=== PATIENT | female | born 1990 | race Caucasian/White ===

== ENCOUNTER 2024-05-20 13:24 | Outpatient (REF) | payer MEDICAID, SELFPAY ==
[2024-05-20 13:45] LABS: Bilirubin Urine NEGATIVE (NEGATIVE); Blood Urine NEGATIVE (NEGATIVE); Clarity Urine CLEAR (CLEAR); Color Urine LT. YELLOW (YELLOW); Glucose Urine UA NEGATIVE (NEGATIVE); Ketones Urine NEGATIVE (NEGATIVE); Leukocyte Esterase Urine NEGATIVE (NEGATIVE); Nitrite Urine NEGATIVE (NEGATIVE); Protein Urine NEGATIVE (NEG/TRACE); Specific Gravity Urine <=1.005 (1.005-1.025); Urobilinogen Urine 0.2 EU/dL (0.2-1.0); pH Urine 6.5 (5.0-9.0)
[2024-05-20 13:46] LABS: Urine Microscopic Indicated NO
== END 2024-05-20 13:25 | disposition home or self-care (01) ==
LOC: LAB 13:24
PROVIDERS: PCP Family Medicine; Visit Provider Family Medicine
DX: R35.0 Frequency of micturition (principal)
CPT/HCPCS: 81003

== ENCOUNTER 2025-05-02 06:55 | Outpatient (OUT) | payer MEDICAID, SELFPAY ==
--- OUTSIDE RECORDS SUMMARY | 2025-05-02 06:58 | XMS_ITS | CCD ---
Author Organization [facility] Care Team Providers Care Secondary Special Education Teacher Name Role Phone Unavailable Primary Care Provider UnavailSoraya Jang MD Primary Care Provider No Family, Physician Primary Care Unavailable ENOC MOSES Attending Unavailable DO DONTE TAVERAS Admitting Unavailable BRIGITTE SILVER Consulting UnavailSORAYA [place] Primary Care Unava ilable CECI PICKETT Attending Unavailable MICHELLE HARTMANN Consulting Unavailable No Family, Physician Primary Care Unavailable BRIGITTE SILVER Consulting Unavaila KEYUR Nguyen Attending Unavailable No Family, Physician Primary Care Unavailable KEYUR MAX Attending Unavailable No Family, Physician Primary Care Unavailable SHAGUFTA COOPER Attending Unavailable DO Db Newell Emergency Provider MD Meg Sexton (OTT) Primary Care Provider MD Isidro Barton Admit Provider [phone] MD Isidro Barton Attending Provider [phone] MD Kendrick Specialist Neuro Other Provider Unavailable MD Rayo Goode Severe Other Provider MD Julieta Lee Attending Provider Julieta Lee Attending Unavailable Isidro Barton Admitting Unavailable Meg Sexton ([place]) Primary Care Rayo Gonzalez Consulting Unavailable TeleMedicine, Specialist Neuro Consulting U navailable Allergies Allergy Classification Reported Allergen(s) Allergy Type Date of Onset Reaction(s) Facility (4 sources) -No Environmental Allergies Allergy to substance 12-08-2023 [facility] Medications Current Medications Medication Drug Class(es) Dates Sig (Normalized) Sig (Original) acetaminophen 325 mg oral tablet (3 sources) Start: 04-26-20 24 take 650 mg by mouth every eight hours as needed Acetaminophen Active 650 MG PO Every 8 hr as needed April 26, 2024 12:00am citalopram 20 mg oral tablet (4 sources) Serotonin Reuptake Inhibitor take 1 tablet by mouth once daily citalopram (CELEXA) 20 MG tablet Take 20 mg by mouth daily. 0 Active clonazePAM 0.5 mg oral tablet (4 sources) Benzodiazepine take 0.25 mg by mouth twice daily as needed for anxiety dicyclomine hydrochloride 10 mg oral capsule (4 sources) Anticholinergic Start: 01-09-20 15 take 2 capsules by mouth four times daily before mealtime dicyclomine (BENTYL) 10 MG capsule Take 2 capsules by mouth 4 times daily (before meals and nightly). 40 capsule 0 01/09/2015 Active dilTIAZem hydrochloride 60 mg oral tablet (2 sources) Calcium Channel Lanny Start: 05-01-20 24 take 60 mg by mouth every eight hours Diltiazem Hcl Active 60 MG PO Q8H 90 May 01, 2024 12:00am 1 ml medroxyPROGESTERone acetate 150 mg/ml prefilled syringe (3 sources) Progestin Start: 04-26-20 24 Medroxyprogesterone Active 150 MG IM Q3M April 26, 2024 12:00am melatonin 3 mg oral tablet (3 sources) Start: 04-26-20 24 take 6 mg by mouth once daily in the evening Melatonin Active 6 MG PO Daily in the evening April 26, 2024 12:00am ondansetron 4 mg disintegrating oral tablet (4 sources) Serotonin-3 Receptor Antagonist Start: 01-09-20 15 take 1 tablet by mouth every eight hours as needed for nausea ondansetron (ZOFRAN ODT) 4 MG disintegrating tablet Take 1 tablet by mouth every 8 hours as needed for Nausea or Vomiting. 20 tablet 0 01/09/2015 Active polymyxin b 67088 unt/ml / trimethoprim 1 mg/ml ophthalmic solution (3 sources) Dihydrofolate Reductase Inhibitor Antibacterial, Polymyxin-class Antibacterial Start: 04-26-20 24 take 1 drop(s) into the eye(s) four times daily Polymyxin B Sulf-Trimethoprim Active 1 DROP EYE,BOTH Four Times Daily April 26, 2024 12:00am QUEtiapine 25 mg oral tablet (3 sources) Atypical Antipsychotic Start: 05-01-20 take 50 mg by mouth twice daily Quetiapine Active 50 MG PO Twice Daily 120 May 01, 2024 12:00am Start: 04-26-2024 take 12.5 mg by mout h twice daily Quetiapine Active 12.5 MG PO Twice Daily April 26, 2024 12:00am traZODone hydrochloride 50 mg oral tablet (4 sources) Serotonin Reuptake Inhibitor take 1 tablet by mouth twice daily as needed for sleep traZODone (DESYREL) 50 MG tablet Take 50 mg by mouth 2 times daily as needed for Sleep. 0 Active Completed/Discontinued Medications Medication Drug Class(es) Dates Sig (Normalized) Sig (Original) 1 ml ketorolac tromethamine 30 mg/ml cartridge (1 source) Nonsteroidal Anti-inflammatory Drug, Cyclooxygenase Inhibitor Start: 10-30-2023 End: 10-30-2023 ketorolac (TORADOL) injection 30 mg 1 ml LORazepam 2 mg/ml injection (1 source) Benzodiazepine Start: 11-01-2023 End: 11-01-2023 LORazepam (ATIVAN) injection 1 mg Start: 11-01-2023 End: 11-01-2023 LORazepam (ATIVAN) injection 1 mg raNITIdine 150 mg oral tablet (4 sources) Histamine-2 Receptor Antagonist Start: 09-10-2008 End: 10-13-2020 Zantac 150 MG OR TABS 09/10/2008 - 10/13/2020 Provider: [place] Provider Problems Active Problems Problem Classification Problem Date Documented Date Episodic/Chronic Anxiety disorders (12 sources) Generalized anxiety disorder; Translations: [Generalized anxiety disorder] Onset: 12-08-2023 12-08-2023 Chronic Attention-deficit, conduct, and disruptive behavior disorders (1 source) Aggressive behavior; Translations: [Other symptoms and signs involving appearance and behavior] Episodic Cardiac dysrhythmias (2 sources) Sinus tachycardia; Translations: [Tachycardia, unspecified] 04-27-2024 Episodic Developmental disorders (3 sources) Intellectual disability; Translations: [Unspecified intellectual disabilities] Onset: 11-01-2023 Chronic Disorders usually diagnosed in infancy, childhood, or adolescence (12 sources) Pervasive developmental disorder, unspecified; Translations: [Pervasive Developmental Disorder] Onset: 12-08-2023 12-08-2023 Chronic E Codes: Fall (1 source) Fall on same level; Translations: [Fall on same level, unspecified, initial encounter] Episodic Fluid and electrolyte disorders (2 sources) Hyponatremia; Translations: [Hypo-osmolality and hyponatremia] Onset: 10-30-2023 10-30-2023 Episodic Mood disorders (13 sources) Mood disorder; Translations: [Unspecified mood [affective] disorder] Onset: 12-08-2023 Chronic Nutritional deficiencies (1 source) Cachexia; Translations: [Cachexia] Onset: 12-26-2023 Episodic Other nervous system disorders (2 sources) Disorder of brain; Translations: [Encephalopathy, unspecified] 04-27-2024 Chronic Other nervous system disorders (3 sources) Encephalopathy, unspecified; Translations: [Encephalopathy, unspecified] 04-27-2024 Chronic Other nutritional; endocrine; and metabolic disorders (6 sources) Finding of body mass index; Translations: [Body mass index (observable entity)] Onset: 12-08-2023 Episodic Other nutritional; endocrine; and metabolic disorders (2 sources) Abnormal weight loss; Translations: [Abnormal weight loss] Onset: 12-26-2023 12-26-2023 Episodic Other nutritional; endocrine; and metabolic disorders (3 sources) Unspecified lack of expected normal physiological development in childhood; Translations: [Lack of normal physiological development, unspecified] Onset: 12-28-2023 05-01-2024 Episodic Other nutritional; endocrine; and metabolic disorders (2 sources) Developmental delay; Translations: [Unspecified lack of expected normal physiological development in childhood] 04-28-2024 Episodic Other screening for suspected conditions (not mental disorders or infectious disease) (4 sources) Encounter for screening for diabetes mellitus; Translations: [Diabetes Risk Test Score] Onset: 12-08-2023 Episodic Personality disorders (2 sources) Problem behavior in adult; 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] Onset: 11-01-2023 11-02-2023 Chronic Residual codes; unclassified (2 sources) Other specified personal risk factors, not elsewhere classified; Translations: [Other specified personal history presenting hazards to health] Onset: 10-30-2023 10-30-2023 Episodic Residual codes; unclassified (1 source) Other specified health status; Translations: [Other specified health status] Onset: 12-27-2023 Episodic Past or Other Problems Problem Classification Problem Date Documented Da te Episodic/Chronic Attention-deficit, conduct, and disruptive behavior disorders (1 source) Other symptoms and signs involving appearance and behavior; Translations: [Other symptoms and signs involving appearance and behavior] Onset: 10-19-2023 Episodic Results Test Name Value Interpretation Reference Range Facility Case Management Daily Noteon 05-02-2024 Case Management Daily Note [facility] Case Management Patient: CINDY STACY. : 1990 [place], [place] [address] Location: [phone] Unit #: [id number] Case Management Daily Note Brenda Garcia RN Service Date: 05/01/24 Case Mgmt Daily Note - Plan of Care Engraving Patternmaker Agrees with Attending and Consult Plan: Yes - Patient Preferences AND Goals What is the patient's preference?: Return to SNF Recommended acute discharge goals: Return to SNF - Hospital Stay Days Day 1 Comment: 04/27 Patient is from [facility] and is a LTR. CM spoke with patients guardian Christal who reports the plan is for patient to return to [facility] at d/c. Christal reporting patient is normally independent with ambulation, ADLs, and that [facility] Se[facility]. Contact is yenny Siegel. c/s. 1:1 sitter present at bedside. Engraving Patternmaker: Brenda Garcia, RN Day 4 Comment: 04/30 Patient resting in bed during CM rounds. 1:[address] Goode consulted to see patient. Patients d/c plan is to return to [facility]. Per her guardian, they are currently working on getting her placed at a [facility]. Engraving Patternmaker: Brenda Garcia, RN Day 5 Comment: 05/01 Patient will return to [facility] when medically ready. No precert needed. Dr Goode saw yesterday, medication adjustments done. GANGA completed. Engraving Patternmaker: Brenda Garcia, RN - Residential Facility SNF List Provided: No - LTR at [facility] Residential Facilities: [facility] Social Work Consult initiated for SNF: Yes Patient Accepted Facility: Yes - Respiratory Equipment Does the patient use/have any of these devices at home?: N/A - Community Services SNF/LTAC Placement: Initiated - * L * Length of Stay LOS (Including day of Admission and Discharge): 5 LOS Score: 4 - * A * Acuity on Admission ER Provider if admitted from ER (view): PHILIPPE Was patient admitted to hospital via Emergency Dept? Score: 3 - * C * Comorbidities Select All Conditions that Apply: No Comorbidity Condition Comorbidities Total Score: 0 - * E * Emergency Department Visits # of ER visits,6mos prior to admit,excl this admits ER visit: 0 Enter this number or 4 (whichever is smaller): 0 - LACE SCORE LACE Score: 7 - ANTICIPATED DISCHARGE Anticipated Discharge Date: 05/01/24 Is a ALLEN Form Required?: No Entered by: Brenda Garcia RN on 05/01/24 0829 Report Signed by: Brenda Garcia RN on 05/02/24 0746 < > Co-Signed by: on Normal [facility] Absolute eosinophil countOrd ered By: Isidro Barton on 05-01-2024 Blood coagulation panel 0 /cmm 0-500 L [facility] Automated absolute lymphocyt e countOrdered By: Isidro Barton on 05-01-2024 Absolute Lymphocytes (auto) 1600 /cmm 5509-1809 [facility] Automated absolute neutrophi l countOrdered By: Isidro israel on 05-01-2024 Absolute Neutrophils (auto) 5800 /cmm 0908-0077 [facility] Basic Metabolic,Non-Fastingo n 05-01-2024 Anion gap [Moles/Vol] 4 mmol/L Normal 4-12 [facility] Comment on above: Performed By: #### L 400.5100, L400.0152 ####Main Laboratory ([facility])[address] [phone] Nivar, MD Calcium [Mass/Vol] 8.70 mg/dL Low 8.8-10.5 [facility] Comment on above: Performed By: #### L 400.5100, L400.0152 ####Main Laboratory ([facility])[address], [place] [phone] Nivar, MD Chloride [Moles/Vol] 110 mmol/L Normal 101-111 [facility] Comment on above: Performed By: #### L 400.5100, L400.0152 ####Main Laboratory ([facility])[address], [place] [phone] Nivar, MD CO2 [Moles/Vol] 27 mmol/L Normal 21-32 [facility] Comment on above: Performed By: #### L 400.5100, L400.0152 ####Main Laboratory ([facility])[address], [place] [phone] Nivar, MD Creatinine [Mass/Vol] 0.81 mg/dL Normal 0.60-1.30 [facility] Comment on above: Performed By: #### L 400.5100, L400.0152 ####Main Laboratory ([facility])[address] [phone] Nivar, MD GFR Calculation > 60 Normal [facility] Comment on above: Result Comment: Tanning Drum Operator nelli Kidney Disease stages by NKDF Stage eGFR I >90 II 60-89 III 30-59 IV 15-29 V <15 or dialysis AGE(years) AVERAGE GFR 30-39 107 ml/min/1.73 square meters Note:This result is normalized to 1.73 square meter body surface area. Height and weight are not factored. Performed By: #### L 400.5100, L400.0152 ####Main Laboratory ([facility])[address] [phone] Nivar, MD Glucose [Mass/Vol] 98 mg/dL Normal 70-110 [facility] Comment on above: Result Comment: *Thi s reference range applies to fasting specimens only. Performed By: #### L 400.5100, L400.0152 ####Main Laboratory ([facility])[address], [place] [phone] Nivar, MD Potassium [Moles/Vol] 4.1 mmol/L Normal 3.6-5.0 [facility] Comment on above: Performed By: #### L 400.5100, L400.0152 ####Main Laboratory ([facility])[address], [place] [phone] Nivar, MD Sodium [Moles/Vol] 141 mmol/L Normal 135-145 [facility] Comment on above: Performed By: #### L 400.5100, L400.0152 ####Main Laboratory ([facility])[address] [place] [phone] Nivar, MD Urea nitrogen [Mass/Vol] 12 mg/dL Normal 7-20 [facility] Comment on above: Performed By: #### L 400.5100, L400.0152 ####Main Laboratory ([facility])[address] [place] [phone] Nivar, MD Basophils Auto (Bld) [#/Vol] Ordered By: Isidro Barton on 05-01-2024 Basophils (Bld) [#/Vol] 100 /cmm 0-200 L [facility] Basophils/100 WBC Auto (Bld) Ordered By: Isidro Barton on 05-01-2024 Basophils/100 WBC (Bld) 0.7 % 0-2 L [facility] Blood anion gapOrdered By: Austin Barton on 05-01-2024 Anion gap (Bld) [Moles/Vol] 4 mmol/L 4-12 [facility] Blood hematocrit (volume fra ction)Ordered By: Isidro Barton on 05-01-2024 Hematocrit (Bld) [Volume fraction] 39.2 % 35.0-44.0 [facility] Blood hemoglobin measurement (mass/volume)Ordered By: Isidro Barton on 05-01-2024 Hemoglobin (Bld) [Mass/Vol] 12.7 g/dL 12.0-15.0 [facility] CBC with Differentialon 04-14 Abs Baso Count 100 /cmm Normal 0-200 [facility] Comment on above: Performed By: #### L 300.3000, L300.7701 #### Main Laboratory ([facility]) [address] [place] [address] Dusty Haro MD Abs Eos Count 0 /cmm Normal 0-500 [facility] Comment on above: Performed By: #### L 300.3000, L300.7701 #### Main Laboratory ([facility]) [address] [place] [address] Dusty Haro MD Abs Lymph Count 1600 /cmm Normal 3972-3085 [facility] Comment on above: Performed By: #### L 300.3000, L300.7701 #### Main Laboratory ([facility]) [address] [place], [facility] Dusty Haro MD Abs Wells Count 600 /cmm Normal 0-800 [facility] Comment on above: Performed By: #### L 300.3000, L300.7701 #### Main Laboratory ([facility]) [address] [place] [address] Dusty Haro MD Abs Neut Count 5800 /cmm Normal 3775-5670 [facility] Comment on above: Performed By: #### L 300.3000, L300.7701 #### Main Laboratory ([facility]) [address] [place] [address] Dusty Haro MD Basophils/100 WBC (Bld) 0.7 % Normal 0-2 L [facility] Comment on above: Performed By: #### L 300.3000, L300.7701 #### Main Laboratory ([facility]) [address] [place] [address] Dusty Haro MD EOS-Auto Diff 0.1 % Normal 0-6 [facility] Comment on above: Performed By: #### L 300.3000, L300.7701 #### Main Laboratory ([facility]) [address] [place], [place] [address] Dusty Haro MD Erythrocyte distribution width (RBC) [Ratio] 15.5 % Normal 12.0-16.0 [facility] Comment on above: Performed By: #### L 300.3000, L300.7701 #### Main Laboratory ([facility]) [address] [place], [place] [address] Dusty Haro MD Hematocrit (Bld) [Volume fraction] 39.2 % Normal 35.0-44.0 [facility] Comment on above: Performed By: #### L 300.3000, L300.7701 #### Main Laboratory ([facility]) [address] [place] [address] Dutsy Haro MD Hemoglobin (Bld) [Mass/Vol] 12.7 g/dL Normal 12.0-15.0 [facility] Comment on above: Performed By: #### L 300.3000, L300.7701 #### Main Laboratory ([facility]) [address] [place], [place] [address] Dusty Haro MD Lymphocytes/100 WBC (Bld) 20.1 % Normal 15-45 [facility] Comment on above: Performed By: #### L 300.3000, L300.7701 #### Main Laboratory ([facility]) [address] [place] [address] Dusty Haro MD MCH (RBC) [Entitic mass] 27.8 pg Normal 27.5-33.0 [facility] Comment on above: Performed By: #### L 300.3000, L300.7701 #### Main Laboratory ([facility]) [address] [place] [address] Dusty Haro MD MCHC (RBC) [Mass/Vol] 32.3 g/dL Low 33.0-36.0 [facility] Comment on above: Performed By: #### L 300.3000, L300.7701 #### Main Laboratory ([facility]) [address] [place], [place] [address] Dusty Haro MD MCV 85.9 CU RK Normal 80-97 [facility] Comment on above: Performed By: #### L 300.3000, L300.7701 #### Main Laboratory ([facility]) [address] [place], [place] [address] Dusty Haro MD Wells- Auto Diff 7.1 % Normal 2-10 [facility] Comment on above: Performed By: #### L 300.3000, L300.7701 #### Main Laboratory ([facility]) [address] [place], [place] [address] Dusty Haro MD Neut-Auto Diff 72.0 % High 40-70 [facility] Comment on above: Performed By: #### L 300.3000, L300.7701 #### Main Laboratory ([facility]) [address] [place], [place] [address] Dusty Haro MD NRBC-Auto 0.0 /100 WBC Normal <1 [facility] Comment on above: Performed By: #### L 300.3000, L300.7701 #### Main Laboratory ([facility]) [address] [place], [facility] Dusty Haro MD Platelet Count 292 th/cmm Normal 150-400 [facility] Comment on above: Performed By: #### L 300.3000, L300.7701 #### Main Laboratory ([facility]) [address] [place], [place] [address] Dusty Haro MD RBC 4.56 mil/cmm Normal 4.00-5.10 [facility] Comment on above: Performed By: #### L 300.3000, L300.7701 #### Main Laboratory ([facility]) [address] [place], [place] [address] Dusty Haro MD WBC 8.0 th/cmm Normal 4.4-10.5 [facility] Comment on above: Performed By: #### L 300.3000, L300.7701 #### Main Laboratory ([facility]) [address] [place] [address] Dusty Haro MD Eosinophils/100 WBC Auto (Bl d)Ordered By: Isidro Barton on 05-01-2024 Eosinophils/100 WBC (Bld) 0.1 % 0-6 [facility] Erythrocyte distribution wid th ratioOrdered By: Isidro Barton on 05-01-2024 Erythrocyte distribution width (RBC) [Ratio] 15.5 % 12.0-16.0 [facility] Glomerular filtration rate ( GFR) estimation/1.73 sq m using serum, plasma, or whole bOrdered By: Isidro Barton on 05-01-2024 GFR/1.73 sq M.predicted (S/P/Bld) [Vol rate/Area] mL/min >60 [facility] Comment on above: AGE(years) AVERAGE G FR 30-39 107 ml/min/1.73 square metersNote:This result is normalized to 1.73 square meter body surface area. Height and weight are not factored.Chronic Kidney Disease stages by NKDFStage eGFR I >90 II 60-89 III 30-59 IV 15-29 V <15 or dialysis Lymphocytes/100 WBC Auto (Bl d)Ordered By: Isidro Barton on 05-01-2024 Lymphocytes/100 WBC (Bld) 20.1 % 15-45 [facility] MCH Auto (RBC) [Entitic mass ]Ordered By: Isidro Barton on 05-01-2024 MCH (RBC) [Entitic mass] 27.8 pg 27.5-33.0 [facility] MCHC Auto (RBC) [Mass/Vol]Or dered By: Isidro Barton on 05-01-2024 MCHC (RBC) [Mass/Vol] 32.3 g/dL Low 33.0-36.0 [facility] MCV Auto (RBC) [Entitic vol] Ordered By: Isidro Barton on 05-01-2024 MCV (RBC) [Entitic vol] 85.9 CU RK 80-97 [facility] Magnesiumon 05-01-2024 Magnesium [Mass/Vol] 1.9 mg/dL Normal 1.8-2.5 [facility] Comment on above: Performed By: #### L 400.5100, L400.0152 ####Main Laboratory ([facility])[address] [place], [place] [phone] Nivar, MD Monocytes Auto (Bld) [#/Vol] Ordered By: Isidro Barton on 05-01-2024 Monocytes (Bld) [#/Vol] 600 /cmm 0-800 L [facility] Monocytes/100 WBC Auto (Bld) Ordered By: Isidro Barton on 05-01-2024 Monocytes/100 WBC (Bld) 7.1 % 2-10 L [facility] Neutrophils/100 WBC Auto (Bl d)Ordered By: Isidro Barton on 05-01-2024 Neutrophils/100 WBC (Bld) 72.0 % High 40-70 [facility] Nucleated RBC Auto (Bld) [#/ Vol]Ordered By: Isidro Barton on 05-01-2024 Nucleated RBC (Bld) [#/Vol] 0.0 /100 WBC <1 [facility] Platelets Auto (Bld) [#/Vol] Ordered By: Isidro Barton on 05-01-2024 Platelets (Bld) [#/Vol] 292 th/cmm 150-400 L [facility] RBC Auto (Bld) [#/Vol]Ordere d By: Isidro Barton on 05-01-2024 RBC (Bld) [#/Vol] 4.56 mil/cmm 4.00-5.10 [facility] Serum or plasma calcium guillermina urement (mass/volume)Ordered By: Isidro Barton on 05-01-2024 Calcium [Mass/Vol] 8.70 mg/dL Low 8.8-10.5 [facility] Serum or plasma chloride margy surement (moles/volume)Ordered By: Isidro Barton on 05-01-2024 Chloride [Moles/Vol] 110 mmol/L 101-111 [facility] Serum or plasma creatinine m easurement (mass/volume)Ordered By: Isidro Barton on 05-01-2024 Creatinine [Mass/Vol] 0.81 mg/dL 0.60-1.30 [facility] Serum or plasma glucose guillermina urement (mass/volume)Ordered By: Isidro Barton on 05-01-2024 Glucose [Mass/Vol] 98 mg/dL 70-110 [facility] Comment on above: *This reference rang e applies to fasting specimens only. Serum or plasma magnesium me asurement (mass/volume)Ordered By: Isidro Barton on 05-01-2024 Magnesium [Mass/Vol] 1.9 mg/dL 1.8-2.5 [facility] Serum or plasma potassium me asurement (moles/volume)Ordered By: Isidro Barton on 05-01-2024 Potassium [Moles/Vol] 4.1 mmol/L 3.6-5.0 [facility] Serum or plasma sodium measu rement (moles/volume)Ordered By: Isidro Barton on 05-01-2024 Sodium [Moles/Vol] 141 mmol/L 135-145 [facility] Serum or plasma total carbon dioxide measurement (moles/volume)Ordered By: Isidro Barton on 05-01-2024 CO2 [Moles/Vol] 27 mmol/L 21-32 [facility] Serum or plasma urea nitroge n measurement (mass/volume)Ordered By: Isidro Barton on 05-01-2024 Urea nitrogen [Mass/Vol] 12 mg/dL 7-20 [facility] WBC Auto (Bld) [#/Vol]Ordere d By: Isidro Barton on 05-01-2024 WBC (Bld) [#/Vol] 8.0 th/cmm 4.4-10.5 [facility] Basic Metabolic,Non-Fastingo n 04-30-2024 Anion gap [Moles/Vol] 9 mmol/L Normal 4-12 [facility] [facility] Comment on above: Performed By: #### L 300.3000, L300.7701 #### Main Laboratory ([facility]) [address] [place] [address] Dusty Haro MD Calcium [Mass/Vol] 9.50 mg/dL Normal 8.8-10.5 [facility] Comment on above: Performed By: #### L 300.3000, L300.7701 #### Main Laboratory ([facility]) [address] [place] [address] Dusty Haro MD Chloride [Moles/Vol] 106 mmol/L Normal 101-111 [facility] Comment on above: Performed By: #### L 300.3000, L300.7701 #### Main Laboratory ([facility]) [address] [place] [address] Dusty Haro MD CO2 [Moles/Vol] 22 mmol/L Normal 21-32 [facility] Comment on above: Performed By: #### L 300.3000, L300.7701 #### Main Laboratory ([facility]) [address] [place] [address] Dusty Haro MD Creatinine [Mass/Vol] 0.92 mg/dL Normal 0.60-1.30 [facility] Comment on above: Performed By: #### L 300.3000, L300.7701 #### Main Laboratory ([facility]) [address] [place] [address] Dusty Haro MD GFR Calculation > 60 Normal [facility] Comment on above: Result Comment: Tanning Drum Operator nelli Kidney Disease stages by NKDF Stage eGFR I >90 II 60-89 III 30-59 IV 15-29 V <15 or dialysis AGE(years) AVERAGE GFR 30-39 107 ml/min/1.73 square meters Note:This result is normalized to 1.73 square meter body surface area. Height and weight are not factored. Performed By: #### L 300.3000, L300.7701 #### Main Laboratory ([facility]) [address] [place] [address] Dusty Haro MD Glucose [Mass/Vol] 149 mg/dL High 70-110 [facility] Comment on above: Performed By: #### L 300.3000, L300.7701 #### Main Laboratory ([facility]) [address] [place] [address] Dusty Haro MD Potassium [Moles/Vol] 3.1 mmol/L Low 3.6-5.0 [facility] Comment on above: Performed By: #### L 300.3000, L300.7701 #### Main Laboratory ([facility]) [address] [place] [address] Dusty Haro MD Sodium [Moles/Vol] 137 mmol/L Normal 135-145 [facility] Comment on above: Performed By: #### L 300.3000, L300.7701 #### Main Laboratory ([facility]) [address] [place] [address] Dusty Haro MD Urea nitrogen [Mass/Vol] 19 mg/dL Normal 7-20 [facility] Comment on above: Performed By: #### L 300.3000, L300.7701 #### Main Laboratory ([facility]) [address] [place] [address] Dusty Haro MD CBC with Differentialon 04-14 Abs Baso Count 100 /cmm Normal 0-200 [facility] Comment on above: Performed By: #### L 300.3000, L300.7701 #### Main Laboratory ([facility]) [address] [place], [place] [address] Dusty Haro MD Abs Eos Count 0 /cmm Normal 0-500 [facility] Comment on above: Performed By: #### L 300.3000, L300.7701 #### Main Laboratory ([facility]) [address] [place] [address] Dusty Haro MD Abs Lymph Count 1500 /cmm Normal 8954-0890 [facility] Comment on above: Performed By: #### L 300.3000, L300.7701 #### Main Laboratory ([facility]) [address] [place], [facility] Dusty Haro MD Abs Wells Count 900 /cmm High 0-800 [facility] Comment on above: Performed By: #### L 300.3000, L300.7701 #### Main Laboratory ([facility]) [address] [place], [facility] Dusty Haro MD Abs Neut Count 07626 /cmm High 4618-2345 [facility] Comment on above: Performed By: #### L 300.3000, L300.7701 #### Main Laboratory ([facility]) [address] [place], [place] [address] Dusty Haro MD Basophils/100 WBC (Bld) 0.5 % Normal 0-2 L [facility] Comment on above: Performed By: #### L 300.3000, L300.7701 #### Main Laboratory ([facility]) [address] [place], [facility] Dusty Haro MD EOS-Auto Diff 0.0 % Normal 0-6 [facility] Comment on above: Performed By: #### L 300.3000, L300.7701 #### Main Laboratory ([facility]) [address] [place], [facility] Dusty Haro MD Erythrocyte distribution width (RBC) [Ratio] 15.7 % Normal 12.0-16.0 [facility] Comment on above: Performed By: #### L 300.3000, L300.7701 #### Main Laboratory ([facility]) [address] [place], [facility] Dusty Haro MD Hematocrit (Bld) [Volume fraction] 41.6 % Normal 35.0-44.0 [facility] Comment on above: Performed By: #### L 300.3000, L300.7701 #### Main Laboratory ([facility]) [address] [place], [place] [address] Dusty Haro MD Hemoglobin (Bld) [Mass/Vol] 13.8 g/dL Normal 12.0-15.0 [facility] Comment on above: Performed By: #### L 300.3000, L300.7701 #### Main Laboratory ([facility]) [address] [place] [address] Dusty Haro MD Lymphocytes/100 WBC (Bld) 10.6 % Low 15-45 [facility] Comment on above: Performed By: #### L 300.3000, L300.7701 #### Main Laboratory ([facility]) [address] [place], [facility] Dusty Haro MD MCH (RBC) [Entitic mass] 28.0 pg Normal 27.5-33.0 [facility] Comment on above: Performed By: #### L 300.3000, L300.7701 #### Main Laboratory ([facility]) [address] [place], [place] [address] Dusty Haro MD MCHC (RBC) [Mass/Vol] 33.2 g/dL Normal 33.0-36.0 [facility] Comment on above: Performed By: #### L 300.3000, L300.7701 #### Main Laboratory ([facility]) [address] [place], [facility] Dusty Haro MD MCV 84.4 CU RK Normal 80-97 [facility] Comment on above: Performed By: #### L 300.3000, L300.7701 #### Main Laboratory ([facility]) [address] [place], [facility] Dusty Haro MD Wells- Auto Diff 6.3 % Normal 2-10 [facility] Comment on above: Performed By: #### L 300.3000, L300.7701 #### Main Laboratory ([facility]) [address] [place] [address] Dusty Haro MD Neut-Auto Diff 82.6 % High 40-70 [facility] Comment on above: Performed By: #### L 300.3000, L300.7701 #### Main Laboratory ([facility]) [address] [place] [address] Dusty Haro MD NRBC-Auto 0.1 /100 WBC Normal <1 [facility] Comment on above: Performed By: #### L 300.3000, L300.7701 #### Main Laboratory ([facility]) [address] [place] [address] Dusty Haro MD Platelet Count 400 th/cmm Normal 150-400 [facility] Comment on above: Performed By: #### L 300.3000, L300.7701 #### Main Laboratory ([facility]) [address] [place] [address] Dusty Haro MD RBC 4.93 mil/cmm Normal 4.00-5.10 [facility] Comment on above: Performed By: #### L 300.3000, L300.7701 #### Main Laboratory ([facility]) [address] [place] [address] Dusty Haro MD WBC 13.8 th/cmm High 4.4-10.5 [facility] Comment on above: Performed By: #### L 300.3000, L300.7701 #### Main Laboratory ([facility]) [address] [place] [address] Dusty Haro MD Case Management Daily Noteon 04-30-2024 Case Management Daily Note [facility] Case Management Patient: CINDY STACY [address] : 1990 [place] [address] Location: [address] [place] [address] Unit #: [id number] Case Management Daily Note Brenda Garcia RN Service Date: 04/30/24 Case Mgmt Daily Note - Plan of Care Engraving Patternmaker Agrees with Attending and Consult Plan: Yes - Patient Preferences AND Goals What is the patient's preference?: Return to SNF Recommended acute discharge goals: Return to SNF - Hospital Stay Days Day 1 Comment: 04/27 Patient is from [facility] and is a LTR. CM spoke with patients guardian Christal who reports the plan is for patient to return to [facility] at d/c. Christal reporting patient is normally independent with ambulation, ADLs, and that [facility] provides transportation for her to [facility]. PCP Meg Sexton. Contact is guardian Christal. c/s. 1:1 sitter present at bedside. Engraving Patternmaker: Brenda Garcia RN Day 4 Comment: 04/30 Patient resting in bed during CM rounds. 1:[address] Goode consulted to see patient. Patients d/c plan is to return to [facility]. Per her guardian, they are currently working on getting her placed at a [facility]. Engraving Patternmaker: Brenda Garcia, RN - Residential Facility SNF List Provided: No - LTR at [facility] Residential Facilities: [facility] Social Work Consult initiated for SNF: Yes Patient Accepted Facility: Yes - Respiratory Equipment Does the patient use/have any of these devices at home?: N/A - Community Services SNF/LTAC Placement: Initiated - * L * Length of Stay LOS (Including day of Admission and Discharge): 4 LOS Score: 4 - * A * Acuity on Admission ER Provider if admitted from ER (view): PHILIPPE Was patient admitted to hospital via Emergency Dept? Score: 3 - * C * Comorbidities Select All Conditions that Apply: No Comorbidity Condition Comorbidities Total Score: 0 - * E * Emergency Department Visits # of ER visits,6mos prior to admit,excl this admits ER visit: 0 Enter this number or 4 (whichever is smaller): 0 - LACE SCORE LACE Score: 7 - ANTICIPATED DISCHARGE Anticipated Discharge Date: 05/01/24 Is a ALLEN Form Required?: No Entered by: Brenda Garcia RN on 04/30/24 4320 Report Signed by: Brenda Garcia RN on 04/30/24 0531 < > Co-Signed by: on Normal [facility] Magnesiumon 04-30-2024 Magnesium [Mass/Vol] 2.0 mg/dL Normal 1.8-2.5 [facility] Comment on above: Performed By: #### L 300.3000, L300.7701 #### Main Laboratory ([facility]) [address] [place] [address] Dusty Haro MD Progress Note - Hospitalisto n 04-30-2024 Progress Note - Hospitalist [facility] Medical Records Patient: CINDY STACY [address] : 1990 [place], [place] [address] Location: [phone] Unit #: [id number] Progress Note - Hospitalist Vanessa Anne MD Service Dt/Tm: 04/30/24 1005 Assessment/Plan Assessment/Plan (1) Encephalopathy: Status: Acute Code(s): G93.40 - Encephalopathy, unspecified Plan: Etiology unclear, likely due to underlying MRDD. According to father and POA patient wants to move to a usp. The process is ongoing prior to this admission and patient may be frustrated because of the delay in transfer to usp. Attempt to obtain MRI brain has not been successful despite sedation with Geodon and Valium. Patient was evaluated by neurology, at this point MRI has been discontinued. CT head was nonacute. Psych to see patient today (2) Sinus tachycardia: Status: Acute Code(s): R00.0 - Tachycardia, unspecified Plan: Patient is persistently tachycardic. EKG sinus tachycardia, D-dimer is negative and patient is not hypoxic. Increase Cardizem to 60 mg every 8 hours and monitor blood pressure closely. (3) Developmental delay: Status: Acute Code(s): R62.50 - Unspecified lack of expected normal physiological development in childhood Plan: Patient is in the process of being transferred from ECF to usp. Plan Continue sitter at bedside. Plan to discharge patient in AM. Current Code Status AND Diet: 04/27/24 00:17 Code Status Routine Resuscitation Status: Full Code Code Status Order Placed: Code Status Ordered 04/27/24 at 0017 04/27/24 02:03 Regular Diet Texture: Regular Fluid Restrictions?: No Discussed Patient's Care With: Nurse and Case Management Subjective Subjective: Patient is unchanged. She is not aggressive towards the nursing staff. Wants to walk around. Sitter was at bedside. Patient Status AND Estimated DC Date Patient Registration Status: Inpatient Expected Date of Discharge: 05/01/24 Objective Physical Exam: Physical Exam: General appearance: Appears comfortable. Eyes: Sclera clear, pupils equal. ENT: Moist mucus membranes, no thrush. Trachea midline. Cardiovascular: Regular rhythm, + tachycardia no edema in lower extremities Respiratory: No wheeze, good inspiratory effort Gastrointestinal: Abdomen soft, not distended, +bowel sounds Musculoskeletal: No cyanosis in digits, neck supple. Neurology: Alert and oriented in person. No speech deficits Psychiatry: Not agitated. Skin: Warm, dry, normal turgor, no rash Constitutional: Last Vital Signs Temp Pulse Resp BP Pulse Ox 98.1 F 128 H 20 150/108 H 100 04/30/24 09:03 04/30/24 09:03 04/30/24 09:03 04/30/24 09:03 04/30/24 09:03 Intake and Output Intake Total 440 675 Output Total 2 Balance 440 673 Admitting (IV Pump) Weight 64.9 kg Actual Weight (Kg) 64.9 kg Data Labs: Magnesium 1.8 2.0 The last 24 hours of labs have been reviewed. Imaging: I have reviewed the diagnostic images in the EMR. Microbiology: Microbiology 04/27/24 03:14 Perianal MRSA Screen - Final No growth of MRSA after 2 days. Medications and Comanagement: Medications reviewed separately. Entered by: Vanessa Anne on 04/30/24 1005 Report Signed by: Vanessa Anne MD on 04/30/24 1011 < > Report Signed by: on Normal [facility] Social Work Daily Noteon Social Work Daily Note [facility] Biomaterials Engineer Patient: CINDY [address] : 1990 [place], [place] [address] Location: [facility] [phone] Unit #: [id number] Social Work Daily Note Db Loaiza Service Date: 04/30/24 Daily Note - * Psychosocial Assessment * I have reviewed nursing and case management psychosocial information.: Yes - * Hospital Stay Days * Day 1 Note: 04-27-24 MANDO consult for SNF. Per report pt is LT resident at [facility]. SW spoke with admissions at [facility], pt is a LT bedhold at facility and is able to return when medically approrpiate. Battery Recharger: Db Loaiza Day 4 Note: 05-01-24 Pt is LT bedhold at [facility], plan is for pt to return when medically appropriate. Per CM pt likely ready for dc tomorrow 05-01. MANDO spoke with admissions at [facility] and pt ok to return tomorrow. Mando faxed clinical updates to facility. - * Requested Intvs/Referrals * Car Designer Referrals: SNF/LTAC Placement - Community Services/Interventions SNF/LTAC Placement: Initiated - * HEALTHCARE DECISIONS * Living Will: Unknown Durable Power of Balance Engineer for Health Care: Unknown [place] DNR Comfort Care: Unknown State [facility] DNR Comfort Care Arrest: Unknown Entered by: Db Loaiza on 04/30/24 1511 Report Signed by: on Report Signed by: on Normal [facility] Basic Metabolic,Non-Fastingo n 04-29-2024 Anion gap [Moles/Vol] 10 mmol/L Normal 4-12 [facility] Comment on above: Order Comment: draw at this time. Performed By: #### L 400.0152, L400.5100 #### Main Laboratory ([facility]) [address] [place] [address] Dusty Haro MD Calcium [Mass/Vol] 8.70 mg/dL Low 8.8-10.5 [facility] Comment on above: Order Comment: draw at this time. Performed By: #### L 400.0152, [id number] #### Main Laboratory ([facility]) [address] [place] [address] Dusty Haro MD Chloride [Moles/Vol] 107 mmol/L Normal 101-111 [facility] Comment on above: Order Comment: draw at this time. Performed By: #### L 400.0152, [id number] #### Main Laboratory ([facility]) [address] [place] [address] Dusty Haro MD CO2 [Moles/Vol] 19 mmol/L Low 21-32 [facility] Comment on above: Order Comment: draw at this time. Performed By: #### L 400.0152, [id number] #### Main Laboratory ([facility]) [address] [place] [facility] Dusty Haro MD Creatinine [Mass/Vol] 0.87 mg/dL Normal 0.60-1.30 [facility] Comment on above: Order Comment: draw at this time. Performed By: #### L 400.0152, [id number] #### Main Laboratory ([facility]) [address] [place] [address] Dusty Haro MD GFR Calculation > 60 Normal [facility] Comment on above: Order Comment: draw at this time. Result Comment: Tanning Drum Operator nelli Kidney Disease stages by NKDF Stage eGFR I >90 II 60-89 III 30-59 IV 15-29 V <15 or dialysis AGE(years) AVERAGE GFR 30-39 107 ml/min/1.73 square meters Note:This result is normalized to 1.73 square meter body surface area. Height and weight are not factored. Performed By: #### L 400.0152, L400.5100 #### Main Laboratory ([facility]) [address] [place] [address] Dusty Haro MD Glucose [Mass/Vol] 101 mg/dL Normal 70-110 [facility] Comment on above: Order Comment: draw at this time. Result Comment: *Thi s reference range applies to fasting specimens only. Performed By: #### L 400.0152, L400.5100 #### Main Laboratory ([facility]) [address] [place] [address] Dusty Haro MD Potassium [Moles/Vol] 3.6 mmol/L Normal 3.6-5.0 [facility] Comment on above: Order Comment: draw at this time. Performed By: #### L 400.0152, L400.5100 #### Main Laboratory ([facility]) [address] [place] [address] Dusty Haro MD Sodium [Moles/Vol] 136 mmol/L Normal 135-145 [facility] Comment on above: Order Comment: draw at this time. Performed By: #### L 400.0152, L400.5100 #### Main Laboratory ([facility]) [address] [place] [address] Dusty Haro MD Urea nitrogen [Mass/Vol] 17 mg/dL Normal 7-20 [facility] Comment on above: Order Comment: draw at this time. Performed By: #### L 400.0152, [id number] #### Main Laboratory ([facility]) [address] [place] [address] Dusty Haro MD CBC with Differentialon 04-14 Abs Baso Count 0 /cmm Normal 0-200 [facility] Comment on above: Order Comment: Urine Source Urine, Clean Catch Performed By: #### L 300.3000, L300.7701 #### Main Laboratory ([facility]) [address] [place] [address] Dusty Haro MD Abs Eos Count 0 /cmm Normal 0-500 [facility] Comment on above: Order Comment: Urine Source Urine, Clean Catch Performed By: #### L 300.3000, [id number] #### Main Laboratory ([facility]) [address] [place] [id number] Dusty Haro MD Abs Lymph Count 1200 /cmm Normal 8516-7618 [facility] Comment on above: Order Comment: Urine Source Urine, Clean Catch Performed By: #### L 300.3000, L300.7701 #### Main Laboratory ([facility]) [address] [place] [address] Dusty Haro MD Abs Wells Count 700 /cmm Normal 0-800 [facility] Comment on above: Order Comment: Urine Source Urine, Clean Catch Performed By: #### L 300.3000, L300.7701 #### Main Laboratory ([facility]) [address] [place] [address] Dusty Haro MD Abs Neut Count 7400 /cmm Normal 6657-3021 [facility] Comment on above: Order Comment: Urine Source Urine, Clean Catch Performed By: #### L 300.3000, L300.7701 #### Main Laboratory ([facility]) [address] [place] [address] Dusty Haro MD Basophils/100 WBC (Bld) 0.2 % Normal 0-2 L [facility] Comment on above: Order Comment: Urine Source Urine, Clean Catch Performed By: #### L 300.3000, L300.7701 #### Main Laboratory ([facility]) [address] [place] [address] Dusty Haro MD EOS-Auto Diff 0.0 % Normal 0-6 [facility] Comment on above: Order Comment: Urine Source Urine, Clean Catch Performed By: #### L 300.3000, L300.7701 #### Main Laboratory ([facility]) [address] [place] [address] Dusty Haro MD Erythrocyte distribution width (RBC) [Ratio] 15.9 % Normal 12.0-16.0 [facility] Comment on above: Order Comment: Urine Source Urine, Clean Catch Performed By: #### L 300.3000, L300.7701 #### Main Laboratory ([facility]) [address] [place] [address] Dusty Haro MD Hematocrit (Bld) [Volume fraction] 39.8 % Normal 35.0-44.0 [facility] Comment on above: Order Comment: Urine Source Urine, Clean Catch Performed By: #### L 300.3000, L300.7701 #### Main Laboratory ([facility]) [address] [place] [address] Dusty Haro MD Hemoglobin (Bld) [Mass/Vol] 13.2 g/dL Normal 12.0-15.0 [facility] Comment on above: Order Comment: Urine Source Urine, Clean Catch Performed By: #### L 300.3000, L300.7701 #### Main Laboratory ([facility]) [address] [place] [address] Dusty Haro MD Lymphocytes/100 WBC (Bld) 12.5 % Low 15-45 [facility] Comment on above: Order Comment: Urine Source Urine, Clean Catch Performed By: #### L 300.3000, L300.7701 #### Main Laboratory ([facility]) [address] [place] [address] Dusty Haro MD MCH (RBC) [Entitic mass] 27.9 pg Normal 27.5-33.0 [facility] Comment on above: Order Comment: Urine Source Urine, Clean Catch Performed By: #### L 300.3000, L300.7701 #### Main Laboratory ([facility]) [address] [place] [address] Dusty Haro MD MCHC (RBC) [Mass/Vol] 33.0 g/dL Normal 33.0-36.0 [facility] Comment on above: Order Comment: Urine Source Urine, Clean Catch Performed By: #### L 300.3000, L300.7701 #### Main Laboratory ([facility]) [address] [place] [address] Dusty Haro MD MCV 84.6 CU RK Normal 80-97 [facility] Comment on above: Order Comment: Urine Source Urine, Clean Catch Performed By: #### L 300.3000, L300.7701 #### Main Laboratory ([facility]) [address] [place] [address] Dusty Haro MD Wells- Auto Diff 7.6 % Normal 2-10 [facility] Comment on above: Order Comment: Urine Source Urine, Clean Catch Performed By: #### L 300.3000, L300.7701 #### Main Laboratory ([facility]) [address] [place], [place] [address] Dusty Haro MD Neut-Auto Diff 79.7 % High 40-70 [facility] Comment on above: Order Comment: Urine Source Urine, Clean Catch Performed By: #### L 300.3000, L300.7701 #### Main Laboratory ([facility]) [address] [place], [place] [address] Dusty Haro MD NRBC-Auto 0.1 /100 WBC Normal <1 [facility] Comment on above: Order Comment: Urine Source Urine, Clean Catch Performed By: #### L 300.3000, L300.7701 #### Main Laboratory ([facility]) [address] [place], [place] [address] Dusty Haro MD Platelet Count 354 th/cmm Normal 150-400 [facility] Comment on above: Order Comment: Urine Source Urine, Clean Catch Performed By: #### L 300.3000, L300.7701 #### Main Laboratory ([facility]) [address] [place] [address] Dusty Haro MD RBC 4.71 mil/cmm Normal 4.00-5.10 [facility] Comment on above: Order Comment: Urine Source Urine, Clean Catch Performed By: #### L 300.3000, L300.7701 #### Main Laboratory ([facility]) [address] [place], [place] [address] Dusty Haro MD WBC 9.3 th/cmm Normal 4.4-10.5 [facility] Comment on above: Order Comment: Urine Source Urine, Clean Catch Performed By: #### L 300.3000, L300.7701 #### Main Laboratory ([facility]) [address] [place], [place] [address] Dusty Haro MD MRSA screen, fecon 4 MRSA screen, fec No growth of MRSA af ter 2 days. Normal [facility] Comment on above: Performed By: #### L 300.3000, L300.7701 #### Main Laboratory ([facility]) [address] [place] [address] Dusty Haro MD Magnesiumon 04-29-2024 Magnesium [Mass/Vol] 1.8 mg/dL Normal 1.8-2.5 [facility] Comment on above: Order Comment: draw at this time. Performed By: #### L 400.0152, L400.5100 #### Main Laboratory ([facility]) [address] [place] [address] Dusty Haro MD Progress Note - Hospitalisto 04-29-2024 Progress Note - Hospitalist [facility] Medical Records Patient: CINDY STACY [address] : 1990 [place], [place] [address] Location: [phone] Unit #: [id number] Progress Note - Hospitalist Vanessa Anne MD Service Dt/Tm: 04/29/24 0900 Assessment/Plan Assessment/Plan (1) Encephalopathy: Status: Acute Code(s): G93.40 - Encephalopathy, unspecified Plan: Etiology unclear, likely due to underlying MRDD. According to father and POA patient wants to move to a usp. The process is ongoing prior to this admission and patient may be frustrated because of the delay in transfer to usp. Attempt to obtain MRI brain has not been successful despite sedation with Geodon and Valium. Patient was evaluated by neurology, at this point MRI has been discontinued. CT head was nonacute. Consulted psychiatrist Dr. Goode, will see patient today. (2) Sinus tachycardia: Status: Acute Code(s): R00.0 - Tachycardia, unspecified Plan: Patient is persistently tachycardic. EKG sinus tachycardia, D-dimer is negative and patient is not hypoxic. Continue with IV hydration and calcium channel lanny. Monitor blood pressure closely. (3) Developmental delay: Status: Acute Code(s): R62.50 - Unspecified lack of expected normal physiological development in childhood Plan: Patient is in the process of being transferred from ECF to [facility]p. Plan Continue sitter at bedside. Current Code Status AND Diet: 04/27/24 00:17 Code Status Routine Resuscitation Status: Full Code Code Status Order Placed: Code Status Ordered 04/27/24 at 0017 04/27/24 02:03 Regular Diet Texture: Regular Fluid Restrictions?: No Discussed Patient's Care With: Nurse and Case Management Subjective Subjective: Patient is awake and alert and ambulatory. Does not appear to have any focal neurologic deficit. Patient Status AND Estimated DC Date Patient Registration Status: Inpatient Objective Physical Exam: Physical Exam: General appearance: Appears comfortable. Eyes: Sclera clear, pupils equal ENT: Moist mucus membranes, no thrush. Trachea midline. Cardiovascular: Regular rhythm, No edema in lower extremities Respiratory: Clear to auscultation bilaterally, no wheeze, good inspiratory effort Gastrointestinal: Abdomen soft, not distended, + bowel sounds Musculoskeletal: No cyanosis in digits, neck supple Neurology: Alert and oriented in person. No motor deficits Psychiatry: Not agitated Skin: Warm, dry, normal turgor, no rash Constitutional: Last Vital Signs Temp Pulse Resp BP Pulse Ox 98.8 F 153 H 16 150/90 H 98 04/28/24 10:05 04/29/24 06:50 04/28/24 10:05 04/28/24 10:05 04/28/24 10:05 Intake and Output Intake Total 3060 440 Balance 3060 440 Admitting (IV Pump) Weight 64.9 kg Actual Weight (Kg) 64.9 kg Data Labs: The last 24 hours of labs have been reviewed. Imaging: I have reviewed the diagnostic images in the EMR. Microbiology: Microbiology 04/27/24 03:14 Perianal MRSA Screen - Final No growth of MRSA after 2 days. Medications and Comanagement: Medications reviewed separately. Entered by: Vanessa Anne on 04/29/24 0900 Report Signed by: Vanessa Anne MD on 04/29/24 0902 < > Report Signed by: on Normal [facility] Basic Metabolic,Non-Fastingo n 04-28-2024 Anion gap [Moles/Vol] 7 mmol/L Normal 4-12 [facility] Comment on above: Order Comment: very agitated Performed By: #### L 400.4600 #### Main Laboratory ([facility]) [address] [place] [address] Dusty Haro MD Calcium [Mass/Vol] 8.80 mg/dL Normal 8.8-10.5 [facility] Comment on above: Order Comment: very agitated Performed By: #### L 400.4600 #### Main Laboratory ([facility]) [address] [place] [address] Dusty Haro MD Chloride [Moles/Vol] 111 mmol/L Normal 101-111 [facility] Comment on above: Order Comment: very agitated Performed By: #### L 400.4600 #### Main Laboratory ([facility]) [address] [place] [address] Dusty Haro MD CO2 [Moles/Vol] 21 mmol/L Normal 21-32 [facility] Comment on above: Order Comment: very agitated Performed By: #### L 400.4600 #### Main Laboratory ([facility]) [address] [place] [address] Dusty Haro MD Creatinine [Mass/Vol] 0.82 mg/dL Normal 0.60-1.30 [facility] Comment on above: Order Comment: very agitated Performed By: #### L 400.4600 #### Main Laboratory ([facility]) [address] [place] [address] Dusty Haro MD GFR Calculation > 60 Normal [facility] Comment on above: Order Comment: very agitated Result Comment: Tanning Drum Operator nelli Kidney Disease stages by NKDF Stage eGFR I >90 II 60-89 III 30-59 IV 15-29 V <15 or dialysis AGE(years) AVERAGE GFR 30-39 107 ml/min/1.73 square meters Note:This result is normalized to 1.73 square meter body surface area. Height and weight are not factored. Performed By: #### L 400.4600 #### Main Laboratory ([facility]) [address] [place] [address] Dusty Haro MD Glucose [Mass/Vol] 105 mg/dL Normal 70-110 [facility] Comment on above: Order Comment: very agitated Result Comment: *Thi s reference range applies to fasting specimens only. Performed By: #### L 400.4600 #### Main Laboratory ([facility]) [address] [place] [address] Dusty Haro MD Potassium [Moles/Vol] 3.6 mmol/L Normal 3.6-5.0 [facility] Comment on above: Order Comment: very agitated Performed By: #### L 400.4600 #### Main Laboratory ([facility]) [address] [place] [address] Dusty Haro MD Sodium [Moles/Vol] 139 mmol/L Normal 135-145 [facility] Comment on above: Order Comment: very agitated Performed By: #### L 400.4600 #### Main Laboratory ([facility]) [address] [place] [address] Dusty Haro MD Urea nitrogen [Mass/Vol] 15 mg/dL Normal 7-20 [facility] Comment on above: Order Comment: very agitated Performed By: #### L 400.4600 #### Main Laboratory ([facility]) [address] [place] [address] Dusty Haro MD C-Reactive Proteinon 04-28- 024 CRP [Mass/Vol] mg/L Normal <1.0 [facility] Comment on above: Order Comment: very agitated Performed By: #### L 400.4600 #### Main Laboratory ([facility]) [address] [place] [address] Dusty Haro MD CBC with Differentialon 04-14 Abs Baso Count 0 /cmm Normal 0-200 [facility] Comment on above: Order Comment: very agitated Performed By: #### L 150.0000, L100.0000 ####Main Laboratory ([facility])[address], [place] [phone] Nivar, MD Abs Eos Count 0 /cmm Normal 0-500 [facility] Comment on above: Order Comment: very agitated Performed By: #### L 150.0000, L100.0000 ####Main Laboratory ([facility])[address], [place] [phone] Nivar, MD Abs Lymph Count 1200 /cmm Normal 2115-4367 [facility] Comment on above: Order Comment: very agitated Performed By: #### L 150.0000, L100.0000 ####Main Laboratory ([facility])[address], [place] [phone] Nivar, MD Abs Wells Count 600 /cmm Normal 0-800 [facility] Comment on above: Order Comment: very agitated Performed By: #### L 150.0000, L100.0000 ####Main Laboratory ([facility])[address], [place] [phone] Nivar, MD Abs Neut Count 9400 /cmm High 1055-2376 [facility] Comment on above: Order Comment: very agitated Performed By: #### L 150.0000, L100.0000 ####Main Laboratory ([facility])[address], [place] [phone] Nivar, MD Basophils/100 WBC (Bld) 0.1 % Normal 0-2 L [facility] Comment on above: Order Comment: very agitated Performed By: #### L 150.0000, L100.0000 ####Main Laboratory ([facility])[address], [place] [phone] Nivar, MD EOS-Auto Diff 0.0 % Normal 0-6 [facility] Comment on above: Order Comment: very agitated Performed By: #### L 150.0000, L100.0000 ####Main Laboratory ([facility])[address] [place], [place] [phone] Nivar, MD Erythrocyte distribution width (RBC) [Ratio] 15.8 % Normal 12.0-16.0 [facility] Comment on above: Order Comment: very agitated Performed By: #### L 150.0000, L100.0000 ####Main Laboratory ([facility])[address] [place], [place] [phone] Nivar, MD Hematocrit (Bld) [Volume fraction] 40.9 % Normal 35.0-44.0 [facility] Comment on above: Order Comment: very agitated Performed By: #### L 150.0000, L100.0000 ####Main Laboratory ([facility])[address] [place], [place] [phone] Nivar, MD Hemoglobin (Bld) [Mass/Vol] 13.4 g/dL Normal 12.0-15.0 [facility] Comment on above: Order Comment: very agitated Performed By: #### L 150.0000, L100.0000 ####Main Laboratory ([facility])[address] [place] [phone] Nivar, MD Lymphocytes/100 WBC (Bld) 10.5 % Low 15-45 [facility] Comment on above: Order Comment: very agitated Performed By: #### L 150.0000, L100.0000 ####Main Laboratory ([facility])[address], [place] [phone] Nivar, MD MCH (RBC) [Entitic mass] 27.8 pg Normal 27.5-33.0 [facility] Comment on above: Order Comment: very agitated Performed By: #### L 150.0000, L100.0000 ####Main Laboratory ([facility])[address] [place] [phone] Nivar, MD MCHC (RBC) [Mass/Vol] 32.8 g/dL Low 33.0-36.0 [facility] Comment on above: Order Comment: very agitated Performed By: #### L 150.0000, L100.0000 ####Main Laboratory ([facility])[address] [place] [phone] Nivar, MD MCV 84.6 CU RK Normal 80-97 [facility] Comment on above: Order Comment: very agitated Performed By: #### L 150.0000, L100.0000 ####Main Laboratory ([facility])[address] [place] [phone] Nivar, MD Wells- Auto Diff 5.5 % Normal 2-10 [facility] Comment on above: Order Comment: very agitated Performed By: #### L 150.0000, L100.0000 ####Main Laboratory ([facility])[address] [place], [place] [phone] Nivar, MD Neut-Auto Diff 83.9 % High 40-70 [facility] Comment on above: Order Comment: very agitated Performed By: #### L 150.0000, L100.0000 ####Main Laboratory ([facility])[address] [place], [place] [phone] Nivar, MD NRBC-Auto 0.0 /100 WBC Normal <1 [facility] Comment on above: Order Comment: very agitated Performed By: #### L 150.0000, L100.0000 ####Main Laboratory ([facility])[address] [place] [phone] Nivar, MD Platelet Count 317 th/cmm Normal 150-400 [facility] Comment on above: Order Comment: very agitated Performed By: #### L 150.0000, L100.0000 ####Main Laboratory ([facility])[address] [place] [phone] Nivar, MD RBC 4.83 mil/cmm Normal 4.00-5.10 [facility] Comment on above: Order Comment: very agitated Performed By: #### L 150.0000, L100.0000 ####Main Laboratory ([facility])[address] [place] [phone] Nivar, MD WBC 11.2 th/cmm High 4.4-10.5 [facility] Comment on above: Order Comment: very agitated Performed By: #### L 150.0000, L100.0000 ####Main Laboratory ([facility])[address] [place] [phone] Nivar, MD Erythrocyte Sedimentation Ra kaushal 04-28-2024 ESR (Bld) [Velocity] 27 mm/h High <=20 [facility] Comment on above: Order Comment: very agitated Performed By: #### L 150.0000, L100.0000 ####Main Laboratory ([facility])[address] [place] [phone] Nivar, MD Erythrocyte sedimentation ra teOrdered By: Tiffanie Alatorre on 04-28-2024 ESR (Bld) [Velocity] 27 mm/h High <20 [facility] Folate (Folic Acid)on 2023 Folate (Folic Acid) > 24.8 Normal >5.9 [facility] Comment on above: Order Comment: very agitated Performed By: #### L 400.4600 #### Main Laboratory ([facility]) [address] [place] [address] Dusty Haro MD Magnesiumon 04-28-2024 Magnesium [Mass/Vol] 2.2 mg/dL Normal 1.8-2.5 [facility] Comment on above: Order Comment: very agitated Performed By: #### L 400.4600 #### Main Laboratory ([facility]) [address] [place] [address] Dusty Haro MD Progress Note - Pamela ruiz 04-28-2024 Progress Note - Hospitalist [facility] Medical Records Patient: CINDY STACY [address] : 1990 [place], [place] [address] Location: [phone] Unit #: [id number] Progress Note - Hospitalist Vanessa Anne MD Service Dt/Tm: 04/28/24 1207 Assessment/Plan Assessment/Plan (1) Encephalopathy: Status: Acute Code(s): G93.40 - Encephalopathy, unspecified Plan: Etiology unclear, likely due to underlying MRDD. According to father and POA patient wants to move to a usp. The process is ongoing prior to this admission and patient may be frustrated because of the delay in transfer to usp. Attempt to obtain MRI brain has not been successful despite sedation with Geodon and Valium. Patient was evaluated by neurology, at this point MRI has been discontinued. CT head was nonacute. Psych consult requested. (2) Sinus tachycardia: Status: Acute Code(s): R00.0 - Tachycardia, unspecified Plan: Patient is persistently tachycardic. EKG sinus tachycardia, D-dimer is negative and patient is not hypoxic. Agree with IV hydration Will initiate calcium channel lanny. Monitor blood pressure closely. (3) Developmental delay: Status: Acute Code(s): R62.50 - Unspecified lack of expected normal physiological development in childhood Plan: Patient is in the process of being transferred from ECF to usp. Current Code Status AND Diet: 04/27/24 00:17 Code Status Routine Resuscitation Status: Full Code Code Status Order Placed: Code Status Ordered 04/27/24 at 0017 04/27/24 02:03 Regular Diet Texture: Regular Fluid Restrictions?: No Discussed Patient's Care With: Nurse and Case Management Subjective Subjective: Patient is awake and alert. She is ambulating in the room, constantly wanting to leave the room. Sitter at bedside. Patient Status AND Estimated DC Date Patient Registration Status: Inpatient Objective Physical Exam: Physical Exam: General appearance: Appears comfortable. Well nourished. Eyes: Sclera clear, pupils equal. ENT: Moist mucus membranes, no thrush. Trachea midline. Cardiovascular: Regular rhythm, normal S1, S2. +Tachycardia, no edema in lower extremities Respiratory: Clear to auscultation bilaterally, no wheeze, good inspiratory effort Gastrointestinal: Abdomen soft, non-tender, not distended, +bowel sounds Musculoskeletal: No cyanosis in digits, neck supple. Neurology: Alert and oriented in person. No speech or motor deficits Psychiatry: Agitated Skin: Warm, dry, normal turgor, no rash Constitutional: Last Vital Signs Temp Pulse Resp BP Pulse Ox 98.8 F 105 H 16 150/90 H 98 04/28/24 10:05 04/28/24 10:05 04/28/24 10:05 04/28/24 10:05 04/28/24 10:05 Intake and Output Intake Total 1276.36 3060 100 Output Total 0 Balance 1276.36 3060 100 Admitting (IV Pump) Weight 64.9 kg Actual Weight (Kg) 64.9 kg Data Labs: Magnesium 2.2 TSH 0.954 WBC 11.2 H RBC 4.83 Hgb 13.4 Hct 40.9 MCV 84.6 MCH 27.8 MCHC 32.8 L RDW 15.8 Plt Count 317 Sodium 139 Potassium 3.6 Chloride 111 Carbon Dioxide 21 Anion Gap 7 BUN 15 Creatinine 0.82 Calcium 8.80 The last 24 hours of labs have been reviewed. Imaging: I have reviewed the diagnostic images in the EMR. Microbiology: Microbiology 04/27/24 03:14 Perianal MRSA Screen - Preliminary No growth of MRSA after 1 day. Medications and Comanagement: Medications reviewed separately. Entered by: Vanessa Anne on 04/28/24 1207 Report Signed by: Vanessa Anne MD on 04/28/24 1213 < > Report Signed by: on Normal [facility] Progress Note Neurologyon Progress Note Neurology [facility] Medical Records Patient: CINDY STACY. : 1990 [place], [place] [address] Location: [phone] Unit #: [id number] Progress Note Neurology Dao Kc MD Service Dt/Tm: 04/28/24 1040 [facility] [employer] Tele[facility]urology Consult Services Routine Consult Follow-Up Patient Name: Cindy Stacy Date of : 1990 Identification Number: Date of Service: 04/28/2024 10:00:38 Diagnosis ??? G93.41 - Encephalopathy Metabolic Impression 33 year old female with history of developmental delay, ?epilepsy (not on medications) who presented on 04/26 due to two days of worsening AMS and agitation. Reportedly had been living in a psych facility and then visited a usp and didn't want to leave and has been severely agitated and increased confusion since then. Somewhat unclear baseline. No focal features, she is seen walking very well, able to understand speech and able to move arms well. No fevers at any time. Significant difficulty obtaining tests such as MRI and EEG due to agitation. Fairly low suspicion for organic intracranial pathology as etiology for presentation, post-ictal confusion is unlikely to last >24h and no seizures witnessed since admission despite having sitter at bedside. Feel that sedating patient to get the studies more likely to do harm than good. Would obtain Psychiatry consult and support for now. If no improvement with supportive management, could consider sedating patient to get MRI, EEG and even LP, but feel OK to defer for now, likely to do more harm than good. Consider Psychiatry consult. Recommendations: -Psychiatry consult -If ongoing concern, could consider getting MRI, EEG, and LP with sedation, but likely to do more harm that good at this time, relatively low suspicion for acute intracranial pathology -PT/OT/CHEMICAL DEPENDENCY PROFESSIONAL -Toxic/metabolic/infect ious workup/management per primary -Delirium precautions: Blinds open during the day, closed at night; frequent reorientation; minimize nighttime interruptions; when possible avoid benzodiazepines, opioid pain medications, anticholinergic medications, and other sedative medications. If patient gets agitated, try verbal de-escalation first. Dispositions : No further recommendations Will signoff please contact for any questions Subjective Per nursing she does generally talk some and say caregiver names and her dad's name. Had some increased irritability and had forgotten her caregiver's name. No seizures witnessed. Imaging CTH: No acute abnormalities Examination BP(140/94), Pulse(124), Temp(99), Resp(16), Neuro Exam: General: Oriented to name. Not responding to orientation questions otherwise. Standing very well independently. Per sitter, patient is fairly non-verbal, but is a Neurologic Exam. Exam is confounded in the setting of receiving haloperidol prior to MRI brain. General. Well appearing, in no acute distress. Mental status. Alert and awake. Does not answer orientation questions. Language. Intermittently follows commands. Meager speech output. . Cranial nerves. Eyes are midline. Face is symmetric at rest. Motor. Normal muscle bulk. Tremulous. Spontaneous anti-gravity in the BUE. Gait: Deferred. Reflexes: Deferred. Sensory: confounded in the setting of encephalopathy. Coordination: confounded in the setting of encephalopathy. This consult was conducted in real time using interactive audio and video technology. Patient was informed of the technology being used for this visit and agreed to proceed. Patient located in hospital and provider located at home/office setting. Telehealth Neurology consultation was provided. I spent 25 minutes providing telehealth care. This includes time spent for face to face visit via telemedicine, review of medical records, imaging studies and discussion of findings with providers, the patient and/or family. Dr Dao Kc [facility] For Inpatient follow-up with [facility] physician please call [facility] . This is not an outpatient service. Post hospital discharge, please contact hospital directly. Please call or reconsult our service if there are any clinical or diagnostic changes. [facility] TeleNeurology Consult Services Data: Last Vital Signs Temp Pulse Resp BP Pulse Ox 97.8 F 146 H 16 132/106 H 97 04/28/24 03:26 04/27/24 23:23 04/27/24 15:04 04/27/24 23:23 04/27/24 23:23 Hematology WBC 11.2 H Chemistry Sodium 139 Potassium 3.6 Chloride 111 Carbon Dioxide 21 Anion Gap 7 Patient was informed the Neurology Consult would happen via telehealth (remote video) and consented to receiving care in this manner. Entered by: Dao cK MD on 04/28/24 1040 Report Signed by: Dao Kc MD on 04/28/24 1041 < > (more content not included)... Normal [facility] Serum or plasma C reactive p rotein measurement (mass/volume)Ordered By: Tiffanie Alatorre on 04-28-2024 CRP [Mass/Vol] < 0.5 mg/dL <1.0 [facility] Serum or plasma folate measu rement (mass/volume)Ordered By: Tiffanie Celi on 04-28-2024 Folate [Mass/Vol] ng/mL >5.9 [facility] Serum or plasma vitamin B12 measurement (mass/volume)Ordered By: Tiffanie Alatorre on 04-28-2024 Cobalamin (Vitamin B12) [Mass/Vol] 164 pg/mL Low 180-914 [facility] Comment on above: B12 level of 145 - 1 80 is considered Indeterminate and level of <145 is considered Deficient. TSH DL <= 0.005 mIU/L QnOrde red By: Tiffanie Alatorre on 04-28-2024 TSH Qn 0.954 m[IU]/L 0.490-4.670 [facility] TSH reflex Free T4on 024 TSH reflex Free T4 0.954 mcIU/mL Normal 0.490-4.670 [facility] Comment on above: Order Comment: very agitated Performed By: #### L 400.4600 #### Main Laboratory ([facility]) [address] [place] [address] Dusty Haro MD Vitamin B12on 04-28-2024 Cobalamin (Vitamin B12) [Mass/Vol] 164 pg/mL Low 180-914 [facility] Comment on above: Order Comment: very agitated Result Comment: B12 level of 145 - 180 is considered Indeterminate and level of <145 is considered Deficient. Performed By: #### L 400.4600 #### Main Laboratory ([facility]) [address] [place] [address] Dusty Haro MD Basic Metabolic,Non-Fastingo n 04-27-2024 Anion gap [Moles/Vol] 6 mmol/L Normal 4-12 [facility] Comment on above: Performed By: #### L 300.3000, L300.7701 #### Main Laboratory ([facility]) [address] [place] [address] Dusty Haro MD Calcium [Mass/Vol] 7.70 mg/dL Low 8.8-10.5 [facility] Comment on above: Performed By: #### L 300.3000, L300.7701 #### Main Laboratory ([facility]) [address] [place] [address] Dusty Haro MD Chloride [Moles/Vol] 109 mmol/L Normal 101-111 [facility] Comment on above: Performed By: #### L 300.3000, L300.7701 #### Main Laboratory ([facility]) [address] [place] [address] Dusty Haro MD CO2 [Moles/Vol] 23 mmol/L Normal 21-32 [facility] Comment on above: Performed By: #### L 300.3000, L300.7701 #### Main Laboratory ([facility]) [address] [place] [address] Dusty Haro MD Creatinine [Mass/Vol] 0.68 mg/dL Normal 0.60-1.30 [facility] Comment on above: Performed By: #### L 300.3000, L300.7701 #### Main Laboratory ([facility]) [address] [place] [address] Dusty Haro MD GFR Calculation > 60 Normal [facility] Comment on above: Result Comment: Tanning Drum Operator nelli Kidney Disease stages by NKDF Stage eGFR I >90 II 60-89 III 30-59 IV 15-29 V <15 or dialysis AGE(years) AVERAGE GFR 30-39 107 ml/min/1.73 square meters Note:This result is normalized to 1.73 square meter body surface area. Height and weight are not factored. Performed By: #### L 300.3000, L300.7701 #### Main Laboratory ([facility]) [address] [place] [address] Dusty Haro MD Glucose [Mass/Vol] 87 mg/dL Normal 70-110 [facility] Comment on above: Result Comment: *Thi s reference range applies to fasting specimens only. Performed By: #### L 300.3000, L300.7701 #### Main Laboratory ([facility]) [address] [place] [address] Dusty Haro MD Potassium [Moles/Vol] 3.3 mmol/L Low 3.6-5.0 [facility] Comment on above: Performed By: #### L 300.3000, L300.7701 #### Main Laboratory ([facility]) [address] [place] [address] Dusty Haro MD Sodium [Moles/Vol] 138 mmol/L Normal 135-145 [facility] Comment on above: Performed By: #### L 300.3000, L300.7701 #### Main Laboratory ([facility]) [address] [place] [address] Dusty Haro MD Urea nitrogen [Mass/Vol] 10 mg/dL Normal 7-20 [facility] Comment on above: Performed By: #### L 300.3000, L300.7701 #### Main Laboratory ([facility]) [address] [place] [address] Dusty Haro MD CBC with Differentialon 06- Abs Baso Count 0 /cmm Normal 0-200 [facility] Comment on above: Performed By: #### L 100.0000 #### Main Laboratory ([facility]) [address] [place] [id number] Dusty Haro MD Abs Eos Count 0 /cmm Normal 0-500 [facility] Comment on above: Performed By: #### L 100.0000 #### Main Laboratory ([facility]) [address] [place] [address] Dusty Haro MD Abs Lymph Count 1200 /cmm Normal 7261-4515 [facility] Comment on above: Performed By: #### L 100.0000 #### Main Laboratory ([facility]) [address] [place], [place] [address] Dusty Haro MD Abs Wells Count 500 /cmm Normal 0-800 [facility] Comment on above: Performed By: #### L 100.0000 #### Main Laboratory ([facility]) [address] [place], [place] [address] Dusty Haro MD Abs Neut Count 4500 /cmm Normal 5277-7441 [facility] Comment on above: Performed By: #### L 100.0000 #### Main Laboratory ([facility]) [address] [place] [address] Dusty Haro MD Basophils/100 WBC (Bld) 0.5 % Normal 0-2 L [facility] Comment on above: Performed By: #### L 100.0000 #### Main Laboratory ([facility]) [address] [place], [place] [address] Dusty Hrao MD EOS-Auto Diff 0.1 % Normal 0-6 [facility] Comment on above: Performed By: #### L 100.0000 #### Main Laboratory ([facility]) [address] [place], [place] [address] Dusty Haro MD Erythrocyte distribution width (RBC) [Ratio] 15.3 % Normal 12.0-16.0 [facility] Comment on above: Performed By: #### L 100.0000 #### Main Laboratory ([facility]) [address] [place], [place] [address] Dusty Haro MD Hematocrit (Bld) [Volume fraction] 39.4 % Normal 35.0-44.0 [facility] Comment on above: Performed By: #### L 100.0000 #### Main Laboratory ([facility]) [address] [place] [address] Dusty Haro MD Hemoglobin (Bld) [Mass/Vol] 13.0 g/dL Normal 12.0-15.0 [facility] Comment on above: Performed By: #### L 100.0000 #### Main Laboratory ([facility]) [address] [place] [address] Dusty Haro MD Lymphocytes/100 WBC (Bld) 19.8 % Normal 15-45 [facility] Comment on above: Performed By: #### L 100.0000 #### Main Laboratory ([facility]) [address] [place] [place] [address] Dusty Haro MD MCH (RBC) [Entitic mass] 28.0 pg Normal 27.5-33.0 [facility] Comment on above: Performed By: #### L 100.0000 #### Main Laboratory ([facility]) [address] [place] [address] Dusty Haro MD MCHC (RBC) [Mass/Vol] 32.9 g/dL Low 33.0-36.0 [facility] Comment on above: Performed By: #### L 100.0000 #### Main Laboratory ([facility]) [address] [place] [address] Dusty Haro MD MCV 85.1 CU RK Normal 80-97 [facility] Comment on above: Performed By: #### L 100.0000 #### Main Laboratory ([facility]) [address] [place] [address] Dusty Haro MD Wells- Auto Diff 8.2 % Normal 2-10 [facility] Comment on above: Performed By: #### L 100.0000 #### Main Laboratory ([facility]) [address] [place] [address] Dusty Haro MD Neut-Auto Diff 71.4 % High 40-70 [facility] Comment on above: Performed By: #### L 100.0000 #### Main Laboratory ([facility]) [address] [place] [address] Dusty Haro MD NRBC-Auto 0.0 /100 WBC Normal <1 [facility] Comment on above: Performed By: #### L 100.0000 #### Main Laboratory ([facility]) [address] [place] [address] Dusty Haro MD Platelet Count 274 th/cmm Normal 150-400 [facility] Comment on above: Performed By: #### L 100.0000 #### Main Laboratory ([facility]) [address] [place] [address] Dusty Haro MD RBC 4.63 mil/cmm Normal 4.00-5.10 [facility] Comment on above: Performed By: #### L 100.0000 #### Main Laboratory ([facility]) [address] [place] [address] Dusty Haro MD WBC 6.3 th/cmm Normal 4.4-10.5 [facility] Comment on above: Performed By: #### L 100.0000 #### Main Laboratory ([facility]) [address] [place] [address] Dusty Haro MD Case Management Admissionon 04-27-2024 Case Management Admission [facility] Case Management Patient: CINDY STACY [address] : 1990 [place] [address] Location: [address] [place] [address] Unit #: [id number] Case Management Admission Brenda Garcia RN Service Date: 04/27/24 Case Mgmt Admission/Disch Plan - Patient Preferences AND Goals What is the patient's preference?: Return to SNF Recommended acute discharge goals: Return to SNF - Hospital Stay Day Day 1 Comment: 04/27 Patient is from [facility] and is a LTR. RENATO spoke with patients guardian Christal who reports the plan is for patient to return to [facility] at d/c. Christal reporting patient is normally independent with ambulation, ADLs, and that [facility] Meg Sexton. Contact is yenny Siegel. c/s. 1:1 sitter present at bedside. Engraving Patternmaker: Brenda Garcia RN - Demographics Current Diagnosis(s): Encephalopathy Information Given by: Christal- guardian Primary Insurance: [employer] Family/Caregiver Contact: Christal Relationship: guardian Does the patient have VA services?: No Does the patient have a [facility] provider?: Yes - Readmission Information Was the patient readmitted within the past 30 days?: No Where was the patient admitted from?: Residential Facility - Healthcare Decisions Durable Power of Balance Engineer for Health Care: Unknown [facility] DNR Comfort Care: Unknown [facility] DNR Comfort Care Arrest: Unknown - Mental Status Prior Mental Status: Cognitive Deficit Current Mental Status: Cognitive Deficit - Living Situation Home Situation: Halfway - Support System Support System: [facility] - Skilled Days Has patient been in a penitentiary facility in past 60 days: Yes - [facility] - Residential Facility SNF List Provided: No - LTR at [facility] Residential Facilities: [facility] Social Work Consult initiated for SNF: Yes Patient Accepted Facility: Yes - Level of Function Prior Level of Ambulation: Independent Prior Level of Personal Care: Independent Prior Level of Driving: Dependent/Bed Bound Comment: If not pt,who provides transportation: SNF Prior Level of Grocery Shopping: Dependent/Bed Bound Prior Level of House Keeping: Dependent/Bed Bound Prior Level of Meal Preparation: Dependent/Bed Bound Is Patient a Fall Risk: Yes - Respiratory Equipment Does the patient use/have any of these devices at home?: N/A - Medications What pharmacy do you use?: SNF - Food Scarcity Screening -in the past month?: No -within the past 3 months?: No If Yes to either question, notify Biomaterials Engineer.: No - Community Services SNF/LTAC Placement: Initiated - Discharge Plan Discharge Plan Discussed With: Patient Understood: Yes Barriers to Discharge: Encephalopathy - Admission Completed CM Admission Assessment is Completed: Yes - * L * Length of Stay LOS (Including day of Admission and Discharge): 2 LOS Score: 2 - * A * Acuity on Admission ER Provider if admitted from ER (view): PHILIPPE Was patient admitted to hospital via Emergency Dept? Score: 3 - * C * Comorbidities Select All Conditions that Apply: No Comorbidity Condition Comorbidities Total Score: 0 - * E * Emergency Department Visits # of ER visits,6mos prior to admit,excl this admits ER visit: 0 Enter this number or 4 (whichever is smaller): 0 - LACE SCORE LACE Score: 5 - ANTICIPATED DISCHARGE Anticipated Discharge Date: 04/28/24 Is a ALLEN Form Required?: No Entered by: Brenda Garcia RN on 04/27/24 1042 Report Signed by: Brenda Garcia RN on 04/27/24 2943 < > Co-Signed by: on Normal [facility] Clostridium difficile detect ion by PCROrdered By: Isidro Barton on 04-27-2024 C. difficile DNA CHRISTIANO+probe Ql (Unsp spec) Negative Negative [facility] Comment on above: Methodology: Nucleic Acid Amplification (Polymerase Chain Reaction,PCR)This test is being performed for surveillance and infection control purposes only. Due to the possibility of asymptomatic carriage of C difficile, treatment should not be initiated unless the patient is symptomatic for Clostridium difficile infection (CDI). Consultation - TeleNeurology on 04-27-2024 Consultation - TeleNeurology [facility] Medical Records Patient: CINDY STACY [address] : 1990 [place], [place] [address] Location: [facility] [phone] Unit #: [id number] Consultation - TeleNeurology Tiffanie Alatorre MD Service Date: 04/27/24 [facility] Tele[facility] Consult Services Date of Consultation: 04/27/24 Consulting Provider: Tiffanie Alatorre MD [facility] Consult Services Routine Consult New Patient Name: Cindy Stacy Date of : 1990 Identification Number: Date of Service: 04/27/2024 15:45:30 Diagnosis ??? G93.41 - Encephalopathy Metabolic Impression Ms. Stacy is a 33-year-old developmentally delayed woman who presented to the ED on 04/26/2024 with a 2-day history of worsening encephalopathy and agitation in the setting of a past medical history of unspecified epilepsy. Neurology was consulted on 04/27/2024 for further evaluation. Neurologic exam is non-focal, albeit confounded in the setting of encephalopathy. At this juncture, the etiology of the patient's presentation remains unclear. Given markedly elevated prolactin on admission, with negative infectious workup hitherto, and interval improvement, postictal encephalopathy is a consideration. However, although she is reported to have a history of seizures, there are no antiseizure medications listed among her home medications. Recommend further workup and management as noted below. - follow-up EEG (ordered) - Follow-up TSH, B12, folate, ESR, CRP (ordered) - consider empiric thiamine supplementation - Review medication list for drugs which are common precipitants of delirium, particularly lithium and sedatives - Review medication list for drugs which may precipitate serotonin syndrome - Delirium precautions: Lights on and blinds open during the day, lights off and blinds closed at night, frequent reorientation, minimize nighttime interruptions - When possible, avoid anticholinergics, benzodiazepines, and opioid pain medications WORK-UP. CT Head (04/26/2024): No acute findings MRI Brain: Deferred due to patient being unable to tolerate EEG (): Pending Labs: Calcium 7.7. Magnesium 1.7. WBC 7.6. Sodium 136. BUN 19. Creatinine 0.83. Ammonia 21. Prolactin 36.55. Blood cultures: N/A Urinalysis AND cultures: Negative Urine toxicology screen: Negative CXR: Negative Our recommendations are outlined below Dispositions : Neurology will follow Chief Complaint: encephalopathy History of Present Illness: Ms. Stacy is a 33-year-old developmentally delayed woman who presented to the ED on 04/26/2024 with a 2-day history of worsening encephalopathy and agitation in the setting of a past medical history of unspecified epilepsy. Neurology was consulted on 04/27/2024 for further evaluation. Collateral history is provided by the medical record. The patient has a history of developmental delay and resides at a facility. Per report, the patient will have episodes of encephalopathy and agitation prior to and following a seizure episode. However, although the patient is noted to have a history of seizures, there are no antiseizure medications listed among her home medications. Collateral history is provided by the RN who reports interval improvement. She was able to take her medications and fed herself breakfast. It is unclear if she is back to her baseline. Past Medical History: ??? Hypertension Medications: No Anticoagulant use No Antiplatelet use Reviewed EMR for current medications Allergies: Reviewed Social History: Unable To Obtain Due To Patient Status : Patient Is Confused Family History: There is no family history of premature cerebrovascular disease pertinent to this consultation ROS : 14 Points Review of Systems was performed and was negative except mentioned in HPI. Past Surgical History: There Is No Surgical History Contributory To Today???s Visit Examination Neuro Exam: Neurologic Exam. Exam is confounded in the setting of receiving haloperidol prior to MRI brain. General. Well appearing, in no acute distress. Mental status. Alert and awake. Does not answer orientation questions. Language. Intermittently follows commands. Meager speech output. Cranial nerves. Eyes are midline. Face is symmetric at rest. Motor. Normal muscle bulk. Tremulous. Spontaneous anti-gravity in the BUE. Gait: Deferred. Reflexes: Deferred. Sensory: confounded in the setting of encephalopathy. Coordination: confounded in the setting of encephalopathy. This consult was conducted in real time using interactive audio and video technology. Patient was informed of the technology being used for this visit and agreed to (more content not included)... Normal [facility] Drug Screen Urineon 04-27-20 24 Amphetamines Negative Normal Negative [facility] Comment on above: Performed By: #### L 300.3000, L300.7701 #### Main Laboratory ([facility]) [address] [place] [address] Dusty Haro MD Barbiturates Negative Normal Negative [facility] Comment on above: Performed By: #### L 300.3000, L300.7701 #### Main Laboratory ([facility]) [address] [place] [address] Dusty Haro MD Benzodiazepines Negative Normal Negative [facility] Comment on above: Performed By: #### L 300.3000, L300.7701 #### Main Laboratory ([facility]) [address] [place] [address] Dusty Haro MD Cannabinoids Negative Normal Negative [facility] Comment on above: Performed By: #### L 300.3000, L300.7701 #### Main Laboratory ([facility]) [address] [place], [place] [address] Dusty Haro MD Cocaine Negative Normal Negative [facility] Comment on above: Performed By: #### L 300.3000, L300.7701 #### Main Laboratory ([facility]) [address] [place], [place] [address] Dusty Haro MD Opiates Negative Normal Negative [facility] Comment on above: Performed By: #### L 300.3000, L300.7701 #### Main Laboratory ([facility]) [address] [place], [place] [address] Dusty Haro MD Oxycodone Negative Normal Negative [facility] Comment on above: Performed By: #### L 300.3000, L300.7701 #### Main Laboratory ([facility]) [address] [place], [place] [address] Dusty Haro MD Phencyclidine Negative Normal Negative [facility] Comment on above: Performed By: #### L 300.3000, L300.7701 #### Main Laboratory ([facility]) [address] [place], [place] [address] Dusty Haro MD EKG Monitoringon 04-27-2024 EKG Monitoring [facility] Patient: CINDY STACY [address] : 1990 [place] [address] Location: [phone] Unit #: [id number] Ordering Phys: Marianela Kaiser PA-C EKG Monitoring José Miguel Tafoya DO, [facility] Exam Date/Time Apr 26 2024 21:41:42 Test Reason : Blood Pressure : / mmHG Vent. Rate : 131 BPM Atrial Rate : 131 BPM P-R Int : 118 ms QRS Dur : 066 ms QT Int : 314 ms P-R-T Axes : 061 043 026 degrees QTc Int : 463 ms Sinus tachycardia Otherwise normal ECG No previous ECGs available Confirmed by JOSÉ MIGUEL TAFOYA DO ([id number]) on 04/27/2024 4:48:21 PM Referred By: Marianela Kaiser Confirmed By:JOSÉ MIGUEL TAFOYA DO Dictated by: José Miguel Tafoya DO, [facility] on 04/26/24 2141 Transcribed by: [employer] M[employer]AT on 04/27/24 1648 Report Signed by: José Miguel Tafoya DO [facility] on 04/27/24 1648 Normal [facility] ER Physician Documentationon 04-27-2024 ER Physician Documentation [facility] Patient: CINDY STACY. : 1990 [place], [place] [address] Location: [facility] [phone] Unit #: [id number] ER Physician Documentation Service Date:04/26/24 ER Provider: Db Newell DO HPI - Psych Disorder - Time Seen by Provider: 04/26/24 21:32 History of Present Illness Stated Complaint: PSYCH issues History of Present Illness: Patient is a 33-year-old female who presents ED for evaluation of altered mental status. Patient does have a history of MRDD and resides at [facility]. Patient also has a history of seizures. Staff states patient has been slowly declining over the past couple of days and is not functioning as she was normally. Generally patient can ambulate and self feed and has not been eating or ambulating at all. They state the patient does not converse eating or answering any questions. They state they did a UA yesterday that was negative. RN did speak with father over the phone who states that the patient does act like this prior and post seizure. Patient is not answering any questions appropriately. No other complaints at this time. Review of Systems Review of Systems Unable to obtain full review of systems: Due to acuity Past Family Social History Medical AND Surgical History: Medical History (Updated 04/27/24 @ 02:43 by Isidro vazquez MD) Delay of cognitive development Dysphagia HTN (hy pertension) Seizure Depression Failure to thrive in adult Surgical History (Updated 04/27/24 @ 02:39 by Isidro Barton MD) No pertinent past surgical history Exam Physical Exam: Patient presentation: Well appearing and No apparent distress Genera l Skin: Warm and Dry General Habitus: Normal General Mental Statu s: Alert General hydration: Moist mucous membranes Orders/Results Orders: Orders Admit Patient Now ADT 04/27/24 00:27 Active Laboratory Results: Laboratory 04/26/24 22:03: WBC 7.6, RBC 4.82, Hgb 13.6, Hct 40.5, MCV 84.0, MCH 28.3, MCHC 33.6, RDW 15.6, Plt Count 318, Neut % (Auto) 74.4 H, Lymph % (Auto) 17.6, Wells % (Auto) 7.4, Eos % (Auto) 0.0, Baso % (Auto) 0.6, Nucleat RBC Rel Count 0.0, Absolute Neuts (auto) 5700, Absolute Lymphs (auto) 1300, Absolute Monos (auto) 600, Absolute Eos (auto) 0, Absolute Basos (auto) 0, PT 13.0, INR 1.09, D-Dimer 83, Sodium 136, Potassium 3.5 L, Chloride 105, Carbon Dioxide 23, Anion Gap 8, BUN 19, Creatinine 0.83, GFR Calculation > 60, Random Glucose 104, Lactic Acid 1.0, Calcium 9.30, Magnesium 2.0, Total Bilirubin 0.4, AST 13 L, ALT 12, Alkaline Phosphatase 55, Ammonia 21, Troponin I High Sens 7, Total Protein 7.6, Albumin 4.2, Albumin/Globulin Ratio 1.2 L, Prolactin 36.55 H 04/26/24 23:23: Urine Color Yellow, Urine Appearance Clear, Urine pH 5.5, Ur Specific [place] 1.028, Urine Protein 20 mg/dl, Urine Glucose (UA) Negative, Urine Ketones Negative, Urine Blood Negative, Urine Nitrite Negative, Urine Bilirubin Negative, Urine Urobilinogen <2.0 mg/dL, Ur Leukocyte Esterase Negative, Urine RBC 0-2, Ur WBC Total Counted 0-5, Ur Squamous Epith Cells 0-5, Urine Mucus (Auto) Present, Ur Culture Indicated? No, Urine Test Negative, Urine Opiates Screen Negative, Ur Oxycodone Screen Negative, Ur Barbiturates Screen Negative, Ur Phencyclidine Scrn Negative, Ur Amphetamines Screen Negative, U Benzodiazepines Scrn Negative, Urine Cocaine Screen Negative, U Cannabinoids Screen Negative, Drug Screen Comment 04/27/24 00:40: Troponin I High Sens 7, Troponin I Hi Sens Del 0, Troponin I Hi Sen % Del 0 Radiology Interpretations: Ct head IMPRESSION: No acute intracranial finding. Electronically Signed: Cuong Siddiqi MD at 0:09 EDT , cc: Meg Sexton MD ([place]); Marianela Kaiser PA-C Dictated by: Cuong Shen MD on 04/27/[address] abdomen and pelvis with contrast IMPRESSION: No acute finding in the abdomen or pelvis. No inflammatory change. Electronically Signed: Cuong Siddiqi MD at 0:13 EDT , cc: Meg Sexton MD ([place]); Marianela Kaiser PA-C Dictated by: Cuong Shen MD on 04/27/2412 Transcribed by: Cuong Shen MD on 04/27/2412 Report Signed by: Cuong Shen MD on 04/27/2412 XR chest IMPRESSION: No acute pulmonary finding. Electronically Signed: Cuong Siddiqi MD at 23:14 EDT , cc: Meg Sexton MD ([place]); Marianela Kaiser PA-C Dictated by: Cuong Shen MD on 04/26/242313 Transcribed by: Cuong Shen MD on 04/26/242313 Report Signed by (more content not included)... Normal [facility] MRSA Screen,Nasal Rapidon Nasal MRSA Screen Not detected Normal NotDetected [facility] Comment on above: Result Comment: Meth odology: Nucleic Acid Amplification (Polymerase Chain Reaction,PCR) Performed By: #### L 300.3000, L300.7701 #### Main Laboratory ([facility]) [address] [place] [address] Dusty Haro MD Magnesiumon 04-27-2024 Magnesium [Mass/Vol] 1.7 mg/dL Low 1.8-2.5 [facility] Comment on above: Performed By: #### L 300.3000, L300.7701 #### Main Laboratory ([facility]) [address] [place] [address] Dusty Haro MD Methicillin resistant Staphy lococcus aureus (MRSA) DNA detection by probe and targetOrdered By: Isidro Barton on 04-27-2024 MRSA DNA CHRISTIANO+probe Ql (Unsp spec) Not detected NotDetected [facility] Comment on above: Methodology: Nucleic Acid Amplification (Polymerase Chain Reaction,PCR) Methicillin resistant Staphy lococcus aureus (MRSA) screening cultureOrdered By: Isidro Barton on 04-27-2024 MRSA isol Org specific cx Ql (Unsp spec) No growth of MRSA after 2 days. [facility] No Panel InformationOrdered By: Marianela Kaiser on 04-27-2024 Troponin I High Sens Percent Delta 0 % <20 [facility] Comment on above: A percent delta of > /= 20% is considered a significant change when the first of two troponin values is above the upper reference limit. Troponin I High Sensitivity Delta 0 ng/L <4 [facility] Comment on above: An absolute delta of >/= 4 ng/L is considered a significant change when the first of two troponin values is below the upper reference limit. Serum or plasma cardiac trop onin I panel by high sensitivity methodOrdered By: Marianela Kaiser on 04-27-2024 Tropinin I.cardiac panel High sensitivity method 7 ng/L 0-15 [facility] Comment on above: Troponin I, High Sen sitivity is below the upper reference limit (16 ng/L) and results are not consistent with myocardial infarction or injury, provided the specimen was collected more than 3-hours from the onset of symptoms. Patients with active symptoms, ischemic ECG changes and/or concerning clinical presentations should be considered for urgent evaluation irrespective of troponin results. Social Determinantson 2023 Social Determinants [facility] Case Management Patient: CINDY STACY. : 1990 [place] [id number] Location: [address] [place] [address] Unit #: [id number] Social Determinants Brenda Garcia RN Service Date: 04/27/24 Social Determinants of Health - Family AND Home What is your current living situation?: Unable to answer Problems where you live: Unable to answer - Money AND Resources In past 12 months, food didn't last until money to buy more: Unable to answer Past 12 mos, fear food will run out before able to buy more: Unable to answer In past 12 months, lack of transportation kept you from medical appts, meetings, work, or getting things needed for daily living: Unable to answer In the past 12 months, utilities in danger of being shut off: Unable to answer - Social AND Emotional Health How often does anyone, including family, friends and others, physically hurt you: Unable to answer How often does anyone, including family, friends and others, insult or talk down to you: Unable to answer How often does anyone, including family, friends and others, threaten you with harm: Unable to answer How often does anyone, including family, friends and others, scream or curse at you: Unable to answer Safety Score: 0 Entered by: Brenda Garcia RN on 04/27/24 1050 Report Signed by: Brenda Garcia RN on 04/27/24 1503 < > Co-Signed by: on Normal [facility] Social Work Daily Noteon Social Work Daily Note [facility] Patient: CINDY STACY. : 1990 [place] [id number] Location: [address] [place] [address] Unit #: [id number] Social Work Daily Note Db Loaiza Service Date: 04/27/24 SW Daily Note - * Psychosocial Assessment * I have reviewed nursing and case management psychosocial information.: Yes - * Hospital Stay Days * Day 1 Note: 04-27-24 MANDO consult for SNF. Per report pt is LT resident at [facility]. SW spoke with admissions at [facility], pt is a LT bedhold at facility and is able to return when medically approrpiate. Battery Recharger: Db Loaiza - * Requested Intvs/Referrals * Car Designer Referrals: SNF/LTAC Placement - Community Services/Interventions SNF/LTAC Placement: Initiated - * HEALTHCARE DECISIONS * Living Will: Unknown Durable Power of Balance Engineer for Health Care: Unknown [facility] DNR Comfort Care: Unknown [facility] DNR Comfort Care Arrest: Unknown Entered by: Db Loaiza on 04/27/24 1342 Report Signed by: Db Loaiza on 04/27/24 1519 < > Report Signed by: on Normal [facility] Status Note/Updateon 024 Status Note/Update [facility] Medical Records Patient: CINDY STACY [address] : 1990 [place], [place] [address] Location: [address] [place] [address] [id number]/Update Vanessa Anne MD Service Dt/Tm: 04/27/24 1050 Note: CINDY STACY is a 33 yr old F who was admitted on 04/27/24 for Encephalopathy. 33-year-old female with MRDD who was admitted earlier today by my partner with encephalopathy. No infectious etiology identified at this point. MRI brain and neurology evaluation is pending Okay to give Valium 5 mg prior to MRI study. Continue IV fluids I discussed with the RN. Entered by: Vanessa Anne on 04/27/24 1050 Report Signed by: Vanessa Anne MD on 04/27/24 1051 < > Report Signed by: on Normal [facility] Surveillance C Diffon 2023 Surveillance C Diff Negative Normal Negative [facility] Comment on above: Result Comment: Meth odology: Nucleic Acid Amplification (Polymerase Chain Reaction,PCR) This test is being performed for surveillance and infection control purposes only. Due to the possibility of asymptomatic carriage of C difficile, treatment should not be initiated unless the patient is symptomatic for Clostridium difficile infection (CDI). Performed By: #### L 800.5450 #### Main Laboratory ([facility]) [address] [place] [address] Dusty Haro MD VRE Screen, Rapidon 04-27-20 Fecal VRE Screen Negative Normal Negative [facility] Comment on above: Result Comment: Meth odology: Nucleic Acid Amplification (Polymerase Chain Reaction,PCR) Performed By: #### L 300.3000, L300.7701 #### Main Laboratory ([facility]) [address] [place] [address] Dusty Haro MD Vancomycin resistant Enteroc occus DNA detection by probe and target amplification metOrdered By: Isidro Barton on 04-27-2024 Fecal Screen VRE (PCR) Negative Negative [facility] Comment on above: Methodology: Nucleic Acid Amplification (Polymerase Chain Reaction,PCR) XR MRI Screeningon XR MRI Screening [facility] Radiology Department Patient: CINDY STACY [address] : 1990 Sex: [place] [address] Location: [phone] Unit #: [id number] Ordering Phys: Vanessa Anne MD Exam Date: 04/27/24 Exam: MAIN XR MRI Screening Result: See Report [id number] STUDY: X-RAY -MRI REY REASON FOR EXAM: Female, 33 years old. MRI clearance. TECHNIQUE: Frontal view of the skull and cervical spine, chest, abdomen, pelvis and both femurs and humeri were obtained on 8 images. COMPARISON: None. FINDINGS: No metallic orbital foreign body identified in any of the images. Normal visualized facial bones. Normal paranasal sinuses. The soft tissue structures are unremarkable. IMPRESSION: No demonstrated metallic foreign body on the images provided. Patient is cleared for an MRI examination. Electronically Signed: Job Matta MD at 11:59 EDT , cc: Meg Sexton MD ([place]); Vanessa Anne MD Dictated by: Job Matta MD on 04/27/24 1159 Transcribed by: Job Matta on 04/27/24 1159 Report Signed by: Job Matta MD on 04/27/24 1159 Normal [facility] hs Troponin I Profileon 04-14 hs Troponin-I 7 ng/L Normal 0-15 [facility] Comment on above: Result Comment: Trop onin I, High Sensitivity is below the upper reference limit (16 ng/L) and results are not consistent with myocardial infarction or injury, provided the specimen was collected more than 3-hours from the onset of symptoms. Patients with active symptoms, ischemic ECG changes and/or concerning clinical presentations should be considered for urgent evaluation irrespective of troponin results. Performed By: #### L 800.5450 #### Main Laboratory ([facility]) [address] [place] [address] Dusty Haro MD hsTnI Delta 0 ng/L Normal 0-4 [facility] Comment on above: Result Comment: An a bsolute delta of >/= 4 ng/L is considered a significant change when the first of two troponin values is below the upper reference limit. Performed By: #### L 800.5450 #### Main Laboratory ([facility]) [address] [place] [address] Dusty Haro MD hsTnI Percent Delta 0 % Normal 0-20 [facility] Comment on above: Result Comment: A pe rcent delta of >/= 20% is considered a significant change when the first of two troponin values is above the upper reference limit. Performed By: #### L 800.5450 #### Main Laboratory ([facility]) [address] [place] [address] Dusty Haro MD Absolute eosinophil countOrd ered By: Marianela Kaiser on 04-26-2024 Blood coagulation panel 0 /cmm 0-500 L [facility] Ammoniaon 04-26-2024 Ammonia (P) [Moles/Vol] 21 umol/L Normal 11-35 L [facility] Comment on above: Performed By: #### L 400.4600 #### Main Laboratory ([facility]) [address] [place] [address] Dusty Haro MD Amphetamine Screen Ql (U)Ord ered By: Marianela Kaiser on 04-26-2024 Amphetamines Ql (U) Negative Negative [facility] Automated absolute lymphocyt e countOrdered By: Marianela Kaiser on 04-26-2024 Absolute Lymphocytes (auto) 1300 /cmm 4851-8072 [facility] Automated absolute neutrophi l countOrdered By: Marianela Kaiser on 04-26-2024 Absolute Neutrophils (auto) 5700 /cmm 2772-6729 [facility] Automated erythrocytes count in urine sediment (number/area)Ordered By: Marianela Kaiser on 04-26-2024 RBC Auto (Urine sed) [#/Area] 0-2 /HPF [facility] Automated leukocytes count i n urine sediment (number/area)Ordered By: Marianela Kaiser on 04-26-2024 WBC Auto (Urine sed) [#/Area] 0-5 /HPF [facility] Automated squamous epithelia l cells count in urine sediment (number/area)Ordered By: Marianela Kaiser on 04-26-2024 Epithelial cells.squamous Auto (Urine sed) [#/Area] 0-5 /HPF [facility] Basophils Auto (Bld) [#/Vol] Ordered By: Marianela Kaiser on 04-26-2024 Basophils (Bld) [#/Vol] 0 /cmm 0-200 L [facility] Basophils/100 WBC Auto (Bld) Ordered By: Marianela Kaiser on 04-26-2024 Basophils/100 WBC (Bld) 0.6 % 0-2 L [facility] Benzodiazepines Screen Ql (U )Ordered By: Marianela Kaiser on 04-26-2024 Benzodiazepines Ql (U) Negative Negative [facility] Bilirubin Auto test strip Ql (U)Ordered By: Marianela Kaiser on 04-26-2024 Bilirubin Ql (U) Negative Negative [facility] Blood anion gapOrdered By: Anai Kaiser on 04-26-2024 Anion gap (Bld) [Moles/Vol] 8 mmol/L -12 [facility] Blood hematocrit (volume fra ction)Ordered By: Marianela Kaiser on 04-26-2024 Hematocrit (Bld) [Volume fraction] 40.5 % 35.0-44.0 [facility] Blood hemoglobin measurement (mass/volume)Ordered By: Marianela Kaiser on 04-26-2024 Hemoglobin (Bld) [Mass/Vol] 13.6 g/dL 12.0-15.0 [facility] CBC with Differentialon 04-14 Abs Baso Count 0 /cmm Normal 0-200 [facility] Comment on above: Performed By: #### L 100.0000 #### Main Laboratory ([facility]) [address] [place] [address] Dusty Haro MD Abs Eos Count 0 /cmm Normal 0-500 [facility] Comment on above: Performed By: #### L 100.0000 #### Main Laboratory ([facility]) [address] [place] [address] Dusty Haro MD Abs Lymph Count 1300 /cmm Normal 0304-9401 [facility] Comment on above: Performed By: #### L 100.0000 #### Main Laboratory ([facility]) [address] [place] [address] Dusty Haro MD Abs Wells Count 600 /cmm Normal 0-800 [facility] Comment on above: Performed By: #### L 100.0000 #### Main Laboratory ([facility]) [address] [place] [address] Dusty Haro MD Abs Neut Count 5700 /cmm Normal 9655-9882 [facility] Comment on above: Performed By: #### L 100.0000 #### Main Laboratory ([facility]) [address] [place] [address] Dusty Haro MD Basophils/100 WBC (Bld) 0.6 % Normal 0-2 L [facility] Comment on above: Performed By: #### L 100.0000 #### Main Laboratory ([facility]) [address] [place], [place] [address] Dusty Haro MD EOS-Auto Diff 0.0 % Normal 0-6 [facility] Comment on above: Performed By: #### L 100.0000 #### Main Laboratory ([facility]) [address] [place] [address] Dusty Haro MD Erythrocyte distribution width (RBC) [Ratio] 15.6 % Normal 12.0-16.0 [facility] Comment on above: Performed By: #### L 100.0000 #### Main Laboratory ([facility]) [address] [place] [address] Dusty Haro MD Hematocrit (Bld) [Volume fraction] 40.5 % Normal 35.0-44.0 [facility] Comment on above: Performed By: #### L 100.0000 #### Main Laboratory ([facility]) [address] [place], [place] [address] Dusty Haro MD Hemoglobin (Bld) [Mass/Vol] 13.6 g/dL Normal 12.0-15.0 [facility] Comment on above: Performed By: #### L 100.0000 #### Main Laboratory ([facility]) [address] [place], [facility] Dusty Haro MD Lymphocytes/100 WBC (Bld) 17.6 % Normal 15-45 [facility] Comment on above: Performed By: #### L 100.0000 #### Main Laboratory ([facility]) [address] [place], [place] [address] Dusty Haro MD MCH (RBC) [Entitic mass] 28.3 pg Normal 27.5-33.0 [facility] Comment on above: Performed By: #### L 100.0000 #### Main Laboratory ([facility]) [address] [place] [address] Dusty Haro MD MCHC (RBC) [Mass/Vol] 33.6 g/dL Normal 33.0-36.0 [facility] Comment on above: Performed By: #### L 100.0000 #### Main Laboratory ([facility]) [address] [place], [place] [address] Dusty Haro MD MCV 84.0 CU RK Normal 80-97 [facility] Comment on above: Performed By: #### L 100.0000 #### Main Laboratory ([facility]) [address] [place] [address] Dusty Haro MD Wells- Auto Diff 7.4 % Normal 2-10 [facility] Comment on above: Performed By: #### L 100.0000 #### Main Laboratory ([facility]) [address] [place], [place] [address] Dusty Haro MD Neut-Auto Diff 74.4 % High 40-70 [facility] Comment on above: Performed By: #### L 100.0000 #### Main Laboratory ([facility]) [address] [place], [place] [address] Dusty Haro MD NRBC-Auto 0.0 /100 WBC Normal <1 [facility] Comment on above: Performed By: #### L 100.0000 #### Main Laboratory ([facility]) [address] [place], [place] [address] Dusty Haro MD Platelet Count 318 th/cmm Normal 150-400 [facility] Comment on above: Performed By: #### L 100.0000 #### Main Laboratory ([facility]) [address] [place] [address] Dusty Haro MD RBC 4.82 mil/cmm Normal 4.00-5.10 [facility] Comment on above: Performed By: #### L 100.0000 #### Main Laboratory ([facility]) [address] [place] [facility] Dusty Haro MD WBC 7.6 th/cmm Normal 4.4-10.5 [facility] Comment on above: Performed By: #### L 100.0000 #### Main Laboratory ([facility]) [address] [place] [address] Abd/Pelvis W/Contrast 741 77on 04-26-2024 CT Abd/Pelvis W/Contrast [id number] [facility] Radiology Department Patient: CINDY STACY [address] : 1990 Sex: [place] [address] Location: [address] [phone] Unit #: [id number] Ordering Phys: Marianela Kaiser PA-C Exam Date: 04/26/24 Exam: CT CT Abd/Pelvis W/Contrast [id number] Result: See Report [id number] STUDY: CT ABDOMEN AND PELVIS WITH CONTRAST REASON FOR EXAM: Female, 33 years old. ams, abd pain altered mental status. Patient does have a history of MRDD and resides at [facility]. Patient also has a history of seizures. Staff states patient has been slowly declining over the past couple of days and is not functioning as she was normally. Generally patient can ambulate and self feed and has not been eating or ambulating at all. They state the patient does not converse eating or answering any questions. They state they did a UA yesterday that was negative. RN did speak with father over the phone who states that the patient does act like this prior and post seizure. Patient is not answering any questions appropriately. RADIATION DOSAGE (If Supplied By Facility): CTDIvol = ( 9 ) mGy, DLP = ( 428 ) mGycm TECHNIQUE: IV Omnipaque 300 75 ML was administered. Transaxial images were obtained from the dome of the diaphragm to the symphysis pubis in the portal venous phase. Multiplanar coronal and sagittal images were reformatted. Individualized Dose Optimization Techniques Were Used For This CT. COMPARISON: No relevant prior comparison study available FINDINGS: LOWER CHEST: Lung bases are clear. No cardiomegaly or pericardial effusion. LIVER: The liver is normal in size, shape, and attenuation. No focal mass. GALLBLADDER AND BILIARY TREE: The gallbladder is normally distended. No gallstones. No gallbladder wall thickening or edema. No pericholecystic fluid. No intra- or extrahepatic biliary ductal dilation. PANCREAS: No focal cystic or solid mass. SPLEEN: Normal size without focal cystic or solid mass. ADRENAL GLANDS: No nodules. KIDNEYS AND URETERS: Normal renal size and position. No hydronephrosis or nephrolithiasis. PERITONEUM: No ascites or free air. No other fluid collection. BOWEL: The stomach is unremarkable. Normal caliber small bowel. There is no obstruction. No colonic wall thickening or inflammation. No evidence of acute appendicitis. LYMPH NODES: No enlarged mesenteric or retroperitoneal lymph nodes. VESSELS: Aorta is non-dilated. URINARY BLADDER: Unremarkable. REPRODUCTIVE ORGANS: No pelvic masses. ABDOMINAL WALL: No discrete abdominal or pelvic wall hernia. BONES: No lytic or blastic abnormality. IMPRESSION: No acute finding in the abdomen or pelvis. No inflammatory change. Electronically Signed: Cuong Siddiqi MD at 0:13 EDT , cc: Meg Sexton MD ([place]); Marianela Kaiser PA-C Dictated by: Cuong Shen MD on 04/27/2412 Transcribed by: Cuong Shen MD on 04/27/2412 Report Signed by: Cuong Shen MD on 04/27/2412 Normal [facility] CT Head Without Contrast 704 50on 04-26-2024 CT Head Without Contrast [id number] [facility] Radiology Department Patient: CINDY STACY[address]. : 1990 Sex: [place] [address] Location: [phone] [facility] [id number] [id number] Ordering Phys: Marianela Kaiser PA-C Exam Date: 04/26/24 Exam: CT CT Head Without Contrast [id number] Result: See Report [id number] INDICATION: ams altered mental status. Patient does have a history of MRDD and resides at [facility]. Patient also has a history of seizures. Staff states patient has been slowly declining over the past couple of days and is not functioning as she was normally. Generally patient can ambulate and self feed and has not been eating or ambulating at all. They state the patient does not converse eating or a EXAMINATION: CT BRAIN - CT Head or Brain W/O Contrast Injection TECHNIQUE: Multiple axial images were obtained of the head without intravenous contrast. A radiation dose optimization technique was used for this scan. IV Contrast dosage and agent: None. RADIATION DOSAGE (If Supplied By Facility): CTDIvol = ( 47 ) mGy, DLP = ( 764 ) mGycm COMPARISON: No relevant prior comparison study available FINDINGS: BRAIN PARENCHYMA: No intra- or extra-axial hemorrhage. No evidence of acute infarct. No intracranial mass or mass effect. There is preservation of the marin/white matter interface. Posterior fossa structures are unremarkable. No parenchymal abnormality. CSF SPACES: No cerebral volume loss. No hydrocephalus. Basal cisterns are patent. CALVARIUM, SKULL BASE, PARANASAL SINUSES AND MASTOID AIR CELLS: The mastoid air cells and visualized paranasal sinuses are well aerated. The calvarium is intact. No discrete lytic or blastic abnormalities. ORBITS: Both globes, extraocular muscles, optic nerves and retrobulbar fat appear unremarkable. IMPRESSION: No acute intracranial finding. Electronically Signed: Cuong Siddiqi MD at 0:09 EDT , cc: Meg Sexton MD ([place]); Marianela Kaiser PA-C Dictated by: Cuong Shen MD on 04/27/248 Transcribed by: Cuong Shen MD on 04/27/248 Report Signed by: Cuong Shen MD on 04/27/248 Normal [facility] Complete urinalysis with ref patricia to cultureOrdered By: Marianela Kaiser on 04-26-2024 Urinalysis complete W Reflex Culture panel (U) No [facility] Comment on above: Culture not done per lab protocol Comprehensive Metabolic Pane arjun 04-26-2024 Albumin [Mass/Vol] 4.2 g/dL Normal 3.5-5.0 [facility] Comment on above: Performed By: #### L 400.4600 #### Main Laboratory ([facility]) [address] [place] [address] Dusty Haro MD Albumin/Globulin [Mass ratio] 1.2 {ratio} Low 1.5-2.5 [facility] Comment on above: Performed By: #### L 400.4600 #### Main Laboratory ([facility]) [address] [place] [address] Dusty Haro MD Alk Phos 55 IU/L Normal 39-118 [facility] Comment on above: Performed By: #### L 400.4600 #### Main Laboratory ([facility]) [address] [place] [address] Dusty Haro MD ALT [Catalytic activity/Vol] 12 U/L Normal 10-40 [facility] Comment on above: Performed By: #### L 400.4600 #### Main Laboratory ([facility]) [address] [place] [address] Dusty Haro MD Anion gap [Moles/Vol] 8 mmol/L Normal 4-12 [facility] Comment on above: Performed By: #### L 400.4600 #### Main Laboratory ([facility]) [address] [place], [place] [address] Dusty Haro MD AST [Catalytic activity/Vol] 13 U/L Low 15-41 [facility] Comment on above: Performed By: #### L 400.4600 #### Main Laboratory ([facility]) [address] [place], [place] [address] Dusty Haro MD Bili,Total 0.4 mg/dL Normal 0.2-1.0 [facility] Comment on above: Performed By: #### L 400.4600 #### Main Laboratory ([facility]) [address] [place], [place] [address] Dusty Haro MD Calcium [Mass/Vol] 9.30 mg/dL Normal 8.8-10.5 [facility] Comment on above: Performed By: #### L 400.4600 #### Main Laboratory ([facility]) [address] [place], [facility] Dusty Haro MD Chloride [Moles/Vol] 105 mmol/L Normal 101-111 [facility] Comment on above: Performed By: #### L 400.4600 #### Main Laboratory ([facility]) [address] [place], [facility] Dusty Haro MD CO2 [Moles/Vol] 23 mmol/L Normal 21-32 [facility] Comment on above: Performed By: #### L 400.4600 #### Main Laboratory ([facility]) [address] [place], [facility] Dusty Haro MD Creatinine [Mass/Vol] 0.83 mg/dL Normal 0.60-1.30 [facility] Comment on above: Performed By: #### L 400.4600 #### Main Laboratory ([facility]) [address] [place] [address] Dusty Haro MD GFR Calculation > 60 Normal [facility] Comment on above: Result Comment: Tanning Drum Operator nelli Kidney Disease stages by NKDF Stage eGFR I >90 II 60-89 III 30-59 IV 15-29 V <15 or dialysis AGE(years) AVERAGE GFR 30-39 107 ml/min/1.73 square meters Note:This result is normalized to 1.73 square meter body surface area. Height and weight are not factored. Performed By: #### L 400.4600 #### Main Laboratory ([facility]) [address] [place] [address] Dusty Haro MD Glucose [Mass/Vol] 104 mg/dL Normal 70-110 [facility] Comment on above: Result Comment: *Thi s reference range applies to fasting specimens only. Performed By: #### L 400.4600 #### Main Laboratory ([facility]) [address] [place] [address] Dusty Haro MD Potassium [Moles/Vol] 3.5 mmol/L Low 3.6-5.0 [facility] Comment on above: Performed By: #### L 400.4600 #### Main Laboratory ([facility]) [address] [place] [address] Dusty Haro MD Protein [Mass/Vol] 7.6 g/dL Normal 6.2-8.0 [facility] Comment on above: Performed By: #### L 400.4600 #### Main Laboratory ([facility]) [address] [place] [address] Dusty Haro MD Sodium [Moles/Vol] 136 mmol/L Normal 135-145 [facility] Comment on above: Performed By: #### L 400.4600 #### Main Laboratory ([facility]) [address] [place] [address] Dusty Haro MD Urea nitrogen [Mass/Vol] 19 mg/dL Normal 7-20 [facility] Comment on above: Performed By: #### L 400.4600 #### Main Laboratory ([facility]) [address] [place] [address] Dusty Haro MD D-Dimeron 04-26-2024 D-Dimer (D-DU) 83 ng/mL Normal <230 [facility] Comment on above: Result Comment: When D-Dimer level is less than 230 ng/mL, probability of DVT and PE is low (based on the studies done by the nib adjuster and [facility] lab). If D-Dimer level is greater than 230 ng/mL, correlation with clinical findings and/or other modalities is suggested to exclude thromboembolic events. (These guidelines do not apply to patients on anticoagulants). Performed By: #### L 300.3000, L300.770 #### Main Laboratory ([facility]) [address] [place] [id number] Dusty Haro MD Drug Screen Urineon 04-26-20 24 Comment Normal [facility] Comment on above: Result Comment: This drug of abuse screen is not intended for employment related testing and is intended for use in clinical management of patients. Cut-off Concentrations for Positive Results Phencyclidine 25 ng/mL Benzodiazepines 200 ng/mL Cocaine 300 ng/mL Amphetamines 1000 ng/mL Cannabinoids 50 ng/mL Opiates 300 ng/mL Barbiturates 200 ng/mL Oxycodone 100 ng/mL Performed By: #### L 300.3000, L300.7701 #### Main Laboratory ([facility]) [address] [place] [address] Dusty Haro MD Eosinophils/100 WBC Auto (Bl d)Ordered By: Marianela Kaiser on 04-26-2024 Eosinophils/100 WBC (Bld) 0.0 % 0-6 [facility] Erythrocyte distribution wid th ratioOrdered By: Marianela Kaiser on 04-26-2024 Erythrocyte distribution width (RBC) [Ratio] 15.6 % 12.0-16.0 [facility] Fibrin D-dimer DDU measureme nt in platelet poor plasma (mass/volume)Ordered By: Marianela Kaiser on 04-26-2024 Fibrin D-dimer DDU (PPP) [Mass/Vol] 83 ng/mL <230 [facility] Comment on above: When D-Dimer level i s less than 230 ng/mL, probability of DVT and PE is low (based on the studies done by the nib adjuster and [facility] lab). If D-Dimer level is greater than 230 ng/mL, correlation with clinical findings and/or other modalities is suggested to exclude thromboembolic events. (These guidelines do not apply to patients on anticoagulants). Glomerular filtration rate ( GFR) estimation/1.73 sq m using serum, plasma, or whole bOrdered By: Mairanela Kaiser on 04-26-2024 GFR/1.73 sq M.predicted (S/P/Bld) [Vol rate/Area] mL/min >60 [facility] Comment on above: AGE(years) AVERAGE G FR 30-39 107 ml/min/1.73 square metersNote:This result is normalized to 1.73 square meter body surface area. Height and weight are not factored.Chronic Kidney Disease stages by NKDFStage eGFR I >90 II 60-89 III 30-59 IV 15-29 V <15 or dialysis INR in Platelet poor plasma by Coagulation assayOrdered By: Marianela Kaiser on 04-26-2024 INR Coag (PPP) [Relative time] 1.09 {INR} 0.9-1.2 [facility] Comment on above: Standard dose INR: 2 .0-3.0High dose INR: 2.5-3.5 Ketones Auto test strip (U) [Mass/Vol]Ordered By: Marianela Kaiser on 04-26-2024 Ketones (U) [Mass/Vol] Negative Negative [facility] Lactic Acidon 04-26-2024 Lactate [Moles/Vol] 1.0 mmol/L Normal 0.5-2.0 [facility] Comment on above: Performed By: #### L 300.3000, L300.7701 #### Main Laboratory ([facility]) [address] [place] [address] Dusty Haro MD Lymphocytes/100 WBC Auto (Bl d)Ordered By: Marianela Kaiser on 04-26-2024 Lymphocytes/100 WBC (Bld) 17.6 % 15-45 [facility] MCH Auto (RBC) [Entitic mass ]Ordered By: Marianela Kaiser on 04-26-2024 MCH (RBC) [Entitic mass] 28.3 pg 27.5-33.0 [facility] MCHC Auto (RBC) [Mass/Vol]Or dered By: Marianela Kaiser on 04-26-2024 MCHC (RBC) [Mass/Vol] 33.6 g/dL 33.0-36.0 [facility] MCV Auto (RBC) [Entitic vol] Ordered By: Marianela Kaiser on 04-26-2024 MCV (RBC) [Entitic vol] 84.0 CU RK 80-97 [facility] Magnesiumon 04-26-2024 Magnesium [Mass/Vol] 2.0 mg/dL Normal 1.8-2.5 [facility] Comment on above: Performed By: #### L 400.4600 #### Main Laboratory ([facility]) [address] [place] [address] Dusty Haro MD Monocytes Auto (Bld) [#/Vol] Ordered By: Marianela Kaiser on 04-26-2024 Monocytes (Bld) [#/Vol] 600 /cmm 0-800 L [facility] Monocytes/100 WBC Auto (Bld) Ordered By: Marianela Kaiser on 04-26-2024 Monocytes/100 WBC (Bld) 7.4 % 2-10 L [facility] Neutrophils/100 WBC Auto (Bl d)Ordered By: Marianela Kaiser on 04-26-2024 Neutrophils/100 WBC (Bld) 74.4 % High 40-70 [facility] Nucleated RBC Auto (Bld) [#/ Vol]Ordered By: Marianela Kaiser on 04-26-2024 Nucleated RBC (Bld) [#/Vol] 0.0 /100 WBC <1 [facility] Phencyclidine Screen Ql (U)O rdered By: Marianela Kaiser on 04-26-2024 Phencyclidine Ql (U) Negative Negative [facility] Plasma ammonia measurement ( moles/volume)Ordered By: Marianela Kaiser on 04-26-2024 Ammonia (P) [Moles/Vol] 21 umol/L 11-35 L [facility] Platelets Auto (Bld) [#/Vol] Ordered By: Marianela Kaiser on 04-26-2024 Platelets (Bld) [#/Vol] 318 th/cmm 150-400 L [facility] Prolactinon 04-26-2024 Prolactin 36.55 ng/mL High 3.34-26.72 [facility] Comment on above: Performed By: #### L 400.4600 #### Main Laboratory ([facility]) [address] [place] [address] Dusty Haro MD Protein Auto test strip (U) [Mass/Vol]Ordered By: Marianela Kaiser on 04-26-2024 Protein (U) [Mass/Vol] 20 mg/dL Negative [facility] Prothrombin Timeon INR Coag (PPP) [Relative time] 1.09 {INR} Normal 0.9-1.2 [facility] Comment on above: Result Comment: Jacky dard dose INR: 2.0-3.0 High dose INR: 2.5-3.5 Performed By: #### L 300.3000, L300.7701 #### Main Laboratory ([facility]) [address] [place] [address] Dusty Haro MD PT Coag (PPP) [Time] 13.0 s Normal 9.6-13.3 [facility] Comment on above: Performed By: #### L 300.3000, L300.7701 #### Main Laboratory ([facility]) [address] [place] [address] Dusty Haro MD Prothrombin time (PT) in abelardo telet poor plasmaOrdered By: Marianela Kaiser on 04-26-2024 PT Coag (PPP) [Time] 13.0 s 9.6-13.3 [facility] RBC Auto (Bld) [#/Vol]Ordere d By: Marianela Kaiser on 04-26-2024 RBC (Bld) [#/Vol] 4.82 mil/cmm 4.00-5.10 [facility] Screening urine opiates dete ctionOrdered By: Marianela Kaiser on 04-26-2024 Opiates Screen Ql (U) Negative Negative [facility] Serum or plasma alanine moore otransferase measurement (enzymatic activity/volume)Ordered By: Marianela Kaiser on 04-26-2024 ALT [Catalytic activity/Vol] 12 U/L 10-40 [facility] Serum or plasma albumin guillermina urement (mass/volume)Ordered By: Marianela Kaiser on 04-26-2024 Albumin [Mass/Vol] 4.2 g/dL 3.5-5.0 [facility] Serum or plasma albumin/glob ulin mass ratioOrdered By: Marianela Kaiser on 04-26-2024 Albumin/Globulin [Mass ratio] 1.2 {ratio} Low 1.5-2.5 [facility] Serum or plasma alkaline smiley sphatase measurement (enzymatic activity/volume)Ordered By: Marianela Kaiser on 04-26-2024 ALP [Catalytic activity/Vol] 55 U/L 39-118 [facility] Serum or plasma aspartate am inotransferase measurement (enzymatic activity/volume)Ordered By: Marianela Kaiser on 04-26-2024 AST [Catalytic activity/Vol] 13 U/L Low 15-41 [facility] Serum or plasma calcium guillermina urement (mass/volume)Ordered By: Marianela Kaiser on 04-26-2024 Calcium [Mass/Vol] 9.30 mg/dL 8.8-10.5 [facility] Serum or plasma chloride margy surement (moles/volume)Ordered By: Marianela Kaiser on 04-26-2024 Chloride [Moles/Vol] 105 mmol/L 101-111 [facility] Serum or plasma creatinine m easurement (mass/volume)Ordered By: Marianela Kaiser on 04-26-2024 Creatinine [Mass/Vol] 0.83 mg/dL 0.60-1.30 [facility] Serum or plasma glucose guillermina urement (mass/volume)Ordered By: Marianela Kaiser on 04-26-2024 Glucose [Mass/Vol] 104 mg/dL 70-110 [facility] Comment on above: *This reference rang e applies to fasting specimens only. Serum or plasma lactate guillermina urement (moles/volume)Ordered By: Marianela Kaiser on 04-26-2024 Lactate [Moles/Vol] 1.0 mmol/L 0.5-2.0 [facility] Serum or plasma magnesium me asurement (mass/volume)Ordered By: Marianela Kaiser on 04-26-2024 Magnesium [Mass/Vol] 2.0 mg/dL 1.8-2.5 [facility] Serum or plasma potassium me asurement (moles/volume)Ordered By: Marianela Kaiser on 04-26-2024 Potassium [Moles/Vol] 3.5 mmol/L Low 3.6-5.0 [facility] Serum or plasma prolactin me asurement (mass/volume)Ordered By: Marianela Kaiser on 04-26-2024 Prolactin [Mass/Vol] 36.55 ng/mL High 3.34-26.72 [facility] Serum or plasma protein guillermina urement (mass/volume)Ordered By: Marianela Kaiser on 04-26-2024 Protein [Mass/Vol] 7.6 g/dL 6.2-8.0 [facility] Serum or plasma sodium measu rement (moles/volume)Ordered By: Marianela Kaiser on 04-26-2024 Sodium [Moles/Vol] 136 mmol/L 135-145 [facility] Serum or plasma total biliru bin measurement (mass/volume)Ordered By: Marianela Kaiser on 04-26-2024 Bilirubin [Mass/Vol] 0.4 mg/dL 0.2-1.0 [facility] Serum or plasma total carbon dioxide measurement (moles/volume)Ordered By: Marianela Kaiser on 04-26-2024 CO2 [Moles/Vol] 23 mmol/L 21-32 [facility] Serum or plasma urea nitroge n measurement (mass/volume)Ordered By: Marianela Kaiser on 04-26-2024 Urea nitrogen [Mass/Vol] 19 mg/dL 7-20 [facility] Specific gravity Auto test s trip (U) [Rel density]Ordered By: Marianela Kaiser on 04-26-2024 Specific gravity (U) [Rel density] 1.028 1.000-1.035 [facility] Urinalysis w Micro Rflx Cult on 04-26-2024 Appearance (U) Clear Normal [facility] Comment on above: Order Comment: Urine Source Urine, Clean Catch Performed By: #### L 300.3000, L300.7701 #### Main Laboratory ([facility]) [address] [place] [address] Dusty Haro MD Bilirubin Ql (U) Negative Normal Negative [facility] Comment on above: Order Comment: Urine Source Urine, Clean Catch Performed By: #### L 300.3000, L300.7701 #### Main Laboratory ([facility]) [address] [place] [address] Dusty Haro MD Color (U) Yellow Normal [facility] Comment on above: Order Comment: Urine Source Urine, Clean Catch Performed By: #### L 300.3000, L300.7701 #### Main Laboratory ([facility]) [address] [place] [address] Dusty Haro MD Epi,Squamous 0-5 Normal [facility] Comment on above: Order Comment: Urine Source Urine, Clean Catch Performed By: #### L 300.3000, L300.7701 #### Main Laboratory ([facility]) [address] [place] [address] Dusty Haro MD Glucose Ql (U) Negative Normal Negative [facility] Comment on above: Order Comment: Urine Source Urine, Clean Catch Performed By: #### L 300.3000, L300.7701 #### Main Laboratory ([facility]) [address] [place] [address] Dusty Haro MD Ketones Ql (U) Negative Normal Negative [facility] Comment on above: Order Comment: Urine Source Urine, Clean Catch Performed By: #### L 300.3000, L300.7701 #### Main Laboratory ([facility]) [address] [place] [address] Dusty Haro MD Leukocytes Negative Normal Negative [facility] Comment on above: Order Comment: Urine Source Urine, Clean Catch Performed By: #### L 300.3000, L300.7701 #### Main Laboratory ([facility]) [address] [place], [facility] Dusty Haro MD Mucous Present Normal [facility] Comment on above: Order Comment: Urine Source Urine, Clean Catch Performed By: #### L 300.3000, L300.7701 #### Main Laboratory ([facility]) [address] [place], [place] [address] Dusty Haro MD Nitrite Ql (U) Negative Normal Negative [facility] Comment on above: Order Comment: Urine Source Urine, Clean Catch Performed By: #### L 300.3000, L300.7701 #### Main Laboratory ([facility]) [address] [place], [place] [address] Dsuty Haro MD pH (U) 5.5 [pH] Normal 5.0-8.0 [facility] Comment on above: Order Comment: Urine Source Urine, Clean Catch Performed By: #### L 300.3000, L300.7701 #### Main Laboratory ([facility]) [address] [place], [place] [address] Dusty Haro MD Protein Ql (U) 20 mg/dl Normal Negative [facility] Comment on above: Order Comment: Urine Source Urine, Clean Catch Performed By: #### L 300.3000, L300.7701 #### Main Laboratory ([facility]) [address] [place], [place] [address] Dusty Haro MD RBC 0-2 Normal [facility] Comment on above: Order Comment: Urine Source Urine, Clean Catch Performed By: #### L 300.3000, L300.7701 #### Main Laboratory ([facility]) [address] [place], [place] [address] Dusty Haro MD Specific gravity (U) [Rel density] 1.028 Normal 1.000-1.035 [facility] Comment on above: Order Comment: Urine Source Urine, Clean Catch Performed By: #### L 300.3000, L300.7701 #### Main Laboratory ([facility]) [address] [place] [address] Dusty Haro MD UA Reflex Culture No Normal [facility] Comment on above: Order Comment: Urine Source Urine, Clean Catch Result Comment: Cult ure not done per lab protocol Performed By: #### L 300.3000, L300.7701 #### Main Laboratory ([facility]) [address] [place], [place] [address] Dusty Haro MD Urobilinogen (U) [Mass/Vol] mg/dL Normal 0.2-1.0 [facility] Comment on above: Order Comment: Urine Source Urine, Clean Catch Performed By: #### L 300.3000, L300.7701 #### Main Laboratory ([facility]) [address] [place] [address] Dusty Haro MD WBC 0-5 Normal [facility] Comment on above: Order Comment: Urine Source Urine, Clean Catch Performed By: #### L 300.3000, L300.7701 #### Main Laboratory ([facility]) [address] [place], [place] [address] Dusty Haro MD Urine Pregnancyon 04-26-2024 Result Negative Normal Negative [facility] Comment on above: Order Comment: Urine Source Urine, Clean Catch Performed By: #### L 300.3000, L300.7701 #### Main Laboratory ([facility]) [address] [place], [place] [address] Dusty Haro MD Urine appearance determinati onOrdered By: Marianela Kaiser on 04-26-2024 Appearance (U) Clear [facility] Urine barbiturates detection by screening methodOrdered By: Marianela Kaiser on 04-26-2024 Barbiturates Screen Ql (U) Negative Negative [facility] Urine cannabinoids detection by screening methodOrdered By: Marianela Kaiser on 04-26-2024 Cannabinoids Screen Ql (U) Negative Negative [facility] Urine cocaine detectionOrder ed By: Marianela Kaiser on 04-26-2024 Cocaine Ql (U) Negative Negative [facility] Urine color determinationOrd ered By: Marianela Kaiser on 04-26-2024 Color (U) Yellow [facility] Urine drug screen comment in terpretationOrdered By: Marianela Kaiser on 04-26-2024 Drug screen comment (U) [Interp] See comment [facility] Comment on above: This drug of abuse s creen is not intended for employmentrelated testing and is intended for use in clinicalmanagement of patients. Cut-off Concentrations for Positive ResultsPhencyclidine 25 ng/mLBenzodiazepines 200 ng/mLCocaine 300 ng/mLAmphetamines 1000 ng/mLCannabinoids 50 ng/mLOpiates 300 ng/mLBarbiturates 200 ng/mLOxycodone 100 ng/mL Urine erythrocytes detection Ordered By: Marianela Kaiser on 04-26-2024 RBC Ql (U) Negative Negative [facility] Urine glucose measurement by automated test strip (mass/volume)Ordered By: Marianela Kaiser on 04-26-2024 Glucose Auto test strip (U) [Mass/Vol] Negative Negative [facility] Urine human chorionic gonado tropin (hCG) detectionOrdered By: Marianela Kaiser on 04-26-2024 HCG ( test) Ql (U) Negative Negative [facility] Urine leukocyte esterase det ection by automated test stripOrdered By: Marianela Kaiser on 04-26-2024 Leukocyte esterase Auto test strip Ql (U) Negative Negative [facility] Urine mucus detection by aut omated methodOrdered By: Marianela Kaiser on 04-26-2024 Mucus Auto Ql (U) Present [facility] Urine nitrite detection by a utomated test stripOrdered By: Marianela Kaiser on 04-26-2024 Nitrite Auto test strip Ql (U) Negative Negative [facility] Urine oxycodone detectionOrd ered By: Marianela Kaiser on 04-26-2024 oxyCODONE Ql (U) Negative Negative [facility] Urobilinogen Test strip Qn ( U)Ordered By: Marianela Kaiser on 04-26-2024 Urobilinogen Qn (U) <2.0 mg/dL 0.2-1.0 [facility] WBC Auto (Bld) [#/Vol]Ordere d By: Marianela Kaiser on 04-26-2024 WBC (Bld) [#/Vol] 7.6 th/cmm 4.4-10.5 [facility] XR Chest 1 View Portableon 0 04-26-2024 XR Chest 1 View Portable [facility] Radiology Department Patient: CINDY STACY. : 1990 Sex: [place] [id number] Location: [facility] [phone] Unit #: [id number] Ordering Phys: Marianela Kaiser PA-C Exam Date: 04/26/24 Exam: MAIN XR Chest 1 View Portable Result: See Report [id number] INDICATION: Generalized weakness. Tachycardia. AMS. EXAMINATION/TECHNIQUE: X-RAY - XR Chest 1 View COMPARISON: No relevant prior comparison study available FINDINGS: LINES/DEVICES: None. LUNGS: The lungs are well expanded. No consolidation, edema or effusion. No pneumothorax. MEDIASTINUM AND CARDIOVASCULAR STRUCTURES: Cardiac silhouette not enlarged. Central airways and mediastinal contour are unremarkable. BONES AND SOFT TISSUES: No acute abnormality. IMPRESSION: No acute pulmonary finding. Electronically Signed: Cuong Siddiqi MD at 23:14 EDT , cc: Meg Sexton MD ([place]); Marianela Kaiser PA-C Dictated by: Cuong Shen MD on 04/26/242313 Transcribed by: Cuong Shen MD on 04/26/242313 Report Signed by: Cuong Shen MD on 04/26/242313 Normal [facility] hs Troponin I Profileon 04-14 hs Troponin-I 7 ng/L Normal 0-15 [facility] Comment on above: Result Comment: Trop onin I, High Sensitivity is below the upper reference limit (16 ng/L) and results are not consistent with myocardial infarction or injury, provided the specimen was collected more than 3-hours from the onset of symptoms. Patients with active symptoms, ischemic ECG changes and/or concerning clinical presentations should be considered for urgent evaluation irrespective of troponin results. Performed By: #### L 400.4600 #### Main Laboratory ([facility]) [address] [place] [address] Dusty Haro MD pH Auto test strip (U)Ordere d By: Marianela Kaiser on 04-26-2024 pH (U) 5.5 [pH] 5.0-8.0 [facility] ANION GAPon 01-17-2024 Anion gap [Moles/Vol] 7.0 mmol/L Low 8.0-16.0 [facility] Comment on above: Result Comment: ANIO N GAP = Sodium -(Chloride + CO2) Performed By: #### B MPX, OSMOL, CBCWD, SHCG, HSTRP, ACTM, ASAT, ETOHS, MG, ANION, EGFR1, HEPPA #### [facility] [employer] [address] [place] [address] BASIC METABOL PANELon 2023 Calcium [Mass/Vol] 8.6 mg/dL Normal 8.5-10.5 [facility] Comment on above: Performed By: #### B MPX, OSMOL, CBCWD, SHCG, HSTRP, ACTM, ASAT, ETOHS, MG, ANION, EGFR1, HEPPA #### [employer] [address] [place] [address] Chloride [Moles/Vol] 104 mmol/L Normal 98-111 [facility] Comment on above: Performed By: #### B MPX, OSMOL, CBCWD, SHCG, HSTRP, ACTM, ASAT, ETOHS, MG, ANION, EGFR1, HEPPA #### [facility] [employer] [address] [place] [address] CO2 [Moles/Vol] 30 mmol/L Normal 23-33 [facility] Comment on above: Performed By: #### B MPX, OSMOL, CBCWD, SHCG, HSTRP, ACTM, ASAT, ETOHS, MG, ANION, EGFR1, HEPPA #### [address] [address] Creatinine [Mass/Vol] 0.6 mg/dL Normal 0.4-1.2 [facility] Comment on above: Performed By: #### B MPX, OSMOL, CBCWD, SHCG, HSTRP, ACTM, ASAT, ETOHS, MG, ANION, EGFR1, HEPPA #### [address] [address] Glucose [Mass/Vol] 114 mg/dL High 70-108 [facility] Comment on above: Performed By: #### B MPX, OSMOL, CBCWD, SHCG, HSTRP, ACTM, ASAT, ETOHS, MG, ANION, EGFR1, HEPPA #### [address] [address] POTASSIUM WITH REFLEX MG 4.0 meq/L Normal 3.5-5.2 [facility] Comment on above: Performed By: #### B MPX, OSMOL, CBCWD, SHCG, HSTRP, ACTM, ASAT, ETOHS, MG, ANION, EGFR1, HEPPA #### [address] [address] Sodium [Moles/Vol] 141 mmol/L Normal 135-145 [facility] Comment on above: Performed By: #### B MPX, OSMOL, CBCWD, SHCG, HSTRP, ACTM, ASAT, ETOHS, MG, ANION, EGFR1, HEPPA #### [address] [address] Urea nitrogen [Mass/Vol] 18 mg/dL Normal 7-22 [facility] Comment on above: Performed By: #### B MPX, OSMOL, CBCWD, SHCG, HSTRP, ACTM, ASAT, ETOHS, MG, ANION, EGFR1, HEPPA #### [place] [address] CBC NO DIFFERENTIALon 2023 Erythrocyte distribution width (RBC) [Ratio] 14.4 % Normal 11.5-14.5 [facility] Comment on above: Performed By: #### B MPX, OSMOL, CBCWD, SHCG, HSTRP, ACTM, ASAT, ETOHS, MG, ANION, EGFR1, HEPPA #### [place] [address] Hematocrit (Bld) [Volume fraction] 36.5 % Low 37.0-47.0 [facility] Comment on above: Performed By: #### B MPX, OSMOL, CBCWD, SHCG, HSTRP, ACTM, ASAT, ETOHS, MG, ANION, EGFR1, HEPPA #### [place] [address] Hemoglobin (Bld) [Mass/Vol] 11.7 g/dL Low 12.0-16.0 [facility] Comment on above: Performed By: #### B MPX, OSMOL, CBCWD, SHCG, HSTRP, ACTM, ASAT, ETOHS, MG, ANION, EGFR1, HEPPA #### [place] [address] MCH (RBC) [Entitic mass] 29.6 pg Normal 26.0-33.0 [facility] Comment on above: Performed By: #### B MPX, OSMOL, CBCWD, SHCG, HSTRP, ACTM, ASAT, ETOHS, MG, ANION, EGFR1, HEPPA #### [place] [address] MCHC (RBC) [Mass/Vol] 32.1 g/dL Low 32.2-35.5 [facility] Comment on above: Performed By: #### B MPX, OSMOL, CBCWD, SHCG, HSTRP, ACTM, ASAT, ETOHS, MG, ANION, EGFR1, HEPPA #### [place] [address] MCV (RBC) [Entitic vol] 92.4 fL Normal 81.0-99.0 [facility] Comment on above: Performed By: #### B MPX, OSMOL, CBCWD, SHCG, HSTRP, ACTM, ASAT, ETOHS, MG, ANION, EGFR1, HEPPA #### [place] [address] PLATELET 364 thou/mm3 Normal 130-400 [facility] Comment on above: Performed By: #### B MPX, OSMOL, CBCWD, SHCG, HSTRP, ACTM, ASAT, ETOHS, MG, ANION, EGFR1, HEPPA #### [place] [address] Platelet mean volume (Bld) [Entitic vol] 10.7 fL Normal 9.4-12.4 [facility] Comment on above: Performed By: #### B MPX, OSMOL, CBCWD, SHCG, HSTRP, ACTM, ASAT, ETOHS, MG, ANION, EGFR1, HEPPA #### [place] [address] RBC 3.95 mill/mm3 Low 4.20-5.40 [facility] Comment on above: Performed By: #### B MPX, OSMOL, CBCWD, SHCG, HSTRP, ACTM, ASAT, ETOHS, MG, ANION, EGFR1, HEPPA #### [place] [address] RDW-SD 48.9 fL High 35.0-45.0 [facility] Comment on above: Performed By: #### B MPX, OSMOL, CBCWD, SHCG, HSTRP, ACTM, ASAT, ETOHS, MG, ANION, EGFR1, HEPPA #### [place] [address] WBC 8.8 thou/mm3 Normal 4.8-10.8 [facility] Comment on above: Performed By: #### B MPX, OSMOL, CBCWD, SHCG, HSTRP, ACTM, ASAT, ETOHS, MG, ANION, EGFR1, HEPPA #### [address] [address] GFR, ESTIMATEDon 01-17-2024 GFR/1.73 sq M.predicted MDRD (S/P/Bld) [Vol rate/Area] mL/min/{1.73_m2} Normal >60 [facility] Comment on above: Result Comment: Rafa idac calculator link https://www.kidney.org/professionals/kdoqi/gfr_calculatorped Effective Aug 16, 2022 These results are not intended for use in patients <18 years of age. eGFR results are calculated without a race factor using the 2020 CKD-EPI equation. Careful clinical correlation is recommended, particularly when comparing to results calculated using previous equations. The CKD-EPI equation is less accurate in patients with extremes of muscle mass, extra-renal metabolism of creatinine, excessive creatine ingestion, or following therapy that affects renal tubular secretion. Performed By: #### B MPX, OSMOL, CBCWD, SHCG, HSTRP, ACTM, ASAT, ETOHS, MG, ANION, EGFR1, HEPPA #### [address] [address] ANION GAPon 01-10-2024 Anion gap [Moles/Vol] 10.0 mmol/L Normal 8.0-16.0 [facility] Comment on above: Result Comment: ANIO N GAP = Sodium -(Chloride + CO2) Performed By: #### B MPX, OSMOL, CBCWD, SHCG, HSTRP, ACTM, ASAT, ETOHS, MG, ANION, EGFR1, HEPPA #### [address] [address] BASIC METABOL PANELon 2023 Calcium [Mass/Vol] 9.2 mg/dL Normal 8.5-10.5 [facility] Comment on above: Performed By: #### B MPX, OSMOL, CBCWD, SHCG, HSTRP, ACTM, ASAT, ETOHS, MG, ANION, EGFR1, HEPPA #### [address] [address] Chloride [Moles/Vol] 104 mmol/L Normal 98-111 [facility] Comment on above: Performed By: #### B MPX, OSMOL, CBCWD, SHCG, HSTRP, ACTM, ASAT, ETOHS, MG, ANION, EGFR1, HEPPA #### [address] [address] CO2 [Moles/Vol] 25 mmol/L Normal 23-33 [facility] Comment on above: Performed By: #### B MPX, OSMOL, CBCWD, SHCG, HSTRP, ACTM, ASAT, ETOHS, MG, ANION, EGFR1, HEPPA #### [address] [address] Creatinine [Mass/Vol] 0.7 mg/dL Normal 0.4-1.2 [facility] Comment on above: Performed By: #### B MPX, OSMOL, CBCWD, SHCG, HSTRP, ACTM, ASAT, ETOHS, MG, ANION, EGFR1, HEPPA #### [address] [address] Glucose [Mass/Vol] 116 mg/dL High 70-108 [facility] Comment on above: Performed By: #### B MPX, OSMOL, CBCWD, SHCG, HSTRP, ACTM, ASAT, ETOHS, MG, ANION, EGFR1, HEPPA #### [address] [address] Potassium [Moles/Vol] 4.1 mmol/L Normal 3.5-5.2 [facility] Comment on above: Result Comment: Low level specimen hemolysis is present as indicated by the interference level index on the William analyzer. The reported K+ level may be falsely increased. If clinically warranted, recollection of the specimen is suggested. Performed By: #### B MPX, OSMOL, CBCWD, SHCG, HSTRP, ACTM, ASAT, ETOHS, MG, ANION, EGFR1, HEPPA #### [address] [address] Sodium [Moles/Vol] 139 mmol/L Normal 135-145 [facility] Comment on above: Performed By: #### B MPX, OSMOL, CBCWD, SHCG, HSTRP, ACTM, ASAT, ETOHS, MG, ANION, EGFR1, HEPPA #### [place] [address] Urea nitrogen [Mass/Vol] 19 mg/dL Normal 7-22 [facility] Comment on above: Performed By: #### B MPX, OSMOL, CBCWD, SHCG, HSTRP, ACTM, ASAT, ETOHS, MG, ANION, EGFR1, HEPPA #### [place] [address] CBC NO DIFFERENTIALon 2023 Erythrocyte distribution width (RBC) [Ratio] 14.5 % Normal 11.5-14.5 [facility] Comment on above: Performed By: #### B MPX, OSMOL, CBCWD, SHCG, HSTRP, ACTM, ASAT, ETOHS, MG, ANION, EGFR1, HEPPA #### [place] [address] Hematocrit (Bld) [Volume fraction] 39.7 % Normal 37.0-47.0 [facility] Comment on above: Performed By: #### B MPX, OSMOL, CBCWD, SHCG, HSTRP, ACTM, ASAT, ETOHS, MG, ANION, EGFR1, HEPPA #### [place] [address] Hemoglobin (Bld) [Mass/Vol] 12.8 g/dL Normal 12.0-16.0 [facility] Comment on above: Performed By: #### B MPX, OSMOL, CBCWD, SHCG, HSTRP, ACTM, ASAT, ETOHS, MG, ANION, EGFR1, HEPPA #### [address] [address] MCH (RBC) [Entitic mass] 29.6 pg Normal 26.0-33.0 [facility] Comment on above: Performed By: #### B MPX, OSMOL, CBCWD, SHCG, HSTRP, ACTM, ASAT, ETOHS, MG, ANION, EGFR1, HEPPA #### [place] [address] MCHC (RBC) [Mass/Vol] 32.2 g/dL Normal 32.2-35.5 [facility] Comment on above: Performed By: #### B MPX, OSMOL, CBCWD, SHCG, HSTRP, ACTM, ASAT, ETOHS, MG, ANION, EGFR1, HEPPA #### [place] [address] MCV (RBC) [Entitic vol] 91.7 fL Normal 81.0-99.0 [facility] Comment on above: Performed By: #### B MPX, OSMOL, CBCWD, SHCG, HSTRP, ACTM, ASAT, ETOHS, MG, ANION, EGFR1, HEPPA #### [place] [address] PLATELET 430 thou/mm3 High 130-400 [facility] Comment on above: Performed By: #### B MPX, OSMOL, CBCWD, SHCG, HSTRP, ACTM, ASAT, ETOHS, MG, ANION, EGFR1, HEPPA #### [place] [address] Platelet mean volume (Bld) [Entitic vol] 10.6 fL Normal 9.4-12.4 [facility] Comment on above: Performed By: #### B MPX, OSMOL, CBCWD, SHCG, HSTRP, ACTM, ASAT, ETOHS, MG, ANION, EGFR1, HEPPA #### [place] [address] RBC 4.33 mill/mm3 Normal 4.20-5.40 [facility] Comment on above: Performed By: #### B MPX, OSMOL, CBCWD, SHCG, HSTRP, ACTM, ASAT, ETOHS, MG, ANION, EGFR1, HEPPA #### [place] [address] RDW-SD 48.6 fL High 35.0-45.0 [facility] Comment on above: Performed By: #### B MPX, OSMOL, CBCWD, SHCG, HSTRP, ACTM, ASAT, ETOHS, MG, ANION, EGFR1, HEPPA #### [facility] [address] [place] [address] WBC 9.3 thou/mm3 Normal 4.8-10.8 [facility] Comment on above: Performed By: #### B MPX, OSMOL, CBCWD, SHCG, HSTRP, ACTM, ASAT, ETOHS, MG, ANION, EGFR1, HEPPA #### [address] [address] GFR, ESTIMATEDon 01-10-2024 GFR/1.73 sq M.predicted MDRD (S/P/Bld) [Vol rate/Area] mL/min/{1.73_m2} Normal >60 [facility] Comment on above: Result Comment: Josefi atric calculator link https://www.kidney.org/professionals/kdoqi/gfr_calculatorped Effective Aug 16, 2022 These results are not intended for use in patients <18 years of age. eGFR results are calculated without a race factor using the 2020 CKD-EPI equation. Careful clinical correlation is recommended, particularly when comparing to results calculated using previous equations. The CKD-EPI equation is less accurate in patients with extremes of muscle mass, extra-renal metabolism of creatinine, excessive creatine ingestion, or following therapy that affects renal tubular secretion. Performed By: #### B MPX, OSMOL, CBCWD, SHCG, HSTRP, ACTM, ASAT, ETOHS, MG, ANION, EGFR1, HEPPA #### [address] [address] ANION GAPon 01-05-2024 Anion gap [Moles/Vol] 13.0 mmol/L Normal 8.0-16.0 [facility] Comment on above: Result Comment: ANIO N GAP = Sodium -(Chloride + CO2) Performed By: #### B MPX, OSMOL, CBCWD, SHCG, HSTRP, ACTM, ASAT, ETOHS, MG, ANION, EGFR1, HEPPA #### [address] [address] BASIC METABOL PANELon 2023 Calcium [Mass/Vol] 9.0 mg/dL Normal 8.5-10.5 [facility] Comment on above: Performed By: #### B MPX, OSMOL, CBCWD, SHCG, HSTRP, ACTM, ASAT, ETOHS, MG, ANION, EGFR1, HEPPA #### [address] [address] Chloride [Moles/Vol] 107 mmol/L Normal 98-111 [facility] Comment on above: Performed By: #### B MPX, OSMOL, CBCWD, SHCG, HSTRP, ACTM, ASAT, ETOHS, MG, ANION, EGFR1, HEPPA #### [address] [address] CO2 [Moles/Vol] 25 mmol/L Normal 23-33 [facility] Comment on above: Performed By: #### B MPX, OSMOL, CBCWD, SHCG, HSTRP, ACTM, ASAT, ETOHS, MG, ANION, EGFR1, HEPPA #### [address] [address] Creatinine [Mass/Vol] 0.6 mg/dL Normal 0.4-1.2 [facility] Comment on above: Performed By: #### B MPX, OSMOL, CBCWD, SHCG, HSTRP, ACTM, ASAT, ETOHS, MG, ANION, EGFR1, HEPPA #### [address] [address] Glucose [Mass/Vol] 84 mg/dL Normal 70-108 [facility] Comment on above: Performed By: #### B MPX, OSMOL, CBCWD, SHCG, HSTRP, ACTM, ASAT, ETOHS, MG, ANION, EGFR1, HEPPA #### [address] [address] Potassium [Moles/Vol] 3.9 mmol/L Normal 3.5-5.2 [facility] Comment on above: Performed By: #### B MPX, OSMOL, CBCWD, SHCG, HSTRP, ACTM, ASAT, ETOHS, MG, ANION, EGFR1, HEPPA #### [facility] [address] [place] [address] Sodium [Moles/Vol] 145 mmol/L Normal 135-145 [facility] Comment on above: Performed By: #### B MPX, OSMOL, CBCWD, SHCG, HSTRP, ACTM, ASAT, ETOHS, MG, ANION, EGFR1, HEPPA #### [address] [address] Urea nitrogen [Mass/Vol] 15 mg/dL Normal 7- [facility] Comment on above: Performed By: #### B MPX, OSMOL, CBCWD, SHCG, HSTRP, ACTM, ASAT, ETOHS, MG, ANION, EGFR1, HEPPA #### [address] [address] GFR, ESTIMATEDon 01-05-2024 GFR/1.73 sq M.predicted MDRD (S/P/Bld) [Vol rate/Area] mL/min/{1.73_m2} Normal >60 [facility] Comment on above: Result Comment: Pedi atric calculator link https://www.kidney.org/professionals/kdoqi/gfr_calculatorped Effective Aug 16, 2022 These results are not intended for use in patients <18 years of age. eGFR results are calculated without a race factor using the 2020 CKD-EPI equation. Careful clinical correlation is recommended, particularly when comparing to results calculated using previous equations. The CKD-EPI equation is less accurate in patients with extremes of muscle mass, extra-renal metabolism of creatinine, excessive creatine ingestion, or following therapy that affects renal tubular secretion. Performed By: #### B MPX, OSMOL, CBCWD, SHCG, HSTRP, ACTM, ASAT, ETOHS, MG, ANION, EGFR1, HEPPA #### [address] [address] MAGNESIUMon 01-05-2024 Magnesium [Mass/Vol] 2.2 mg/dL Normal 1.6-2.4 [facility] Comment on above: Performed By: #### B MPX, OSMOL, CBCWD, SHCG, HSTRP, ACTM, ASAT, ETOHS, MG, ANION, EGFR1, HEPPA #### [facility] [address] [place] [address] EKG 12-LEADon 12-28-2023 EKG 12-LEAD 81 81 126 84 [phone] Normal sinus rhythm with sinus arrhythmia Normal ECG When compared with ECG of 26-DEC-2023 11:26, Non-specific change in ST segment in Lateral leads T wave inversion no longer evident in Inferior leads Nonspecific T wave abnormality no longer evident in Lateral leads Confirmed by RUBEN PARKER ([id number]) on 12/28/2023 7:59:18 PM [email or web address]&Date= 28-12-2023&Time=12%3a19 %3a52%3a00&TestType=ECG &Site=3&OutputType=PDF& Ext=PDF Normal [facility] ANION GAPon 12-27-2023 Anion gap [Moles/Vol] 9.0 mmol/L Normal 8.0-16.0 [facility] Comment on above: Result Comment: ANIO N GAP = Sodium -(Chloride + CO2) Performed By: #### B MPX, OSMOL, CBCWD, SHCG, HSTRP, ACTM, ASAT, ETOHS, MG, ANION, EGFR1, HEPPA #### [facility] [address] [place] [address] BASIC METABOL PANELon 2023 Calcium [Mass/Vol] 9.1 mg/dL Normal 8.5-10.5 [facility] Comment on above: Performed By: #### B MPX, OSMOL, CBCWD, SHCG, HSTRP, ACTM, ASAT, ETOHS, MG, ANION, EGFR1, HEPPA #### [facility] [address] [place] [address] Chloride [Moles/Vol] 109 mmol/L Normal 98-111 [facility] Comment on above: Performed By: #### B MPX, OSMOL, CBCWD, SHCG, HSTRP, ACTM, ASAT, ETOHS, MG, ANION, EGFR1, HEPPA #### [address] [address] CO2 [Moles/Vol] 26 mmol/L Normal 23-33 [facility] Comment on above: Performed By: #### B MPX, OSMOL, CBCWD, SHCG, HSTRP, ACTM, ASAT, ETOHS, MG, ANION, EGFR1, HEPPA #### [address] [address] Creatinine [Mass/Vol] 0.7 mg/dL Normal 0.4-1.2 [facility] Comment on above: Performed By: #### B MPX, OSMOL, CBCWD, SHCG, HSTRP, ACTM, ASAT, ETOHS, MG, ANION, EGFR1, HEPPA #### [address] [address] Glucose [Mass/Vol] 96 mg/dL Normal 70-108 [facility] Comment on above: Performed By: #### B MPX, OSMOL, CBCWD, SHCG, HSTRP, ACTM, ASAT, ETOHS, MG, ANION, EGFR1, HEPPA #### [address] [address] Potassium [Moles/Vol] 3.4 mmol/L Low 3.5-5.2 [facility] Comment on above: Performed By: #### B MPX, OSMOL, CBCWD, SHCG, HSTRP, ACTM, ASAT, ETOHS, MG, ANION, EGFR1, HEPPA #### [address] [address] Sodium [Moles/Vol] 144 mmol/L Normal 135-145 [facility] Comment on above: Performed By: #### B MPX, OSMOL, CBCWD, SHCG, HSTRP, ACTM, ASAT, ETOHS, MG, ANION, EGFR1, HEPPA #### [address] [address] Urea nitrogen [Mass/Vol] 15 mg/dL Normal 7-22 [facility] Comment on above: Performed By: #### B MPX, OSMOL, CBCWD, SHCG, HSTRP, ACTM, ASAT, ETOHS, MG, ANION, EGFR1, HEPPA #### [place] [address] BLOOD CULTUREon 12-27-2023 Bacteria identified Cx Nom (Bld) MICROBIOLOGY REPORT [facility], [address] [place] [address], [facility] PATIENT: CINDY STACY LOCATION: [address] [place] [address] : 1990 AGE: 33 SEX: F ADM: 12/26/23 Att. Physician: MOHINDER HUFFMAN Order Id: [id number] Req. Physician: MOHINDER HUFFMAN Source: [id number]-[id number] <5.5oz./set volume Site: Peripheral Vein Collected: 12/27/23 16:05 Current Antibiotics: not stated Antibiotics comment: STATUS OF ORDERED AND REPORTED TESTS BLOOD CULTURE FINAL 01/01/24 BLOOD CULTURE FINAL 01/01/24 17:06 12/28/23 No growth 24 hours. 12/29/23 No growth 48 hours. 01/01/24 No growth at 5 days Normal [facility] Bacteria identified Cx Nom (Bld) MICROBIOLOGY REPORT [facility], [address] [place] [address], [facility] PATIENT: CINDY STACY LOCATION: [address] [place] [address] : 1990 AGE: 33 SEX: F ADM: 12/26/23 Att. Physician: MOHINDER HUFFMAN Order Id: [id number] Req. Physician: MOHINDER HUFFMAN Source: [id number] <5.5oz./set volume Site: Peripheral Vein Collected: 12/27/23 16:00 Current Antibiotics: not stated Antibiotics comment: STATUS OF ORDERED AND REPORTED TESTS BLOOD CULTURE FINAL 01/01/24 BLOOD CULTURE FINAL 01/01/24 17:06 12/28/23 No growth 24 hours. 12/29/23 No growth 48 hours. 01/01/24 No growth at 5 days Normal [facility] CBC NO DIFFERENTIALon 2023 Erythrocyte distribution width (RBC) [Ratio] 13.2 % Normal 11.5-14.5 [facility] Comment on above: Performed By: #### B MPX, OSMOL, CBCWD, SHCG, HSTRP, ACTM, ASAT, ETOHS, MG, ANION, EGFR1, HEPPA #### [place] [address] Hematocrit (Bld) [Volume fraction] 36.9 % Low 37.0-47.0 [facility] Comment on above: Performed By: #### B MPX, OSMOL, CBCWD, SHCG, HSTRP, ACTM, ASAT, ETOHS, MG, ANION, EGFR1, HEPPA #### [place] [address] Hemoglobin (Bld) [Mass/Vol] 11.9 g/dL Low 12.0-16.0 [facility] Comment on above: Performed By: #### B MPX, OSMOL, CBCWD, SHCG, HSTRP, ACTM, ASAT, ETOHS, MG, ANION, EGFR1, HEPPA #### [place] [address] MCH (RBC) [Entitic mass] 28.8 pg Normal 26.0-33.0 [facility] Comment on above: Performed By: #### B MPX, OSMOL, CBCWD, SHCG, HSTRP, ACTM, ASAT, ETOHS, MG, ANION, EGFR1, HEPPA #### [place] [address] MCHC (RBC) [Mass/Vol] 32.2 g/dL Normal 32.2-35.5 [facility] Comment on above: Performed By: #### B MPX, OSMOL, CBCWD, SHCG, HSTRP, ACTM, ASAT, ETOHS, MG, ANION, EGFR1, HEPPA #### [address] [address] MCV (RBC) [Entitic vol] 89.3 fL Normal 81.0-99.0 [facility] Comment on above: Performed By: #### B MPX, OSMOL, CBCWD, SHCG, HSTRP, ACTM, ASAT, ETOHS, MG, ANION, EGFR1, HEPPA #### [place] [address] PLATELET 235 thou/mm3 Normal 130-400 [facility] Comment on above: Performed By: #### B MPX, OSMOL, CBCWD, SHCG, HSTRP, ACTM, ASAT, ETOHS, MG, ANION, EGFR1, HEPPA #### [place] [address] Platelet mean volume (Bld) [Entitic vol] 11.4 fL Normal 9.4-12.4 [facility] Comment on above: Performed By: #### B MPX, OSMOL, CBCWD, SHCG, HSTRP, ACTM, ASAT, ETOHS, MG, ANION, EGFR1, HEPPA #### [place] [address] RBC 4.13 mill/mm3 Low 4.20-5.40 [facility] Comment on above: Performed By: #### B MPX, OSMOL, CBCWD, SHCG, HSTRP, ACTM, ASAT, ETOHS, MG, ANION, EGFR1, HEPPA #### [place] [address] RDW-SD 43.4 fL Normal 35.0-45.0 [facility] Comment on above: Performed By: #### B MPX, OSMOL, CBCWD, SHCG, HSTRP, ACTM, ASAT, ETOHS, MG, ANION, EGFR1, HEPPA #### [place] [address] WBC 5.1 thou/mm3 Normal 4.8-10.8 [facility] Comment on above: Performed By: #### B MPX, OSMOL, CBCWD, SHCG, HSTRP, ACTM, ASAT, ETOHS, MG, ANION, EGFR1, HEPPA #### [place] [address] GFR, ESTIMATEDon 02-13-2024 GFR/1.73 sq M.predicted MDRD (S/P/Bld) [Vol rate/Area] mL/min/{1.73_m2} Normal >60 [facility] Comment on above: Result Comment: Rafa prietoc calculator link https://www.kidney.org/professionals/kdoqi/gfr_calculatorped Effective Aug 16, 2022 These results are not intended for use in patients <18 years of age. eGFR results are calculated without a race factor using the 2020 CKD-EPI equation. Careful clinical correlation is recommended, particularly when comparing to results calculated using previous equations. The CKD-EPI equation is less accurate in patients with extremes of muscle mass, extra-renal metabolism of creatinine, excessive creatine ingestion, or following therapy that affects renal tubular secretion. Performed By: #### B MPX, OSMOL, CBCWD, SHCG, HSTRP, ACTM, ASAT, ETOHS, MG, ANION, EGFR1, HEPPA #### [address] [address] HEPATIC FUNCTION PANELon Albumin [Mass/Vol] 3.6 g/dL Normal 3.5-5.1 [facility] Comment on above: Performed By: #### B MPX, OSMOL, CBCWD, SHCG, HSTRP, ACTM, ASAT, ETOHS, MG, ANION, EGFR1, HEPPA #### [address] [address] ALP [Catalytic activity/Vol] 54 U/L Normal 38-126 [facility] Comment on above: Performed By: #### B MPX, OSMOL, CBCWD, SHCG, HSTRP, ACTM, ASAT, ETOHS, MG, ANION, EGFR1, HEPPA #### [address] [address] ALT [Catalytic activity/Vol] 7 U/L Low 11-66 [facility] Comment on above: Performed By: #### B MPX, OSMOL, CBCWD, SHCG, HSTRP, ACTM, ASAT, ETOHS, MG, ANION, EGFR1, HEPPA #### [place] [address] AST [Catalytic activity/Vol] 17 U/L Normal 5-40 [facility] Comment on above: Performed By: #### B MPX, OSMOL, CBCWD, SHCG, HSTRP, ACTM, ASAT, ETOHS, MG, ANION, EGFR1, HEPPA #### [address] [address] Bilirubin [Mass/Vol] 0.6 mg/dL Normal 0.3-1.2 [facility] Comment on above: Performed By: #### B MPX, OSMOL, CBCWD, SHCG, HSTRP, ACTM, ASAT, ETOHS, MG, ANION, EGFR1, HEPPA #### [place] [address] Bilirubin.indirect [Mass/Vol] mg/dL Normal 0.0-0.3 [facility] Comment on above: Performed By: #### B MPX, OSMOL, CBCWD, SHCG, HSTRP, ACTM, ASAT, ETOHS, MG, ANION, EGFR1, HEPPA #### [address] [address] Protein [Mass/Vol] 6.7 g/dL Normal 6.1-8.0 [facility] Comment on above: Performed By: #### B MPX, OSMOL, CBCWD, SHCG, HSTRP, ACTM, ASAT, ETOHS, MG, ANION, EGFR1, HEPPA #### [address] [address] MAGNESIUMon 12-27-2023 Magnesium [Mass/Vol] 2.0 mg/dL Normal 1.6-2.4 [facility] Comment on above: Performed By: #### B MPX, OSMOL, CBCWD, SHCG, HSTRP, ACTM, ASAT, ETOHS, MG, ANION, EGFR1, HEPPA #### [address] [address] PHOSPHORUSon 12-27-2023 Phosphate [Mass/Vol] 4.1 mg/dL Normal 2.4-4.7 [facility] Comment on above: Performed By: #### B MPX, OSMOL, CBCWD, SHCG, HSTRP, ACTM, ASAT, ETOHS, MG, ANION, EGFR1, HEPPA #### [facility] [address] [place] [address] ACETAMINOPHENon 12-26-2023 Acetaminophen [Mass/Vol] ug/mL Normal 0.0-20.0 [facility] Comment on above: Performed By: #### B MPX, OSMOL, CBCWD, SHCG, HSTRP, ACTM, ASAT, ETOHS, MG, ANION, EGFR1, HEPPA #### [facility] [employer] [address] [address] ANION GAPon 12-26-2023 Anion gap [Moles/Vol] 12.0 mmol/L Normal 8.0-16.0 [facility] Comment on above: Result Comment: ANIO N GAP = Sodium -(Chloride + CO2) Performed By: #### B MPX, OSMOL, CBCWD, SHCG, HSTRP, ACTM, ASAT, ETOHS, MG, ANION, EGFR1, HEPPA #### [facility] [employer] [address] [place] [address] BASIC METABOL PANELon 2023 Calcium [Mass/Vol] 9.1 mg/dL Normal 8.5-10.5 [facility] Comment on above: Performed By: #### B MPX, OSMOL, CBCWD, SHCG, HSTRP, ACTM, ASAT, ETOHS, MG, ANION, EGFR1, HEPPA #### [facility] [address] [place] [address] Chloride [Moles/Vol] 108 mmol/L Normal 98-111 [facility] Comment on above: Performed By: #### B MPX, OSMOL, CBCWD, SHCG, HSTRP, ACTM, ASAT, ETOHS, MG, ANION, EGFR1, HEPPA #### [facility] [employer] [address] [place] [address] CO2 [Moles/Vol] 24 mmol/L Normal 23-33 [facility] Comment on above: Performed By: #### B MPX, OSMOL, CBCWD, SHCG, HSTRP, ACTM, ASAT, ETOHS, MG, ANION, EGFR1, HEPPA #### [address] [address] Creatinine [Mass/Vol] 0.7 mg/dL Normal 0.4-1.2 [facility] Comment on above: Performed By: #### B MPX, OSMOL, CBCWD, SHCG, HSTRP, ACTM, ASAT, ETOHS, MG, ANION, EGFR1, HEPPA #### [address] [address] Glucose [Mass/Vol] 102 mg/dL Normal 70-108 [facility] Comment on above: Performed By: #### B MPX, OSMOL, CBCWD, SHCG, HSTRP, ACTM, ASAT, ETOHS, MG, ANION, EGFR1, HEPPA #### [address] [address] Potassium [Moles/Vol] 3.6 mmol/L Normal 3.5-5.2 [facility] Comment on above: Performed By: #### B MPX, OSMOL, CBCWD, SHCG, HSTRP, ACTM, ASAT, ETOHS, MG, ANION, EGFR1, HEPPA #### [address] [address] Sodium [Moles/Vol] 144 mmol/L Normal 135-145 [facility] Comment on above: Performed By: #### B MPX, OSMOL, CBCWD, SHCG, HSTRP, ACTM, ASAT, ETOHS, MG, ANION, EGFR1, HEPPA #### [address] [id number] Urea nitrogen [Mass/Vol] 18 mg/dL Normal 7-22 [facility] Comment on above: Performed By: #### B MPX, OSMOL, CBCWD, SHCG, HSTRP, ACTM, ASAT, ETOHS, MG, ANION, EGFR1, HEPPA #### [address] [address] CALCULATED OSMOLALITYon 12-15 Osmolality [Osmolality] 288.9 mosm/kg Normal 275.0-300 .0 [facility] Comment on above: Performed By: #### B MPX, OSMOL, CBCWD, SHCG, HSTRP, ACTM, ASAT, ETOHS, MG, ANION, EGFR1, HEPPA #### [place] [address] CBC WITH DIFFERENTIALon 12-15 ABS BASOPHILS 0.0 thou/mm3 Normal 0.0-0.1 [facility] Comment on above: Performed By: #### B MPX, OSMOL, CBCWD, SHCG, HSTRP, ACTM, ASAT, ETOHS, MG, ANION, EGFR1, HEPPA #### [place] [address] ABS EOSINOPHILS 0.0 thou/mm3 Normal 0.0-0.4 [facility] Comment on above: Performed By: #### B MPX, OSMOL, CBCWD, SHCG, HSTRP, ACTM, ASAT, ETOHS, MG, ANION, EGFR1, HEPPA #### [place] [address] ABS IMMATURE GRANS (IG) 0.01 thou/mm3 Normal 0.00-0.07 [facility] Comment on above: Performed By: #### B MPX, OSMOL, CBCWD, SHCG, HSTRP, ACTM, ASAT, ETOHS, MG, ANION, EGFR1, HEPPA #### [place] [address] ABS LYMPHOCYTES 0.9 thou/mm3 Low 1.0-4.8 [facility] Comment on above: Performed By: #### B MPX, OSMOL, CBCWD, SHCG, HSTRP, ACTM, ASAT, ETOHS, MG, ANION, EGFR1, HEPPA #### [place] [address] ABS MONOCYTES 0.2 thou/mm3 Low 0.4-1.3 [facility] Comment on above: Performed By: #### B MPX, OSMOL, CBCWD, SHCG, HSTRP, ACTM, ASAT, ETOHS, MG, ANION, EGFR1, HEPPA #### [address] [address] ABS NEUTROPHILS 3.6 thou/mm3 Normal 1.8-7.7 [facility] Comment on above: Performed By: #### B MPX, OSMOL, CBCWD, SHCG, HSTRP, ACTM, ASAT, ETOHS, MG, ANION, EGFR1, HEPPA #### [place] [address] Basophils/100 WBC (Bld) 0.0 % Normal [facility] Comment on above: Performed By: #### B MPX, OSMOL, CBCWD, SHCG, HSTRP, ACTM, ASAT, ETOHS, MG, ANION, EGFR1, HEPPA #### [address] [address] Eosinophils/100 WBC (Bld) 0.0 % Normal [facility] Comment on above: Performed By: #### B MPX, OSMOL, CBCWD, SHCG, HSTRP, ACTM, ASAT, ETOHS, MG, ANION, EGFR1, HEPPA #### [place] [address] Erythrocyte distribution width (RBC) [Ratio] 13.2 % Normal 11.5-14.5 [facility] Comment on above: Performed By: #### B MPX, OSMOL, CBCWD, SHCG, HSTRP, ACTM, ASAT, ETOHS, MG, ANION, EGFR1, HEPPA #### [place] [address] Hematocrit (Bld) [Volume fraction] 40.4 % Normal 37.0-47.0 [facility] Comment on above: Performed By: #### B MPX, OSMOL, CBCWD, SHCG, HSTRP, ACTM, ASAT, ETOHS, MG, ANION, EGFR1, HEPPA #### [place] [address] Hemoglobin (Bld) [Mass/Vol] 13.0 g/dL Normal 12.0-16.0 [facility] Comment on above: Performed By: #### B MPX, OSMOL, CBCWD, SHCG, HSTRP, ACTM, ASAT, ETOHS, MG, ANION, EGFR1, HEPPA #### [place] [address] IMMATURE GRANS (IG) 0.2 % Normal [facility] Comment on above: Performed By: #### B MPX, OSMOL, CBCWD, SHCG, HSTRP, ACTM, ASAT, ETOHS, MG, ANION, EGFR1, HEPPA #### [place] [address] Lymphocytes/100 WBC (Bld) 19.6 % Normal [facility] Comment on above: Performed By: #### B MPX, OSMOL, CBCWD, SHCG, HSTRP, ACTM, ASAT, ETOHS, MG, ANION, EGFR1, HEPPA #### [place] [address] MCH (RBC) [Entitic mass] 28.8 pg Normal 26.0-33.0 [facility] Comment on above: Performed By: #### B MPX, OSMOL, CBCWD, SHCG, HSTRP, ACTM, ASAT, ETOHS, MG, ANION, EGFR1, HEPPA #### [place] [address] MCHC (RBC) [Mass/Vol] 32.2 g/dL Normal 32.2-35.5 [facility] Comment on above: Performed By: #### B MPX, OSMOL, CBCWD, SHCG, HSTRP, ACTM, ASAT, ETOHS, MG, ANION, EGFR1, HEPPA #### [place] [address] MCV (RBC) [Entitic vol] 89.6 fL Normal 81.0-99.0 [facility] Comment on above: Performed By: #### B MPX, OSMOL, CBCWD, SHCG, HSTRP, ACTM, ASAT, ETOHS, MG, ANION, EGFR1, HEPPA #### [address] [address] Monocytes/100 WBC (Bld) 4.4 % Normal [facility] Comment on above: Performed By: #### B MPX, OSMOL, CBCWD, SHCG, HSTRP, ACTM, ASAT, ETOHS, MG, ANION, EGFR1, HEPPA #### [address] [address] Neutrophils/100 WBC (Bld) 75.8 % Normal [facility] Comment on above: Performed By: #### B MPX, OSMOL, CBCWD, SHCG, HSTRP, ACTM, ASAT, ETOHS, MG, ANION, EGFR1, HEPPA #### [address] [address] NRBC 0 /100 wbc Normal [facility] Comment on above: Performed By: #### B MPX, OSMOL, CBCWD, SHCG, HSTRP, ACTM, ASAT, ETOHS, MG, ANION, EGFR1, HEPPA #### [address] [address] PLATELET 255 thou/mm3 Normal 130-400 [facility] Comment on above: Performed By: #### B MPX, OSMOL, CBCWD, SHCG, HSTRP, ACTM, ASAT, ETOHS, MG, ANION, EGFR1, HEPPA #### [address] [address] Platelet mean volume (Bld) [Entitic vol] 11.4 fL Normal 9.4-12.4 [facility] Comment on above: Performed By: #### B MPX, OSMOL, CBCWD, SHCG, HSTRP, ACTM, ASAT, ETOHS, MG, ANION, EGFR1, HEPPA #### [address] [address] RBC 4.51 mill/mm3 Normal 4.20-5.40 [facility] Comment on above: Performed By: #### B MPX, OSMOL, CBCWD, SHCG, HSTRP, ACTM, ASAT, ETOHS, MG, ANION, EGFR1, HEPPA #### [place] [address] RDW-SD 43.6 fL Normal 35.0-45.0 [facility] Comment on above: Performed By: #### B MPX, OSMOL, CBCWD, SHCG, HSTRP, ACTM, ASAT, ETOHS, MG, ANION, EGFR1, HEPPA #### [place] [address] WBC 4.8 thou/mm3 Normal 4.8-10.8 [facility] Comment on above: Performed By: #### B MPX, OSMOL, CBCWD, SHCG, HSTRP, ACTM, ASAT, ETOHS, MG, ANION, EGFR1, HEPPA #### [place] [address] CKon 12-26-2023 CK [Catalytic activity/Vol] 37 U/L Normal 30-135 [facility] Comment on above: Performed By: #### B MPX, OSMOL, CBCWD, SHCG, HSTRP, ACTM, ASAT, ETOHS, MG, ANION, EGFR1, HEPPA #### [place] [address] DRUG ABUSE SCREENon 12-26-19 24 AMPHETAMINE/METHAMPH Negative Normal NEGATIVE [facility] Comment on above: Performed By: #### B MPX, OSMOL, CBCWD, SHCG, HSTRP, ACTM, ASAT, ETOHS, MG, ANION, EGFR1, HEPPA #### [place] [address] BARBITURATE Negative Normal NEGATIVE [facility] Comment on above: Performed By: #### B MPX, OSMOL, CBCWD, SHCG, HSTRP, ACTM, ASAT, ETOHS, MG, ANION, EGFR1, HEPPA #### [place] [address] Benzodiazepines Ql (U) Negative Normal NEGATIVE [facility] Comment on above: Performed By: #### B MPX, OSMOL, CBCWD, SHCG, HSTRP, ACTM, ASAT, ETOHS, MG, ANION, EGFR1, HEPPA #### [facility] [address] [place] [address] Cannabinoids Screen Ql (U) Positive Normal NEGATIVE [facility] Comment on above: Performed By: #### B MPX, OSMOL, CBCWD, SHCG, HSTRP, ACTM, ASAT, ETOHS, MG, ANION, EGFR1, HEPPA #### [facility] [address] [place] [address] COCAINE METABOLITE Negative Normal NEGATIVE [facility] Comment on above: Performed By: #### B MPX, OSMOL, CBCWD, SHCG, HSTRP, ACTM, ASAT, ETOHS, MG, ANION, EGFR1, HEPPA #### [place] [address] FENTANYL Negative Normal NEGATIVE [facility] Comment on above: Result Comment: A N egative result for a drug abuse screen test indicates that the drug concentration is below the following cutoffs: Amphetamine/Methamphetamine 1000 ng/ml Barbiturate 200 ng/ml Benzodiazapine 200 ng/ml Cannabinoids 50 ng/ml Cocaine Metabolite 300 ng/ml Opiates 300 ng/ml Oxycodone 100 ng/ml Phencyclidine 25 ng/ml Fentanyl 5 ng/ml A Positive result for a drug abuse screen test should be considered presumptive positive until/unless confirmed by another method. (Additional request) Quantitative values from a reference laboratory are available upon additional request. These results are for medical use only. Performed By: #### B MPX, OSMOL, CBCWD, SHCG, HSTRP, ACTM, ASAT, ETOHS, MG, ANION, EGFR1, HEPPA #### [address] [address] Opiates Ql (U) Negative Normal NEGATIVE [facility] Comment on above: Performed By: #### B MPX, OSMOL, CBCWD, SHCG, HSTRP, ACTM, ASAT, ETOHS, MG, ANION, EGFR1, HEPPA #### [facility] [address] [place] [address] OXYCODONE Negative Normal NEGATIVE [facility] Comment on above: Performed By: #### B MPX, OSMOL, CBCWD, SHCG, HSTRP, ACTM, ASAT, ETOHS, MG, ANION, EGFR1, HEPPA #### [facility] [address] [place] [address] Phencyclidine Ql (U) Negative Normal NEGATIVE [facility] Comment on above: Performed By: #### B MPX, OSMOL, CBCWD, SHCG, HSTRP, ACTM, ASAT, ETOHS, MG, ANION, EGFR1, HEPPA #### [facility] [address] [place] [address] EKG 12-LEADon 12-26-2023 EKG 12-LEAD 87 87 94 72 374 450 60 47 -33 Sinus rhythm with sinus arrhythmia with short MO Cannot rule out Anterior infarct , age undetermined T wave abnormality, consider inferior ischemia Abnormal ECG When compared with ECG of 01-NOV-2023 17:39, Non-specific change in ST segment in Inferior leads ST no longer elevated in Lateral leads Inverted T waves have replaced nonspecific T wave abnormality in Inferior leads Nonspecific T wave abnormality now evident in Lateral leads Confirmed by RUBEN PARKER ([id number]) on 12/26/2023 7:07:44 PM [id number]&Date= 10-15-2024&Time=11%3a26 %3a04%3a00&TestType=ECG &Site=3&OutputType=PDF& Ext=PDF Normal [facility] ETHYL ALCOHOL BLOODon 2023 ETHYL ALCOHOL BLOOD < 0.01 Normal 0.00 [facility] Comment on above: Performed By: #### B MPX, OSMOL, CBCWD, SHCG, HSTRP, ACTM, ASAT, ETOHS, MG, ANION, EGFR1, HEPPA #### [facility] [address] [place] [address] GFR, ESTIMATEDon 12-26-2023 GFR/1.73 sq M.predicted MDRD (S/P/Bld) [Vol rate/Area] mL/min/{1.73_m2} Normal >60 [facility] Comment on above: Result Comment: Pedi atric calculator link https://www.kidney.org/professionals/kdoqi/gfr_[email or web address] Effective Aug 16, 2022 These results are not intended for use in patients <18 years of age. eGFR results are calculated without a race factor using the 2020 CKD-EPI equation. Careful clinical correlation is recommended, particularly when comparing to results calculated using previous equations. The CKD-EPI equation is less accurate in patients with extremes of muscle mass, extra-renal metabolism of creatinine, excessive creatine ingestion, or following therapy that affects renal tubular secretion. Performed By: #### B MPX, OSMOL, CBCWD, SHCG, HSTRP, ACTM, ASAT, ETOHS, MG, ANION, EGFR1, HEPPA #### [address] [address] HEPATIC FUNCTION PANELon Albumin [Mass/Vol] 4.3 g/dL Normal 3.5-5.1 [facility] Comment on above: Performed By: #### B MPX, OSMOL, CBCWD, SHCG, HSTRP, ACTM, ASAT, ETOHS, MG, ANION, EGFR1, HEPPA #### [address] [address] ALP [Catalytic activity/Vol] 61 U/L Normal 38-126 [facility] Comment on above: Performed By: #### B MPX, OSMOL, CBCWD, SHCG, HSTRP, ACTM, ASAT, ETOHS, MG, ANION, EGFR1, HEPPA #### [address] [address] ALT [Catalytic activity/Vol] 8 U/L Low 11-66 [facility] Comment on above: Performed By: #### B MPX, OSMOL, CBCWD, SHCG, HSTRP, ACTM, ASAT, ETOHS, MG, ANION, EGFR1, HEPPA #### [address] [address] AST [Catalytic activity/Vol] 12 U/L Normal 5-40 [facility] Comment on above: Performed By: #### B MPX, OSMOL, CBCWD, SHCG, HSTRP, ACTM, ASAT, ETOHS, MG, ANION, EGFR1, HEPPA #### [address] [address] Bilirubin [Mass/Vol] 0.6 mg/dL Normal 0.3-1.2 [facility] Comment on above: Performed By: #### B MPX, OSMOL, CBCWD, SHCG, HSTRP, ACTM, ASAT, ETOHS, MG, ANION, EGFR1, HEPPA #### [address] [address] Bilirubin.indirect [Mass/Vol] mg/dL Normal 0.0-0.3 [facility] Comment on above: Performed By: #### B MPX, OSMOL, CBCWD, SHCG, HSTRP, ACTM, ASAT, ETOHS, MG, ANION, EGFR1, HEPPA #### [address] [address] Protein [Mass/Vol] 7.5 g/dL Normal 6.1-8.0 [facility] Comment on above: Performed By: #### B MPX, OSMOL, CBCWD, SHCG, HSTRP, ACTM, ASAT, ETOHS, MG, ANION, EGFR1, HEPPA #### [address] [address] HIGH SENSTIVITY TROPONINon 0 12-26-2023 HIGH SENSTIVITY TROPONIN < 6 Normal 0-12 [facility] Comment on above: Result Comment: The high-sensitivity troponin T result should not be compared with other troponin methodologies. Rising or falling high-sensitivity troponin T is significant if >= 6. Performed By: #### B MPX, OSMOL, CBCWD, SHCG, HSTRP, ACTM, ASAT, ETOHS, MG, ANION, EGFR1, HEPPA #### [address] [address] LACTIC ACIDon 12-26-2023 Lactate [Moles/Vol] 1.5 mmol/L Normal 0.5-2.0 [facility] Comment on above: Performed By: #### B MPX, OSMOL, CBCWD, SHCG, HSTRP, ACTM, ASAT, ETOHS, MG, ANION, EGFR1, HEPPA #### [facility] [employer] [facility] [employer] [address] [place] [address] TEST SERUMon 12-26 TEST SERUM Negative Normal NEGATIVE [facility] Comment on above: Performed By: #### B MPX, OSMOL, CBCWD, SHCG, HSTRP, ACTM, ASAT, ETOHS, MG, ANION, EGFR1, HEPPA #### [address] [address] PROCALCITONINon 12-26-2023 PROCALCITONIN 0.05 ng/mL Normal 0.01-0.09 [facility] Comment on above: Result Comment: Susp ected Sepsis: <0.50 ng/mL Low likelihood of sepsis. 0.50-2.00 ng/mL Increased likelihood of sepsis. Antibiotics encouraged. >2.00 ng/mL High risk of sepsis/shock. Antibiotics strongly encouraged. Suspected Lower Resp Tract Infections: <0.24 ng/mL Low likelihood of bacterial infection. >0.24 ng/mL Increased likelihood of bacterial infection. Antibiotics encouraged. With successful antibiotic therapy, PCT levels should decrease rapidly. (Half-life of 24 to 36 hours.) Procalcitonin values from samples collected within the first 6 hours of systemic infection may still be low. Retesting may be indicated. Values from day 1 and day 4 can be entered into the Change in Procalcitonin Calculator (www.neepsv-kua-wiasgbofds.com) to determine the patient's Mortality Risk Prognosis. In healthy neonates, plasma Procalcitonin (PCT) concentrations increase gradually after , reaching peak values at about 24 hours of age then decrease to normal values below 0.5 ng/mL by 48-72 hours of age. Performed By: #### B MPX, OSMOL, CBCWD, SHCG, HSTRP, ACTM, ASAT, ETOHS, MG, ANION, EGFR1, HEPPA #### [facility] [employer] [address] [place] [address] SALICYLATEon 12-26-2023 SALICYLATE < 0.3 Low 2.0-10.0 [facility] Comment on above: Performed By: #### B MPX, OSMOL, CBCWD, SHCG, HSTRP, ACTM, ASAT, ETOHS, MG, ANION, EGFR1, HEPPA #### [address] [address] T4 (FREE)on 12-26-2023 T4 (FREE) 1.30 ng/dL Normal 0.93-1.76 [facility] Comment on above: Performed By: #### B MPX, OSMOL, CBCWD, SHCG, HSTRP, ACTM, ASAT, ETOHS, MG, ANION, EGFR1, HEPPA #### [place] [address] TSH THIRD GENERATIONon 12-26 TSH THIRD GENERATION 0.255 uIU/mL Low 0.400-4.200 [facility] Comment on above: Performed By: #### B MPX, OSMOL, CBCWD, SHCG, HSTRP, ACTM, ASAT, ETOHS, MG, ANION, EGFR1, HEPPA #### [place] [address] UA WITH MICROSCOPICon 2023 AMORPHOUS DEBRIS Normal NONE SEEN [facility] Comment on above: Performed By: #### B MPX, OSMOL, CBCWD, SHCG, HSTRP, ACTM, ASAT, ETOHS, MG, ANION, EGFR1, HEPPA #### [place] [address] CASTS 2 NONE SEEN Normal NONE SEEN [facility] Comment on above: Performed By: #### B MPX, OSMOL, CBCWD, SHCG, HSTRP, ACTM, ASAT, ETOHS, MG, ANION, EGFR1, HEPPA #### [address] [address] Crystals LM Nom (Urine sed) OXALATE Normal NONE SEEN [facility] Comment on above: Performed By: #### B MPX, OSMOL, CBCWD, SHCG, HSTRP, ACTM, ASAT, ETOHS, MG, ANION, EGFR1, HEPPA #### [address] [address] MUCOUS THREADS Normal NONE SEEN/THREA [facility] Comment on above: Performed By: #### B MPX, OSMOL, CBCWD, SHCG, HSTRP, ACTM, ASAT, ETOHS, MG, ANION, EGFR1, HEPPA #### [address] [address] RBC NONE Normal 0-2/hpf [facility] Comment on above: Performed By: #### B MPX, OSMOL, CBCWD, SHCG, HSTRP, ACTM, ASAT, ETOHS, MG, ANION, EGFR1, HEPPA #### [place] [address] BACTERIA FEW Normal FEW/NONE SEEN [facility] Comment on above: Performed By: #### B MPX, OSMOL, CBCWD, SHCG, HSTRP, ACTM, ASAT, ETOHS, MG, ANION, EGFR1, HEPPA #### [place] [address] CASTS >15 HYALINE Normal NONE SEEN [facility] Comment on above: Performed By: #### B MPX, OSMOL, CBCWD, SHCG, HSTRP, ACTM, ASAT, ETOHS, MG, ANION, EGFR1, HEPPA #### [place] [address] EPITHELIAL 5-10 Normal 3-5/hpf [facility] Comment on above: Performed By: #### B MPX, OSMOL, CBCWD, SHCG, HSTRP, ACTM, ASAT, ETOHS, MG, ANION, EGFR1, HEPPA #### [place] [address] MISCELLANEOUS 2 NONE SEEN Normal [facility] Comment on above: Performed By: #### B MPX, OSMOL, CBCWD, SHCG, HSTRP, ACTM, ASAT, ETOHS, MG, ANION, EGFR1, HEPPA #### [place] [address] RENAL EPITHELIAL NONE SEEN Normal NONE SEEN [facility] Comment on above: Performed By: #### B MPX, OSMOL, CBCWD, SHCG, HSTRP, ACTM, ASAT, ETOHS, MG, ANION, EGFR1, HEPPA #### [address] [address] WBC 5-9 Normal 0-4/hpf [facility] Comment on above: Performed By: #### B MPX, OSMOL, CBCWD, SHCG, HSTRP, ACTM, ASAT, ETOHS, MG, ANION, EGFR1, HEPPA #### [address] [address] YEAST NONE SEEN Normal NONE SEEN [facility] Comment on above: Performed By: #### B MPX, OSMOL, CBCWD, SHCG, HSTRP, ACTM, ASAT, ETOHS, MG, ANION, EGFR1, HEPPA #### [place] [address] Bilirubin Ql (U) Negative Normal NEGATIVE [facility] Comment on above: Performed By: #### B MPX, OSMOL, CBCWD, SHCG, HSTRP, ACTM, ASAT, ETOHS, MG, ANION, EGFR1, HEPPA #### [place] [address] CHARACTER CLOUDY Abnormal CLEAR-SL CLOUD [facility] Comment on above: Performed By: #### B MPX, OSMOL, CBCWD, SHCG, HSTRP, ACTM, ASAT, ETOHS, MG, ANION, EGFR1, HEPPA #### [address] [address] Color (U) YELLOW Normal STRAW-YELLOW [facility] Comment on above: Performed By: #### B MPX, OSMOL, CBCWD, SHCG, HSTRP, ACTM, ASAT, ETOHS, MG, ANION, EGFR1, HEPPA #### [address] [address] Glucose Ql (U) Negative Normal NEGATIVE [facility] Comment on above: Performed By: #### B MPX, OSMOL, CBCWD, SHCG, HSTRP, ACTM, ASAT, ETOHS, MG, ANION, EGFR1, HEPPA #### [place] [address] Hemoglobin Ql (U) Negative Normal NEGATIVE [facility] Comment on above: Performed By: #### B MPX, OSMOL, CBCWD, SHCG, HSTRP, ACTM, ASAT, ETOHS, MG, ANION, EGFR1, HEPPA #### [place] [address] Ketones Ql (U) TRACE Abnormal NEGATIVE [facility] Comment on above: Performed By: #### B MPX, OSMOL, CBCWD, SHCG, HSTRP, ACTM, ASAT, ETOHS, MG, ANION, EGFR1, HEPPA #### [place] [address] LEUKOCYTES Negative Normal NEGATIVE [facility] Comment on above: Performed By: #### B MPX, OSMOL, CBCWD, SHCG, HSTRP, ACTM, ASAT, ETOHS, MG, ANION, EGFR1, HEPPA #### [place] [address] Nitrite Ql (U) Negative Normal NEGATIVE [facility] Comment on above: Performed By: #### B MPX, OSMOL, CBCWD, SHCG, HSTRP, ACTM, ASAT, ETOHS, MG, ANION, EGFR1, HEPPA #### [place] [address] pH (U) 6.0 [pH] Normal 5.0 - 9.0 [facility] Comment on above: Performed By: #### B MPX, OSMOL, CBCWD, SHCG, HSTRP, ACTM, ASAT, ETOHS, MG, ANION, EGFR1, HEPPA #### [place] [address] Protein Ql (U) 30 Abnormal NEGATIVE [facility] Comment on above: Performed By: #### B MPX, OSMOL, CBCWD, SHCG, HSTRP, ACTM, ASAT, ETOHS, MG, ANION, EGFR1, HEPPA #### [place] [address] Specific gravity (U) [Rel density] 1.030 Normal 1.002-1.030 [facility] Comment on above: Performed By: #### B MPX, OSMOL, CBCWD, SHCG, HSTRP, ACTM, ASAT, ETOHS, MG, ANION, EGFR1, HEPPA #### [facility] [address] [place] [address] Urobilinogen Qn (U) 1.0 {Joann'U}/dL Normal 0.0 - 1. 0 [facility] Comment on above: Performed By: #### B MPX, OSMOL, CBCWD, SHCG, HSTRP, ACTM, ASAT, ETOHS, MG, ANION, EGFR1, HEPPA #### [facility] [address] [place] [address] Laboratory - Chemistry and C hemistry - challengeon 12-08-2023 Albumin [Mass/Vol] 4.0 g/dL (3.9-4.9 ) [facility] Albumin/Globulin [Mass ratio] 1.4 {ratio} (1.2-2.2 ) [facility] ALP [Catalytic activity/Vol] 68 U/L (44-121 ) [facility] ALT [Catalytic activity/Vol] 10 U/L (0-32 ) [facility] AST [Catalytic activity/Vol] 11 U/L (0-40 ) [facility] Bilirubin [Mass/Vol] 0.4 mg/dL (0.0-1.2 ) [facility] Calcium [Mass/Vol] 9.2 mg/dL (8.7-10.2 ) [facility] Chloride [Moles/Vol] 105 mmol/L (96-106 ) [facility] Cholesterol [Mass/Vol] 136 mg/dL (100-199 ) [facility] Cholesterol in HDL [Mass/Vol] 60 mg/dL (>39 ) [facility] Cholesterol in LDL [Mass/Vol] 54 mg/dL (0-99 ) [facility] Cholesterol in VLDL [Mass/Vol] 22 mg/dL (5-40 ) [facility] CO2 [Moles/Vol] 24 mmol/L (20-29 ) [facility] Creatinine [Mass/Vol] 0.72 mg/dL (0.57-1.00 ) [facility] G[facility]/1.73 sq M.predicted among non-blacks MDRD (S/P/Bld) [Vol rate/Area] 115 mL/min/{1.73_m2} (>59 ) [facility] Globulin (S) [Mass/Vol] 2.8 g/dL (1.5-4.5 ) [facility] Glucose [Mass/Vol] 111 mg/dL High (70-99 ) [facility] Potassium [Moles/Vol] 4.2 mmol/L (3.5-5.2 ) [facility] Protein [Mass/Vol] 6.8 g/dL (6.0-8.5 ) [facility] Sodium [Moles/Vol] 142 mmol/L (134-144 ) [facility] Triglyceride [Mass/Vol] 128 mg/dL (0-149 ) [facility]n 0.595 uIU/mL (0.450-4.500 ) [facility] Urea nitrogen [Mass/Vol] 18 mg/dL (6-20 ) [facility] Urea nitrogen/Creatinine [Mass ratio] 25 mg/mg High (9-23 ) [facility] Laboratory - Hematology and Cell countson 12-08-2023 Basophils (Bld) [#/Vol] 0.0 10*3/uL (0.0-0.2 ) [facility] Basophils/100 WBC (Bld) 0 % (Not Estab. ) [facility] Eosinophils (Bld) [#/Vol] 0.0 10*3/uL (0.0-0.4 ) [facility] Eosinophils/100 WBC (Bld) 0 % (Not Estab. ) [facility] Erythrocyte distribution width (RBC) [Ratio] 13.7 % (11.7-15.4 ) [facility] Hematocrit (Bld) [Volume fraction] 38.4 % (34.0-46.6 ) [facility] Hemoglobin (Bld) [Mass/Vol] 12.9 g/dL (11.1-15.9 ) [facility] Immature granulocytes (Bld) [#/Vol] 0.0 10*3/uL (0.0-0.1 ) [facility] Immature granulocytes/100 WBC (Bld) 0 % (Not Estab. ) [facility] Lymphocytes (Bld) [#/Vol] 1.1 10*3/uL (0.7-3.1 ) [facility] Lymphocytes/100 WBC (Bld) 15 % (Not Estab. ) [facility] MCH (RBC) [Entitic mass] 29.1 pg (26.6-33.0 ) [facility] MCHC (RBC) [Mass/Vol] 33.6 g/dL (31.5-35.7 ) [facility] [Entitic vol] 87 fL (79-97 ) [facility] Monocytes (Bld) [#/Vol] 0.4 10*3/uL (0.1-0.9 ) [facility] Monocytes/100 WBC (Bld) 5 % (Not Estab. ) [facility] Morphology Shawn (Bld) [Interp] [employer] [facility] Neutrophils (Bld) [#/Vol] 6.0 10*3/uL (1.4-7.0 ) [facility] Neutrophils/100 WBC (Bld) 80 % (Not Estab. ) [facility] Nucleated RBC/100 WBC (Bld) [Ratio] MANAGER AUTO [facility] Platelets (Bld) [#/Vol] 354 10*3/uL (150-450 ) [facility] RBC (Bld) [#/Vol] 4.43 10*6/uL (3.77-5.28 ) [facility] ([facility]ld[facility] [#/Vol] 7.5 10*3/uL (3.4-10.8 ) [facility] - Miscellaneous t estson 12-08-2023 Laboratory comment Shawn (Report) MANAGER AUTO [facility] No Panel Informationon 12-08 Immature Cells MANAGER AUTO [facility] Reported Physicians See Note [facility] Comment on above: Note: Reported Physi cians:Ordering: Kyle Pool ACETAMINOPHENon 11-11-2023 Acetaminophen [Mass/Vol] ug/mL Normal 0.0-20.0 [facility] Comment on above: Performed By: #### B MPX, OSMOL, CBCWD, SHCG, HSTRP, ACTM, ASAT, ETOHS, MG, ANION, EGFR1, HEPPA #### [address] [place] [address] ANION GAPon 11-11-2023 Anion gap [Moles/Vol] 14.0 mmol/L Normal 8.0-16.0 [facility] Comment on above: Result Comment: ANIO N GAP = Sodium -(Chloride + CO2) Performed By: #### B MPX, OSMOL, CBCWD, SHCG, HSTRP, ACTM, ASAT, ETOHS, MG, ANION, EGFR1, HEPPA #### [address] [place] [address] BASIC METABOL PANELon 2022 Calcium [Mass/Vol] 9.2 mg/dL Normal 8.5-10.5 [facility] Comment on above: Performed By: #### B MPX, OSMOL, CBCWD, SHCG, HSTRP, ACTM, ASAT, ETOHS, MG, ANION, EGFR1, HEPPA #### [address] [place] [address] Chloride [Moles/Vol] 102 mmol/L Normal 98-111 [facility] Comment on above: Performed By: #### B MPX, OSMOL, CBCWD, SHCG, HSTRP, ACTM, ASAT, ETOHS, MG, ANION, EGFR1, HEPPA #### [address] [place] [address] CO2 [Moles/Vol] 20 mmol/L Low 23-33 [facility] Comment on above: Performed By: #### B MPX, OSMOL, CBCWD, SHCG, HSTRP, ACTM, ASAT, ETOHS, MG, ANION, EGFR1, HEPPA #### [address] [place] [address] Creatinine [Mass/Vol] 0.6 mg/dL Normal 0.4-1.2 [facility] Comment on above: Performed By: #### B MPX, OSMOL, CBCWD, SHCG, HSTRP, ACTM, ASAT, ETOHS, MG, ANION, EGFR1, HEPPA #### [address] [address] Glucose [Mass/Vol] 96 mg/dL Normal 70-108 [facility] Comment on above: Performed By: #### B MPX, OSMOL, CBCWD, SHCG, HSTRP, ACTM, ASAT, ETOHS, MG, ANION, EGFR1, HEPPA #### [address] [address] Potassium [Moles/Vol] 3.8 mmol/L Normal 3.5-5.2 [facility] Comment on above: Performed By: #### B MPX, OSMOL, CBCWD, SHCG, HSTRP, ACTM, ASAT, ETOHS, MG, ANION, EGFR1, HEPPA #### [address] [address] Sodium [Moles/Vol] 136 mmol/L Normal 135-145 [facility] Comment on above: Performed By: #### B MPX, OSMOL, CBCWD, SHCG, HSTRP, ACTM, ASAT, ETOHS, MG, ANION, EGFR1, HEPPA #### [address] [address] Urea nitrogen [Mass/Vol] 11 mg/dL Normal 7-22 [facility] Comment on above: Performed By: #### B MPX, OSMOL, CBCWD, SHCG, HSTRP, ACTM, ASAT, ETOHS, MG, ANION, EGFR1, HEPPA #### [address] [address] CALCULATED OSMOLALITYon 10-15 Osmolality [Osmolality] 271.2 mosm/kg Low 275.0-300 .0 [facility] Comment on above: Performed By: #### B MPX, OSMOL, CBCWD, SHCG, HSTRP, ACTM, ASAT, ETOHS, MG, ANION, EGFR1, HEPPA #### [address] [address] CBC WITH DIFFERENTIALon 10-15 ABS BASOPHILS 0.0 thou/mm3 Normal 0.0-0.1 [facility] Comment on above: Performed By: #### B MPX, OSMOL, CBCWD, SHCG, HSTRP, ACTM, ASAT, ETOHS, MG, ANION, EGFR1, HEPPA #### [address] [address] ABS EOSINOPHILS 0.0 thou/mm3 Normal 0.0-0.4 [facility] Comment on above: Performed By: #### B MPX, OSMOL, CBCWD, SHCG, HSTRP, ACTM, ASAT, ETOHS, MG, ANION, EGFR1, HEPPA #### [place] [address] ABS IMMATURE GRANS (IG) 0.02 thou/mm3 Normal 0.00-0.07 [facility] Comment on above: Performed By: #### B MPX, OSMOL, CBCWD, SHCG, HSTRP, ACTM, ASAT, ETOHS, MG, ANION, EGFR1, HEPPA #### [address] [address] ABS LYMPHOCYTES 1.4 thou/mm3 Normal 1.0-4.8 [facility] Comment on above: Performed By: #### B MPX, OSMOL, CBCWD, SHCG, HSTRP, ACTM, ASAT, ETOHS, MG, ANION, EGFR1, HEPPA #### [address] [address] ABS MONOCYTES 0.5 thou/mm3 Normal 0.4-1.3 [facility] Comment on above: Performed By: #### B MPX, OSMOL, CBCWD, SHCG, HSTRP, ACTM, ASAT, ETOHS, MG, ANION, EGFR1, HEPPA #### [address] [address] ABS NEUTROPHILS 6.9 thou/mm3 Normal 1.8-7.7 [facility] Comment on above: Performed By: #### B MPX, OSMOL, CBCWD, SHCG, HSTRP, ACTM, ASAT, ETOHS, MG, ANION, EGFR1, HEPPA #### [address] [address] Basophils/100 WBC (Bld) 0.0 % Normal [facility] Comment on above: Performed By: #### B MPX, OSMOL, CBCWD, SHCG, HSTRP, ACTM, ASAT, ETOHS, MG, ANION, EGFR1, HEPPA #### [address] [address] Eosinophils/100 WBC (Bld) 0.0 % Normal [facility] Comment on above: Performed By: #### B MPX, OSMOL, CBCWD, SHCG, HSTRP, ACTM, ASAT, ETOHS, MG, ANION, EGFR1, HEPPA #### [place] [address] Erythrocyte distribution width (RBC) [Ratio] 14.9 % High 11.5-14.5 [facility] Comment on above: Performed By: #### B MPX, OSMOL, CBCWD, SHCG, HSTRP, ACTM, ASAT, ETOHS, MG, ANION, EGFR1, HEPPA #### [place] [address] Hematocrit (Bld) [Volume fraction] 41.7 % Normal 37.0-47.0 [facility] Comment on above: Performed By: #### B MPX, OSMOL, CBCWD, SHCG, HSTRP, ACTM, ASAT, ETOHS, MG, ANION, EGFR1, HEPPA #### [place] [address] Hemoglobin (Bld) [Mass/Vol] 14.3 g/dL Normal 12.0-16.0 [facility] Comment on above: Performed By: #### B MPX, OSMOL, CBCWD, SHCG, HSTRP, ACTM, ASAT, ETOHS, MG, ANION, EGFR1, HEPPA #### [address] [address] IMMATURE GRANS (IG) 0.2 % Normal [facility] Comment on above: Performed By: #### B MPX, OSMOL, CBCWD, SHCG, HSTRP, ACTM, ASAT, ETOHS, MG, ANION, EGFR1, HEPPA #### [place] [address] Lymphocytes/100 WBC (Bld) 16.1 % Normal [facility] Comment on above: Performed By: #### B MPX, OSMOL, CBCWD, SHCG, HSTRP, ACTM, ASAT, ETOHS, MG, ANION, EGFR1, HEPPA #### [place] [address] MCH (RBC) [Entitic mass] 28.3 pg Normal 26.0-33.0 [facility] Comment on above: Performed By: #### B MPX, OSMOL, CBCWD, SHCG, HSTRP, ACTM, ASAT, ETOHS, MG, ANION, EGFR1, HEPPA #### [place] [address] MCHC (RBC) [Mass/Vol] 34.3 g/dL Normal 32.2-35.5 [facility] Comment on above: Performed By: #### B MPX, OSMOL, CBCWD, SHCG, HSTRP, ACTM, ASAT, ETOHS, MG, ANION, EGFR1, HEPPA #### [place] [address] MCV (RBC) [Entitic vol] 82.4 fL Normal 81.0-99.0 [facility] Comment on above: Performed By: #### B MPX, OSMOL, CBCWD, SHCG, HSTRP, ACTM, ASAT, ETOHS, MG, ANION, EGFR1, HEPPA #### [place] [address] Monocytes/100 WBC (Bld) 5.2 % Normal [facility] Comment on above: Performed By: #### B MPX, OSMOL, CBCWD, SHCG, HSTRP, ACTM, ASAT, ETOHS, MG, ANION, EGFR1, HEPPA #### [place] [address] Neutrophils/100 WBC (Bld) 78.5 % Normal [facility] Comment on above: Performed By: #### B MPX, OSMOL, CBCWD, SHCG, HSTRP, ACTM, ASAT, ETOHS, MG, ANION, EGFR1, HEPPA #### [place] [address] NRBC 0 /100 wbc Normal [facility] Comment on above: Performed By: #### B MPX, OSMOL, CBCWD, SHCG, HSTRP, ACTM, ASAT, ETOHS, MG, ANION, EGFR1, HEPPA #### [place] [address] PLATELET 303 thou/mm3 Normal 130-400 [facility] Comment on above: Performed By: #### B MPX, OSMOL, CBCWD, SHCG, HSTRP, ACTM, ASAT, ETOHS, MG, ANION, EGFR1, HEPPA #### [place] [address] Platelet mean volume (Bld) [Entitic vol] 11.3 fL Normal 9.4-12.4 [facility] Comment on above: Performed By: #### B MPX, OSMOL, CBCWD, SHCG, HSTRP, ACTM, ASAT, ETOHS, MG, ANION, EGFR1, HEPPA #### [place] [address] RBC 5.06 mill/mm3 Normal 4.20-5.40 [facility] Comment on above: Performed By: #### B MPX, OSMOL, CBCWD, SHCG, HSTRP, ACTM, ASAT, ETOHS, MG, ANION, EGFR1, HEPPA #### [place] [address] RDW-SD 44.9 fL Normal 35.0-45.0 [facility] Comment on above: Performed By: #### B MPX, OSMOL, CBCWD, SHCG, HSTRP, ACTM, ASAT, ETOHS, MG, ANION, EGFR1, HEPPA #### [address] [place] [address] WBC 8.8 thou/mm3 Normal 4.8-10.8 [facility] Comment on above: Performed By: #### B MPX, OSMOL, CBCWD, SHCG, HSTRP, ACTM, ASAT, ETOHS, MG, ANION, EGFR1, HEPPA #### [address] [address] ETHYL ALCOHOL BLOODon 2022 ETHYL ALCOHOL BLOOD < 0.01 Normal 0.00 [facility] Comment on above: Performed By: #### B MPX, OSMOL, CBCWD, SHCG, HSTRP, ACTM, ASAT, ETOHS, MG, ANION, EGFR1, HEPPA #### [address] [address] GFR, ESTIMATEDon 11-11-2023 GFR/1.73 sq M.predicted MDRD (S/P/Bld) [Vol rate/Area] mL/min/{1.73_m2} Normal >60 [facility] Comment on above: Result Comment: Pedi atric calculator link https://www.kidney.org/professionals/kdoqi/gfr_calculatorped Effective Aug 16, 2022 These results are not intended for use in patients <18 years of age. eGFR results are calculated without a race factor using the 2020 CKD-EPI equation. Careful clinical correlation is recommended, particularly when comparing to results calculated using previous equations. The CKD-EPI equation is less accurate in patients with extremes of muscle mass, extra-renal metabolism of creatinine, excessive creatine ingestion, or following therapy that affects renal tubular secretion. Performed By: #### B MPX, OSMOL, CBCWD, SHCG, HSTRP, ACTM, ASAT, ETOHS, MG, ANION, EGFR1, HEPPA #### [address] [address] HEPATIC FUNCTION PANELon Albumin [Mass/Vol] 4.2 g/dL Normal 3.5-5.1 [facility] Comment on above: Performed By: #### B MPX, OSMOL, CBCWD, SHCG, HSTRP, ACTM, ASAT, ETOHS, MG, ANION, EGFR1, HEPPA #### [address] [address] ALP [Catalytic activity/Vol] 70 U/L Normal 38-126 [facility] Comment on above: Performed By: #### B MPX, OSMOL, CBCWD, SHCG, HSTRP, ACTM, ASAT, ETOHS, MG, ANION, EGFR1, HEPPA #### [address] [address] ALT [Catalytic activity/Vol] 14 U/L Normal 11-66 [facility] Comment on above: Performed By: #### B MPX, OSMOL, CBCWD, SHCG, HSTRP, ACTM, ASAT, ETOHS, MG, ANION, EGFR1, HEPPA #### [address] [address] AST [Catalytic activity/Vol] 22 U/L Normal 5-40 [facility] Comment on above: Performed By: #### B MPX, OSMOL, CBCWD, SHCG, HSTRP, ACTM, ASAT, ETOHS, MG, ANION, EGFR1, HEPPA #### [address] [address] Bilirubin [Mass/Vol] 0.7 mg/dL Normal 0.3-1.2 [facility] Comment on above: Performed By: #### B MPX, OSMOL, CBCWD, SHCG, HSTRP, ACTM, ASAT, ETOHS, MG, ANION, EGFR1, HEPPA #### [address] [address] Bilirubin.indirect [Mass/Vol] mg/dL Normal 0.0-0.3 [facility] Comment on above: Performed By: #### B MPX, OSMOL, CBCWD, SHCG, HSTRP, ACTM, ASAT, ETOHS, MG, ANION, EGFR1, HEPPA #### [address] [address] Protein [Mass/Vol] 7.6 g/dL Normal 6.1-8.0 [facility] Comment on above: Performed By: #### B MPX, OSMOL, CBCWD, SHCG, HSTRP, ACTM, ASAT, ETOHS, MG, ANION, EGFR1, HEPPA #### [address] [address] TEST SERUMon 11-11 TEST SERUM Negative Normal NEGATIVE [facility] Comment on above: Performed By: #### B MPX, OSMOL, CBCWD, SHCG, HSTRP, ACTM, ASAT, ETOHS, MG, ANION, EGFR1, HEPPA #### [address] [address] SALICYLATEon 11-11-2023 SALICYLATE < 0.3 Low 2.0-10.0 [facility] Comment on above: Performed By: #### B MPX, OSMOL, CBCWD, SHCG, HSTRP, ACTM, ASAT, ETOHS, MG, ANION, EGFR1, HEPPA #### [place] [address] ACETAMINOPHENon 11-01-2023 Acetaminophen [Mass/Vol] ug/mL Normal 0.0-20.0 [facility] Comment on above: Performed By: #### B MPX, OSMOL, CBCWD, SHCG, HSTRP, ACTM, ASAT, ETOHS, MG, ANION, EGFR1, HEPPA #### [place] [address] ANION GAPon 11-01-2023 Anion gap [Moles/Vol] 12.0 mmol/L Normal 8.0-16.0 [facility] Comment on above: Result Comment: ANIO N GAP = Sodium -(Chloride + CO2) Performed By: #### B MPX, OSMOL, CBCWD, SHCG, HSTRP, ACTM, ASAT, ETOHS, MG, ANION, EGFR1, HEPPA #### [address] [address] Acetaminophen Levelon 2022 Acetaminophen [Mass/Vol] ug/mL 0.0 - 20.0 ug/mL [facility] Comment on above: Performed at [facility] [address] [place] [address] Anion Gapon 11-01-2023 Anion gap [Moles/Vol] 12.0 mmol/L 8.0 - 16.0 meq/L [facility] Comment on above: ANION GAP = Sodium - (Chloride + CO2) [place] [address] BASIC METABOL PANELon 2022 Calcium [Mass/Vol] 9.5 mg/dL Normal 8.5-10.5 [facility] Comment on above: Performed By: #### B MPX, OSMOL, CBCWD, SHCG, HSTRP, ACTM, ASAT, ETOHS, MG, ANION, EGFR1, HEPPA #### [address] [address] Chloride [Moles/Vol] 100 mmol/L Normal 98-111 [facility] Comment on above: Performed By: #### B MPX, OSMOL, CBCWD, SHCG, HSTRP, ACTM, ASAT, ETOHS, MG, ANION, EGFR1, HEPPA #### [place] [address] CO2 [Moles/Vol] 24 mmol/L Normal 23-33 [facility] Comment on above: Performed By: #### B MPX, OSMOL, CBCWD, SHCG, HSTRP, ACTM, ASAT, ETOHS, MG, ANION, EGFR1, HEPPA #### [address] [address] Creatinine [Mass/Vol] 0.6 mg/dL Normal 0.4-1.2 [facility] Comment on above: Performed By: #### B MPX, OSMOL, CBCWD, SHCG, HSTRP, ACTM, ASAT, ETOHS, MG, ANION, EGFR1, HEPPA #### [address] [address] Glucose [Mass/Vol] 91 mg/dL Normal 70-108 [facility] Comment on above: Performed By: #### B MPX, OSMOL, CBCWD, SHCG, HSTRP, ACTM, ASAT, ETOHS, MG, ANION, EGFR1, HEPPA #### [address] [address] POTASSIUM WITH REFLEX MG 4.0 meq/L Normal 3.5-5.2 [facility] Comment on above: Performed By: #### B MPX, OSMOL, CBCWD, SHCG, HSTRP, ACTM, ASAT, ETOHS, MG, ANION, EGFR1, HEPPA #### [address] [address] Sodium [Moles/Vol] 136 mmol/L Normal 135-145 [facility] Comment on above: Performed By: #### B MPX, OSMOL, CBCWD, SHCG, HSTRP, ACTM, ASAT, ETOHS, MG, ANION, EGFR1, HEPPA #### [address] [address] Urea nitrogen [Mass/Vol] 16 mg/dL Normal 7-22 [facility] Comment on above: Performed By: #### B MPX, OSMOL, CBCWD, SHCG, HSTRP, ACTM, ASAT, ETOHS, MG, ANION, EGFR1, HEPPA #### [address] [address] Basic metabolic 2000 panelon 11-01-2023 Calcium [Mass/Vol] 9.5 mg/dL 8.5 - 10. 5 mg/dL [facility] Comment on above: Performed at [facility] [address] [place] [address] Chloride [Moles/Vol] 100 mmol/L 98 - 11 1 meq/L [facility] CO2 [Moles/Vol] 24 mmol/L 23 - 33 meq/L [facility] Creatinine [Mass/Vol] 0.6 mg/dL 0.4 - 1.2 mg/dL [facility] Glucose [Mass/Vol] 91 mg/dL 70 - 108 mg/dL [facility] Potassium [Moles/Vol] 4.0 mmol/L 3.5 - 5.2 meq/L [facility] Sodium [Moles/Vol] 136 mmol/L 135 - 145 meq/L [facility] Urea nitrogen [Mass/Vol] 16 mg/dL 7 - 22 mg/d L [facility] Beta HCG ( test) Ql on 11-01-2023 [facility] CALCULATED OSMOLALITYon 10-14 Osmolality [Osmolality] 272.7 mosm/kg Low 275.0-300 .0 [facility] Comment on above: Performed By: #### B MPX, OSMOL, CBCWD, SHCG, HSTRP, ACTM, ASAT, ETOHS, MG, ANION, EGFR1, HEPPA #### [place] [address] CBC WITH DIFFERENTIALon 10-14 ABS BASOPHILS 0.0 thou/mm3 Normal 0.0-0.1 [facility] Comment on above: Performed By: #### B MPX, OSMOL, CBCWD, SHCG, HSTRP, ACTM, ASAT, ETOHS, MG, ANION, EGFR1, HEPPA #### [place] [address] ABS EOSINOPHILS 0.0 thou/mm3 Normal 0.0-0.4 [facility] Comment on above: Performed By: #### B MPX, OSMOL, CBCWD, SHCG, HSTRP, ACTM, ASAT, ETOHS, MG, ANION, EGFR1, HEPPA #### [place] [address] ABS IMMATURE GRANS (IG) 0.02 thou/mm3 Normal 0.00-0.07 [facility] Comment on above: Performed By: #### B MPX, OSMOL, CBCWD, SHCG, HSTRP, ACTM, ASAT, ETOHS, MG, ANION, EGFR1, HEPPA #### [place] [address] ABS LYMPHOCYTES 1.5 thou/mm3 Normal 1.0-4.8 [facility] Comment on above: Performed By: #### B MPX, OSMOL, CBCWD, SHCG, HSTRP, ACTM, ASAT, ETOHS, MG, ANION, EGFR1, HEPPA #### [place] [address] ABS MONOCYTES 0.4 thou/mm3 Normal 0.4-1.3 [facility] Comment on above: Performed By: #### B MPX, OSMOL, CBCWD, SHCG, HSTRP, ACTM, ASAT, ETOHS, MG, ANION, EGFR1, HEPPA #### [address] [address] ABS NEUTROPHILS 4.9 thou/mm3 Normal 1.8-7.7 [facility] Comment on above: Performed By: #### B MPX, OSMOL, CBCWD, SHCG, HSTRP, ACTM, ASAT, ETOHS, MG, ANION, EGFR1, HEPPA #### [address] [address] Basophils/100 WBC (Bld) 0.0 % Normal [facility] Comment on above: Performed By: #### B MPX, OSMOL, CBCWD, SHCG, HSTRP, ACTM, ASAT, ETOHS, MG, ANION, EGFR1, HEPPA #### [address] [address] Eosinophils/100 WBC (Bld) 0.0 % Normal [facility] Comment on above: Performed By: #### B MPX, OSMOL, CBCWD, SHCG, HSTRP, ACTM, ASAT, ETOHS, MG, ANION, EGFR1, HEPPA #### [place] [address] Erythrocyte distribution width (RBC) [Ratio] 14.6 % High 11.5-14.5 [facility] Comment on above: Performed By: #### B MPX, OSMOL, CBCWD, SHCG, HSTRP, ACTM, ASAT, ETOHS, MG, ANION, EGFR1, HEPPA #### [place] [address] Hematocrit (Bld) [Volume fraction] 42.3 % Normal 37.0-47.0 [facility] Comment on above: Performed By: #### B MPX, OSMOL, CBCWD, SHCG, HSTRP, ACTM, ASAT, ETOHS, MG, ANION, EGFR1, HEPPA #### [place] [address] Hemoglobin (Bld) [Mass/Vol] 13.7 g/dL Normal 12.0-16.0 [facility] Comment on above: Performed By: #### B MPX, OSMOL, CBCWD, SHCG, HSTRP, ACTM, ASAT, ETOHS, MG, ANION, EGFR1, HEPPA #### [place] [address] IMMATURE GRANS (IG) 0.3 % Normal [facility] Comment on above: Performed By: #### B MPX, OSMOL, CBCWD, SHCG, HSTRP, ACTM, ASAT, ETOHS, MG, ANION, EGFR1, HEPPA #### [place] [address] Lymphocytes/100 WBC (Bld) 22.0 % Normal [facility] Comment on above: Performed By: #### B MPX, OSMOL, CBCWD, SHCG, HSTRP, ACTM, ASAT, ETOHS, MG, ANION, EGFR1, HEPPA #### [place] [address] MCH (RBC) [Entitic mass] 28.2 pg Normal 26.0-33.0 [facility] Comment on above: Performed By: #### B MPX, OSMOL, CBCWD, SHCG, HSTRP, ACTM, ASAT, ETOHS, MG, ANION, EGFR1, HEPPA #### [place] [address] MCHC (RBC) [Mass/Vol] 32.4 g/dL Normal 32.2-35.5 [facility] Comment on above: Performed By: #### B MPX, OSMOL, CBCWD, SHCG, HSTRP, ACTM, ASAT, ETOHS, MG, ANION, EGFR1, HEPPA #### [place] [address] MCV (RBC) [Entitic vol] 87.0 fL Normal 81.0-99.0 [facility] Comment on above: Performed By: #### B MPX, OSMOL, CBCWD, SHCG, HSTRP, ACTM, ASAT, ETOHS, MG, ANION, EGFR1, HEPPA #### [address] [address] Monocytes/100 WBC (Bld) 6.0 % Normal [facility] Comment on above: Performed By: #### B MPX, OSMOL, CBCWD, SHCG, HSTRP, ACTM, ASAT, ETOHS, MG, ANION, EGFR1, HEPPA #### [address] [address] Neutrophils/100 WBC (Bld) 71.7 % Normal [facility] Comment on above: Performed By: #### B MPX, OSMOL, CBCWD, SHCG, HSTRP, ACTM, ASAT, ETOHS, MG, ANION, EGFR1, HEPPA #### [address] [address] NRBC 0 /100 wbc Normal [facility] Comment on above: Performed By: #### B MPX, OSMOL, CBCWD, SHCG, HSTRP, ACTM, ASAT, ETOHS, MG, ANION, EGFR1, HEPPA #### [place] [address] PLATELET 274 thou/mm3 Normal 130-400 [facility] Comment on above: Performed By: #### B MPX, OSMOL, CBCWD, SHCG, HSTRP, ACTM, ASAT, ETOHS, MG, ANION, EGFR1, HEPPA #### [place] [address] Platelet mean volume (Bld) [Entitic vol] 11.2 fL Normal 9.4-12.4 [facility] Comment on above: Performed By: #### B MPX, OSMOL, CBCWD, SHCG, HSTRP, ACTM, ASAT, ETOHS, MG, ANION, EGFR1, HEPPA #### [address] [address] RBC 4.86 mill/mm3 Normal 4.20-5.40 [facility] Comment on above: Performed By: #### B MPX, OSMOL, CBCWD, SHCG, HSTRP, ACTM, ASAT, ETOHS, MG, ANION, EGFR1, HEPPA #### [address] [address] RDW-SD 46.1 fL High 35.0-45.0 [facility] Comment on above: Performed By: #### B MPX, OSMOL, CBCWD, SHCG, HSTRP, ACTM, ASAT, ETOHS, MG, ANION, EGFR1, HEPPA #### [address] [address] WBC 6.8 thou/mm3 Normal 4.8-10.8 [facility] Comment on above: Performed By: #### B MPX, OSMOL, CBCWD, SHCG, HSTRP, ACTM, ASAT, ETOHS, MG, ANION, EGFR1, HEPPA #### [place] [address] CBC with Auto Differentialon 11-01-2023 Basophils (Bld) [#/Vol] 0.0 10*3/uL [facility] Basophils/100 WBC (Bld) 0.0 % B [facility] Eosinophils Absolute 0.0 [facility] Eosinophils/100 WBC (Bld) 0.0 % [facility] Erythrocyte distribution width (RBC) [Entitic vol] 46.1 fL High 35.0 - 45.0 fL [facility] Erythrocyte distribution width (RBC) [Ratio] 14.6 % High 11.5 - 14.5 % [facility] Hematocrit (Bld) [Volume fraction] 42.3 % 37.0 - 47.0 % [facility] Hemoglobin (Bld) [Mass/Vol] 13.7 g/dL [facility] Immature granulocytes (Bld) [#/Vol] 0.02 10*3/uL [facility] Immature granulocytes/100 WBC (Bld) 0.3 % [facility] Interpretation and review of laboratory results Abnormal [facility] Lymphocytes Absolute 1.5 [facility] Lymphocytes/100 WBC (Bld) 22.0 % [facility] MCH (RBC) [Entitic mass] 28.2 pg 26. 0 - 33.0 pg [facility] MCHC (RBC) [Mass/Vol] 32.4 g/dL [facility] MCV (RBC) [Entitic vol] 87.0 fL 81.0 - 99.0 fL [facility] Monocytes Absolute 0.4 [facility] Monocytes/100 WBC (Bld) 6.0 % [facility] [employer] [facility] Neutrophils/100 WBC (Bld) 71.7 % [facility] [employer] [facility] Nucleated RBC/100 WBC (Bld) [Ratio] 0 % /100 wbc [facility] [employer] [facility] Comment on above: Performed at [facility] [address] [place] [address] Platelet mean volume (Bld) [Entitic vol] 11.2 fL 9.4 - 12.4 fL [facility] Platelets (Bld) [#/Vol] 274 10*3/uL [facility] RBC (Bld) [#/Vol] 4.86 10*6/uL [facility] [employer] [facility] Segs Absolute 4.9 [facility] WBC (Bld) [#/Vol] 6.8 10*3/uL [facility] [employer] [facility] EKG 12 LeadOrdered By: Gricelda Sandoval on 11-01-2023 Atrial Rate 115 BPM [facility] [email or web address] Work Phone: P [place] 85 degrees [email or web address] Work Phone: P-R Interval 116 ms [employer] [email or web address] Work Phone: Q-T Interval 320 ms [employer] [email or web address] Work Phone: QRS Duration 64 ms [employer] [email or web address] Work Phone: QTc Calculation (Bazett) 442 ms [employer] [email or web address] Work Phone: R [place] 73 degrees [facility] [email or web address] Work Phone: T [place] 42 degrees [facility] Work Phone: Ventricular Rate 115 BPM [employer] Work Phone: [employer] Work Phone: EKG 12 Leadon 11-01-2023 Sinus tachycardia Otherwise normal ECG No previous ECGs available Confirmed by SANDEEP SANDOVAL ([id number]) on 11/01/2023 6:17:40 PM WCOR STR Sandeep Monteiro MD - 11/01/2023 Sinus tachycardia Otherwise normal ECG No previous ECGs available Confirmed by SANDEEP SANDOVAL ([id number]) on 11/01/2023 6:17:40 PM [facility] [employer] EKG 12-LEADon 11-01-2023 EKG 12-LEAD 115 115 116 64 [phone] Sinus tachycardia Otherwise normal ECG No previous ECGs available Confirmed by SANDEEP SANDOVAL ([id number]) on 11/01/2023 6:17:40 PM [email or web address]&Date= 01-11-2023&Time=17%3a39 %3a13%3a00&TestType=ECG &Site=3&OutputType=PDF& Ext=PDF Normal [facility] ETHYL ALCOHOL BLOODon 2022 ETHYL ALCOHOL BLOOD < 0.01 Normal 0.00 [facility] Comment on above: Performed By: #### B MPX, OSMOL, CBCWD, SHCG, HSTRP, ACTM, ASAT, ETOHS, MG, ANION, EGFR1, HEPPA #### [facility] [address] [place] [address] Ethanolon 11-01-2023 Ethanol [Mass/Vol] mg/dL 0.00 % [facility] [employer] Comment on above: Performed at [facility] [address] [place] [address] GFR, ESTIMATEDon 11-01-2023 GFR/1.73 sq M.predicted MDRD (S/P/Bld) [Vol rate/Area] mL/min/{1.73_m2} Normal >60 [facility] Comment on above: Result Comment: Pedi atric calculator link [email or web address] Effective Aug 16, 2022 These results are not intended for use in patients <18 years of age. eGFR results are calculated without a race factor using the 2020 CKD-EPI equation. Careful clinical correlation is recommended, particularly when comparing to results calculated using previous equations. The CKD-EPI equation is less accurate in patients with extremes of muscle mass, extra-renal metabolism of creatinine, excessive creatine ingestion, or following therapy that affects renal tubular secretion. Performed By: #### B MPX, OSMOL, CBCWD, SHCG, HSTRP, ACTM, ASAT, ETOHS, MG, ANION, EGFR1, HEPPA #### [facility] [address] [place] [address] Glomerular Filtration Rate, Estimatedon 11-01-2023 GFR/1.73 sq M.predicted MDRD (S/P/Bld) [Vol rate/Area] - [facility] [employer] Comment on above: Pediatric calculator link [email or web address]/[email or web address] Effective Aug 16, 2022 These results are not intended for use in patients <18 years of age. eGFR results are calculated without a race factor using the 2020 CKD-EPI equation. Careful clinical correlation is recommended, particularly when comparing to results calculated using previous equations. The CKD-EPI equation is less accurate in patients with extremes of muscle mass, extra-renal metabolism of creatinine, excessive creatine ingestion, or following therapy that affects renal tubular secretion. Performed at [facility] [address] [place] [address] HCG Qualitative, Serumon Beta HCG ( test) Ql Negative NEGATIVE [facility] [employer] Comment on above: Performed at [facility] [address] [place] [address] HEPATIC FUNCTION PANELon Albumin [Mass/Vol] 4.1 g/dL Normal 3.5-5.1 [facility] Comment on above: Performed By: #### B MPX, OSMOL, CBCWD, SHCG, HSTRP, ACTM, ASAT, ETOHS, MG, ANION, EGFR1, HEPPA #### [address] [address] ALP [Catalytic activity/Vol] 61 U/L Normal 38-126 [facility] Comment on above: Performed By: #### B MPX, OSMOL, CBCWD, SHCG, HSTRP, ACTM, ASAT, ETOHS, MG, ANION, EGFR1, HEPPA #### [address] [address] ALT [Catalytic activity/Vol] 15 U/L Normal 11-66 [facility] Comment on above: Performed By: #### B MPX, OSMOL, CBCWD, SHCG, HSTRP, ACTM, ASAT, ETOHS, MG, ANION, EGFR1, HEPPA #### [address] [address] AST [Catalytic activity/Vol] 17 U/L Normal 5-40 [facility] Comment on above: Performed By: #### B MPX, OSMOL, CBCWD, SHCG, HSTRP, ACTM, ASAT, ETOHS, MG, ANION, EGFR1, HEPPA #### [address] [address] Bilirubin [Mass/Vol] 0.8 mg/dL Normal 0.3-1.2 [facility] Comment on above: Performed By: #### B MPX, OSMOL, CBCWD, SHCG, HSTRP, ACTM, ASAT, ETOHS, MG, ANION, EGFR1, HEPPA #### [address] [address] Bilirubin.indirect [Mass/Vol] mg/dL Normal 0.0-0.3 [facility] Comment on above: Performed By: #### B MPX, OSMOL, CBCWD, SHCG, HSTRP, ACTM, ASAT, ETOHS, MG, ANION, EGFR1, HEPPA #### [address] [address] Protein [Mass/Vol] 7.5 g/dL Normal 6.1-8.0 [facility] Comment on above: Performed By: #### B MPX, OSMOL, CBCWD, SHCG, HSTRP, ACTM, ASAT, ETOHS, MG, ANION, EGFR1, HEPPA #### [facility] [employer] [address] [place] [address] HIGH SENSTIVITY TROPONINon 1 01-02-2023 HIGH SENSTIVITY TROPONIN 9 ng/L Normal 0-12 [facility] Comment on above: Result Comment: The high-sensitivity troponin T result should not be compared with other troponin methodologies. Rising or falling high-sensitivity troponin T is significant if >= 6. Performed By: #### B MPX, OSMOL, CBCWD, SHCG, HSTRP, ACTM, ASAT, ETOHS, MG, ANION, EGFR1, HEPPA #### [facility] [employer] [address] [address] Hepatic function 2000 panelo n 11-01-2023 Albumin BCG dye [Mass/Vol] 4.1 g/dL 3.5 - 5.1 g/dL [facility] ALP [Catalytic activity/Vol] 61 U/L 38 - 126 U/L [facility] ALT No additional P-5'-P [Catalytic activity/Vol] 15 U/L 11 - 66 U/L [facility] AST [Catalytic activity/Vol] 17 U/L 5 - 40 U/L [facility] Bilirubin [Mass/Vol] 0.8 mg/dL 0.3 - 1 .2 mg/dL [facility] Bilirubin.conjugated [Mass/Vol] mg/dL 0.0 - 0.3 mg/dL [facility] Protein [Mass/Vol] 7.5 g/dL 6.1 - 8.0 g/dL [facility] Comment on above: Performed at [facility] [address] [place] [address] Influenza virus A and B RNA and SARS-CoV-2 (COVID-19) N gene panel CHRISTIANO+probe (Resp)on 11-01-2023 FLUAV RNA CHRISTIANO+probe Ql (Resp) Not detected NOT DETECTED [facility] FLUBV RNA CHRISTIANO+probe Ql (Resp) Not detected NOT DETECTED [facility] Comment on above: Performed at [facility] [address] [place] [address] SARS-CoV-2 (COVID-19) RNA CHRISTIANO+probe Ql (Resp) Not detected NOT DETECTED [facility] Comment on above: Not Detected results do not preclude SARS-CoV-2 infection and should not be used as the sole basis for patient management decisions. Results must be combined with clinical observations, patient history, and epidemiological information. Testing was performed using DEJUAN Juliet SARS-CoV-2 and Influenza A/B nucleic acid assay. This test is a multiplex Real-Time Reverse Transcriptase Polymerase Chain Reaction (RT-PCR)-based in vitro diagnostic test intended for the qualitative detection of nucleic acids from SARS-CoV-2, influenza A, and influenza B in nasopharyngeal and nasal swab specimens for use under the FDA s Emergency Use Authorization (EUA) only. Fact sheet for Healthcare Providers: https://www.fda.gov/media/843732/download Fact sheet for Patients: https://www.fda.gov/media/003920/download [facility] MAGNESIUMon 11-01-2023 Magnesium [Mass/Vol] 2.0 mg/dL Normal 1.6-2.4 [facility] Comment on above: Performed By: #### B MPX, OSMOL, CBCWD, SHCG, HSTRP, ACTM, ASAT, ETOHS, MG, ANION, EGFR1, HEPPA #### [facility] [address] [place] [address] Magnesiumon 11-01-2023 Magnesium [Mass/Vol] 2.0 mg/dL 1.6 - 2 .4 mg/dL [facility] Comment on above: Performed at [facility] [address] [place] [address] No Panel Informationon 11-01 Interpretation and review of laboratory results Abnormal [facility] Osmolalityon 11-01-2023 Osmolality Calc [Osmolality] 272.7 Low [facility] Comment on above: Performed at [facility] [address] [place] [address] TEST SERUMon 11-01 TEST SERUM Negative Normal NEGATIVE [facility] Comment on above: Performed By: #### B MPX, OSMOL, CBCWD, SHCG, HSTRP, ACTM, ASAT, ETOHS, MG, ANION, EGFR1, HEPPA #### [address] [address] SALICYLATEon 11-01-2023 SALICYLATE < 0.3 Low 2.0-10.0 [facility] Comment on above: Performed By: #### B MPX, OSMOL, CBCWD, SHCG, HSTRP, ACTM, ASAT, ETOHS, MG, ANION, EGFR1, HEPPA #### [place] [address] SARS-COV-2 & INFLUENZA A/Bon 11-01-2023 INFLUENZA A, RT-PCR Not detected Normal NOT DETECTED [facility] Comment on above: Performed By: #### B MPX, OSMOL, CBCWD, SHCG, HSTRP, ACTM, ASAT, ETOHS, MG, ANION, EGFR1, HEPPA #### [place] [address] INFLUENZA B, RT-PCR Not detected Normal NOT DETECTED [facility] Comment on above: Performed By: #### B MPX, OSMOL, CBCWD, SHCG, HSTRP, ACTM, ASAT, ETOHS, MG, ANION, EGFR1, HEPPA #### [place] [address] SARS-CoV-2 (COVID-19) RNA CHRISTIANO+probe Ql (Unsp spec) Not detected Normal NOT DETECTED [facility] Comment on above: Result Comment: Not Detected results do not preclude SARS-CoV-2 infection and should not be used as the sole basis for patient management decisions. Results must be combined with clinical observations, patient history, and epidemiological information. Testing was performed using DEJUAN Juliet SARS-CoV-2 and Influenza A/B nucleic acid assay. This test is a multiplex Real-Time Reverse Transcriptase Polymerase Chain Reaction (RT-PCR)-based in vitro diagnostic test intended for the qualitative detection of nucleic acids from SARS-CoV-2, influenza A, and influenza B in nasopharyngeal and nasal swab specimens for use under the FDA?s Emergency Use Authorization (EUA) only. Fact sheet for Healthcare Providers: https://www.fda.gov/media/514582/download Fact sheet for Patients: https://www.fda.gov/media/570879/download Performed By: #### B MPX, OSMOL, CBCWD, SHCG, HSTRP, ACTM, ASAT, ETOHS, MG, ANION, EGFR1, HEPPA #### [place] [address] Salicylateon 11-01-2023 Salicylates [Mass/Vol] mg/dL Low 2.0 - 10.0 mg/dL [facility] Comment on above: Performed at [facility] [facility] [address] [place] [address] Troponinon 11-01-2023 Troponin, High Sensitivity 9 ng/L 0 - 12 ng/L [facility] Comment on above: The high-sensitivity troponin T result should not be compared with other troponin methodologies. Rising or falling high-sensitivity troponin T is significant if >= 6. Performed at [address] ACETAMINOPHENon 10-30-2023 Acetaminophen [Mass/Vol] ug/mL Normal 0.0-20.0 [facility] Comment on above: Performed By: #### B MPX, OSMOL, CBCWD, SHCG, HSTRP, ACTM, ASAT, ETOHS, MG, ANION, EGFR1, HEPPA #### [address] [address] ANION GAPon 10-30-2023 Anion gap [Moles/Vol] 16.0 mmol/L Normal 8.0-16.0 [facility] Comment on above: Result Comment: ANIO N GAP = Sodium -(Chloride + CO2) Performed By: #### B MPX, OSMOL, CBCWD, SHCG, HSTRP, ACTM, ASAT, ETOHS, MG, ANION, EGFR1, HEPPA #### [address] [address] Acetaminophen Levelon 2022 Acetaminophen [Mass/Vol] ug/mL 0.0 - 20.0 ug/mL [facility] Comment on above: Performed at [facility] [address] [place] [address] Anion Gapon 12-17-2023 Anion gap [Moles/Vol] 16.0 mmol/L 8.0 - 16.0 meq/L [facility] Comment on above: ANION GAP = Sodium - (Chloride + CO2) [place] [address] BASIC METABOL PANELon 2022 Calcium [Mass/Vol] 9.5 mg/dL Normal 8.5-10.5 [facility] Comment on above: Performed By: #### B MPX, OSMOL, CBCWD, SHCG, HSTRP, ACTM, ASAT, ETOHS, MG, ANION, EGFR1, HEPPA #### [place] [address] Chloride [Moles/Vol] 95 mmol/L Low 98-111 [facility] Comment on above: Performed By: #### B MPX, OSMOL, CBCWD, SHCG, HSTRP, ACTM, ASAT, ETOHS, MG, ANION, EGFR1, HEPPA #### [place] [address] CO2 [Moles/Vol] 23 mmol/L Normal 23-33 [facility] Comment on above: Performed By: #### B MPX, OSMOL, CBCWD, SHCG, HSTRP, ACTM, ASAT, ETOHS, MG, ANION, EGFR1, HEPPA #### [place] [address] Creatinine [Mass/Vol] 0.8 mg/dL Normal 0.4-1.2 [facility] Comment on above: Performed By: #### B MPX, OSMOL, CBCWD, SHCG, HSTRP, ACTM, ASAT, ETOHS, MG, ANION, EGFR1, HEPPA #### [place] [address] Glucose [Mass/Vol] 118 mg/dL High 70-108 [facility] Comment on above: Performed By: #### B MPX, OSMOL, CBCWD, SHCG, HSTRP, ACTM, ASAT, ETOHS, MG, ANION, EGFR1, HEPPA #### [place] [address] Potassium [Moles/Vol] 3.9 mmol/L Normal 3.5-5.2 [facility] Comment on above: Performed By: #### B MPX, OSMOL, CBCWD, SHCG, HSTRP, ACTM, ASAT, ETOHS, MG, ANION, EGFR1, HEPPA #### [facility] [address] [place] [address] Sodium [Moles/Vol] 134 mmol/L Low 135-145 [facility] Comment on above: Performed By: #### B MPX, OSMOL, CBCWD, SHCG, HSTRP, ACTM, ASAT, ETOHS, MG, ANION, EGFR1, HEPPA #### [facility] [address] [place] [address] Urea nitrogen [Mass/Vol] 17 mg/dL Normal 7-22 [facility] Comment on above: Performed By: #### B MPX, OSMOL, CBCWD, SHCG, HSTRP, ACTM, ASAT, ETOHS, MG, ANION, EGFR1, HEPPA #### [facility] [address] [place] [address] Basic metabolic 2000 panelon 10-30-2023 Calcium [Mass/Vol] 9.5 mg/dL 8.5 - 10. 5 mg/dL [facility] [employer] Comment on above: Performed at [facility] [address] [place] [address] Chloride [Moles/Vol] 95 mmol/L Low 98 - 11 1 meq/L [facility] CO2 [Moles/Vol] 23 mmol/L 23 - 33 meq/L [facility] Creatinine [Mass/Vol] 0.8 mg/dL 0.4 - 1.2 mg/dL [employer] [facility] Glucose [Mass/Vol] 118 mg/dL High 70 - 108 mg/dL [employer] Potassium [Moles/Vol] 3.9 mmol/L 3.5 - 5.2 meq/L [facility] Sodium [Moles/Vol] 134 mmol/L Low 135 - 145 meq/L [facility] Urea nitrogen [Mass/Vol] 17 mg/dL 7 - 22 mg/d L [facility] Beta HCG ( test) Ql on 10-30-2023 [facility] CALCULATED OSMOLALITYon 10-14 Osmolality [Osmolality] 270.9 mosm/kg Low 275.0-300 .0 [facility] Comment on above: Performed By: #### B MPX, OSMOL, CBCWD, SHCG, HSTRP, ACTM, ASAT, ETOHS, MG, ANION, EGFR1, HEPPA #### [place] [address] CBC WITH DIFFERENTIALon 10-14 ABS BASOPHILS 0.0 thou/mm3 Normal 0.0-0.1 [facility] Comment on above: Performed By: #### B MPX, OSMOL, CBCWD, SHCG, HSTRP, ACTM, ASAT, ETOHS, MG, ANION, EGFR1, HEPPA #### [place] [address] ABS EOSINOPHILS 0.0 thou/mm3 Normal 0.0-0.4 [facility] Comment on above: Performed By: #### B MPX, OSMOL, CBCWD, SHCG, HSTRP, ACTM, ASAT, ETOHS, MG, ANION, EGFR1, HEPPA #### [place] [address] ABS IMMATURE GRANS (IG) 0.03 thou/mm3 Normal 0.00-0.07 [facility] Comment on above: Performed By: #### B MPX, OSMOL, CBCWD, SHCG, HSTRP, ACTM, ASAT, ETOHS, MG, ANION, EGFR1, HEPPA #### [place] [address] ABS LYMPHOCYTES 1.1 thou/mm3 Normal 1.0-4.8 [facility] Comment on above: Performed By: #### B MPX, OSMOL, CBCWD, SHCG, HSTRP, ACTM, ASAT, ETOHS, MG, ANION, EGFR1, HEPPA #### [place] [address] ABS MONOCYTES 0.5 thou/mm3 Normal 0.4-1.3 [facility] Comment on above: Performed By: #### B MPX, OSMOL, CBCWD, SHCG, HSTRP, ACTM, ASAT, ETOHS, MG, ANION, EGFR1, HEPPA #### [address] [address] ABS NEUTROPHILS 9.5 thou/mm3 High 1.8-7.7 [facility] Comment on above: Performed By: #### B MPX, OSMOL, CBCWD, SHCG, HSTRP, ACTM, ASAT, ETOHS, MG, ANION, EGFR1, HEPPA #### [address] [address] Basophils/100 WBC (Bld) 0.1 % Normal [facility] Comment on above: Performed By: #### B MPX, OSMOL, CBCWD, SHCG, HSTRP, ACTM, ASAT, ETOHS, MG, ANION, EGFR1, HEPPA #### [address] [address] Eosinophils/100 WBC (Bld) 0.0 % Normal [facility] Comment on above: Performed By: #### B MPX, OSMOL, CBCWD, SHCG, HSTRP, ACTM, ASAT, ETOHS, MG, ANION, EGFR1, HEPPA #### [address] [address] Erythrocyte distribution width (RBC) [Ratio] 14.3 % Normal 11.5-14.5 [facility] Comment on above: Performed By: #### B MPX, OSMOL, CBCWD, SHCG, HSTRP, ACTM, ASAT, ETOHS, MG, ANION, EGFR1, HEPPA #### [address] [address] Hematocrit (Bld) [Volume fraction] 46.7 % Normal 37.0-47.0 [facility] Comment on above: Performed By: #### B MPX, OSMOL, CBCWD, SHCG, HSTRP, ACTM, ASAT, ETOHS, MG, ANION, EGFR1, HEPPA #### [place] [address] Hemoglobin (Bld) [Mass/Vol] 15.0 g/dL Normal 12.0-16.0 [facility] Comment on above: Performed By: #### B MPX, OSMOL, CBCWD, SHCG, HSTRP, ACTM, ASAT, ETOHS, MG, ANION, EGFR1, HEPPA #### [place] [address] IMMATURE GRANS (IG) 0.3 % Normal [facility] Comment on above: Performed By: #### B MPX, OSMOL, CBCWD, SHCG, HSTRP, ACTM, ASAT, ETOHS, MG, ANION, EGFR1, HEPPA #### [place] [address] Lymphocytes/100 WBC (Bld) 9.6 % Normal [facility] Comment on above: Performed By: #### B MPX, OSMOL, CBCWD, SHCG, HSTRP, ACTM, ASAT, ETOHS, MG, ANION, EGFR1, HEPPA #### [place] [address] MCH (RBC) [Entitic mass] 28.5 pg Normal 26.0-33.0 [facility] Comment on above: Performed By: #### B MPX, OSMOL, CBCWD, SHCG, HSTRP, ACTM, ASAT, ETOHS, MG, ANION, EGFR1, HEPPA #### [place] [address] MCHC (RBC) [Mass/Vol] 32.1 g/dL Low 32.2-35.5 [facility] Comment on above: Performed By: #### B MPX, OSMOL, CBCWD, SHCG, HSTRP, ACTM, ASAT, ETOHS, MG, ANION, EGFR1, HEPPA #### [place] [address] MCV (RBC) [Entitic vol] 88.8 fL Normal 81.0-99.0 [facility] Comment on above: Performed By: #### B MPX, OSMOL, CBCWD, SHCG, HSTRP, ACTM, ASAT, ETOHS, MG, ANION, EGFR1, HEPPA #### [address] [address] Monocytes/100 WBC (Bld) 4.8 % Normal [facility] Comment on above: Performed By: #### B MPX, OSMOL, CBCWD, SHCG, HSTRP, ACTM, ASAT, ETOHS, MG, ANION, EGFR1, HEPPA #### [address] [address] Neutrophils/100 WBC (Bld) 85.2 % Normal [facility] Comment on above: Performed By: #### B MPX, OSMOL, CBCWD, SHCG, HSTRP, ACTM, ASAT, ETOHS, MG, ANION, EGFR1, HEPPA #### [address] [address] NRBC 0 /100 wbc Normal [facility] Comment on above: Performed By: #### B MPX, OSMOL, CBCWD, SHCG, HSTRP, ACTM, ASAT, ETOHS, MG, ANION, EGFR1, HEPPA #### [address] [address] PLATELET 342 thou/mm3 Normal 130-400 [facility] Comment on above: Performed By: #### B MPX, OSMOL, CBCWD, SHCG, HSTRP, ACTM, ASAT, ETOHS, MG, ANION, EGFR1, HEPPA #### [address] [address] Platelet mean volume (Bld) [Entitic vol] 11.3 fL Normal 9.4-12.4 [facility] Comment on above: Performed By: #### B MPX, OSMOL, CBCWD, SHCG, HSTRP, ACTM, ASAT, ETOHS, MG, ANION, EGFR1, HEPPA #### [address] [address] RBC 5.26 mill/mm3 Normal 4.20-5.40 [facility] Comment on above: Performed By: #### B MPX, OSMOL, CBCWD, SHCG, HSTRP, ACTM, ASAT, ETOHS, MG, ANION, EGFR1, HEPPA #### [facility] [address] [place] [address] RDW-SD 45.5 fL High 35.0-45.0 [facility] Comment on above: Performed By: #### B MPX, OSMOL, CBCWD, SHCG, HSTRP, ACTM, ASAT, ETOHS, MG, ANION, EGFR1, HEPPA #### [facility] [address] [place] [address] WBC 11.1 thou/mm3 High 4.8-10.8 [facility] Comment on above: Performed By: #### B MPX, OSMOL, CBCWD, SHCG, HSTRP, ACTM, ASAT, ETOHS, MG, ANION, EGFR1, HEPPA #### [facility] [address] [place] [address] CBC with Auto Differentialon 10-30-2023 Basophils (Bld) [#/Vol] 0.0 10*3/uL [facility] Basophils/100 WBC (Bld) 0.1 % B [facility] Eosinophils Absolute 0.0 [facility] Eosinophils/100 WBC (Bld) 0.0 % [facility] Erythrocyte distribution width (RBC) [Entitic vol] 45.5 fL High 35.0 - 45.0 fL [facility] Erythrocyte distribution width (RBC) [Ratio] 14.3 % 11.5 - 14.5 % [facility] Hematocrit (Bld) [Volume fraction] 46.7 % 37.0 - 47.0 % [facility] Hemoglobin (Bld) [Mass/Vol] 15.0 g/dL [facility] Immature granulocytes (Bld) [#/Vol] 0.03 10*3/uL [facility] Immature granulocytes/100 WBC (Bld) 0.3 % [facility] Interpretation and review of laboratory results Abnormal [facility] Lymphocytes Absolute 1.1 [facility] Lymphocytes/100 WBC (Bld) 9.6 % [facility] MCH (RBC) [Entitic mass] 28.5 pg 26. 0 - 33.0 pg [facility] MCHC (RBC) [Mass/Vol] 32.1 g/dL Low [facility] MCV (RBC) [Entitic vol] 88.8 fL 81.0 - 99.0 fL [facility] Monocytes Absolute 0.5 [facility] Monocytes/100 WBC (Bld) 4.8 % B ON [facility] Neutrophils/100 WBC (Bld) 85.2 % [facility] Nucleated RBC/100 WBC (Bld) [Ratio] 0 % /100 wbc [facility] Comment on above: Performed at [facility] [address] [place] [address] Platelet mean volume (Bld) [Entitic vol] 11.3 fL 9.4 - 12.4 fL [facility] Platelets (Bld) [#/Vol] 342 10*3/uL [facility] RBC (Bld) [#/Vol] 5.26 10*6/uL [facility] Segs Absolute 9.5 High [facility] WBC (Bld) [#/Vol] 11.1 10*3/uL High [facility] ETHYL ALCOHOL BLOODon 2022 ETHYL ALCOHOL BLOOD < 0.01 Normal 0.00 [facility] Comment on above: Performed By: #### B MPX, OSMOL, CBCWD, SHCG, HSTRP, ACTM, ASAT, ETOHS, MG, ANION, EGFR1, HEPPA #### [facility] [address] [place] [address] ETOHon 10-30-2023 Ethanol [Mass/Vol] mg/dL 0.00 % [facility] Comment on above: Performed at [facility] [address] [place] [address] Free T4 [Mass/Vol]on 023 [facility] GFR, ESTIMATEDon 10-30-2023 GFR/1.73 sq M.predicted MDRD (S/P/Bld) [Vol rate/Area] mL/min/{1.73_m2} Normal >60 [facility] Comment on above: Result Comment: Pedi atric calculator link https://www.kidney.org/professionals/kdoqi/gfr_calculatorped Effective Aug 16, 2022 These results are not intended for use in patients <18 years of age. eGFR results are calculated without a race factor using the 2020 CKD-EPI equation. Careful clinical correlation is recommended, particularly when comparing to results calculated using previous equations. The CKD-EPI equation is less accurate in patients with extremes of muscle mass, extra-renal metabolism of creatinine, excessive creatine ingestion, or following therapy that affects renal tubular secretion. Performed By: #### B MPX, OSMOL, CBCWD, SHCG, HSTRP, ACTM, ASAT, ETOHS, MG, ANION, EGFR1, HEPPA #### [facility] [address] [place] [address] Glomerular Filtration Rate, Estimatedon 10-30-2023 GFR/1.73 sq M.predicted MDRD (S/P/Bld) [Vol rate/Area] - [facility] Comment on above: Pediatric calculator link https://www.kidney.org/professionals/kdoqi/gfr_calculatorped Effective Aug 16, 2022 These results are not intended for use in patients <18 years of age. eGFR results are calculated without a race factor using the 2020 CKD-EPI equation. Careful clinical correlation is recommended, particularly when comparing to results calculated using previous equations. The CKD-EPI equation is less accurate in patients with extremes of muscle mass, extra-renal metabolism of creatinine, excessive creatine ingestion, or following therapy that affects renal tubular secretion. Performed at [facility] [address] [place] [address] HCG Qualitative, Serumon Beta HCG ( test) Ql Negative NEGATIVE [facility] Comment on above: Performed at [facility] [address] [place] [address] HEPATIC FUNCTION PANELon Albumin [Mass/Vol] 4.4 g/dL Normal 3.5-5.1 [facility] Comment on above: Performed By: #### B MPX, OSMOL, CBCWD, SHCG, HSTRP, ACTM, ASAT, ETOHS, MG, ANION, EGFR1, HEPPA #### [address] [address] ALP [Catalytic activity/Vol] 64 U/L Normal 38-126 [facility] Comment on above: Performed By: #### B MPX, OSMOL, CBCWD, SHCG, HSTRP, ACTM, ASAT, ETOHS, MG, ANION, EGFR1, HEPPA #### [address] [address] ALT [Catalytic activity/Vol] 16 U/L Normal 11-66 [facility] Comment on above: Performed By: #### B MPX, OSMOL, CBCWD, SHCG, HSTRP, ACTM, ASAT, ETOHS, MG, ANION, EGFR1, HEPPA #### [address] [address] AST [Catalytic activity/Vol] 20 U/L Normal 5-40 [facility] Comment on above: Performed By: #### B MPX, OSMOL, CBCWD, SHCG, HSTRP, ACTM, ASAT, ETOHS, MG, ANION, EGFR1, HEPPA #### [address] [address] Bilirubin [Mass/Vol] 0.7 mg/dL Normal 0.3-1.2 [facility] Comment on above: Performed By: #### B MPX, OSMOL, CBCWD, SHCG, HSTRP, ACTM, ASAT, ETOHS, MG, ANION, EGFR1, HEPPA #### [address] [address] Bilirubin.indirect [Mass/Vol] mg/dL Normal 0.0-0.3 [facility] Comment on above: Performed By: #### B MPX, OSMOL, CBCWD, SHCG, HSTRP, ACTM, ASAT, ETOHS, MG, ANION, EGFR1, HEPPA #### [address] [address] Protein [Mass/Vol] 8.0 g/dL Normal 6.1-8.0 [facility] Comment on above: Performed By: #### B MPX, OSMOL, CBCWD, SHCG, HSTRP, ACTM, ASAT, ETOHS, MG, ANION, EGFR1, HEPPA #### [address] [address] Hepatic function 2000 panelo n 10-30-2023 Albumin BCG dye [Mass/Vol] 4.4 g/dL 3.5 - 5.1 g/dL [facility] ALP [Catalytic activity/Vol] 64 U/L 38 - 126 U/L [facility] ALT No additional P-5'-P [Catalytic activity/Vol] 16 U/L 11 - 66 U/L [facility] AST [Catalytic activity/Vol] 20 U/L 5 - 40 U/L [facility] Bilirubin [Mass/Vol] 0.7 mg/dL 0.3 - 1 .2 mg/dL [facility] Bilirubin.conjugated [Mass/Vol] mg/dL 0.0 - 0.3 mg/dL [facility] Protein [Mass/Vol] 8.0 g/dL 6.1 - 8.0 g/dL [facility] Comment on above: Performed at [facility] [address] [place] [address] LIPASEon 10-30-2023 Lipase [Catalytic activity/Vol] 39.2 U/L Normal 5.6-51.3 [facility] Comment on above: Performed By: #### B MPX, OSMOL, CBCWD, SHCG, HSTRP, ACTM, ASAT, ETOHS, MG, ANION, EGFR1, HEPPA #### [address] [address] Lipaseon 10-30-2023 Lipase [Catalytic activity/Vol] 39.2 U/L 5.6 - 51.3 U/L [facility] Comment on above: Performed at [facility] [address] [place] [address] MAGNESIUMon 10-30-2023 Magnesium [Mass/Vol] 1.8 mg/dL Normal 1.6-2.4 [facility] Comment on above: Performed By: #### B MPX, OSMOL, CBCWD, SHCG, HSTRP, ACTM, ASAT, ETOHS, MG, ANION, EGFR1, HEPPA #### [address] [address] Magnesiumon 10-30-2023 Magnesium [Mass/Vol] 1.8 mg/dL 1.6 - 2 .4 mg/dL [facility] Comment on above: Performed at [facility] [address] [place] [address] No Panel Informationon 10-30 Interpretation and review of laboratory results Abnormal [facility] Osmolalityon 10-30-2023 Osmolality Calc [Osmolality] 270.9 Low [facility] Comment on above: Performed at [facility] [address] [place] [address] TEST SERUMon 10-30 TEST SERUM Negative Normal NEGATIVE [facility] Comment on above: Performed By: #### B MPX, OSMOL, CBCWD, SHCG, HSTRP, ACTM, ASAT, ETOHS, MG, ANION, EGFR1, HEPPA #### [place] [address] SALICYLATEon 10-30-2023 SALICYLATE < 0.3 Low 2.0-10.0 [facility] Comment on above: Performed By: #### B MPX, OSMOL, CBCWD, SHCG, HSTRP, ACTM, ASAT, ETOHS, MG, ANION, EGFR1, HEPPA #### [place] [address] Salicylateon 10-30-2023 Salicylates [Mass/Vol] mg/dL Low 2.0 - 10.0 mg/dL [facility] Comment on above: Performed at [facility] [address] [place] [address] T4 (FREE)on 10-30-2023 T4 (FREE) 1.55 ng/dL Normal 0.93-1.76 [facility] Comment on above: Performed By: #### B MPX, OSMOL, CBCWD, SHCG, HSTRP, ACTM, ASAT, ETOHS, MG, ANION, EGFR1, HEPPA #### [place] [address] T4, Freeon 10-30-2023 Free T4 [Mass/Vol] 1.55 ng/dL 0.93 - 1. 76 ng/dL [facility] Comment on above: Performed at [facility] [address] [place] [address] TSH DL <= 0.005 mIU/L Qnon 1 12-31-2022 TSH Qn 0.925 m[IU]/L [facility] Comment on above: Performed at [facility] [address] [place] [address] TSH THIRD GENERATIONon 10-30 TSH THIRD GENERATION 0.925 uIU/mL Normal 0.400-4.200 [facility] Comment on above: Performed By: #### B MPX, OSMOL, CBCWD, SHCG, HSTRP, ACTM, ASAT, ETOHS, MG, ANION, EGFR1, HEPPA #### [facility] [address] [place] [address] ANION GAPon 10-19-2023 Anion gap [Moles/Vol] 19.0 mmol/L High 8.0-16.0 [facility] Comment on above: Result Comment: ANIO N GAP = Sodium -(Chloride + CO2) Performed By: #### B MPX, OSMOL, CBCWD, SHCG, HSTRP, ACTM, ASAT, ETOHS, MG, ANION, EGFR1, HEPPA #### [facility] [address] [place] [address] CALCULATED OSMOLALITYon Osmolality [Osmolality] 287.6 mosm/kg Normal 275.0-300 .0 [facility] Comment on above: Performed By: #### B MPX, OSMOL, CBCWD, SHCG, HSTRP, ACTM, ASAT, ETOHS, MG, ANION, EGFR1, HEPPA #### [facility] [employer] [address] [address] CBC WITH DIFFERENTIALon ABS BASOPHILS 0.0 thou/mm3 Normal 0.0-0.1 [facility] Comment on above: Performed By: #### B MPX, OSMOL, CBCWD, SHCG, HSTRP, ACTM, ASAT, ETOHS, MG, ANION, EGFR1, HEPPA #### [place] [address] ABS EOSINOPHILS 0.0 thou/mm3 Normal 0.0-0.4 [facility] Comment on above: Performed By: #### B MPX, OSMOL, CBCWD, SHCG, HSTRP, ACTM, ASAT, ETOHS, MG, ANION, EGFR1, HEPPA #### [place] [address] ABS IMMATURE GRANS (IG) 0.09 thou/mm3 High 0.00-0.07 [facility] Comment on above: Performed By: #### B MPX, OSMOL, CBCWD, SHCG, HSTRP, ACTM, ASAT, ETOHS, MG, ANION, EGFR1, HEPPA #### [place] [address] ABS LYMPHOCYTES 0.7 thou/mm3 Low 1.0-4.8 [facility] Comment on above: Performed By: #### B MPX, OSMOL, CBCWD, SHCG, HSTRP, ACTM, ASAT, ETOHS, MG, ANION, EGFR1, HEPPA #### [place] [address] ABS MONOCYTES 1.1 thou/mm3 Normal 0.4-1.3 [facility] Comment on above: Performed By: #### B MPX, OSMOL, CBCWD, SHCG, HSTRP, ACTM, ASAT, ETOHS, MG, ANION, EGFR1, HEPPA #### [place] [address] ABS NEUTROPHILS 14.6 thou/mm3 High 1.8-7.7 [facility] Comment on above: Performed By: #### B MPX, OSMOL, CBCWD, SHCG, HSTRP, ACTM, ASAT, ETOHS, MG, ANION, EGFR1, HEPPA #### [place] [address] Basophils/100 WBC (Bld) 0.1 % Normal [facility] Comment on above: Performed By: #### B MPX, OSMOL, CBCWD, SHCG, HSTRP, ACTM, ASAT, ETOHS, MG, ANION, EGFR1, HEPPA #### [place] [address] Eosinophils/100 WBC (Bld) 0.0 % Normal [facility] Comment on above: Performed By: #### B MPX, OSMOL, CBCWD, SHCG, HSTRP, ACTM, ASAT, ETOHS, MG, ANION, EGFR1, HEPPA #### [place] [address] Erythrocyte distribution width (RBC) [Ratio] 13.7 % Normal 11.5-14.5 [facility] Comment on above: Performed By: #### B MPX, OSMOL, CBCWD, SHCG, HSTRP, ACTM, ASAT, ETOHS, MG, ANION, EGFR1, HEPPA #### [place] [address] Hematocrit (Bld) [Volume fraction] 45.3 % Normal 37.0-47.0 [facility] Comment on above: Performed By: #### B MPX, OSMOL, CBCWD, SHCG, HSTRP, ACTM, ASAT, ETOHS, MG, ANION, EGFR1, HEPPA #### [place] [address] Hemoglobin (Bld) [Mass/Vol] 14.9 g/dL Normal 12.0-16.0 [facility] Comment on above: Performed By: #### B MPX, OSMOL, CBCWD, SHCG, HSTRP, ACTM, ASAT, ETOHS, MG, ANION, EGFR1, HEPPA #### [address] [address] IMMATURE GRANS (IG) 0.5 % Normal [facility] Comment on above: Performed By: #### B MPX, OSMOL, CBCWD, SHCG, HSTRP, ACTM, ASAT, ETOHS, MG, ANION, EGFR1, HEPPA #### [place] [address] Lymphocytes/100 WBC (Bld) 4.4 % Normal [facility] Comment on above: Performed By: #### B MPX, OSMOL, CBCWD, SHCG, HSTRP, ACTM, ASAT, ETOHS, MG, ANION, EGFR1, HEPPA #### [address] [address] MCH (RBC) [Entitic mass] 28.2 pg Normal 26.0-33.0 [facility] Comment on above: Performed By: #### B MPX, OSMOL, CBCWD, SHCG, HSTRP, ACTM, ASAT, ETOHS, MG, ANION, EGFR1, HEPPA #### [address] [address] MCHC (RBC) [Mass/Vol] 32.9 g/dL Normal 32.2-35.5 [facility] Comment on above: Performed By: #### B MPX, OSMOL, CBCWD, SHCG, HSTRP, ACTM, ASAT, ETOHS, MG, ANION, EGFR1, HEPPA #### [address] [address] MCV (RBC) [Entitic vol] 85.8 fL Normal 81.0-99.0 [facility] Comment on above: Performed By: #### B MPX, OSMOL, CBCWD, SHCG, HSTRP, ACTM, ASAT, ETOHS, MG, ANION, EGFR1, HEPPA #### [address] [address] Monocytes/100 WBC (Bld) 6.4 % Normal [facility] Comment on above: Performed By: #### B MPX, OSMOL, CBCWD, SHCG, HSTRP, ACTM, ASAT, ETOHS, MG, ANION, EGFR1, HEPPA #### [address] [address] Neutrophils/100 WBC (Bld) 88.6 % Normal [facility] Comment on above: Performed By: #### B MPX, OSMOL, CBCWD, SHCG, HSTRP, ACTM, ASAT, ETOHS, MG, ANION, EGFR1, HEPPA #### [address] [address] NRBC 0 /100 wbc Normal [facility] Comment on above: Performed By: #### B MPX, OSMOL, CBCWD, SHCG, HSTRP, ACTM, ASAT, ETOHS, MG, ANION, EGFR1, HEPPA #### [place] [address] PLATELET 424 thou/mm3 High 130-400 [facility] Comment on above: Performed By: #### B MPX, OSMOL, CBCWD, SHCG, HSTRP, ACTM, ASAT, ETOHS, MG, ANION, EGFR1, HEPPA #### [place] [address] Platelet mean volume (Bld) [Entitic vol] 11.2 fL Normal 9.4-12.4 [facility] Comment on above: Performed By: #### B MPX, OSMOL, CBCWD, SHCG, HSTRP, ACTM, ASAT, ETOHS, MG, ANION, EGFR1, HEPPA #### [place] [address] RBC 5.28 mill/mm3 Normal 4.20-5.40 [facility] Comment on above: Performed By: #### B MPX, OSMOL, CBCWD, SHCG, HSTRP, ACTM, ASAT, ETOHS, MG, ANION, EGFR1, HEPPA #### [place] [address] RDW-SD 42.5 fL Normal 35.0-45.0 [facility] Comment on above: Performed By: #### B MPX, OSMOL, CBCWD, SHCG, HSTRP, ACTM, ASAT, ETOHS, MG, ANION, EGFR1, HEPPA #### [place] [address] WBC 16.5 thou/mm3 High 4.8-10.8 [facility] Comment on above: Performed By: #### B MPX, OSMOL, CBCWD, SHCG, HSTRP, ACTM, ASAT, ETOHS, MG, ANION, EGFR1, HEPPA #### [address] [address] COMP. METABOLIC PANELon Albumin [Mass/Vol] 4.6 g/dL Normal 3.5-5.1 [facility] Comment on above: Performed By: #### B MPX, OSMOL, CBCWD, SHCG, HSTRP, ACTM, ASAT, ETOHS, MG, ANION, EGFR1, HEPPA #### [address] [address] ALP [Catalytic activity/Vol] 61 U/L Normal 38-126 [facility] Comment on above: Performed By: #### B MPX, OSMOL, CBCWD, SHCG, HSTRP, ACTM, ASAT, ETOHS, MG, ANION, EGFR1, HEPPA #### [address] [address] ALT [Catalytic activity/Vol] 16 U/L Normal 11-66 [facility] Comment on above: Performed By: #### B MPX, OSMOL, CBCWD, SHCG, HSTRP, ACTM, ASAT, ETOHS, MG, ANION, EGFR1, HEPPA #### [address] [address] AST [Catalytic activity/Vol] 31 U/L Normal 5-40 [facility] Comment on above: Performed By: #### B MPX, OSMOL, CBCWD, SHCG, HSTRP, ACTM, ASAT, ETOHS, MG, ANION, EGFR1, HEPPA #### [address] [address] Bilirubin [Mass/Vol] 1.3 mg/dL High 0.3-1.2 [facility] Comment on above: Performed By: #### B MPX, OSMOL, CBCWD, SHCG, HSTRP, ACTM, ASAT, ETOHS, MG, ANION, EGFR1, HEPPA #### [address] [address] Calcium [Mass/Vol] 9.7 mg/dL Normal 8.5-10.5 [facility] Comment on above: Performed By: #### B MPX, OSMOL, CBCWD, SHCG, HSTRP, ACTM, ASAT, ETOHS, MG, ANION, EGFR1, HEPPA #### [address] [address] Chloride [Moles/Vol] 100 mmol/L Normal 98-111 [facility] Comment on above: Performed By: #### B MPX, OSMOL, CBCWD, SHCG, HSTRP, ACTM, ASAT, ETOHS, MG, ANION, EGFR1, HEPPA #### [address] [address] CO2 [Moles/Vol] 21 mmol/L Low 23-33 [facility] Comment on above: Performed By: #### B MPX, OSMOL, CBCWD, SHCG, HSTRP, ACTM, ASAT, ETOHS, MG, ANION, EGFR1, HEPPA #### [address] [address] Creatinine [Mass/Vol] 1.0 mg/dL Normal 0.4-1.2 [facility] Comment on above: Performed By: #### B MPX, OSMOL, CBCWD, SHCG, HSTRP, ACTM, ASAT, ETOHS, MG, ANION, EGFR1, HEPPA #### [address] [address] Glucose [Mass/Vol] 128 mg/dL High 70-108 [facility] Comment on above: Performed By: #### B MPX, OSMOL, CBCWD, SHCG, HSTRP, ACTM, ASAT, ETOHS, MG, ANION, EGFR1, HEPPA #### [address] [address] Potassium [Moles/Vol] 3.3 mmol/L Low 3.5-5.2 [facility] Comment on above: Performed By: #### B MPX, OSMOL, CBCWD, SHCG, HSTRP, ACTM, ASAT, ETOHS, MG, ANION, EGFR1, HEPPA #### [address] [address] Protein [Mass/Vol] 8.2 g/dL High 6.1-8.0 [facility] Comment on above: Performed By: #### B MPX, OSMOL, CBCWD, SHCG, HSTRP, ACTM, ASAT, ETOHS, MG, ANION, EGFR1, HEPPA #### [address] [address] Sodium [Moles/Vol] 140 mmol/L Normal 135-145 [facility] Comment on above: Performed By: #### B MPX, OSMOL, CBCWD, SHCG, HSTRP, ACTM, ASAT, ETOHS, MG, ANION, EGFR1, HEPPA #### [address] [address] Urea nitrogen [Mass/Vol] 31 mg/dL High 7-22 [facility] Comment on above: Performed By: #### B MPX, OSMOL, CBCWD, SHCG, HSTRP, ACTM, ASAT, ETOHS, MG, ANION, EGFR1, HEPPA #### [address] [address] GFR, ESTIMATEDon 10-19-2023 GFR/1.73 sq M.predicted MDRD (S/P/Bld) [Vol rate/Area] mL/min/{1.73_m2} Normal >60 [facility] Comment on above: Result Comment: Pedi atric calculator link https://www.kidney.org/professionals/kdoqi/gfr_calculatorped Effective Aug 16, 2022 These results are not intended for use in patients <18 years of age. eGFR results are calculated without a race factor using the 2020 CKD-EPI equation. Careful clinical correlation is recommended, particularly when comparing to results calculated using previous equations. The CKD-EPI equation is less accurate in patients with extremes of muscle mass, extra-renal metabolism of creatinine, excessive creatine ingestion, or following therapy that affects renal tubular secretion. Performed By: #### B MPX, OSMOL, CBCWD, SHCG, HSTRP, ACTM, ASAT, ETOHS, MG, ANION, EGFR1, HEPPA #### [address] [place] [address] MAGNESIUMon 10-19-2023 Magnesium [Mass/Vol] 2.0 mg/dL Normal 1.6-2.4 [facility] Comment on above: Performed By: #### B MPX, OSMOL, CBCWD, SHCG, HSTRP, ACTM, ASAT, ETOHS, MG, ANION, EGFR1, HEPPA #### [address] [address] [place] [address] Vital Signs Date Time Vital Sign Value Performing Clinician Facility 05-01-2024 08:29-0400 Diastolic blood pressure 91 mm[Hg] DO Ahead Work Phone: [facility] 05-01-2024 08:29-0400 Heart rate 113 /min DO Ahead Work Phone: [facility] 05-01-2024 08:29-0400 Respiratory rate 18 /min DO Ahead Work Phone: [facility] 05-01-2024 08:29-0400 SaO2% (BldA) [Mass fraction] 100 % DO Ahead Work Phone: [facility] 05-01-2024 08:29-0400 Systolic blood pressure 134 mm[Hg] DO Ahead Work Phone: [facility] 04-30-2024 09:03-0400 Body temperature 98.1 [degF] DO Ahead Work Phone: [facility] 04-27-2024 03:09-0400 Body height 162.56 cm DO Ahead Work Phone: [facility] 04-27-2024 03:09-0400 Body mass index (BMI) [Ratio] 24.5 kg/m2 DO Ahead Work Phone: [facility] 04-27-2024 03:09-0400 Body weight 64.9 kg DO Ahead Work Phone: [facility] 04-27-2024 02:23-0400 Diastolic blood pressure 99 mm[Hg] DO Db Newell Work Phone: [facility] 04-27-2024 02:23-0400 Heart rate 157 /min DO Db Hetandrey Work Phone: [facility] 04-27-2024 02:23-0400 Respiratory rate 18 /min DO Db Hetandrey Work Phone: [facility] 04-27-2024 02:23-0400 SaO2% (BldA) [Mass fraction] 98 % DO Db Newell Work Phone: [facility] 04-27-2024 02:23-0400 Systolic blood pressure 149 mm[Hg] DO Db Hetandrey Work Phone: [facility] 04-26-2024 21:32-0400 Body height 162.56 cm DO Db Newell Work Phone: [facility] 04-26-2024 21:32-0400 Body mass index (BMI) [Ratio] 24.2 kg/m2 DO Db Newell Work Phone: [facility] 04-26-2024 21:32-0400 Body temperature 98 [degF] DO Db Newell Work Phone: [facility] 04-26-2024 21:32-0400 Body weight 64 kg DO Db Nweell Work Phone: [facility] 12-26-2023 08:56-0500 Body height 151.13 cm Soraya Griffin MD Work Phone: [facility] Work Phone: 12-26-2023 08:56-0500 Body mass index (BMI) [Ratio] 17.3 kg/m2 Soraya Griffin MD Work Phone: [facility] Work Phone: 12-26-2023 08:56-0500 Body surface area Derived from formula 1.3 m2 Soraya Griffin MD Work Phone: [facility] Work Phone: 12-26-2023 08:56-0500 Body temperature 98.1 [degF] Soraya Griffin MD Work Phone: [facility] Work Phone: 12-26-2023 08:56-0500 Body weight 39.46 kg Soraya Griffin MD Work Phone: [facility] Work Phone: 12-26-2023 08:56-0500 Diastolic blood pressure 77 mm[Hg] Soraya Griffin MD Work Phone: [facility] Work Phone: 12-26-2023 08:56-0500 Heart rate 66 /min Soraya Griffin MD Work Phone: [facility] Work Phone: 12-26-2023 08:56-0500 Respiratory rate 18 /min Soraya Griffin MD Work Phone: [facility] Work Phone: 12-26-2023 08:56-0500 Systolic blood pressure 100 mm[Hg] Soraya Griffin MD Work Phone: [facility] Work Phone: 12-08-2023 12:16-0500 Body height 149.86 cm Soraya Griffin MD Work Phone: [facility] Work Phone: 12-08-2023 12:16-0500 Body mass index (BMI) [Ratio] 19.6 kg/m2 Soraya Griffin MD Work Phone: [facility] Work Phone: 12-08-2023 12:16-0500 Body surface area Derived from formula 1.4 m2 Soraya Griffin MD Work Phone: [facility] Work Phone: 12-08-2023 12:16-0500 Body temperature 98.7 [degF] Soraya Griffin MD Work Phone: [facility] Work Phone: 12-08-2023 12:16-0500 Body weight 44.11 kg Soraya Griffin MD Work Phone: [facility] Work Phone: 12-08-2023 12:16-0500 Diastolic blood pressure 85 mm[Hg] Soraya Griffin MD Work Phone: [facility] Work Phone: 12-08-2023 12:16-0500 Heart rate 114 /min Soraya Griffin MD Work Phone: [facility] Work Phone: 12-08-2023 12:16-0500 Inhaled oxygen concentration 21 % Soraya Griffin MD Work Phone: [facility] Work Phone: 12-08-2023 12:16-0500 Inhaled oxygen flow rate 0 L/min Soraya Griffin MD Work Phone: [facility] Work Phone: 12-08-2023 12:16-0500 Respiratory rate 18 /min Soraya Griffin MD Work Phone: [facility] Work Phone: 12-08-2023 12:16-0500 SaO2% (BldA) [Mass fraction] 98 % Soraya Griffin MD Work Phone: [facility] Work Phone: 12-08-2023 12:16-0500 Systolic blood pressure 124 mm[Hg] Soraya Griffin MD Work Phone: [facility] Work Phone: 11-01-2023 19:26-0500 Diastolic blood pressure 92 mm[Hg] Mario Adams MD Work Phone: [employer] 11-01-2023 19:26-0500 Heart rate 101 /min Mario Adams MD Work Phone: [employer] 11-01-2023 19:26-0500 Respiratory rate 20 /min Mario Adams MD Work Phone: [employer] 11-01-2023 19:26-0500 SaO2% (BldA) [Mass fraction] 97 % Mario Adams MD Work Phone: [employer] 11-01-2023 19:26-0500 Systolic blood pressure 148 mm[Hg] Mraio Adams MD Work Phone: [employer] 11-01-2023 15:29-0500 Body temperature 98.29 [degF] Mario Adams MD Work Phone: [employer] 10-31-2023 06:27-0500 Diastolic blood pressure 67 mm[Hg] J Luis Ingram MD [employer] 10-31-2023 06:27-0500 Heart rate 81 /min J Luis Ingram MD [facility] 10-31-2023 06:27-0500 Respiratory rate 18 /min J Luis Ingram MD [employer] 10-31-2023 06:27-0500 SaO2% (BldA) [Mass fraction] 100 % J Luis Ingram MD [employer] 10-31-2023 06:27-0500 Systolic blood pressure 144 mm[Hg] J Luis Ingram MD [employer] 10-30-2023 08:07-0500 Body temperature 98.29 [degF] J Luis Ingram MD [facility] [employer] 10-30-2023 08:07-0500 Body weight 54.43 kg J Luis Ingram MD [facility] 12-31-2022 12:30-0500 Body temperature 97.5 [degF] [employer] 12-31-2022 12:30-0500 Body weight 68.04 kg [facility] [employer] 12-31-2022 12:30-0500 Diastolic blood pressure 100 mm[Hg] [facility] [employer] 12-31-2022 12:30-0500 Heart rate 107 /min [facility] [employer] 12-31-2022 12:30-0500 Respiratory rate 18 /min [facility] [employer] 12-31-2022 12:30-0500 SaO2% (BldA) [Mass fraction] 98 % [email or web address] [employer] 12-31-2022 12:30-0500 Systolic blood pressure 139 mm[Hg] [facility] [employer] 06-11-2021 19:11-0400 Body temperature 98.6 [degF] Kristen Baird MD Work Phone: [employer] Work Phone: 06-11-2021 19:11-0400 Diastolic blood pressure 96 mm[Hg] Kristen Baird MD Work Phone: [employer] Work Phone: 06-11-2021 19:11-0400 Heart rate 173 /min Kristen Baird MD Work Phone: [employer] Work Phone: 06-11-2021 19:11-0400 Respiratory rate 18 /min Kristen Baird MD Work Phone: [employer] Work Phone: 06-11-2021 19:11-0400 SaO2% (BldA) [Mass fraction] 100 % Kristen Baird MD Work Phone: [employer] Work Phone: 06-11-2021 19:11-0400 Systolic blood pressure 173 mm[Hg] Kristen Baird MD Work Phone: [employer] Work Phone: Encounters Encounter Date Encounter Type Care Provider Facility Start: 04-27-2024 End: 05-01-2024 Evaluation and management of inpatient DO Db Newell Work Phone: [facility] Temporary Hold for Inpt Adm Start: 12-26-2023 End: 01-25-2024 Evaluation and management of inpatient DO DONTE [facility] Start: 12-26-2023 End: 12-26-2023 FQHC visit, estab pt Malou Carroll [employer] Work Phone: [employer] [facility] Work Phone: Start: 12-08-2023 End: 12-08-2023 FQHC visit, estab pt Bertha Lind [employer] Work Phone: [facility] Work Phone: Start: 12-08-2023 End: 12-08-2023 Adult health examination Shivani [employer]ix [employer] Work Phone: [facility] Work Phone: Start: 12-08-2023 End: 12-08-2023 ambulatory Shivani Penix [employer] Work Phone: [facility] Work Phone: Start: 12-08-2023 End: 12-08-2023 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 Shivani Penix [employer] Work Phone: [facility] Work Phone: Start: 11-10-2023 End: 11-11-2023 Emergency department patient visit Physician [facility] Start: 11-01-2023 End: 11-02-2023 Emergency department patient visit Physician No [facility] Start: 11-01-2023 End: 11-02-2023 Emergency department patient visit Mario Adams MD Work Phone: [facility] Comment on above: Behavior concern in adult (Primary Dx); Intellectual disability Start: 10-30-2023 End: 10-31-2023 Emergency department patient visit Physician No [facility] Start: 10-30-2023 End: 10-31-2023 Emergency department patient visit J Luis Ingram MD [facility] Comment on above: Behavior safety risk (Primary Dx); Hyponatremia Start: 10-19-2023 End: 10-19-2023 Emergency department patient visit Physician Vonnie Roe [facility] Start: 12-31-2022 End: 12-31-2022 Emergency department patient visit [facility] Comment on above: Aggressive behavior (Primary Dx); Mental handicap Start: 06-11-2021 End: 06-11-2021 Emergency department patient visit Kristen Baird MD Work Phone: [facility] Comment on above: Mood disorder (HCC) (Primary Dx); Fall from ground level Procedures Date Procedure Procedure Detail Performing Clinician Start: 04-27-2024 Methicillin resistan t Staphylococcus aureus culture DO [facility] [employer] Work Phone: Start: 04-27-2024 X-ray of eye for for eign body DO [facility] [employer] Work Phone: Start: 04-26-2024 Blood count hemoglobin Aderemi Jesus Comment on above: Order Comment: Urine Source Urine, Clean Catch Performed By: #### L 300.3000, L300.7701 #### Main Laboratory ([facility]) [address] [place] [address] Dusty Haro MD Start: 04-26-2024 12 lead ECG DO [facility] [employer] Work Phone: Start: 04-26-2024 CT of head without contrast DO Db [employer] Work Phone: Start: 04-26-2024 Computed tomography of abdomen and pelvis with contrast DO Db [employer] Work Phone: Start: 04-26-2024 Plain chest X-ray DO Mario nash [employer] Work Phone: Start: 12-26-2023 Most recent diastoli c blood pressure < 80 mm hg Soraya Griffin MD Work Phone: Start: 12-26-2023 Most recent systolic blood pressure <130 mm hg Soraya Griffin MD Work Phone: Start: 12-26-2023 Psychotherapy w/edie ent 30 minutes Malou Carroll [employer] Work Phone: Start: 12-08-2023 PHQ9 Administered Bertha garvin [employer] Work Phone: Start: 12-08-2023 Psychotherapy w/edie ent 30 minutes Bertha Lind [employer] Work Phone: Start: 12-08-2023 SBIRT Pre-Screening was Negative Bertha Lind [employer] Work Phone: Start: 11-01-2023 Anion gap [Moles/Vol] S lionel Adams MD Work Phone: Start: 11-01-2023 Assay of acetaminophen Mario Adams MD Work Phone: Start: 11-01-2023 Assay of ethanol Mario Adams MD Work Phone: Start: 11-01-2023 Assay of magnesium Luisu saundra Adams MD Work Phone: Start: 11-01-2023 Assay of salicylate Luis Adams MD Work Phone: Start: 11-01-2023 Basic metabolic 2000 panel - Serum or Plasma Mario Adams MD Work Phone: Start: 11-01-2023 GLOMERULAR FILTRATIO N RATE, ESTIMATED Mario Adams MD Work Phone: Start: 11-01-2023 Hepatic function panel Mario Adams MD Work Phone: Start: 11-01-2023 Influenza virus A an d B RNA and SARS-CoV-2 (COVID-19) N gene panel - Respiratory specimen by CHRISTIANO with probe detection Mario Adams MD Work Phone: Start: 11-01-2023 Ecg routine ecg w/le ast 12 lds i&r only Mario Adams MD Work Phone: Start: 10-30-2023 Anion gap [Moles/Vol] U nknown Provider Result Start: 10-30-2023 Assay of acetaminophen Jim Cuevas DO Work Phone: Start: 10-30-2023 Assay of ethanol Alexan Owen DO Work Phone: Start: 10-30-2023 Assay of salicylate Rina joycelucho Cuevas DO Work Phone: Start: 10-30-2023 Basic metabolic pane l calcium total Jim Cuevas DO Work Phone: Start: 10-30-2023 GLOMERULAR FILTRATIO N RATE, ESTIMATED Unknown Provider Result Start: 10-30-2023 Hepatic function panel Jim Cuevas DO Work Phone: NEGATED: Highlighted row has not occurred!Start: 12-26-2023 Ligation of fallopian tube Soraya Griffin MD Work Phone: Plan of Treatment Date Care Activity Detail Author Start: 05-03-2024 Basic metabolic 1999 panel - Serum or Plasma [facility] Start: 05-03-2024 CBC W Differential panel, method unspecified - Blood [facility] Start: 05-03-2024 Magnesium [Mass/volume] in Serum or Plasma [facility] Start: 05-02-2024 Patient discharge [facility] Start: 05-02-2024 Basic metabolic 1999 panel - Serum or Plasma [facility] Start: 05-02-2024 CBC W Differential panel, method unspecified - [facility] Start: 05-02-2024 Magnesium [Mass/volume] in Serum or Plasma [facility] Start: 05-01-2024 Basic metabolic 1999 panel - Serum or Plasma [facility] Start: 05-01-2024 CBC W Differential panel, method unspecified - [facility] Start: 05-01-2024 Magnesium [Mass/volume] in Serum or Plasma [facility] Start: 04-30-2024 Basic metabolic 1999 panel - Serum or Plasma [facility] Start: 04-30-2024 CBC W Differential panel, method unspecified - [facility] Start: 04-30-2024 Magnesium [Mass/volume] in Serum or Plasma [facility] Start: 04-29-2024 Basic metabolic 2000 panel - Serum or Plasma [facility] Start: 04-29-2024 CBC W Differential panel, method unspecified - Blood [facility] Start: 04-29-2024 Magnesium [Mass/volume] in Serum or Plasma [facility] Start: 04-28-2024 Referral to psychiatrist [facility] Start: 04-28-2024 Basic metabolic 2000 panel - Serum or Plasma [facility] Start: 04-28-2024 CBC W Differential panel, method unspecified - Blood [facility] Start: 04-28-2024 Magnesium [Mass/volume] in Serum or Plasma [facility] Start: 04-27-2024 Electroencephalogram [facility] Start: 04-27-2024 Referral to neurologist [facility] Start: 04-27-2024 Patient referral to dietitian [facility] Start: 04-27-2024 Hospital admission, emergency, from emergency room [facility] Start: 04-27-2024 Catheterization of vein [facility] Start: 04-27-2024 Palliative care [facility] Start: 04-27-2024 Provision of activity privileges [facility] Start: 04-27-2024 Referral to service [facility] Start: 04-27-2024 Vital signs measurements [facility] Start: 04-26-2024 12 lead ECG Electrocardiogram 12 Lead [facility] Start: 04-26-2024 Pulse oximetry monitoring [facility] Start: 12-26-2023 End: 12-26-2023 Patient education based on identified need [facility] Start: 12-19-2023 FQHC visit, estab pt Medical Established Patient [facility] Work Phone: Start: 12-15-2023 CBC W Auto Differential panel - Blood [facility] Start: 12-15-2023 Comprehensive metabolic 2000 panel - Serum or Plasma Comp. Metabolic Panel (14) [facility] Start: 12-15-2023 Lipid panel Lipid Panel [facility] Start: 12-08-2023 End: 12-08-2023 Patient education based on identified need [facility] Start: 06-14-2023 Influenza vaccination Flu vaccine (#1) [facility] Start: 2022 Screening for malignant neoplasm of cervix [facility] Start: 06-14-2022 Influenza vaccination Flu vaccine (#1) [facility] Start: 07-15-2021 Influenza vaccination Flu vaccine (#1) [employer] Phone: Start: 2013 Screening for malignant neoplasm of cervix Pap smear [facility] Start: 2011 DTaP/Tdap/Td vaccine (1 - Tdap) DTaP/Tdap/Td vaccine (1 - Tdap) [facility] Start: 2010 Hepatitis C screening Hepatitis C screen [facility] Start: 2007 HIV screening HIV screen [facility] Start: 2004 COVID-19 Vaccine (1) COVID-19 Vaccine (1) [facility] Phone: Start: 2004 Depression Screen Depression Screen [facility] Start: 1993 Varicella vaccine (1 of 2 - 2-dose childhood series) Varicella vaccine (1 of 2 - 2-dose childhood series) [facility] Start: 02-17-1993 COVID-19 Vaccine (#1) COVID-19 Vaccine (#1) [facility] Start: 1992 Hepatitis B vaccine (1 of 3 - 3-dose series) Hepatitis B vaccine (1 of 3 - 3-dose series) [facility] Anion gap measurement [facility] Calcium [Mass/volume ] in Serum or Plasma [facility] Carbon dioxide, tota l [Moles/volume] in Serum or Plasma [facility] Chloride [Moles/volu me] in Serum or Plasma [facility] Creatinine [Mass/vol ume] in Serum or Plasma [facility] Erythrocyte mean cor puscular volume determination [facility] Erythrocytes [#/volu me] in Blood [facility] Glomerular filtratio n rate/1.73 sq M.predicted [Volume Rate/Area] in Serum, Plasma or Blood [facility] Glucose [Mass/volume ] in Serum or Plasma [facility] Hematocrit [Volume F raction] of Blood [facility] Hemoglobin [Mass/vol ume] in Blood [facility] Hemoglobin distribut ion, width determination [facility] Leukocytes [#/volume ] in Blood [facility] Magnesium [Mass/volu me] in Serum or Plasma [facility] Mean corpuscular hem oglobin concentration determination [facility] Mean corpuscular hem oglobin determination [facility] Patient Education Making Everyda y Tasks Easier With Pain [facility] Work Phone: Patient referral [facility] Work Phone: Platelets [#/volume] in Blood [facility] Potassium [Moles/vol ume] in Serum or Plasma [facility] Sodium [Moles/volume ] in Serum or Plasma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 Patternmaker Agrees with Attending and Consult Plan: Yes - Patient Preferences & Goals What is the patient's preference?: Return to SNF Recommended acute discharge goals: Return to SNF - Hospital Stay Days Day 1 Comment: 04/27 Patient is from [facility] and is a LTR. CM spoke with patients yenny Siegel who reports the plan is for patient to return to [facility] at d/c. Christal reporting patient is normally independent with ambulation, ADLs, and that [facility] Meg Sexton. Contact is yenny Siegel. MANDO c/s. 1:1 sitter present at bedside. Engraving Patternmaker: Brenda Garcia, RN Day 4 Comment: 04/30 Patient resting in bed during CM rounds. 1:[address] Goode consulted to see patient. Patients d/c plan is to return to [facility]. Per her guardian, they are currently working on getting her placed at a us[facility]. Engraving Patternmaker: Brenda Garcia, RN - Residential Facility SNF List Provided: No - LTR at [facility] Residential Facilities: [facility] Social Work Consult initiated for SNF: Yes Patient Accepted Facility: Yes - Respiratory Equipment Does the patient use/have any of these devices at home?: N/A - Community Services SNF/LTAC Placement: Initiated - * L * Length of Stay LOS (Including day of Admission and Discharge): 4 LOS Score: 4 - * A * Acuity on Admission ER Provider if admitted from ER (view): PHILIPPE Was patient admitted to hospital via Emergency Dept? Score: 3 - * C * Comorbidities Select All Conditions that Apply: No Comorbidity Condition Comorbidities Total Score: 0 - * E * Emergency Department Visits # of ER visits,6mos prior to admit,excl this admits ER visit: 0 Enter this number or 4 (whichever is smaller): 0 - LACE SCORE LACE Score: 7 - ANTICIPATED DISCHARGE Anticipated Discharge Date: 05/01/24 Is a ALLEN Form Required?: No Entered by: Brenda Garcia RN on 04/30/24 0953 Report Signed by: Brenda Garcia RN on 04/30/24 1453 <<Signature on File>> <Electronically signed by Brenda Garcia RN> Co-Signed by: on [facility] Work Phone: 1(556) 671-297506-17-2024 Progress note Author Brenda Garcia [facility] April 30, 2024 2:53pm Note Date/Time April 30, 2024 9:55 am [facility] Case Management Patient: CINDY STACY. : 1990 [place], [place] [address] Location: [facility] [phone] Unit #: [id number] Case Management Daily Note Brenda Garcia RN Service Date: 04/30/24 Case Mgmt Daily Note - Plan of Care Engraving Patternmaker Agrees with Attending and Consult Plan: Yes - Patient Preferences & Goals What is the patient's preference?: Return to SNF Recommended acute discharge goals: Return to SNF - Hospital Stay Days Day 1 Comment: 04/27 Patient is from [facility] and is a LTR. RENATO spoke with patients guardian Christal who reports the plan is for patient to return to [facility] at d/c. Christal reporting patient is normally independent with ambulation, ADLs, and that [facility] Meg Sexton. Contact is guardian Christal. SW c/s. 1:1 sitter present at bedside. Engraving Patternmaker: Brenda Garcia RN Day 4 Comment: 04/30 Patient resting in bed during CM rounds. 1:[address] Goode consulted to see patient. Patients d/c plan is to return to [facility]. Per her guardian, they are currently working on getting her placed at a usp in [facility]. Engraving Patternmaker: Brenda Garcia RN - Residential Facility SNF List Provided: No - LTR at [facility] Residential Facilities: [facility] Social Work Consult initiated for SNF: Yes Patient Accepted Facility: Yes - Respiratory Equipment Does the patient use/have any of these devices at home?: N/A - Community Services SNF/LTAC Placement: Initiated - * L * Length of Stay LOS (Including day of Admission and Discharge): 4 LOS Score: 4 - * A * Acuity on Admission ER Provider if admitted from ER (view): PHILIPPE Was patient admitted to hospital via Emergency Dept? Score: 3 - * C * Comorbidities Select All Conditions that Apply: No Comorbidity Condition Comorbidities Total Score: 0 - * E * Emergency Department Visits # of ER visits,6mos prior to admit,excl this admits ER visit: 0 Enter this number or 4 (whichever is smaller): 0 - LACE SCORE LACE Score: 7 - ANTICIPATED DISCHARGE Anticipated Discharge Date: 05/01/24 Is a ALLEN Form Required?: No Entered by: Brenda Garcia RN on 04/30/24 0953 Report Signed by: Brenda Garcia RN on 04/30/24 7923 <<Signature on File>> <Electronically signed by Brenda Garcia RN> Co-Signed by: on [facility] Work Phone: 1(881) 893-986106-17-2024 Progress note Author Vanessa Anne [facility] April 30, 2024 10:11am Note Date/Time April 30, 2024 10:0 5am [facility] Medical Records Patient: CINDY STACY. : 1990 [place], [place] [address] Location: [phone] Unit #: [id number] Progress Note - Hospitalist Vanessa Anne MD Service Dt/Tm: 04/30/24 1005 Assessment/Plan Assessment/Plan (1) Encephalopathy: Status: Acute Code(s): G93.40 - Encephalopathy, unspecified Plan: Etiology unclear, likely due to underlying MRDD. According to father and POA patient wants to move to a usp. The process is ongoing prior to this admission and patient may be frustrated because of the delay in transfer to usp. Attempt to obtain MRI brain has not been successful despite sedation with Geodonand Valium. Patient was evaluated by neurology, at this point MRI has been discontinued. CT head was nonacute. Psych to see patient today (2) Sinus tachycardia: Status: Acute Code(s): R00.0 - Tachycardia, unspecified Plan: Patient is persistently tachycardic. EKG sinus tachycardia, D-dimer is negative and patient is not hypoxic. Increase Cardizem to 60 mg every 8 hours and monitor blood pressure closely. (3) Developmental delay: Status: Acute Code(s): R62.50 - Unspecified lack of expected normal physiological development in childhood Plan: Patient is in the process of being transferred from ECF to usp. Plan Continue sitter at bedside. Plan to discharge patient in AM. Current Code Status & Diet: 04/27/24 00:17 Code Status Routine Resuscitation Status: Full Code Code Status Order Placed: Code Status Ordered 04/27/24 at 0017 04/27/24 02:03 Regular Diet Texture: Regular Fluid Restrictions?: No Discussed Patient's Care With: Nurse and Case Management Subjective Subjective: Patient is unchanged. She is not aggressive towards the nursing staff. Wants to walk around. Sitter was at bedside. Patient Status & Estimated DC Date Patient Registration Status: Inpatient Expected Date of Discharge: 05/01/24 Objective Physical Exam: Physical Exam: General appearance: Appears comfortable. Eyes: Sclera clear, pupils equal. ENT: Moist mucus membranes, no thrush. Trachea midline. Cardiovascular: Regular rhythm, + tachycardia no edema in lower extremities Respiratory: No wheeze, good inspiratory effort Gastrointestinal: Abdomen soft, not distended, +bowel sounds Musculoskeletal: No cyanosis in digits, neck supple. Neurology: Alert and oriented in person. No speech deficits Psychiatry: Not agitated. Skin: Warm, dry, normal turgor, no rash Constitutional: Last Vital Signs Temp Pulse Resp BP Pulse Ox 98.1 F 128 H 20 150/108 H 100 04/30/24 09:03 04/30/24 09:03 04/30/24 09:03 04/30/24 09:03 04/30/24 09:03 Intake and Output 04/29/24 04/30/24 05/01/24 06:59 06:59 06:59 Intake Total 440 675 Output Total 2 Balance 440 673 Admitting (IV Pump) Weight 64.9 kg Actual Weight (Kg) 64.9 kg Data Labs: 04/29/24 04/30/24 12:26 08:37 Magnesium 1.8 2.0 04/29/24 04/30/24 12:26 08:37 WBC 9.3 13.8 H RBC 4.71 4.93 Hgb 13.2 13.8 Hct 39.8 41.6 MCV 84.6 84.4 MCH 27.9 28.0 MCHC 33.0 33.2 RDW 15.9 15.7 Plt Count 354 400 04/29/24 04/30/24 12:26 08:37 Sodium 136 137 Potassium 3.6 3.1 L Chloride 107 106 Carbon Dioxide 19 L 22 Anion Gap 10 9 BUN 17 19 Creatinine 0.87 0.92 Calcium 8.70 L 9.50 The last 24 hours of labs have been reviewed. Imaging: I have reviewed the diagnostic images in the EMR. Microbiology: Microbiology 04/27/24 03:14 Perianal MRSA Screen - Final No growth of MRSA after 2 days. Medications and Comanagement: Medications reviewed separately. Entered by: Vanessa Anne on 04/30/24 1005 Report Signed by: Vanessa Anne MD on 04/30/24 1011 <<Signature on File>> <Electronically signed by Vanessa Anne MD> Report Signed by: on [facility] Work Phone: [phone] 373-227406-17-2024 Progress note Author Vanessa Anne [facility] April 30, 2024 10:11am Note Date/Time April 30, 2024 10:0 5am [facility] Medical Records Patient: CINDY STACY [address]. : 1990 [place], [place] [address] Location: [phone] Unit #: [id number] Progress Note - Hospitalist Vanessa Anne MD Service Dt/Tm: 04/30/24 1005 Assessment/Plan Assessment/Plan (1) Encephalopathy: Status: Acute Code(s): G93.40 - Encephalopathy, unspecified Plan: Etiology unclear, likely due to underlying MRDD. According to father and POA patient wants to move to a usp. The process is ongoing prior to this admission and patient may be frustrated because of the delay in transfer to usp. Attempt to obtain MRI brain has not been successful despite sedation with Geodonand Valium. Patient was evaluated by neurology, at this point MRI has been discontinued. CT head was nonacute. Psych to see patient today (2) Sinus tachycardia: Status: Acute Code(s): R00.0 - Tachycardia, unspecified Plan: Patient is persistently tachycardic. EKG sinus tachycardia, D-dimer is negative and patient is not hypoxic. Increase Cardizem to 60 mg every 8 hours and monitor blood pressure closely. (3) Developmental delay: Status: Acute Code(s): R62.50 - Unspecified lack of expected normal physiological development in childhood Plan: Patient is in the process of being transferred from ECF to usp. Plan Continue sitter at bedside. Plan to discharge patient in AM. Current Code Status & Diet: 04/27/24 00:17 Code Status Routine Resuscitation Status: Full Code Code Status Order Placed: Code Status Ordered 04/27/24 at 0017 04/27/24 02:03 Regular Diet Texture: Regular Fluid Restrictions?: No Discussed Patient's Care With: Nurse and Case Management Subjective Subjective: Patient is unchanged. She is not aggressive towards the nursing staff. Wants to walk around. Sitter was at bedside. Patient Status & Estimated DC Date Patient Registration Status: Inpatient Expected Date of Discharge: 05/01/24 Objective Physical Exam: Physical Exam: General appearance: Appears comfortable. Eyes: Sclera clear, pupils equal. ENT: Moist mucus membranes, no thrush. Trachea midline. Cardiovascular: Regular rhythm, + tachycardia no edema in lower extremities Respiratory: No wheeze, good inspiratory effort Gastrointestinal: Abdomen soft, not distended, +bowel sounds Musculoskeletal: No cyanosis in digits, neck supple. Neurology: Alert and oriented in person. No speech deficits Psychiatry: Not agitated. Skin: Warm, dry, normal turgor, no rash Constitutional: Last Vital Signs Temp Pulse Resp BP Pulse Ox 98.1 F 128 H 20 150/108 H 100 04/30/24 09:03 04/30/24 09:03 04/30/24 09:03 04/30/24 09:03 04/30/24 09:03 Intake and Output 04/29/24 04/30/24 05/01/24 06:59 06:59 06:59 Intake Total 440 675 Output Total 2 Balance 440 673 Admitting (IV Pump) Weight 64.9 kg Actual Weight (Kg) 64.9 kg Data Labs: 04/29/24 04/30/24 12:26 08:37 Magnesium 1.8 2.0 04/29/24 04/30/24 12:26 08:37 WBC 9.3 13.8 H RBC 4.71 4.93 Hgb 13.2 13.8 Hct 39.8 41.6 MCV 84.6 84.4 MCH 27.9 28.0 MCHC 33.0 33.2 RDW 15.9 15.7 Plt Count 354 400 04/29/24 04/30/24 12:26 08:37 Sodium 136 137 Potassium 3.6 3.1 L Chloride 107 106 Carbon Dioxide 19 L 22 Anion Gap 10 9 BUN 17 19 Creatinine 0.87 0.92 Calcium 8.70 L 9.50 The last 24 hours of labs have been reviewed. Imaging: I have reviewed the diagnostic images in the EMR. Microbiology: Microbiology 04/27/24 03:14 Perianal MRSA Screen - Final No growth of MRSA after 2 days. Medications and Comanagement: Medications reviewed separately. Entered by: Vanessa Anne on 04/30/24 1005 Report Signed by: Vanessa Anne MD on 04/30/24 1011 <<Signature on File>> <Electronically signed by Vanessa Anne MD> Report Signed by: on [facility] Work Phone: [phone] Progress note Author Vanessa Anne [facility] April 29, 2024 9:02am Note Date/Time April 29, 2024 9:02 am [facility] Medical Records Patient: CINDY STACY. : 1990 [place], [place] [address] Location: [phone] Unit #: [id number] Progress Note - Hospitalist Vanessa Anne MD Service Dt/Tm: 04/29/24 0900 Assessment/Plan Assessment/Plan (1) Encephalopathy: Status: Acute Code(s): G93.40 - Encephalopathy, unspecified Plan: Etiology unclear, likely due to underlying MRDD. According to father and POA patient wants to move to a usp. The process is ongoing prior to this admission and patient may be frustrated because of the delay in transfer to usp. Attempt to obtain MRI brain has not been successful despite sedation with Geodonand Valium. Patient was evaluated by neurology, at this point MRI has been discontinued. CThead was nonacute. Consulted psychiatrist Dr. Goode, will see patient today. (2) Sinus tachycardia: Status: Acute Code(s): R00.0 - Tachycardia, unspecified Plan: Patient is persistently tachycardic. EKG sinus tachycardia, D-dimer is negative and patient is not hypoxic. Continue with IV hydration and calcium channel lanny. Monitor blood pressure closely. (3) Developmental delay: Status: Acute Code(s): R62.50 - Unspecified lack of expected normal physiological development in childhood Plan: Patient is in the process of being transferred from ECF to usp. Plan Continue sitter at bedside. Current Code Status & Diet: 04/27/24 00:17 Code Status Routine Resuscitation Status: Full Code Code Status Order Placed: Code Status Ordered 04/27/24 at 0017 04/27/24 02:03 Regular Diet Texture: Regular Fluid Restrictions?: No Discussed Patient's Care With: Nurse and Case Management Subjective Subjective: Patient is awake and alert and ambulatory. Does not appear to have any focal neurologic deficit. Patient Status & Estimated DC Date Patient Registration Status: Inpatient Objective Physical Exam: Physical Exam: General appearance: Appears comfortable. Eyes: Sclera clear, pupils equal ENT: Moist mucus membranes, no thrush. Trachea midline. Cardiovascular: Regular rhythm, No edema in lower extremities Respiratory: Clear to auscultation bilaterally, no wheeze, good inspiratory effort Gastrointestinal: Abdomen soft, not distended, + bowel sounds Musculoskeletal: No cyanosis in digits, neck supple Neurology: Alert and oriented in person. No motor deficits Psychiatry: Not agitated Skin: Warm, dry, normal turgor, no rash Constitutional: Last Vital Signs Temp Pulse Resp BP Pulse Ox 98.8 F 153 H 16 150/90 H 98 04/28/24 10:05 04/29/24 06:50 04/28/24 10:05 04/28/24 10:05 04/28/24 10:05 Intake and Output 04/28/24 04/29/24 04/30/24 06:59 06:59 06:59 Intake Total 3060 440 Balance 3060 440 Admitting (IV Pump) Weight 64.9 kg Actual Weight (Kg) 64.9 kg Data Labs: The last 24 hours of labs have been reviewed. Imaging: I have reviewed the diagnostic images in the EMR. Microbiology: Microbiology 04/27/24 03:14 Perianal MRSA Screen - Final No growth of MRSA after 2 days. Medications and Comanagement: Medications reviewed separately. Entered by: Vanessa Anne on 04/29/24899 Report Signed by: Vanessa Anne MD on 04/29/24901 <<Signature on File>> <Electronically signed by Vanessa Anne MD> Report Signed by: on [facility] Work Phone: [phone] Progress note Author Vanessa Anne [facility] April 29, 2024 9:02am Note Date/Time April 29, 2024 9:02 am [facility] Medical Records Patient: CINDY STACY. : 1990 [place], [place] [address] Location: [phone] Unit #: [id number] Progress Note - Hospitalist Vanessa Anne MD Service Dt/Tm: 04/29/24899 Assessment/Plan Assessment/Plan (1) Encephalopathy: Status: Acute Code(s): G93.40 - Encephalopathy, unspecified Plan: Etiology unclear, likely due to underlying MRDD. According to father and POA patient wants to move to a usp. The process is ongoing prior to this admission and patient may be frustrated because of the delay in transfer to usp. Attempt to obtain MRI brain has not been successful despite sedation with Geodonand Valium. Patient was evaluated by neurology, at this point MRI has been discontinued. CThead was nonacute. Consulted psychiatrist Dr. Goode, will see patient today. (2) Sinus tachycardia: Status: Acute Code(s): R00.0 - Tachycardia, unspecified Plan: Patient is persistently tachycardic. EKG sinus tachycardia, D-dimer is negative and patient is not hypoxic. Continue with IV hydration and calcium channel lanny. Monitor blood pressure closely. (3) Developmental delay: Status: Acute Code(s): R62.50 - Unspecified lack of expected normal physiological development in childhood Plan: Patient is in the process of being transferred from ECF to usp. Plan Continue sitter at bedside. Current Code Status & Diet: 04/27/24 00:17 Code Status Routine Resuscitation Status: Full Code Code Status Order Placed: Code Status Ordered 04/27/24 at 0017 04/27/24 02:03 Regular Diet Texture: Regular Fluid Restrictions?: No Discussed Patient's Care With: Nurse and Case Management Subjective Subjective: Patient is awake and alert and ambulatory. Does not appear to have any focal neurologic deficit. Patient Status & Estimated DC Date Patient Registration Status: Inpatient Objective Physical Exam: Physical Exam: General appearance: Appears comfortable. Eyes: Sclera clear, pupils equal ENT: Moist mucus membranes, no thrush. Trachea midline. Cardiovascular: Regular rhythm, No edema in lower extremities Respiratory: Clear to auscultation bilaterally, no wheeze, good inspiratory effort Gastrointestinal: Abdomen soft, not distended, + bowel sounds Musculoskeletal: No cyanosis in digits, neck supple Neurology: Alert and oriented in person. No motor deficits Psychiatry: Not agitated Skin: Warm, dry, normal turgor, no rash Constitutional: Last Vital Signs Temp Pulse Resp BP Pulse Ox 98.8 F 153 H 16 150/90 H 98 04/28/24 10:05 04/29/24 06:50 04/28/24 10:05 04/28/24 10:05 04/28/24 10:05 Intake and Output 04/28/24 04/29/24 04/30/24 06:59 06:59 06:59 Intake Total 3060 440 Balance 3060 440 Admitting (IV Pump) Weight 64.9 kg Actual Weight (Kg) 64.9 kg Data Labs: The last 24 hours of labs have been reviewed. Imaging: I have reviewed the diagnostic images in the EMR. Microbiology: Microbiology 04/27/24 03:14 Perianal MRSA Screen - Final No growth of MRSA after 2 days. Medications and Comanagement: Medications reviewed separately. Entered by: Vanessa Anne on 04/29/24 0900 Report Signed by: Vanessa Anne MD on 04/29/24 0902 <<Signature on File>> <Electronically signed by Vanessa Anne MD> Report Signed by: on [facility] Work Phone: [phone] 470-556906-15-2024 Progress note Author Vanessa Anne [facility] April 28, 2024 12:13pm Note Date/Time April 28, 2024 12:1 2pm [facility] Medical Records Patient: CINDY STACY. : 1990 [place], [place] [address] Location: [address] [place] [address] Unit #: [id number] Progress Note - Hospitalist Vanessa Anne MD Service Dt/Tm: 04/28/24 1207 Assessment/Plan Assessment/Plan (1) Encephalopathy: Status: Acute Code(s): G93.40 - Encephalopathy, unspecified Plan: Etiology unclear, likely due to underlying MRDD. According to father and POA patient wants to move to a usp. The process is ongoing prior to this admission and patient may be frustrated because of the delay in transfer to usp. Attempt to obtain MRI brain has not been successful despite sedation with Geodonand Valium. Patient was evaluated by neurology, at this point MRI has been discontinued. CThead was nonacute. Psych consult requested. (2) Sinus tachycardia: Status: Acute Code(s): R00.0 - Tachycardia, unspecified Plan: Patient is persistently tachycardic. EKG sinus tachycardia, D-dimer is negative and patient is not hypoxic. Agree with IV hydration Will initiate calcium channel lanny. Monitor blood pressure closely. (3) Developmental delay: Status: Acute Code(s): R62.50 - Unspecified lack of expected normal physiological development in childhood Plan: Patient is in the process of being transferred from ECF to usp. Current Code Status & Diet: 04/27/24 00:17 Code Status Routine Resuscitation Status: Full Code Code Status Order Placed: Code Status Ordered 04/27/24 at 0017 04/27/24 02:03 Regular Diet Texture: Regular Fluid Restrictions?: No Discussed Patient's Care With: Nurse and Case Management Subjective Subjective: Patient is awake and alert. She is ambulating in the room, constantly wanting to leave the room. Sitter at bedside. Patient Status & Estimated DC Date Patient Registration Status: Inpatient Objective Physical Exam: Physical Exam: General appearance: Appears comfortable. Well nourished. Eyes: Sclera clear, pupils equal. ENT: Moist mucus membranes, no thrush. Trachea midline. Cardiovascular: Regular rhythm, normal S1, S2. +Tachycardia, no edema in lower extremities Respiratory: Clear to auscultation bilaterally, no wheeze, good inspiratory effort Gastrointestinal: Abdomen soft, non-tender, not distended, +bowel sounds Musculoskeletal: No cyanosis in digits, neck supple. Neurology: Alert and oriented in person. No speech or motor deficits Psychiatry: Agitated Skin: Warm, dry, normal turgor, no rash Constitutional: Last Vital Signs Temp Pulse Resp BP Pulse Ox 98.8 F 105 H 16 150/90 H 98 04/28/24 10:05 04/28/24 10:05 04/28/24 10:05 04/28/24 10:05 04/28/24 10:05 Intake and Output 04/27/24 04/28/24 04/29/24 06:59 06:59 06:59 Intake Total 1276.36 3060 100 Output Total 0 Balance 1276.36 3060 100 Admitting (IV Pump) Weight 64.9 kg Actual Weight (Kg) 64.9 kg Data Labs: 04/28/24 06:40 Magnesium 2.2 TSH 0.954 04/28/24 06:40 WBC 11.2 H RBC 4.83 Hgb 13.4 Hct 40.9 MCV 84.6 MCH 27.8 MCHC 32.8 L RDW 15.8 Plt Count 317 04/28/24 06:40 Sodium 139 Potassium 3.6 Chloride 111 Carbon Dioxide 21 Anion Gap 7 BUN 15 Creatinine 0.82 Calcium 8.80 The last 24 hours of labs have been reviewed. Imaging: I have reviewed the diagnostic images in the EMR. Microbiology: Microbiology 04/27/24 03:14 Perianal MRSA Screen - Preliminary No growth of MRSA after 1 day. Medications and Comanagement: Medications reviewed separately. Entered by: Vanessa Anne on 04/28/24 120 Report Signed by: Vanessa Anne MD on 04/28/24 1213 <<Signature on File>> <Electronically signed by Vanessa Anne MD> Report Signed by: on [facility] Work Phone: [phone] Progress note Author Vanessa Anne [facility] April 28, 2024 12:13pm Note Date/Time April 28, 2024 12:1 2pm [facility] Medical Records Patient: CINDY STACY. : 1990 [place], [place] [address] Location: [phone] Unit #: [id number] Progress Note - Hospitalist Vanessa Anne MD Service Dt/Tm: 04/28/247 Assessment/Plan Assessment/Plan (1) Encephalopathy: Status: Acute Code(s): G93.40 - Encephalopathy, unspecified Plan: Etiology unclear, likely due to underlying MRDD. According to father and POA patient wants to move to a usp. The process is ongoing prior to this admission and patient may be frustrated because of the delay in transfer to usp. Attempt to obtain MRI brain has not been successful despite sedation with Geodonand Valium. Patient was evaluated by neurology, at this point MRI has been discontinued. CThead was nonacute. Psych consult requested. (2) Sinus tachycardia: Status: Acute Code(s): R00.0 - Tachycardia, unspecified Plan: Patient is persistently tachycardic. EKG sinus tachycardia, D-dimer is negative and patient is not hypoxic. Agree with IV hydration Will initiate calcium channel lanny. Monitor blood pressure closely. (3) Developmental delay: Status: Acute Code(s): R62.50 - Unspecified lack of expected normal physiological development in childhood Plan: Patient is in the process of being transferred from [facility] to [facility]p. Current Code Status & Diet: 04/27/24 00:17 Code Status Routine Resuscitation Status: Full Code Code Status Order Placed: Code Status Ordered 04/27/24 at 0017 04/27/24 02:03 Regular Diet Texture: Regular Fluid Restrictions?: No Discussed Patient's Care With: Nurse and Case Management Subjective Subjective: Patient is awake and alert. She is ambulating in the room, constantly wanting to leave the room. Sitter at bedside. Patient Status & Estimated DC Date Patient Registration Status: Inpatient Objective Physical Exam: Physical Exam: General appearance: Appears comfortable. Well nourished. Eyes: Sclera clear, pupils equal. ENT: Moist mucus membranes, no thrush. Trachea midline. Cardiovascular: Regular rhythm, normal S1, S2. +Tachycardia, no edema in lower extremities Respiratory: Clear to auscultation bilaterally, no wheeze, good inspiratory effort Gastrointestinal: Abdomen soft, non-tender, not distended, +bowel sounds Musculoskeletal: No cyanosis in digits, neck supple. Neurology: Alert and oriented in person. No speech or motor deficits Psychiatry: Agitated Skin: Warm, dry, normal turgor, no rash Constitutional: Last Vital Signs Temp Pulse Resp BP Pulse Ox 98.8 F 105 H 16 150/90 H 98 04/28/24 10:05 04/28/24 10:05 04/28/24 10:05 04/28/24 10:05 04/28/24 10:05 Intake and Output 04/27/24 04/28/24 04/29/24 06:59 06:59 06:59 Intake Total 1276.36 3060 100 Output Total 0 Balance 1276.36 3060 100 Admitting (IV Pump) Weight 64.9 kg Actual Weight (Kg) 64.9 kg Data Labs: 04/28/24 06:40 Magnesium 2.2 TSH 0.954 04/28/24 06:40 WBC 11.2 H RBC 4.83 Hgb 13.4 Hct 40.9 MCV 84.6 MCH 27.8 MCHC 32.8 L RDW 15.8 Plt Count 317 04/28/24 06:40 Sodium 139 Potassium 3.6 Chloride 111 Carbon Dioxide 21 Anion Gap 7 BUN 15 Creatinine 0.82 Calcium 8.80 The last 24 hours of labs have been reviewed. Imaging: I have reviewed the diagnostic images in the EMR. Microbiology: Microbiology 04/27/24 03:14 Perianal MRSA Screen - Preliminary No growth of MRSA after 1 day. Medications and Comanagement: Medications reviewed separately. Entered by: Vanessa Anne on 04/28/24 1207 Report Signed by: Vanessa Anne MD on 04/28/24 1213 <<Signature on File>> <Electronically signed by Vanessa Anne MD> Report Signed by: on [facility] Work Phone: 1([phone] 278-942206-15-2024 Progress note Author Dao Kc [facility] April 28, 2024 10:41am Note Date/Time April 28, 2024 10:4 1am [facility] Medical Records Patient: CINDY STACY [address]. : 1990 [place], [place] [address] Location: [address] [place] [address] [id number] Note Neurology Dao Kc MD Service Dt/Tm: 04/28/24 1040 [facility] Tele[facility]rology Consult Services Routine Consult Follow-Up Patient Name: Cindy Stacy Date of : 1990 Identification Number: Date of Service: 04/28/2024 10:00:38 Diagnosis ? G93.41 - Encephalopathy Metabolic Impression 33 year old female with history of developmental delay, ?epilepsy (not on medications) who presented on 04/26 due to two days of worsening AMS and agitation. Reportedly had been living in a psych facility and then visited a usp and didn't want to leave and has been severely agitated and increasedconfusion since then. Somewhat unclear baseline. No focal features, she is seen walking very well, able to understand speech and able to move arms well. No fevers at any time. Significant difficulty obtaining tests such as MRI and EEG due to agitation. Fairly low suspicion for organic intracranial pathology as etiology for presentation, post-ictal confusion is unlikely to last >24h and no seizures witnessed since admission despite having sitter at bedside. Feel that sedating patient to get the studies more likely to do harm than good. Would obtain Psychiatry consult and support for now. If no improvement with supportivemanagement, could consider sedating patient to get MRI, EEG and even LP, but feel OK to defer for now, likely to do more harm than good. Consider Psychiatry consult. Recommendations: -Psychiatry consult -If ongoing concern, could consider getting MRI, EEG, and LP with sedation, but likely to do more harm that good at this time, relatively low suspicion for acute intracranial pathology -PT/OT/CHEMICAL DEPENDENCY PROFESSIONAL -Toxic/metabolic/infectious workup/management per primary -Delirium precautions: Blinds open during the day, closed at night; frequent reorientation; minimize nighttime interruptions; when possible avoid benzodiazepines, opioid pain medications, anticholinergic medications, and othersedative medications. If patient gets agitated, try verbal de-escalation first. Dispositions : No further recommendations Will signoff please contact for any questions Subjective Per nursing she does generally talk some and say caregiver names and her dad's name. Had some increased irritability and had forgotten her caregiver's name. Noseizures witnessed. Imaging CTH: No acute abnormalities Examination BP(140/94), Pulse(124), Temp(99), Resp(16), Neuro Exam: General: Oriented to name. Not responding to orientation questions otherwise. Standing very well independently. Per sitter, patient is fairly non-verbal, but is a Neurologic Exam. Exam is confounded in the setting of receiving haloperidol prior to MRI brain. General. Well appearing, in no acute distress. Mental status. Alert and awake. Does not answer orientation questions. Language. Intermittently follows commands. Meager speech output. . Cranial nerves. Eyes are midline. Face is symmetric at rest. Motor. Normal muscle bulk. Tremulous. Spontaneous anti-gravity in the BUE. Gait: Deferred. Reflexes: Deferred. Sensory: confounded in the setting of encephalopathy. Coordination: confounded in the setting of encephalopathy. This consult was conducted in real time using interactive audio and video technology. Patient was informed of the technology being used for this visit andagreed to proceed. Patient located in hospital and provider located at home/office setting. Telehealth Neurology consultation was provided. I spent 25 minutes providing telehealth care. This includes time spent for face to face visit via telemedicine, review of medical records, imaging studies and discussion of findings with providers, the patient and/or family. Dr Dao Kc [facility] For Inpatient follow-up with [facility] physician please call [facility] . This is not an outpatient service. Post hospital discharge, please contact hospital directly. Please call or reconsult our service if there are any clinical or diagnostic changes. [facility] Tele[facility]urology Consult Services Data: Last Vital Signs Temp Pulse Resp BP Pulse Ox 97.8 F 146 H 16 132/106 H 97 04/28/24 03:26 04/27/24 23:23 04/27/24 15:04 04/27/24 23:23 04/27/24 23:23 Hematology 04/28/24 06:40 WBC 11.2 H RBC 4.83 Hgb 13.4 Hct 40.9 MCV 84.6 MCH 27.8 MCHC 32.8 L RDW 15.8 Plt Count 317 Neut % (Auto) 83.9 H Lymph % (Auto) 10.5 L Wells % (Auto) 5.5 Eos % (Auto) 0.0 Baso % (Auto) 0.1 Nucleat RBC Rel Count 0.0 Absolute Neuts (auto) 9400 H Absolute Lymphs (auto) 1200 Absolute Monos (auto) 600 Absolute Eos (auto) 0 Absolute Basos (auto) 0 ESR 27 H Chemistry 04/28/24 06:40 Sodium 139 Potassium 3.6 Chloride 111 Carbon Dioxide 21 Anion Gap 7 BUN 15 Creatinine 0.82 GFR Calculation > 60 Random Glucose 105 Calcium 8.80 Magnesium 2.2 C-Reactive Protein < 0.5 Vitamin B12 164 L Folate > 24.8 TSH 0.954 Patient was informed the Neurology Consult would happen via telehealth (remote video) and consented to receiving care in this manner. Entered by: Dao Kc MD on 04/28/24 1040 Report Signed by: Dao Kc MD on 04/28/24 104 <<Signature on File>> <Electronically signed by Dao Kc MD> Report Signed by: on [facility] Work Phone: 1(504) 320-301006-15-2024 Progress note Author Dao Kc [facility] April 28, 2024 10:41am Note Date/Time April 28, 2024 10:4 1am [facility] Medical Records Patient: CINDY STACY. : 1990 [place], [place] [address] Location: [address] [place] [address] Unit #: [id number] Progress Note Neurology Dao Kc MD Service Dt/Tm: 04/28/24 1040 [facility] TeleNeurology Consult Services Routine Consult Follow-Up Patient Name: Cindy Stacy Date of : 1990 Identification Number: Date of Service: 04/28/2024 10:00:38 Diagnosis ? G93.41 - Encephalopathy Metabolic Impression 33 year old female with history of developmental delay, ?epilepsy (not on medications) who presented on 04/26 due to two days of worsening AMS and agitation. Reportedly had been living in a psych facility and then visited a usp and didn't want to leave and has been severely agitated and increasedconfusion since then. Somewhat unclear baseline. No focal features, she is seen walking very well, able to understand speech and able to move arms well. No fevers at any time. Significant difficulty obtaining tests such as MRI and EEG due to agitation. Fairly low suspicion for organic intracranial pathology as etiology for presentation, post-ictal confusion is unlikely to last >24h and no seizures witnessed since admission despite having sitter at bedside. Feel that sedating patient to get the studies more likely to do harm than good. Would obtain Psychiatry consult and support for now. If no improvement with supportivemanagement, could consider sedating patient to get MRI, EEG and even LP, but feel OK to defer for now, likely to do more harm than good. Consider Psychiatry consult. Recommendations: -Psychiatry consult -If ongoing concern, could consider getting MRI, EEG, and LP with sedation, but likely to do more harm that good at this time, relatively low suspicion for acute intracranial pathology -PT/OT/CHEMICAL DEPENDENCY PROFESSIONAL -Toxic/metabolic/infectious workup/management per primary -Delirium precautions: Blinds open during the day, closed at night; frequent reorientation; minimize nighttime interruptions; when possible avoid benzodiazepines, opioid pain medications, anticholinergic medications, and othersedative medications. If patient gets agitated, try verbal de-escalation first. Dispositions : No further recommendations Will signoff please contact for any questions Subjective Per nursing she does generally talk some and say caregiver names and her dad's name. Had some increased irritability and had forgotten her caregiver's name. Noseizures witnessed. Imaging CTH: No acute abnormalities Examination BP(140/94), Pulse(124), Temp(99), Resp(16), Neuro Exam: General: Oriented to name. Not responding to orientation questions otherwise. Standing very well independently. Per sitter, patient is fairly non-verbal, but is a Neurologic Exam. Exam is confounded in the setting of receiving haloperidol prior to MRI brain. General. Well appearing, in no acute distress. Mental status. Alert and awake. Does not answer orientation questions. Language. Intermittently follows commands. Meager speech output. . Cranial nerves. Eyes are midline. Face is symmetric at rest. Motor. Normal muscle bulk. Tremulous. Spontaneous anti-gravity in the BUE. Gait: Deferred. Reflexes: Deferred. Sensory: confounded in the setting of encephalopathy. Coordination: confounded in the setting of encephalopathy. This consult was conducted in real time using interactive audio and video technology. Patient was informed of the technology being used for this visit andagreed to proceed. Patient located in hospital and provider located at home/office setting. Telehealth Neurology consultation was provided. I spent 25 minutes providing telehealth care. This includes time spent for face to face visit via telemedicine, review of medical records, imaging studies and discussion of findings with providers, the patient and/or family. Dr Dao Kc [facility] For Inpatient follow-up with [facility] physician please call [facility] . This is not an outpatient service. Post hospital discharge, please contact hospital directly. Please call or reconsult our service if there are any clinical or diagnostic changes. [facility] Tele[facility]urology Consult Services Data: Last Vital Signs Temp Pulse Resp BP Pulse Ox 97.8 F 146 H 16 132/106 H 97 04/28/24 03:26 04/27/24 23:23 04/27/24 15:04 04/27/24 23:23 04/27/24 23:23 Hematology 04/28/24 06:40 WBC 11.2 H RBC 4.83 Hgb 13.4 Hct 40.9 MCV 84.6 MCH 27.8 MCHC 32.8 L RDW 15.8 Plt Count 317 Neut % (Auto) 83.9 H Lymph % (Auto) 10.5 L Wells % (Auto) 5.5 Eos % (Auto) 0.0 Baso % (Auto) 0.1 Nucleat RBC Rel Count 0.0 Absolute Neuts (auto) 9400 H Absolute Lymphs (auto) 1200 Absolute Monos (auto) 600 Absolute Eos (auto) 0 Absolute Basos (auto) 0 ESR 27 H Chemistry 04/28/24 06:40 Sodium 139 Potassium 3.6 Chloride 111 Carbon Dioxide 21 Anion Gap 7 BUN 15 Creatinine 0.82 GFR Calculation > 60 Random Glucose 105 Calcium 8.80 Magnesium 2.2 C-Reactive Protein < 0.5 Vitamin B12 164 L Folate > 24.8 TSH 0.954 Patient was informed the Neurology Consult would happen via telehealth (remote video) and consented to receiving care in this manner. Entered by: Dao Kc MD on 04/28/24 1040 Report Signed by: Dao Kc MD on 04/28/24 1041 <<Signature on File>> <Electronically signed by Dao Kc MD> Report Signed by: on [facility] Work Phone: 1([phone]) 175-132406-14-2024 Consult note Author Tiffanie Alatorre [facility] April 27, 2024 3:55pm Note Date/Time April 27, 2024 3:55 pm [facility] Medical Records Patient: CINDY STACY [address]. : 1990 [place], [place] [address] Location: [address] [place] [address] Unit #: [id number] Consultation - TeleNeurology Tiffanie Alatorre MD Service Date: 04/27/24 [facility] Tele[facility] Consult Services Date of Consultation: 04/27/24 Consulting Provider: Tiffanie Alatorre MD [facility] Tele[facility]urology Consult Services Routine Consult New Patient Name: Cindy Stacy Date of : 1990 Identification Number: Date of Service: 04/27/2024 15:45:30 Diagnosis ? G93.41 - Encephalopathy Metabolic Impression Ms. Stacy is a 33-year-old developmentally delayed woman who presented to the[facility] on 04/[facility]/2024 with a 2-day history of worsening encephalopathy and agitation in the setting of a past medical history of unspecified epilepsy. Neurology was consulted on 04/27/2024 for further evaluation. Neurologic exam is non-focal, albeit confounded in the setting of encephalopathy. At this juncture, the etiology of the patient's presentation remains unclear. Given markedly elevated prolactin on admission, with negative infectious workup hitherto, and interval improvement, postictal encephalopathy is a consideration. However, although she is reported to have a history of seizures, there are no antiseizure medications listed among her home medications. Recommend further workup and management as noted below. - follow-up EEG (ordered) - Follow-up TSH, B12, folate, ESR, CRP (ordered) - consider empiric thiamine supplementation - Review medication list for drugs which are common precipitants of delirium, particularly lithium and sedatives - Review medication list for drugs which may precipitate serotonin syndrome - Delirium precautions: Lights on and blinds open during the day, lights off andblinds closed at night, frequent reorientation, minimize nighttime interruptions - When possible, avoid anticholinergics, benzodiazepines, and opioid pain medications WORK-UP. CT Head (04/26/2024): No acute findings MRI Brain: Deferred due to patient being unable to tolerate EEG (): Pending Labs: Calcium 7.7. Magnesium 1.7. WBC 7.6. Sodium 136. BUN 19. Creatinine 0.83. Ammonia 21. Prolactin 36.55. Blood cultures: N/A Urinalysis & cultures: Negative Urine toxicology screen: Negative CXR: Negative Our recommendations are outlined below Dispositions : Neurology will follow Chief Complaint: encephalopathy History of Present Illness: Ms. Stacy is a 33-year-old developmentally delayed woman who presented to the on 04/26/2024 with a 2-day history of worsening encephalopathy and agitation in the setting of a past medical history of unspecified epilepsy. Neurology was consulted on 04/27/2024 for further evaluation. Collateral history is provided by the medical record. The patient has a history of developmental delay and resides at a facility. Per report, the patient will have episodes of encephalopathy and agitation prior to and following a seizure episode. However, although the patient is noted to have a history of seizures, there are no antiseizure medications listed among her home medications. Collateral history is provided by the RN who reports interval improvement. She was able to take her medications and fed herself breakfast. It is unclear if sheis back to her baseline. Past Medical History: ? Hypertension Medications: No Anticoagulant use No Antiplatelet use Reviewed EMR for current medications Allergies: Reviewed Social History: Unable To Obtain Due To Patient Status : Patient Is Confused Family History: There is no family history of premature cerebrovascular disease pertinent to this consultation ROS : 14 Points Review of Systems was performed and was negative except mentioned in HPI. Past Surgical History: There Is No Surgical History Contributory To Today?s Visit Examination Neuro Exam: Neurologic Exam. Exam is confounded in the setting of receiving haloperidol prior to MRI brain. General. Well appearing, in no acute distress. Mental status. Alert and awake. Does not answer orientation questions. Language. Intermittently follows commands. Meager speech output. Cranial nerves. Eyes are midline. Face is symmetric at rest. Motor. Normal muscle bulk. Tremulous. Spontaneous anti-gravity in the BUE. Gait: Deferred. Reflexes: Deferred. Sensory: confounded in the setting of encephalopathy. Coordination: confounded in the setting of encephalopathy. This consult was conducted in real time using interactive audio and video technology. Patient was informed of the technology being used for this visit andagreed to proceed. Patient located in hospital and provider located at home/office setting. Telehealth Neurology consultation was provided. I spent minutes providing telehealth care. This includes time spent for face to face visit via telemedicine, review of medical records, imaging studies and discussion of findings with providers, the patient and/or family. Marilee Alatorre MD [facility] For Inpatient follow-up with [facility] physician please call [facility] . This is not an outpatient service. Post hospital discharge, please contact hospital directly. Please call or reconsult our service if there are any clinical or diagnostic changes. cc: Tiffanie Alatorre MD; Isidro Barton MD; Meg Sexton MD ([place]) Dictated by: Tiffanie Alatorre MD on 04/27/24 1554 Entered by: Tiffanie Alatorre MD on 04/27/24 0263 Report Signed by: Tiffanie Alatorre MD on 04/27/24 1555 <<Signature on File>> <Electronically signed by Tiffanie Alatorre MD> Report Signed by: on [facility] Work Phone: 1([phone]) 155-604006-14-2024 Progress note Author Db Loaiza [facility] April 27, 2024 3:19pm Note Date/Time April 27, 2024 1:44 pm [facility] [employer]omaterials Engineer Patient: CINDY STACY. : 1990 [place] [address] Location: [phone] Unit #: [id number] Social Work Daily Note Db Loaiza Service Date: 04/27/24 Daily Note - * Psychosocial Assessment * I have reviewed nursing and case management psychosocial information.: Yes - * Hospital Stay Days * Day 1 Note: 04-27-24 SW consult for SNF. Per report pt is LT resident at [facility]. SW spoke with admissions at [facility], pt is a LT bedhold at facility and is able to return when medically approrpiate. Battery Recharger: Db Loaiza - * Requested Intvs/Referrals * Car Designer Referrals: SNF/LTAC Placement - Community Services/Interventions SNF/LTAC Placement: Initiated - * HEALTHCARE DECISIONS * Living Will: Unknown Durable Power of Balance Engineer for Health Care: Unknown [facility] DNR Comfort Care: Unknown [facility] DNR Comfort Care Arrest: Unknown Entered by: Db Loaiza on 04/27/24 1342 Report Signed by: Db Loaiza on 04/27/24 1519 <<Signature on File>> <Electronically signed by Db Loaiza> Report Signed by: on [facility] Work Phone: 1([phone]) 588-363606-14-2024 Progress note Author Db Loaiza [facility] April 27, 2024 3:19pm Note Date/Time April 27, 2024 1:44 pm [facility] [employer] Patient: CINDY STACY. : 1990 [place] [address] Location: [phone] Unit #: [id number] Social Work Daily Note Db Loaiza Service Date: 04/27/24 MANDO Daily Note - * Psychosocial Assessment * I have reviewed nursing and case management psychosocial information.: Yes - * Hospital Stay Days * Day 1 Note: 04-27-24 SW consult for SNF. Per report pt is LT resident at [facility]. MANDO spoke with admissions at [facility], pt is a LT bedhold at facility and is able to return when medically approrpiate. Battery Recharger: Db Loaiza - * Requested Intvs/Referrals * Car Designer Referrals: SNF/LTAC Placement - Community Services/Interventions SNF/LTAC Placement: Initiated - * HEALTHCARE DECISIONS * Living Will: Unknown Durable Power of Balance Engineer for Health Care: Unknown [facility] DNR Comfort Care: Unknown [facility] DNR Comfort Care Arrest: Unknown Entered by: Db Loaiza on 04/27/24 1342 Report Signed by: Db Loaiza on 04/27/24 1519 <<Signature on File>> <Electronically signed by Db Loaiza> Report Signed by: on [facility] Work Phone: 1(153) 937-528506-14-2024 Progress note Author Brenda Garcia [facility] April 27, 2024 3:03pm Note Date/Time April 27, 2024 10:4 5am [facility] Case Management Patient: CINDY STACY. : 1990 [place], [place] [address] Location: [address] [place] [address] Unit #: [id number] Case Management Admission Brenda Garcia RN Service Date: 04/27/24 Case Mgmt Admission/Disch Plan - Patient Preferences & Goals What is the patient's preference?: Return to SNF Recommended acute discharge goals: Return to SNF - Hospital Stay Day Day 1 Comment: 04/27 Patient is from [facility] and is a LTR. RENATO spoke with patients yenny Siegel who reports the plan is for patient to return to [facility] at d/c. Christal reporting patient is normally independent with ambulation, ADLs, and that [facility] provides transportation for her to [facility]. PCP Meg Sexton. Contact is yenny Siegel. SW c/s. 1:1 sitter present at bedside. Engraving Patternmaker: Brenda Garcia, RN - Demographics Current Diagnosis(s): Encephalopathy Information Given by: Christal- guardian Primary Insurance: [employer] Family/Caregiver Contact: Christal Relationship: guardian Does the patient have VA services?: No Does the patient have a [facility] provider?: Yes - Readmission Information Was the patient readmitted within the past 30 days?: No Where was the patient admitted from?: Residential Facility - Healthcare Decisions Durable Power of Balance Engineer for Health Care: Unknown [facility] DNR Comfort Care: Unknown [facility] DNR Comfort Care Arrest: Unknown - Mental Status Prior Mental Status: Cognitive Deficit Current Mental Status: Cognitive Deficit - Living Situation Home Situation: Halfway - Support System Support System: Community - Skilled Days Has patient been in a penitentiary facility in past 60 days: Yes - [facility] - Residential Facility SNF List Provided: No - LTR at [facility] Residential Facilities: [facility] Social Work Consult initiated for SNF: Yes Patient Accepted Facility: Yes - Level of Function Prior Level of Ambulation: Independent Prior Level of Personal Care: Independent Prior Level of Driving: Dependent/Bed Bound Comment: If not pt,who provides transportation: SNF Prior Level of Grocery Shopping: Dependent/Bed Bound Prior Level of House Keeping: Dependent/Bed Bound Prior Level of Meal Preparation: Dependent/Bed Bound Is Patient a Fall Risk: Yes - Respiratory Equipment Does the patient use/have any of these devices at home?: N/A - Medications What pharmacy do you use?: SNF - Food Scarcity Screening -in the past month?: No -within the past 3 months?: No If Yes to either question, notify Biomaterials Engineer.: No - Community Services SNF/LTAC Placement: Initiated - Discharge Plan Discharge Plan Discussed With: Patient Understood: Yes Barriers to Discharge: Encephalopathy - Admission Completed CM Admission Assessment is Completed: Yes - * L * Length of Stay LOS (Including day of Admission and Discharge): 2 LOS Score: 2 - * A * Acuity on Admission ER Provider if admitted from ER (view): PHIILPPE Was patient admitted to hospital via Emergency Dept? Score: 3 - * C * Comorbidities Select All Conditions that Apply: No Comorbidity Condition Comorbidities Total Score: 0 - * E * Emergency Department Visits # of ER visits,6mos prior to admit,excl this admits ER visit: 0 Enter this number or 4 (whichever is smaller): 0 - LACE SCORE LACE Score: 5 - ANTICIPATED DISCHARGE Anticipated Discharge Date: 04/28/24 Is a ALLEN Form Required?: No Entered by: Brenda Garcia RN on 04/27/24 1042 Report Signed by: Brenda Garcia RN on 04/27/24 1503 <<Signature on File>> <Electronically signed by Brenda Garcia RN> Co-Signed by: on [facility] Work Phone: 1([phone]) 257-517006-14-2024 Progress note Author Brenda Garcia [facility] April 27, 2024 3:03pm Note Date/Time April 27, 2024 10:5 0am [facility] Case Management Patient: CINDY STACY. : 1990 [place], [place] [address] Location: [phone] Unit #: [id number] Social Determinants Brenda Garcia RN Service Date: 04/27/24 Social Determinants of Health - Family & Home What is your current living situation?: Unable to answer Problems where you live: Unable to answer - Money & Resources In past 12 months, food didn't last until money to buy more: Unable to answer Past 12 mos, fear food will run out before able to buy more: Unable to answer In past 12 months, lack of transportation kept you from medical appts, meetings,work, or getting things needed for daily living: Unable to answer In the past 12 months, utilities in danger of being shut off: Unable to answer - Social & Emotional Health How often does anyone, including family, friends and others, physically hurt you: Unable to answer How often does anyone, including family, friends and others, insult or talk downto you: Unable to answer How often does anyone, including family, friends and others, threaten you with harm: Unable to answer How often does anyone, including family, friends and others, scream or curse at you: Unable to answer Safety Score: 0 Entered by: Brenda Garcia RN on 04/27/24 1050 Report Signed by: Brenda Garcia RN on 04/27/24 150 <<Signature on File>> <Electronically signed by Brenda Garcia RN> Co-Signed by: on [facility] Work Phone: 1(345) 722-268206-14-2024 Progress note Author Brenda Garcia [facility] April 27, 2024 3:03pm Note Date/Time April 27, 2024 10:4 5am [facility] Case Management Patient: CINDY STACY. : 1990 [place], [place] [address] Location: [phone] Unit #: [id number] Case Management Admission Brenda Garcia RN Service Date: 04/27/24 Case Mgmt Admission/Disch Plan - Patient Preferences & Goals What is the patient's preference?: Return to SNF Recommended acute discharge goals: Return to SNF - Hospital Stay Day Day 1 Comment: 04/27 Patient is from [facility] and is a LTR. CM spoke with patients guardian Christal who reports the plan is for patient to return to [facility] at d/c. Christal reporting patient is normally independent with ambulation, ADLs, and that [facility] Meg Sexton. Contact is guardiwilfredo Siegel. c/s. 1:1 sitter present at bedside. Engraving Patternmaker: Brenda Garcia RN - Demographics Current Diagnosis(s): Encephalopathy Information Given by: Christal- guardiwilfredo Primary Insurance: [employer] Family/Caregiver Contact: Christal Relationship: guardian Does the patient have VA services?: No Does the patient have a [facility] provider?: Yes - Readmission Information Was the patient readmitted within the past 30 days?: No Where was the patient admitted from?: Residential Facility - Healthcare Decisions Durable Power of Balance Engineer for Health Care: Unknown [facility] DNR Comfort Care: Unknown [facility] DNR Comfort Care Arrest: Unknown - Mental Status Prior Mental Status: Cognitive Deficit Current Mental Status: Cognitive Deficit - Living Situation Home Situation: Halfway - Support System Support System: Community - Skilled Days Has patient been in a penitentiary facility in past 60 days: Yes - [facility] - Residential Facility SNF List Provided: No - LTR at [facility] Residential Facilities: [facility] Social Work Consult initiated for SNF: Yes Patient Accepted Facility: Yes - Level of Function Prior Level of Ambulation: Independent Prior Level of Personal Care: Independent Prior Level of Driving: Dependent/Bed Bound Comment: If not pt,who provides transportation: SNF Prior Level of Grocery Shopping: Dependent/Bed Bound Prior Level of House Keeping: Dependent/Bed Bound Prior Level of Meal Preparation: Dependent/Bed Bound Is Patient a Fall Risk: Yes - Respiratory Equipment Does the patient use/have any of these devices at home?: N/A - Medications What pharmacy do you use?: SNF - Food Scarcity Screening -in the past month?: No -within the past 3 months?: No If Yes to either question, notify Biomaterials Engineer.: No - Community Services SNF/LTAC Placement: Initiated - Discharge Plan Discharge Plan Discussed With: Patient Understood: Yes Barriers to Discharge: Encephalopathy - Admission Completed CM Admission Assessment is Completed: Yes - * L * Length of Stay LOS (Including day of Admission and Discharge): 2 LOS Score: 2 - * A * Acuity on Admission ER Provider if admitted from ER (view): PHILIPPE Was patient admitted to hospital via Emergency Dept? Score: 3 - * C * Comorbidities Select All Conditions that Apply: No Comorbidity Condition Comorbidities Total Score: 0 - * E * Emergency Department Visits # of ER visits,6mos prior to admit,excl this admits ER visit: 0 Enter this number or 4 (whichever is smaller): 0 - LACE SCORE LACE Score: 5 - ANTICIPATED DISCHARGE Anticipated Discharge Date: 04/28/24 Is a ALLEN Form Required?: No Entered by: Brenda Garcia RN on 04/27/24 1042 Report Signed by: Brenda Garcia RN on 04/27/24 1503 <<Signature on File>> <Electronically signed by Brenda Garcia RN> Co-Signed by: on [facility] [facility] Work Phone: [phone]) 588-613706-14-2024 Progress note Author Brenda Garcia [facility] April 27, 2024 3:03pm Note Date/Time April 27, 2024 10:5 0am [facility] Case Management Patient: CINDY STACY. : 1990 [place], [place] [address] Location: [phone] Unit #: [id number] Social Determinants Brenda Garcia RN Service Date: 04/27/24 Social Determinants of Health - Family & Home What is your current living situation?: Unable to answer Problems where you live: Unable to answer - Money & Resources In past 12 months, food didn't last until money to buy more: Unable to answer Past 12 mos, fear food will run out before able to buy more: Unable to answer In past 12 months, lack of transportation kept you from medical appts, meetings,work, or getting things needed for daily living: Unable to answer In the past 12 months, utilities in danger of being shut off: Unable to answer - Social & Emotional Health How often does anyone, including family, friends and others, physically hurt you: Unable to answer How often does anyone, including family, friends and others, insult or talk downto you: Unable to answer How often does anyone, including family, friends and others, threaten you with harm: Unable to answer How often does anyone, including family, friends and others, scream or curse at you: Unable to answer Safety Score: 0 Entered by: Brenda Garcia RN on 04/27/24 1050 Report Signed by: Brenda Garcia RN on 04/27/24 1506 <<Signature on File>> <Electronically signed by Brenda Garcia RN> Co-Signed by: on [facility] Work Phone: 1(830) 718-148506-14-2024 [facility]24 [facility]24 Progress note Author Marianela Kaiser [facility] April 27, 2024 12:36pm Note Date/Time April 26, 2024 9:51 pm [facility] Patient: CINDY STACY [address]. : 1990 [place], [place] [address] Location: [address] [place] [address] Unit #: [id number] ER Physician Documentation Service Date:04/26/24 ER Provider: Db Newell DO HPI - Psych Disorder - Time Seen by Provider: 04/26/24 21:32 History of Present Illness Stated Complaint: PSYCH issues History of Present Illness: Patient is a 33-year-old female who presents ED for evaluation of altered mentalstatus. Patient does have a history of MRDD and resides at [facility]. Patient also has a history of seizures. Staff states patient has been slowly declining over the past couple of days and is not functioning as she was normally. Generally patient can ambulate and self feed and has not been eating or ambulating at all. They state the patient does not converse eating or answering any questions. They state they did a UA yesterday that was negative. RN did speak with father over the phone who states that the patient does act like this prior and post seizure. Patient is not answering any questions appropriately. No other complaints at this time. Review of Systems Review of Systems Unable to obtain full review of systems: Due to acuity Past Family Social History Medical & Surgical History: Medical History (Updated 04/27/24 @ 02:43 by Isidro Barton MD) Delay of cognitive development Dysphagia HTN (hypertension) Seizure Depression Failure to thrive in adult Surgical History (Updated 04/27/24 @ 02:39 by Isidro Barton MD) No pertinent past surgical history Social History: Caffeine Amount: 3-4/Day Current Alcohol Amount: None Smoking Status: Never smoked Family History: (Updated 04/27/24 @ 02:40 by Isidro Barton MD) Denies family history of No pertinent family history Exam Physical Exam: Patient presentation: Well appearing and No apparent distress General Skin: Warm and Dry General Habitus: Normal General Mental Status:Alert General hydration: Moist mucous membranes ENT Exam: ENT Exam: Pharynx normal and Neck supple Eye Exam: Eye exam: PERRL, EOMI and Conjunctivi normal Cardiovascular Exam: Cardiovascular Exam: No edema and Tachycardia Heart sounds: Normal Pulmonary Exam: Pulmonary exam: Lungs clear, No respiratory distress and Chestnon-tender Respirations: Normal Gastrointestinal Exam: Gastrointestinal Exam: Normal bowel sounds, non tender,Soft, No organomegaly and Non distended Auscultation of Abdomen: Normal Musculoskeletal Exam: Musculoskeletal Exam: Full ROM, No edema and Neurovascular intact Skin Exam: Skin Exam - normals: Intact, Warm,dry and No rash Neurovascular Exam: Neurological Exam: Alert and No motor deficits; denies Oriented x 3 Crawford Coma Scale: Best eye response: Spontaneously Best verbal response: Oriented Best motor response: Obeys commands Sammy Coma Score: 15 Orders/Results Orders: Orders Category Date Time Status Admit Patient Now ADT 04/27/24 00:27 Active Activity, Ambulate As Directed Activity 04/27/24 00:17 Ordered Case Management Consult Routine CONSOTHER 04/27/24 00:[address] Abd/Pelvis W/Contrast [address] Scan 04/26/24 21:[address] Head Without Contrast [id number] Scan 04/26/24 21:49 Completed Electrocardiogram 12 Lead Stat CTC 04/26/24 21:49 Completed Apply/Monitor Telemetry As directed Care 04/27/24 00:27 Active Obtain EKG (Information only) NOW Care 04/26/24 21:49 Completed Code Status Routine Code 04/27/24 00:17 Ordered ED Admit Delay Q1HPRN ED Tx 04/27/24 00:27 Active ED Cardiac Monitoring .CONTINUOUSLY ED Tx 04/26/24 21:47 Active ED Insert INT NOW ED Tx 04/26/24 21:47 Active ED NIBP Monitoring . DIRECTED ED Tx 04/26/24 21:47 Active XR Chest 1 View Portable Stat Exams 04/26/24 21:47 Completed Ammonia Urgent Lab 04/26/24 22:03 Completed Basic Metabolic,Non-Fasting IN AM Lab 04/27/24 08:04 Completed Basic Metabolic,Non-Fasting IN AM Lab 04/28/24 04:00 Ordered Basic Metabolic,Non-Fasting IN AM Lab 04/29/24 04:00 Ordered Basic Metabolic,Non-Fasting IN AM Lab 04/30/24 04:00 Ordered Basic Metabolic,Non-Fasting IN AM Lab 05/01/24 04:00 Ordered Basic Metabolic,Non-Fasting IN AM Lab 05/02/24 04:00 Ordered Basic Metabolic,Non-Fasting IN AM Lab 05/03/24 04:00 Ordered CBC with Differential IN AM Lab 04/27/24 08:04 Completed CBC with Differential IN AM Lab 04/28/24 04:00 Ordered CBC with Differential IN AM Lab 04/29/24 04:00 Ordered CBC with Differential IN AM Lab 04/30/24 04:00 Ordered CBC with Differential IN AM Lab 05/01/24 04:00 Ordered CBC with Differential IN AM Lab 05/02/24 04:00 Ordered CBC with Differential IN AM Lab 05/03/24 04:00 Ordered CBC with Differential Urgent Lab 04/26/24 22:03 Completed Comprehensive Metabolic Panel Urgent Lab 04/26/24 22:03 Completed D-Dimer Urgent Lab 04/26/24 22:03 Completed Drug Screen Urine Urgent Lab 04/26/24 23:23 Completed Lactic Acid Stat Lab 04/26/24 22:03 Completed Magnesium IN AM Lab 04/27/24 08:04 Completed Magnesium IN AM Lab 04/28/24 04:00 Ordered Magnesium IN AM Lab 04/29/24 04:00 Ordered Magnesium IN AM Lab 04/30/24 04:00 Ordered Magnesium IN AM Lab 05/01/24 04:00 Ordered Magnesium IN AM Lab 05/02/24 04:00 Ordered Magnesium IN AM Lab 05/03/24 04:00 Ordered Magnesium Urgent Lab 04/26/24 22:03 Completed Prolactin Urgent Lab 04/26/24 22:03 Completed Prothrombin Time Urgent Lab 04/26/24 22:03 Completed Urinalysis w Micro Rflx Cult Urgent Lab 04/26/24 23:23 Completed Urine Urgent Lab 04/26/24 23:23 Completed hs Troponin I Profile Stat Lab 04/26/24 22:03 Completed hs Troponin I Profile Urgent Lab 04/27/24 00:40 Completed Acetaminophen [Tylenol] Med 04/27/24 00:17 Active 650 mg PO Q6HPRN PRN Calcium Replacement Protocol [Calcium Replacement Med 04/27/24 00:17 Active Protocol.] 1 wm STONER DIRECTED PRN Docusate Sodium [Colace] Med 04/27/24 00:17 Active 100 mg PO BIDPRN PRN LORazepam [Ativan] Med 04/27/24 00:03 Discontinued 1 mg IV PUSH NOW ONE LORazepam [Ativan] Med 04/26/24 23:41 Discontinued 1 mg IV PUSH NOW STA LORazepam [Ativan] Med 04/26/24 23:19 Discontinued 2 mg .ROUTE .STK-MED ONE Magnesium Replacement Protocol [Magnesium Replacement Med 04/27/24 00:17 Active Protocol.] 1 wm STONER DIRECTED PRN Melatonin [Melatonin.] Med 04/27/24 00:17 Discontinued 3 mg PO QHSMRX1 PRN Ns 1,000 ml Med 04/27/24 00:30 Active IV DIRECTED Ns 1,000 ml Med 04/26/24 21:51 Discontinued IV BOLUS Omnipaque 300 [Omnipaquie 300 IV Contrast Dose] Med 04/26/24 23:53 Discontinued 1 dose IV NOW STA Ondansetron [Zofran] Med 04/27/24 00:17 Active 4 mg IV PUSH Q6HPRN PRN Phosphorus Replacement Protoco [Phosphorus Replacement Med 04/27/24 00:17 Active Protocol.] 1 wm STONER DIRECTED PRN Polyethylene Glycol Packet [Miralax Packet] Med 04/27/24 00:17 Active 17 gm PO DAILYPRN PRN Potassium Replacement Protocol [Potassium Replacement Med 04/27/24 00:17 Active Protocol.] 1 wm STONER DIRECTED PRN Ziprasidone Mesylate Inj [Geodon Inj] Med 04/27/24 00:19 Active 10 mg IM Q6HPRN PRN diphenhydrAMINE HCL [Benadryl] Med 04/27/24 00:17 Active 25 mg PO QHS[address]N PRN Place INT/IV As Directed ABDI GEN 04/27/24 00:18 Ordered Vital Signs As Directed ABDI ROSE 04/27/24 00:17 Ordered Pulse Oximeter Monitoring Continuously RESP 04/26/24 21:48 Completed Laboratory Results: Laboratory 04/26/24 22:03: WBC 7.6, RBC 4.82, Hgb 13.6, Hct 40.5, MCV 84.0, MCH 28.3, MCHC 33.6, RDW 15.6, Plt Count 318, Neut % (Auto) 74.4 H, Lymph % (Auto) 17.6, Wells % (Auto) 7.4, Eos % (Auto) 0.0, Baso % (Auto) 0.6, Nucleat RBC Rel Count 0.0, Absolute Neuts (auto) 5700, Absolute Lymphs (auto) 1300, Absolute Monos (auto) 600, Absolute Eos (auto) 0, Absolute Basos (auto) 0, PT 13.0, INR 1.09, D-Dimer 83, Sodium 136, Potassium 3.5 L, Chloride 105, Carbon Dioxide 23, Anion Gap 8, BUN 19, Creatinine 0.83, GFR Calculation > 60, Random Glucose 104, Lactic Acid 1.0, Calcium 9.30, Magnesium 2.0, Total Bilirubin 0.4, AST 13 L, ALT 12, Alkaline Phosphatase 55, Ammonia 21, Troponin I High Sens 7, Total Protein 7.6, Albumin 4.2, Albumin/Globulin Ratio 1.2 L, Prolactin 36.55 H 04/26/24 23:23: Urine Color Yellow, Urine Appearance Clear, Urine pH 5.5, Ur Specific [place] 1.028, Urine Protein 20 mg/dl, Urine Glucose (UA) Negative, Urine Ketones Negative, Urine Blood Negative, Urine Nitrite Negative, Urine Bilirubin Negative, Urine Urobilinogen <2.0 mg/dL, Ur Leukocyte Esterase Negative, Urine RBC 0-2, Ur WBC Total Counted 0-5, Ur Squamous Epith Cells 0-5, Urine Mucus (Auto) Present, Ur Culture Indicated? No, Urine Test Negative, Urine Opiates Screen Negative, Ur Oxycodone Screen Negative, Ur Barbiturates Screen Negative, Ur Phencyclidine Scrn Negative, Ur Amphetamines Screen Negative, U Benzodiazepines Scrn Negative, Urine Cocaine Screen Negative, U Cannabinoids Screen Negative, Drug Screen Comment 04/27/24 00:40: Troponin I High Sens 7, Troponin I Hi Sens Del 0, Troponin I Hi Sen % Del 0 Radiology Interpretations: Ct head IMPRESSION: No acute intracranial finding. Electronically Signed: Coung Siddiqi MD at 0:09 EDT Reading Location ID and State: [facility] / [place] Tel , Service support , cc: Meg eSxton MD ([place]); Marianela Kaiser PA-C Dictated by: Cuong Shen MD on 04/27/[address] abdomen and pelvis with contrast IMPRESSION: No acute finding in the abdomen or pelvis. No inflammatory change. Electronically Signed: Cuong Siddiqi MD at 0:13 EDT Reading Location ID and State: [facility] / [place] Tel , Service support , cc: Meg Sexton MD ([place]); Marianela Kaiser PA-C Dictated by: Cuong Shen MD on 04/27/2412 Transcribed by: Cuong Shen MD on 04/27/2412 Report Signed by: Cuong Shen MD on 04/27/2412 XR chest IMPRESSION: No acute pulmonary finding. Electronically Signed: Cuong Siddiqi MD at 23:14 EDT , cc: Meg Sexton MD ([place]); Marianela Kaiser PA-C Dictated by: Cuong Shen MD on 04/26/242313 Transcribed by: Cuong Shen MD on 04/26/242313 Report Signed by: Cuong Shen MD on 04/26/24 EKG Interpretation EKG #1: EKG review date: 04/26/24 (Reviewed by Dr. Db Newell) EKG review time: 21:46 Computerized reading: Agree with computerized reading Interpretation: Normal EKG Comparison: No comparison available Heart rate: 131 Rate: Tachycardia Rhythm: Sinus tachycardia Vital Signs Vital Signs: Vital Signs Temp Pulse Resp BP Pulse Ox 04/27/24 02:23 157 H 18 149/99 H 98 04/27/24 02:04 140 H 18 149/99 H 98 04/26/24 21:54 170/115 H 04/26/24 21:32 98 F 131 H 18 98 Medical Decision Making MDM: HPI: Altered mental status PE: Alert and not oriented, and appropriately answers yes or no to questions, follows commands equally in all extremities, abdomen soft nontender, tachycardic Differential diagnoses include electrolyte balance, dehydration, seizure, UTI, pneumonia, ICH Laboratory studies/ imaging ordered today included CBC, CMP, PT, troponin, magnesium, ammonia, lactic acid, prolactin, UA, urine , urine drug screen, chest x-ray, CT head, CT abdomen/ pelvis I reviewed the patient's prior hospitalization/ER records from our EMR. Patient received normal saline IV fluids in our emergency department and felt symptomatically improved 0000: Care of the patient was transferred from Marianela Kaiser PA-C to Dr. Db Newell due to end of shift 0020: Case discussed with Dr. Barton. He will admit for further care of encephalopathy Shared Attending Note Shared Attending Note (HILDA 1,2,3): Cindy Stacy is a 33 y/o female presenting to the ED with chief complaint of altered mental status. Dr. Db Newell personally saw and evaluated the patient. Dr. Newell discussed the management with the FUAD and takes responsibility for the medical care of this patient. Examination findings are as follows: Constitutional: Awake and alert. HEENT: Head normocephalic and atraumatic. Eyes: Conjunctiva unremarkable. Cardiovascular: Heart rate regular. Pulmonary: Easy work at breathing, speaking in full sentences. Abdominal: Flat and non-distended. Skin: Warm and dry. Musculoskeletal: Moving all extremities spontaneously. Supervision/Review Statement Supervision/Review of Mid-Level Statement: I personally made/approved the management plan for this patient and take responsibility for the medical care of this patient. Dr. Db Newell Scribe Attestation Scribe Attestation: By electronically signing this emergency patient record, the Emergency Physician attests that all entries made into the electronic medical record by the scribe prior to the Physician electronic signature reflect an accurate accounting of the evaluation and care rendered by that Emergency Physician. The Emergency Physician assumes full responsibility for those entries. The Emergency Physician also attests that any patient testing and treatment that was instituted by nursing staff in accordance with Emergency Department Preemptive Guidelines have been reviewed and unless so stated elsewhere in this patient chart, the physician agrees with the testing and care provided. I, Yunier Ferro, documented the EKG and Shared Attending Note on behalf of Dr. Db Newell, and I was not present in the pt's examination room. Discharge Plan Discharge Patient Disposition: Admit from ER Condition: Good Chief Complaint: Psychiatric Problems Clinical Impression*: Encephalopathy ED Provider: Db Newell ED Midlevel Provider: Marianela Kaiser Discharge Orders: Admit Patient (Now); Ordered 04/27/24 Ordered By: Db Newell - Admit Provider: Isidro Barton cc: Meg Sexton MD ([place]) Dictated by: Marianela Kaisre PA-C on 04/26/242149 Transcribed by: Marianela Kaiser PA-C on 04/26/242149 Report Signed by: Marianela Kaiser PA-C on 04/27/24 1236 <<Signature on File>> < 0206 <<Signature on File>> <Electronically signed by Db Newell DO> Report Signed by: on Report Signed by: on [facility] Work Phone: [phone]) 450-622906-14-2024 Progress note Author Marianela Kaiser [facility] April 27, 2024 12:36pm Note Date/Time April 26, 2024 9:51 pm [facility] Patient: CINDY STACY. : 1990 [place], [place] [address] Location: [address] [place] [address] Unit #: [id number] ER Physician Documentation Service Date:04/26/24 ER Provider: Db Newell DO HPI - Psych Disorder - Time Seen by Provider: 04/26/24 21:32 History of Present Illness Stated Complaint: PSYCH issues History of Present Illness: Patient is a 33-year-old female who presents ED for evaluation of altered mentalstatus. Patient does have a history of MRDD and resides at [facility]. Patient also has a history of seizures. Staff states patient has been slowly declining over the past couple of days and is not functioning as she was normally. Generally patient can ambulate and self feed and has not been eating or ambulating at all. They state the patient does not converse eating or answering any questions. They state they did a UA yesterday that was negative. RN did speak with father over the phone who states that the patient does act like this prior and post seizure. Patient is not answering any questions appropriately. No other complaints at this time. Review of Systems Review of Systems Unable to obtain full review of systems: Due to acuity Past Family Social History Medical & Surgical History: Medical History (Updated 04/27/24 @ 02:43 by Isidro Barton MD) Delay of cognitive development Dysphagia HTN (hypertension) Seizure Depression Failure to thrive in adult Surgical History (Updated 04/27/24 @ 02:39 by Isidro Barton MD) No pertinent past surgical history Social History: Caffeine Amount: 3-4/Day Current Alcohol Amount: None Smoking Status: Never smoked Family History: (Updated 04/27/24 @ 02:40 by Isidro Barton MD) Denies family history of No pertinent family history Exam Physical Exam: Patient presentation: Well appearing and No apparent distress General Skin: Warm and Dry General Habitus: Normal General Mental Status:Alert General hydration: Moist mucous membranes ENT Exam: ENT Exam: Pharynx normal and Neck supple Eye Exam: Eye exam: PERRL, EOMI and Conjunctivi normal Cardiovascular Exam: Cardiovascular Exam: No edema and Tachycardia Heart sounds: Normal Pulmonary Exam: Pulmonary exam: Lungs clear, No respiratory distress and Chestnon-tender Respirations: Normal Gastrointestinal Exam: Gastrointestinal Exam: Normal bowel sounds, non tender,Soft, No organomegaly and Non distended Auscultation of Abdomen: Normal Musculoskeletal Exam: Musculoskeletal Exam: Full ROM, No edema and Neurovascular intact Skin Exam: Skin Exam - normals: Intact, Warm,dry and No rash Neurovascular Exam: Neurological Exam: Alert and No motor deficits; denies Oriented x 3 Sammy Coma Scale: Best eye response: Spontaneously Best verbal response: Oriented Best motor response: Obeys commands Crawford Coma Score: 15 Orders/Results Orders: Orders Category Date Time Status Admit Patient Now ADT 04/27/24 00:27 Active Activity, Ambulate As Directed Activity 04/27/24 00:17 Ordered Case Management Consult Routine CONSOTHER 04/27/24 00:[address] Abd/Pelvis W/Contrast [id number] Scan 04/26/24 21:[address] Head Without Contrast [id number] Scan 04/26/24 21:49 Completed Electrocardiogram 12 Lead Stat CTC 04/26/24 21:49 Completed Apply/Monitor Telemetry As directed Care 04/27/24 00:27 Active Obtain EKG (Information only) NOW Care 04/26/24 21:49 Completed Code Status Routine Code 04/27/24 00:17 Ordered ED Admit Delay Q1HPRN ED Tx 04/27/24 00:27 Active ED Cardiac Monitoring .CONTINUOUSLY ED Tx 04/26/24 21:47 Active ED Insert INT NOW ED Tx 04/26/24 21:47 Active ED NIBP Monitoring . DIRECTED ED Tx 04/26/24 21:47 Active XR Chest 1 View Portable Stat Exams 04/26/24 21:47 Completed Ammonia Urgent Lab 04/26/24 22:03 Completed Basic Metabolic,Non-Fasting IN AM Lab 04/27/24 08:04 Completed Basic Metabolic,Non-Fasting IN AM Lab 04/28/24 04:00 Ordered Basic Metabolic,Non-Fasting IN AM Lab 04/29/24 04:00 Ordered Basic Metabolic,Non-Fasting IN AM Lab 04/30/24 04:00 Ordered Basic Metabolic,Non-Fasting IN AM Lab 05/01/24 04:00 Ordered Basic Metabolic,Non-Fasting IN AM Lab 05/02/24 04:00 Ordered Basic Metabolic,Non-Fasting IN AM Lab 05/03/24 04:00 Ordered CBC with Differential IN AM Lab 04/27/24 08:04 Completed CBC with Differential IN AM Lab 04/28/24 04:00 Ordered CBC with Differential IN AM Lab 04/29/24 04:00 Ordered CBC with Differential IN AM Lab 04/30/24 04:00 Ordered CBC with Differential IN AM Lab 05/01/24 04:00 Ordered CBC with Differential IN AM Lab 05/02/24 04:00 Ordered CBC with Differential IN AM Lab 05/03/24 04:00 Ordered CBC with Differential Urgent Lab 04/26/24 22:03 Completed Comprehensive Metabolic Panel Urgent Lab 04/26/24 22:03 Completed D-Dimer Urgent Lab 04/26/24 22:03 Completed Drug Screen Urine Urgent Lab 04/26/24 23:23 Completed Lactic Acid Stat Lab 04/26/24 22:03 Completed Magnesium IN AM Lab 04/27/24 08:04 Completed Magnesium IN AM Lab 04/28/24 04:00 Ordered Magnesium IN AM Lab 04/29/24 04:00 Ordered Magnesium IN AM Lab 04/30/24 04:00 Ordered Magnesium IN AM Lab 05/01/24 04:00 Ordered Magnesium IN AM Lab 05/02/24 04:00 Ordered Magnesium IN AM Lab 05/03/24 04:00 Ordered Magnesium Urgent Lab 04/26/24 22:03 Completed Prolactin Urgent Lab 04/26/24 22:03 Completed Prothrombin Time Urgent Lab 04/26/24 22:03 Completed Urinalysis w Micro Rflx Cult Urgent Lab 04/26/24 23:23 Completed Urine Urgent Lab 04/26/24 23:23 Completed hs Troponin I Profile Stat Lab 04/26/24 22:03 Completed hs Troponin I Profile Urgent Lab 04/27/24 00:40 Completed Acetaminophen [Tylenol] Med 04/27/24 00:17 Active 650 mg PO Q6HPRN PRN Calcium Replacement Protocol [Calcium Replacement Med 04/27/24 00:17 Active Protocol.] 1 wm STONER DIRECTED PRN Docusate Sodium [Colace] Med 04/27/24 00:17 Active 100 mg PO BIDPRN PRN LORazepam [Ativan] Med 04/27/24 00:03 Discontinued 1 mg IV PUSH NOW ONE LORazepam [Ativan] Med 04/26/24 23:41 Discontinued 1 mg IV PUSH NOW STA LORazepam [Ativan] Med 04/26/24 23:19 Discontinued 2 mg .ROUTE .STK-MED ONE Magnesium Replacement Protocol [Magnesium Replacement Med 04/27/24 00:17 Active Protocol.] 1 wm STONER DIRECTED PRN Melatonin [Melatonin.] Med 04/27/24 00:17 Discontinued 3 mg PO QHSMRX1 PRN Ns 1,000 ml Med 04/27/24 00:30 Active IV DIRECTED Ns 1,000 ml Med 04/26/24 21:51 Discontinued IV BOLUS Omnipaque 300 [Omnipaquie 300 IV Contrast Dose] Med 04/26/24 23:53 Discontinued 1 dose IV NOW STA Ondansetron [Zofran] Med 04/27/24 00:17 Active 4 mg IV PUSH Q6HPRN PRN Phosphorus Replacement Protoco [Phosphorus Replacement Med 04/27/24 00:17 Active Protocol.] 1 wm STONER DIRECTED PRN Polyethylene Glycol Packet [Miralax Packet] Med 04/27/24 00:17 Active 17 gm PO DAILYPRN PRN Potassium Replacement Protocol [Potassium Replacement Med 04/27/24 00:17 Active Protocol.] 1 wm STONER DIRECTED PRN Ziprasidone Mesylate Inj [Geodon Inj] Med 04/27/24 00:19 Active 10 mg IM Q6HPRN PRN diphenhydrAMINE HCL [Benadryl] Med 04/27/24 00:17 Active 25 mg PO QHSPRN PRN Place INT/IV As Directed ABDI GEN 04/27/24 00:18 Ordered Vital Signs As Directed ABDI GEN 04/27/24 00:17 Ordered Pulse Oximeter Monitoring Continuously RESP 04/26/24 21:48 Completed Laboratory Results: Laboratory 04/26/24 22:03: WBC 7.6, RBC 4.82, Hgb 13.6, Hct 40.5, MCV 84.0, MCH 28.3, MCHC 33.6, RDW 15.6, Plt Count 318, Neut % (Auto) 74.4 H, Lymph % (Auto) 17.6, Wells % (Auto) 7.4, Eos % (Auto) 0.0, Baso % (Auto) 0.6, Nucleat RBC Rel Count 0.0, Absolute Neuts (auto) 5700, Absolute Lymphs (auto) 1300, Absolute Monos (auto) 600, Absolute Eos (auto) 0, Absolute Basos (auto) 0, PT 13.0, INR 1.09, D-Dimer 83, Sodium 136, Potassium 3.5 L, Chloride 105, Carbon Dioxide 23, Anion Gap 8, BUN 19, Creatinine 0.83, GFR Calculation > 60, Random Glucose 104, Lactic Acid 1.0, Calcium 9.30, Magnesium 2.0, Total Bilirubin 0.4, AST 13 L, ALT 12, Alkaline Phosphatase 55, Ammonia 21, Troponin I High Sens 7, Total Protein 7.6, Albumin 4.2, Albumin/Globulin Ratio 1.2 L, Prolactin 36.55 H 04/26/24 23:23: Urine Color Yellow, Urine Appearance Clear, Urine pH 5.5, Ur Specific [place] 1.028, Urine Protein 20 mg/dl, Urine Glucose (UA) Negative, Urine Ketones Negative, Urine Blood Negative, Urine Nitrite Negative, Urine Bilirubin Negative, Urine Urobilinogen <2.0 mg/dL, Ur Leukocyte Esterase Negative, Urine RBC 0-2, Ur WBC Total Counted 0-5, Ur Squamous Epith Cells 0-5, Urine Mucus (Auto) Present, Ur Culture Indicated? No, Urine Test Negative, Urine Opiates Screen Negative, Ur Oxycodone Screen Negative, Ur Barbiturates Screen Negative, Ur Phencyclidine Scrn Negative, Ur Amphetamines Screen Negative, U Benzodiazepines Scrn Negative, Urine Cocaine Screen Negative, U Cannabinoids Screen Negative, Drug Screen Comment 04/27/24 00:40: Troponin I High Sens 7, Troponin I Hi Sens Del 0, Troponin I Hi Sen % Del 0 Radiology Interpretations: Ct head IMPRESSION: No acute intracranial finding. Electronically Signed: Cuong Siddiqi MD at 0:09 EDT Reading Location ID and State: [facility] / [place] Tel , Service support , cc: Meg Sexton MD ([place]); Marianela Kaiser PA-C Dictated by: Cuong Shen MD on 04/27/[address] abdomen and pelvis with contrast IMPRESSION: No acute finding in the abdomen or pelvis. No inflammatory change. Electronically Signed: Cuong Siddiqi MD at 0:13 EDT , cc: Meg Sextno MD ([place]); Marianela Kaiser PA-C Dictated by: Cuong Shen MD on 04/27/2412 Transcribed by: Cuong Shen MD on 04/27/2412 Report Signed by: Cuong Shen MD on 04/27/2412 XR chest IMPRESSION: No acute pulmonary finding. Electronically Signed: Cuong Siddiqi MD at 23:14 EDT , cc: Meg Sexton MD ([place]); Marianela Kaiser PA-C Dictated by: Cuong Shen MD on 04/26/242313 Transcribed by: Cuong Shen MD on 04/26/242313 Report Signed by: Cuong Shen MD on 04/26/24 EKG Interpretation EKG #1: EKG review date: 04/26/24 (Reviewed by Dr. Db Newell) EKG review time: 21:46 Computerized reading: Agree with computerized reading Interpretation: Normal EKG Comparison: No comparison available Heart rate: 131 Rate: Tachycardia Rhythm: Sinus tachycardia Vital Signs Vital Signs: Vital Signs Temp Pulse Resp BP Pulse Ox 04/27/24 02:23 157 H 18 149/99 H 98 04/27/24 02:04 140 H 18 149/99 H 98 04/26/24 21:54 170/115 H 04/26/24 21:32 98 F 131 H 18 98 Medical Decision Making MDM: HPI: Altered mental status PE: Alert and not oriented, and appropriately answers yes or no to questions, follows commands equally in all extremities, abdomen soft nontender, tachycardic Differential diagnoses include electrolyte balance, dehydration, seizure, UTI, pneumonia, ICH Laboratory studies/ imaging ordered today included CBC, CMP, PT, troponin, magnesium, ammonia, lactic acid, prolactin, UA, urine , urine drug screen, chest x-ray, CT head, CT abdomen/ pelvis I reviewed the patient's prior hospitalization/ER records from our EMR. Patient received normal saline IV fluids in our emergency department and felt symptomatically improved 0000: Care of the patient was transferred from Marianela Kaiser PA-C to Dr. Db Newell due to end of shift 0020: Case discussed with Dr. Barton. He will admit for further care of encephalopathy Shared Attending Note Shared Attending Note (HILDA 1,2,3): Cindy Stacy is a 33 y/o female presenting to the ED with chief complaint of altered mental status. Dr. Db Newell personally saw and evaluated the patient. Dr. Newell discussed the management with the FUAD and takes responsibility for the medical care of this patient. Examination findings are as follows: Constitutional: Awake and alert. HEENT: Head normocephalic and atraumatic. Eyes: Conjunctiva unremarkable. Cardiovascular: Heart rate regular. Pulmonary: Easy work at breathing, speaking in full sentences. Abdominal: Flat and non-distended. Skin: Warm and dry. Musculoskeletal: Moving all extremities spontaneously. Supervision/Review Statement Supervision/Review of Mid-Level Statement: I personally made/approved the management plan for this patient and take responsibility for the medical care of this patient. Dr. Db Newell Scribe Attestation Scribe Attestation: By electronically signing this emergency patient record, the Emergency Physician attests that all entries made into the electronic medical record by the scribe prior to the Physician electronic signature reflect an accurate accounting of the evaluation and care rendered by that Emergency Physician. The Emergency Physician assumes full responsibility for those entries. The Emergency Physician also attests that any patient testing and treatment that was instituted by nursing staff in accordance with Emergency Department Preemptive Guidelines have been reviewed and unless so stated elsewhere in this patient chart, the physician agrees with the testing and care provided. I, Yunier Ferro, documented the EKG and Shared Attending Note on behalf of Dr. Db Newell, and I was not present in the pt's examination room. Discharge Plan Discharge Patient Disposition: Admit from ER Condition: Good Chief Complaint: Psychiatric Problems Clinical Impression*: Encephalopathy ED Provider: Db Newell ED Midlevel Provider: Marianela Kaiser Discharge Orders: Admit Patient (Now); Ordered 04/27/24 Ordered By: Db Newell - Admit Provider: Isidro Barton cc: Meg Sexton MD ([place]) Dictated by: Marianela Kaiser PA-C on 04/26/242149 Transcribed by: Marianela Kaiser PA-C on 04/26/242149 Report Signed by: Marianela Kaiser PA-C on 04/27/24 1236 <<Signature on File>> < 0206 <<Signature on File>> <Electronically signed by Db Newell DO> Report Signed by: on Report Signed by: on [facility] Work Phone: 1(571) 551-891106-14-2024 Progress note Author Vanessa Anne [facility] April 27, 2024 10:51am Note Date/Time April 27, 2024 10:5 1am [facility] Medical Records Patient: CINDY STACY [address]. : 1990 [place], [place] [address] Location: [facility] [phone] [id number] Status Note/Update Vanessa Anne MD Service Dt/Tm: 04/27/24 1050 Note: CINDY STACY is a 33 yr old F who was admitted on 04/27/24 for Encephalopathy. 33-year-old female with MRDD who was admitted earlier today by my partner with encephalopathy. No infectious etiology identified at this point. MRI brain and neurology evaluation is pending Okay to give Valium 5 mg prior to MRI study. Continue IV fluids I discussed with the RN. Entered by: Vanessa Anne on 04/27/24 1050 Report Signed by: Vanessa Anne MD on 04/27/24 1051 <<Signature on File>> <Electronically signed by Vanessa Anne MD> Report Signed by: on [facility] Work Phone: 1(878) 467-632806-14-2024 Progress note Author Vanessa Anne [facility] April 27, 2024 10:51am Note Date/Time April 27, 2024 10:5 1am [facility] Medical Records Patient: CINDY STACY. : 1990 [place] [id number] Location: [address] [place] [address] Unit #: [id number] Status Note/Update Vanessa Anne MD Service Dt/Tm: 04/27/24 1050 Note: CINDY STACY is a 33 yr old F who was admitted on 04/27/24 for Encephalopathy. 33-year-old female with MRDD who was admitted earlier today by my partner with encephalopathy. No infectious etiology identified at this point. MRI brain and neurology evaluation is pending Okay to give Valium 5 mg prior to MRI study. Continue IV fluids I discussed with the RN. Entered by: Vanessa Anne on 04/27/24 1050 Report Signed by: Vanessa Anne MD on 04/27/24 1051 <<Signature on File>> <Electronically signed by Vanessa Anne MD> Report Signed by: on [facility] Work Phone: 1([phone]) 912-387206-14-2024 History and physical note Author Isidro Barton [facility] April 27, 2024 2:44am Note Date/Time April 27, 2024 1:18 am [facility] Medical Records Patient: CINDY STACY. : 1990 [place] [address] Location: [address] [place] [address] Unit #: [id number] History and Physical Isidro Barton MD Date of Entry Into Hospital: 04/27/24 Date of Service: 04/27/24 Time Seen: 01:30 Patient Information: Primary Care Provider: Meg Sexton MD ([facility]) Chief Complaint: Encephalopathy History Obtained From: Patient History of Present Illness: 33-year-old female with history of MRDD presenting with worsening altered mentalstatus, episodes of agitation which has been progressively going on and getting worse. Per documentation, this is not pt's baseline, and will typically have this prior to and after a seizure episode. No slurred speech, significant weakness on one side, chest pain, palpitation, sob, nausea, vomiting, abdominal pain, change in urinary or bowel habits. Pt was noted to be significantly tachycardic in the ER with heart rate in the 150s. CT head is negative for any acute intracranial pathology, received IV fluid 1 L bolus, IV Ativan 1 mg x 2. Patient Registration Status: Inpatient Allergies/Adverse Reactions No Known Drug Allergies Allergy (Verified 04/26/24 23:57) Home Medications acetaminophen 325 mg tablet 650 mg PO Q8HPRN PRN Pain 04/26/24 [Confirmed 04/26/24] medroxyprogesterone 150 mg/mL intramuscular syringe 150 mg IM Q3M 04/26/24 [Confirmed 04/26/24] melatonin 3 mg tablet 6 mg PO QHS 04/26/24 [Confirmed 04/26/24] polymyxin B sulfate 10,000 unit-trimethoprim 1 mg/mL eye drops 1 drop EYE,BOTH QID 04/26/24 [Confirmed 04/26/24] quetiapine 25 mg tablet 12.5 mg PO BID 04/26/24 [Confirmed 04/26/24] Past Medical History Medical History (Updated 04/27/24 @ 02:43 by Isidro Barton MD) Delay of cognitive development Dysphagia HTN (hypertension) Seizure Depression Failure to thrive in adult Past Surgical History Surgical History (Updated 04/27/24 @ 02:39 by Isidro Barton MD) No pertinent past surgical history Social History Caffeine Amount: 3-4/Day Current Alcohol Amount: None Smoking Status: Never smoked Family History (Updated 04/27/24 @ 02:40 by Isidro Barton MD) Denies family history of No pertinent family history Review of Systems Constitutional: Negative Eyes: Negative ENT: Negative Respiratory: Negative Cardiovascular: Negative Gastrointestinal: Negative Genitourinary: Negative Musculoskeletal: Negative Skin: Negative Neurological: Confusion Physical Exam Last Vital Signs Temp Pulse Resp BP Pulse Ox 98 F 131 H 18 170/115 H 98 04/26/24 21:32 04/26/24 21:32 04/26/24 21:32 04/26/24 21:54 04/26/24 21:32 Height (Ft & In) 5 ft 4 in Admitting (IV Pump) Weight 64 kg Actual Weight (Kg) 64 kg General Appearance: Acute Distress and Other (Episodes of agitation) Eyes: PERRLA and EOMI ENT: Normal Inspection and Pharynx Normal Neck: Normal Inspection Skin: Color Normal and Warm, Dry Cardiovascular: Regular Rate and Rhythm, Rate Controlled, Normal PMI and S1 S2 Left Lung: Throughout: Clear, Left Lower Lobe: Clear and Left Base: Clear Right Lung: Throughout: Clear, Right Middle Lobe: Clear and Right Base: Clear Lungs: Good Air Entry Abdomen: Soft, Bowel Sounds and BM Extremities: Activity as expected Neurologic: Other (Patient appears altered with episodes of agitation.) Psychological: Agitated and Confused Laboratory Last Values WBC 7.6 th/cmm (4.4-10.5) 04/26/24 22:03 RBC 4.82 mil/cmm (4.00-5.10) 04/26/24 22:03 Hgb 13.6 gm/dL (12.0-15.0) 04/26/24 22:03 Hct 40.5 % (35.0-44.0) 04/26/24 22:03 MCV 84.0 CU RK (80-97) 04/26/24 22:03 MCH 28.3 PG (27.5-33.0) 04/26/24 22:03 MCHC 33.6 gm/dL (33.0-36.0) 04/26/24 22:03 RDW 15.6 % (12.0-16.0) 04/26/24 22:03 Plt Count 318 th/cmm (150-400) 04/26/24 22:03 Neut % (Auto) 74.4 % (40-70) H 04/26/24 22:03 Lymph % (Auto) 17.6 % (15-45) 04/26/24 22:03 Wells % (Auto) 7.4 % (2-10) 04/26/24 22:03 Eos % (Auto) 0.0 % (0-6) 04/26/24 22:03 Baso % (Auto) 0.6 % (0-2) 04/26/24 22:03 Nucleat RBC Rel Count 0.0 /100 WBC (<1) 04/26/24 22:03 Absolute Neuts (auto) 5700 /cmm (7502-5256) 04/26/24 22:03 Absolute Lymphs (auto) 1300 /cmm (9545-1872) 04/26/24 22:03 Absolute Monos (auto) 600 /cmm (0-800) 04/26/24 22:03 Absolute Eos (auto) 0 /cmm (0-500) 04/26/24 22:03 Absolute Basos (auto) 0 /cmm (0-200) 04/26/24 22:03 PT 13.0 Sec (9.6-13.3) 04/26/24 22:03 INR 1.09 (0.9-1.2) 04/26/24 22:03 D-Dimer 83 ng/mL (<230) 04/26/24 22:03 Sodium 136 mEq/L (135-145) 04/26/24 22:03 Potassium 3.5 mEq/L (3.6-5.0) L 04/26/24 22:03 Chloride 105 mEq/L (101-111) 04/26/24 22:03 Carbon Dioxide 23 mEq/L (21-32) 04/26/24 22:03 Anion Gap 8 (4-12) 04/26/24 22:03 BUN 19 mg/dL (7-20) 04/26/24 22:03 Creatinine 0.83 mg/dL (0.60-1.30) 04/26/24 22:03 GFR Calculation > 60 (60-) 04/26/24 22:03 Random Glucose 104 mg/dL (70-110) 04/26/24 22:03 Lactic Acid 1.0 mmol/L (0.5-2.0) 04/26/24 22:03 Calcium 9.30 mg/dL (8.8-10.5) 04/26/24 22:03 Magnesium 2.0 mg/dL (1.8-2.5) 04/26/24 22:03 Total Bilirubin 0.4 mg/dL (0.2-1.0) 04/26/24 22:03 AST 13 IU/L (15-41) L 04/26/24 22:03 ALT 12 IU/L (10-40) 04/26/24 22:03 Alkaline Phosphatase 55 IU/L (39-118) 04/26/24 22:03 Ammonia 21 umol/L (11-35) 04/26/24 22:03 Troponin I High Sens 7 ng/L (0-15) 04/27/24 00:40 Troponin I Hi Sens Del 0 ng/L (0-4) 04/27/24 00:40 Troponin I Hi Sen % Del 0 % (0-20) 04/27/24 00:40 Total Protein 7.6 g/dL (6.2-8.0) 04/26/24 22:03 Albumin 4.2 g/dL (3.5-5.0) 04/26/24 22:03 Albumin/Globulin Ratio 1.2 (1.5-2.5) L 04/26/24 22:03 Prolactin 36.55 ng/mL (3.34-26.72) H 04/26/24 22:03 Urine Color Yellow 04/26/24 23:23 Urine Appearance Clear 04/26/24 23:23 Urine pH 5.5 (5.0-8.0) 04/26/24 23:23 Ur Specific [place] 1.028 (1.000-1.035) 04/26/24 23:23 Urine Protein 20 mg/dl (Negative) 04/26/24 23:23 Urine Glucose (UA) Negative (Negative) 04/26/24 23:23 Urine Ketones Negative (Negative) 04/26/24 23:23 Urine Blood Negative (Negative) 04/26/24 23:23 Urine Nitrite Negative (Negative) 04/26/24 23:23 Urine Bilirubin Negative (Negative) 04/26/24 23:23 Urine Urobilinogen <2.0 mg/dL (0.2-1.0) 04/26/24 23:23 Ur Leukocyte Esterase Negative (Negative) 04/26/24 23:23 Urine RBC 0-2 /HPF 04/26/24 23:23 Ur WBC Total Counted 0-5 /HPF 04/26/24 23:23 Ur Squamous Epith Cells 0-5 /HPF 04/26/24 23:23 Urine Mucus (Auto) Present 04/26/24 23:23 Ur Culture Indicated? No 04/26/24 23:23 Urine Test Negative (Negative) 04/26/24 23:23 Urine Opiates Screen Negative (Negative) 04/26/24 23:23 Ur Oxycodone Screen Negative (Negative) 04/26/24 23:23 Ur Barbiturates Screen Negative (Negative) 04/26/24 23:23 Ur Phencyclidine Scrn Negative (Negative) 04/26/24 23:23 Ur Amphetamines Screen Negative (Negative) 04/26/24 23:23 U Benzodiazepines Scrn Negative (Negative) 04/26/24 23:23 Urine Cocaine Screen Negative (Negative) 04/26/24 23:23 U Cannabinoids Screen Negative (Negative) 04/26/24 23:23 Drug Screen Comment 04/26/24 23:23 Diagnostic Data: 04/26/24 21:47 CT Abd/Pelvis W/Contrast 58558 Stat XR Chest 1 View Portable Stat 04/26/24 21:49 CT Head Without Contrast 52188 Stat Assessment/Plan (1) Encephalopathy: Status: Acute Plan: -Acute metabolic encephalopathy of unclear etiology in a pt with history of MRDD -Appears not to be her baseline, no focal neurological deficit, UA negative -Prolactin significantly elevated, CT head negative for any acute intracranial pathology -Will plan for MRI of the brain in the morning, IM ziprasidone prn for agitation, sitter, neurology consult (2) Sinus tachycardia: Status: Acute Plan: -Sinus tachycardia with heart rate in the 140s to 150s -EKG showed sinus tachycardia, D-dimer is negative. -Received 1 L ns bolus, will maintain on NS at 100/h, start IV Lopressor prn cc: Isidro Barton MD; Meg Sexton MD ([place]) Dictated by: Isidro Barton MD on 04/27/24117 Entered by: Isidro Barton MD on 04/27/24117 Report Signed by: Isidro Barton MD on 04/27/24 0244 <<Signature on File>> <Electronically signed by Isidro Barton MD> Report Signed by: on [facility] Work Phone: [phone]) 620-818306-14-2024 History and physical note Author Isidro Barton [facility] April 27, 2024 2:44am Note Date/Time April 27, 2024 1:18 am [facility] Medical Records Patient: CINDY STACY. : 1990 [place], [place] [address] Location: [facility] [phone] Unit #: [id number] History and Physical Isidro Barton MD Date of Entry Into Hospital: 04/27/24 Date of Service: 04/27/24 Time Seen: 01:30 Patient Information: Primary Care Provider: Meg Sexton MD ([facility]) Chief Complaint: Encephalopathy History Obtained From: Patient History of Present Illness: 33-year-old female with history of MRDD presenting with worsening altered mentalstatus, episodes of agitation which has been progressively going on and getting worse. Per documentation, this is not pt's baseline, and will typically have this prior to and after a seizure episode. No slurred speech, significant weakness on one side, chest pain, palpitation, sob, nausea, vomiting, abdominal pain, change in urinary or bowel habits. Pt was noted to be significantly tachycardic in the ER with heart rate in the 150s. CT head is negative for any acute intracranial pathology, received IV fluid 1 L bolus, IV Ativan 1 mg x 2. Patient Registration Status: Inpatient Allergies/Adverse Reactions No Known Drug Allergies Allergy (Verified 04/26/24 23:57) Home Medications acetaminophen 325 mg tablet 650 mg PO Q8HPRN PRN Pain 04/26/24 [Confirmed 04/26/24] medroxyprogesterone 150 mg/mL intramuscular syringe 150 mg IM Q3M 04/26/24 [Confirmed 04/26/24] melatonin 3 mg tablet 6 mg PO QHS 04/26/24 [Confirmed 04/26/24] polymyxin B sulfate 10,000 unit-trimethoprim 1 mg/mL eye drops 1 drop EYE,BOTH QID 04/26/24 [Confirmed 04/26/24] quetiapine 25 mg tablet 12.5 mg PO BID 04/26/24 [Confirmed 04/26/24] Past Medical History Medical History (Updated 04/27/24 @ 02:43 by Iisdro Barton MD) Delay of cognitive development Dysphagia HTN (hypertension) Seizure Depression Failure to thrive in adult Past Surgical History Surgical History (Updated 04/27/24 @ 02:39 by Isidro Barton MD) No pertinent past surgical history Social History Caffeine Amount: 3-4/Day Current Alcohol Amount: None Smoking Status: Never smoked Family History (Updated 04/27/24 @ 02:40 by Isidro Barton MD) Denies family history of No pertinent family history Review of Systems Constitutional: Negative Eyes: Negative ENT: Negative Respiratory: Negative Cardiovascular: Negative Gastrointestinal: Negative Genitourinary: Negative Musculoskeletal: Negative Skin: Negative Neurological: Confusion Physical Exam Last Vital Signs Temp Pulse Resp BP Pulse Ox 98 F 131 H 18 170/115 H 98 04/26/24 21:32 04/26/24 21:32 04/26/24 21:32 04/26/24 21:54 04/26/24 21:32 Height (Ft & In) 5 ft 4 in Admitting (IV Pump) Weight 64 kg Actual Weight (Kg) 64 kg General Appearance: Acute Distress and Other (Episodes of agitation) Eyes: PERRLA and EOMI ENT: Normal Inspection and Pharynx Normal Neck: Normal Inspection Skin: Color Normal and Warm, Dry Cardiovascular: Regular Rate and Rhythm, Rate Controlled, Normal PMI and S1 S2 Left Lung: Throughout: Clear, Left Lower Lobe: Clear and Left Base: Clear Right Lung: Throughout: Clear, Right Middle Lobe: Clear and Right Base: Clear Lungs: Good Air Entry Abdomen: Soft, Bowel Sounds and BM Extremities: Activity as expected Neurologic: Other (Patient appears altered with episodes of agitation.) Psychological: Agitated and Confused Laboratory Last Values WBC 7.6 th/cmm (4.4-10.5) 04/26/24 22:03 RBC 4.82 mil/cmm (4.00-5.10) 04/26/24 22:03 Hgb 13.6 gm/dL (12.0-15.0) 04/26/24 22:03 Hct 40.5 % (35.0-44.0) 04/26/24 22:03 MCV 84.0 CU RK (80-97) 04/26/24 22:03 MCH 28.3 PG (27.5-33.0) 04/26/24 22:03 MCHC 33.6 gm/dL (33.0-36.0) 04/26/24 22:03 RDW 15.6 % (12.0-16.0) 04/26/24 22:03 Plt Count 318 th/cmm (150-400) 04/26/24 22:03 Neut % (Auto) 74.4 % (40-70) H 04/26/24 22:03 Lymph % (Auto) 17.6 % (15-45) 04/26/24 22:03 Wells % (Auto) 7.4 % (2-10) 04/26/24 22:03 Eos % (Auto) 0.0 % (0-6) 04/26/24 22:03 Baso % (Auto) 0.6 % (0-2) 04/26/24 22:03 Nucleat RBC Rel Count 0.0 /100 WBC (<1) 04/26/24 22:03 Absolute Neuts (auto) 5700 /cmm (4237-1276) 04/26/24 22:03 Absolute Lymphs (auto) 1300 /cmm (7196-3348) 04/26/24 22:03 Absolute Monos (auto) 600 /cmm (0-800) 04/26/24 22:03 Absolute Eos (auto) 0 /cmm (0-500) 04/26/24 22:03 Absolute Basos (auto) 0 /cmm (0-200) 04/26/24 22:03 PT 13.0 Sec (9.6-13.3) 04/26/24 22:03 INR 1.09 (0.9-1.2) 04/26/24 22:03 D-Dimer 83 ng/mL (<230) 04/26/24 22:03 Sodium 136 mEq/L (135-145) 04/26/24 22:03 Potassium 3.5 mEq/L (3.6-5.0) L 04/26/24 22:03 Chloride 105 mEq/L (101-111) 04/26/24 22:03 Carbon Dioxide 23 mEq/L (21-32) 04/26/24 22:03 Anion Gap 8 (4-12) 04/26/24 22:03 BUN 19 mg/dL (7-20) 04/26/24 22:03 Creatinine 0.83 mg/dL (0.60-1.30) 04/26/24 22:03 GFR Calculation > 60 (60-) 04/26/24 22:03 Random Glucose 104 mg/dL (70-110) 04/26/24 22:03 Lactic Acid 1.0 mmol/L (0.5-2.0) 04/26/24 22:03 Calcium 9.30 mg/dL (8.8-10.5) 04/26/24 22:03 Magnesium 2.0 mg/dL (1.8-2.5) 04/26/24 22:03 Total Bilirubin 0.4 mg/dL (0.2-1.0) 04/26/24 22:03 AST 13 IU/L (15-41) L 04/26/24 22:03 ALT 12 IU/L (10-40) 04/26/24 22:03 Alkaline Phosphatase 55 IU/L (39-118) 04/26/24 22:03 Ammonia 21 umol/L (11-35) 04/26/24 22:03 Troponin I High Sens 7 ng/L (0-15) 04/27/24 00:40 Troponin I Hi Sens Del 0 ng/L (0-4) 04/27/24 00:40 Troponin I Hi Sen % Del 0 % (0-20) 04/27/24 00:40 Total Protein 7.6 g/dL (6.2-8.0) 04/26/24 22:03 Albumin 4.2 g/dL (3.5-5.0) 04/26/24 22:03 Albumin/Globulin Ratio 1.2 (1.5-2.5) L 04/26/24 22:03 Prolactin 36.55 ng/mL (3.34-26.72) H 04/26/24 22:03 Urine Color Yellow 04/26/24 23:23 Urine Appearance Clear 04/26/24 23:23 Urine pH 5.5 (5.0-8.0) 04/26/24 23:23 Ur Specific [place] 1.028 (1.000-1.035) 04/26/24 23:23 Urine Protein 20 mg/dl (Negative) 04/26/24 23:23 Urine Glucose (UA) Negative (Negative) 04/26/24 23:23 Urine Ketones Negative (Negative) 04/26/24 23:23 Urine Blood Negative (Negative) 04/26/24 23:23 Urine Nitrite Negative (Negative) 04/26/24 23:23 Urine Bilirubin Negative (Negative) 04/26/24 23:23 Urine Urobilinogen <2.0 mg/dL (0.2-1.0) 04/26/24 23:23 Ur Leukocyte Esterase Negative (Negative) 04/26/24 23:23 Urine RBC 0-2 /HPF 04/26/24 23:23 Ur WBC Total Counted 0-5 /HPF 04/26/24 23:23 Ur Squamous Epith Cells 0-5 /HPF 04/26/24 23:23 Urine Mucus (Auto) Present 04/26/24 23:23 Ur Culture Indicated? No 04/26/24 23:23 Urine Test Negative (Negative) 04/26/24 23:23 Urine Opiates Screen Negative (Negative) 04/26/24 23:23 Ur Oxycodone Screen Negative (Negative) 04/26/24 23:23 Ur Barbiturates Screen Negative (Negative) 04/26/24 23:23 Ur Phencyclidine Scrn Negative (Negative) 04/26/24 23:23 Ur Amphetamines Screen Negative (Negative) 04/26/24 23:23 U Benzodiazepines Scrn Negative (Negative) 04/26/24 23:23 Urine Cocaine Screen Negative (Negative) 04/26/24 23:23 U Cannabinoids Screen Negative (Negative) 04/26/24 23:23 Drug Screen Comment 04/26/24 23:23 Diagnostic Data: 04/26/24 21:47 CT Abd/Pelvis W/Contrast 14694 Stat XR Chest 1 View Portable Stat 04/26/24 21:49 CT Head Without Contrast 23514 Stat Assessment/Plan (1) Encephalopathy: Status: Acute Plan: -Acute metabolic encephalopathy of unclear etiology in a pt with history of MRDD -Appears not to be her baseline, no focal neurological deficit, UA negative -Prolactin significantly elevated, CT head negative for any acute intracranial pathology -Will plan for MRI of the brain in the morning, IM ziprasidone prn for agitation, sitter, neurology consult (2) Sinus tachycardia: Status: Acute Plan: -Sinus tachycardia with heart rate in the 140s to 150s -EKG showed sinus tachycardia, D-dimer is negative. -Received 1 L ns bolus, will maintain on NS at 100/h, start IV Lopressor prn cc: Isidro Barton MD; Meg Sexton MD ([place]) Dictated by: Isidro Barton MD on 04/27/24117 Entered by: Isidro Barton MD on 04/27/24117 Report Signed by: Isidro Barton MD on 04/27/24 0244 <<Signature on File>> <Electronically signed by Isidro Barton MD> Report Signed by: on [facility] Work Phone: 1([phone]) 516-506606-14-2024 [facility] Medical Records Patient: CINDY STACY. : 1990 [place], [place] [address] Location: [phone] Unit #: [id number] History and Physical Isidro Barton MD Date of Entry Into Hospital: 04/27/24 Date of Service: 04/27/24 Time Seen: 01:30 Patient Information: Primary Care Provider: Meg Sexton MD (OTT) Chief Complaint: Encephalopathy History Obtained From: Patient History of Present Illness: 33-year-old female with history of MRDD presenting with worsening altered mental status, episodes of agitation which has been progressively going on and getting worse. Per documentation, this is not pt's baseline, and will typically have this prior to and after a seizure episode. No slurred speech, significant weakness on one side, chest pain, palpitation, sob, nausea, vomiting, abdominal pain, change in urinary or bowel habits. Pt was noted to be significantly tachycardic in the ER with heart rate in the 150s. CT head is negative for any acute intracranial pathology, received IV fluid 1 L bolus, IV Ativan 1 mg x 2. Patient Registration Status: Inpatient Allergies/Adverse Reactions No Known Drug Allergies Allergy (Verified 04/26/24 23:57) Home Medications acetaminophen 325 mg tablet 650 mg PO Q8HPRN PRN Pain 04/26/24 [Confirmed 04/26/24] medroxyprogesterone 150 mg/mL intramuscular syringe 150 mg IM Q3M 04/26/24 [Confirmed 04/26/24] melatonin 3 mg tablet 6 mg PO QHS 04/26/24 [Confirmed 04/26/24] polymyxin B sulfate 10,000 unit-trimethoprim 1 mg/mL eye drops 1 drop EYE,BOTH QID 04/26/24 [Confirmed 04/26/24] quetiapine 25 mg tablet 12.5 mg PO BID 04/26/24 [Confirmed 04/26/24] Past Medical History Medical History (Updated 04/27/24 @ 02:43 by Isidro Barton MD) Delay of cognitive development Dysphagia HTN (hypertension) Seizure Depression Failure to thrive in adult Past Surgical History Surgical History (Updated 04/27/24 @ 02:39 by Isidro Barton MD) No pertinent past surgical history Social History Caffeine Amount: 3-4/Day Current Alcohol Amount: None Smoking Status: Never smoked Family History (Updated 04/27/24 @ 02:40 by Isidro Barton MD) Denies family history of No pertinent family history Review of Systems Constitutional: Negative Eyes: Negative ENT: Negative Respiratory: Negative Cardiovascular: Negative Gastrointestinal: Negative Genitourinary: Negative Musculoskeletal: Negative Skin: Negative Neurological: Confusion Physical Exam Last Vital Signs Temp Pulse Resp BP Pulse Ox 98 F 131 H 18 170/115 H 98 04/26/24 21:32 04/26/24 21:32 04/26/24 21:32 04/26/24 21:54 04/26/24 21:32 Height (Ft AND In) 5 ft 4 in Admitting (IV Pump) Weight 64 kg Actual Weight (Kg) 64 kg General Appearance: Acute Distress and Other (Episodes of agitation) Eyes: PERRLA and EOMI ENT: Normal Inspection and Pharynx Normal Neck: Normal Inspection Skin: Color Normal and Warm, Dry Cardiovascular: Regular Rate and Rhythm, Rate Controlled, Normal PMI and S1 S2 Left Lung: Throughout: Clear, Left Lower Lobe: Clear and Left Base: Clear Right Lung: Throughout: Clear, Right Middle Lobe: Clear and Right Base: Clear Lungs: Good Air Entry Abdomen: Soft, Bowel Sounds and BM Extremities: Activity as expected Neurologic: Other (Patient appears altered with episodes of agitation.) Psychological: Agitated and Confused Laboratory Last Values WBC 7.6 th/cmm (4.4-10.5) 04/26/24 22:03 Diagnostic Data: 04/26/24 21:47 CT Abd/Pelvis W/Contrast 32753 Stat XR Chest 1 View Portable Stat 04/26/24 21:49 CT Head Without Contrast 81582 Stat Assessment/Plan (1) Encephalopathy: Status: Acute Plan: -Acute metabolic encephalopathy of unclear etiology in a pt with history of MRDD -Appears not to be her baseline, no focal neurological deficit, UA negative -Prolactin significantly elevated, CT head negative for any acute intracranial pathology -Will plan for MRI of the brain in the morning, IM ziprasidone prn for agitation, sitter, neurology consult (2) Sinus tachycardia: Status: Acute Plan: -Sinus tachycardia with heart rate in the 140s to 150s -EKG showed sinus tachycardia, D-dimer is negative. -Received 1 L ns bolus, will maintain on NS at 100/h, start IV Lopressor prn cc: Isidro Barton MD; Meg Sexton MD ([place]) Dictated by: Isidro Barton MD on 04/27/24117 Entered by: Isidro Barton MD on 04/27/24 0118 Report Signed by: Isidro Barton MD on 04/27/24 0244 < > Report Signed by: [facility]02-13-2024 NotePROCEDURE: XR CHEST PORTABLE CLINICAL INFORMATION: Fever TECHNIQUE: Mobile AP chest radiograph. COMPARISON: Mobile AP chest radiograph 12/26/2023 FINDINGS: The submitted projection is lordotic and the patient's chin overlies the upper thorax. Cardiac silhouette is within normal limits. There are calcified hilar lymph nodes. There is no lungconsolidations. Soft tissues and osseous structures are unremarkable. IMPRESSION: No acute intrathoracic process. This report has been created using voice recognition software. It may contain minor errors which are inherent in voice recognition technology. Final report electronically signed by Dr. Srinath Fritz on 12/27/2023 4:36 PM Interpreted by: Srinath Fritz MD Signed by: Srinath Fritz MD 12/27/23 [facility] NotePROCEDURE: CT HEAD WO CONTRAST CLINICAL INFORMATION: trauma, neglect. The patient would not cooperate with the examination. She kept moving. COMPARISON: No prior study. TECHNIQUE: Noncontrast 5 mm axial images were obtained through the brain. Sagittal and coronal reconstructions were obtained. . All CT scans at this facility use dose modulation, iterative reconstruction, and/or weight-based dosing when appropriate to reduce radiation dose to as low as reasonably achievable. FINDINGS: The anterior most aspect of the brain is excluded from the [id number]-mn-pelz. A small portion of the anterior frontal lobes is absent. There is no hemorrhage. There are no intra-or extra-axial collections. There is no hydrocephalus, midline shift or mass effect. The marin-white matter differentiation is preserved. The brain volume isnormal. The paranasal sinuses and mastoid air cells are normally aerated. There is no suspicious calvarial abnormality. IMPRESSION: Normal CT appearance the imaged portions of the brain. Please note the most anterior aspect of the frontal lobes is excluded from the [id number]-rl-sivc. The patient was unable to cooperate with the exam. This report has been created using voice recognition software. It may contain minor errors which are inherent in voice recognition technology. Final report electronically signed by Dr. Michelle Ardon on 12/26/2023 1:24 PM Interpreted by: Michelle Ardon MD Isibor, [place], MD Signed by: Michelle Ardon MD 12/26/23 [facility] NotePROCEDURE: CT CHEST W CONTRAST, CT THORACIC RECONSTRUCTION WO POST PROCESS CLINICAL INFORMATION: neglect, trauma COMPARISON: No prior study. TECHNIQUE: 1. Helical CT acquisition of the chest was performed with administration of intravenous contrast. Multiplanar reformats are provided. 2. Reconstructed CT images of the thoracic spine from the CT chest examination. Multiplanar reformats are provided. All CT scans at this facility use dose modulation, iterative reconstruction, and/or weight based dosing when appropriate to reduce the radiation dose to as low as reasonably achievable. CONTRAST: 80 mL of Isovue-370 FINDINGS: CT CHEST: Calcified granulomas are seen in the left upper lobe No focal pulmonary consolidation. No large pulmonary mass. Central airway is patent. No pleural effusions. No significant pericardial effusion. Mild pneumomediastinum. The heart is not enlarged. Ascending thoracic aorta is not dilated. The main pulmonary artery is not dilated. No significantly enlarged mediastinal or axillary lymph node. The thyroid is not enlarged. No chest wall mass. Limited evaluation below the diaphragm is unremarkable. Bones: No aggressive bony lesion. THORACIC SPINE: ALIGNMENT: The thoracic kyphosis is maintained FRACTURE: None DISC LEVEL: 1. The lack of intrathecal contrast limits the evaluation for spinal stenosis or foraminal stenosis No significant central canal narrowing. No significant neural minor narrowing. IMPRESSION: 1. Mild pneumomediastinum is noted. 2. No acute fracture of the thoracic spine. This report has been created using voice recognition software. It may contain minor errors which are inherent in voice recognition technology. Final report electronically signed by Dr Ct Castaneda on 12/26/2023 1:07 PM Interpreted by: Ct Castaneda MD Signed by: Ct Castaneda MD 12/26/23 Final result[facility]24 NotePROCEDURE: CT CHEST W CONTRAST, CT THORACIC RECONSTRUCTION WO POST PROCESS CLINICAL INFORMATION: neglect, trauma COMPARISON: No prior study. TECHNIQUE: 1. Helical CT acquisition of the chest was performed with administration of intravenous contrast. Multiplanar reformats are provided. 2. Reconstructed CT images of the thoracic spine from the CT chest examination. Multiplanar reformats are provided. All CT scans at this facility use dose modulation, iterative reconstruction, and/or weight based dosing when appropriate to reduce the radiation dose to as low as reasonably achievable. CONTRAST: 80 mL of Isovue-370 FINDINGS: CT CHEST: Calcified granulomas are seen in the left upper lobe No focal pulmonary consolidation. No large pulmonary mass. Central airway is patent. No pleural effusions. No significant pericardial effusion. Mild pneumomediastinum. The heart is not enlarged. Ascending thoracic aorta is not dilated. The main pulmonary artery is not dilated. No significantly enlarged mediastinal or axillary lymph node. The thyroid is not enlarged. No chest wall mass. Limited evaluation below the diaphragm is unremarkable. Bones: No aggressive bony lesion. THORACIC SPINE: ALIGNMENT: The thoracic kyphosis is maintained FRACTURE: None DISC LEVEL: 1. The lack of intrathecal contrast limits the evaluation for spinal stenosis or foraminal stenosis No significant central canal narrowing. No significant neural minor narrowing. IMPRESSION: 1. Mild pneumomediastinum is noted. 2. No acute fracture of the thoracic spine. This report has been created using voice recognition software. It may contain minor errors which are inherent in voice recognition technology. Final report electronically signed by Dr Ct Castaneda on 12/26/2023 1:07 PM Interpreted by: Ct Castaneda MD Signed by: Ct Castaneda MD 12/26/23 Final result[facility]02[facility]24 NotePROCEDURE: CT CERVICAL SPINE WO CONTRAST CLINICAL INFORMATION: neglect, trauma COMPARISON: No prior study. TECHNIQUE: 3 mm axial imaging through the cervical spine without contrast. Sagittal and coronal reconstructions were performed. All CT scans at this facility use dose modulation, iterative reconstruction, and/or weight based dosing when appropriate to reduce the radiation dose to as low as reasonably achievable. FINDINGS: ALIGNMENT: Straightening of the cervical lordosis. BONES: Bone mineralization is unremarkable. No vertebral body height loss. No aggressive osseous lesions. SOFT TISSUES: Unremarkable OTHER: None. DISC LEVELS: The lack of intrathecal contrast limits the evaluation for spinal stenosis or foraminal stenosis C2-C3: No significant central canal narrowing. No significant neuroforamina narrowing. C3-C4: No significant central canal narrowing. No significant neuroforamina narrowing. C4-C5: No significant central canal narrowing. No significant neuroforamina narrowing. C5-C6: No significant central canal narrowing. No significant neuroforamina narrowing. C6-C7: No significant central canal narrowing. No significant neuroforamina narrowing. C7-T1: No significant central canal narrowing. No significant neuroforamina narrowing. IMPRESSION: 1. No acute fracture of the cervical spine. This report has been created using voice recognition software. It may contain minor errors which are inherent in voice recognition technology. Final report electronically signed by Dr Ct Castaneda on 12/26/2023 12:58 PM Interpreted by: Ct Castaneda MD Signed by: Ct Castaneda MD 12/26/23 Final [facility]SW[facility]24 NotePROCEDURE: CT ABDOMEN PELVIS W IV CONTRAST, CT LUMBAR RECONSTRUCTION WO POST PROCESS CLINICAL INFORMATION: neglect, trauma, weight loss. COMPARISON: None TECHNIQUE: 1. Helical CT acquisition of the abdomen and pelvis was performed with administration of intravenous contrast. Multiplanar reformats are provided. 2. Reconstructed CT images through the lumbar spine from the CT abdomen and pelvis. Multiplanar reformats are provided. All CT scans at this facility use dose modulation, iterative reconstruction, and/or weight based dosing when appropriate to reduce the radiation dose to as low as reasonably achievable. CONTRAST: 80 mL of Isovue-370 FINDINGS: CT ABDOMEN AND PELVIS: No significant lower thoracic findings. The liver, gallbladder, biliary tree, pancreas, adrenal glands, spleen, and kidneys are unremarkable. No bowel obstruction or acute inflammatory bowel process. The appendix is unremarkable. The abdominal aorta is not aneurysmal. No significantly enlarged lymph nodes are seen. The bladder is grossly unremarkable. The uterus is unremarkable. Bones: No aggressive bony lesion is noted. CT LUMBAR SPINE: ALIGNMENT: The lumbar lordosis is maintained. FRACTURE: None DISC SPACES: The lack of intrathecal contrast limits the evaluation of the spinal canal. No significant central canal narrowing. No significant neural foraminal narrowing. IMPRESSION: 1. No acute bowel obstruction or acute inflammatory bowel process 2. No fracture of the lumbar spine. This report has been created using voice recognition software. It may contain minor errors which are inherent in voice recognition technology. Final report electronically signed by Dr Ct Castaneda on 12/26/2023 12:50 PM Interpreted by: Ct Castaneda MD Signed by: Ct Castaneda MD 12/26/23 Final result[facility]02[facility]24 NotePROCEDURE: CT ABDOMEN PELVIS W IV CONTRAST, CT LUMBAR RECONSTRUCTION WO POST PROCESS CLINICAL INFORMATION: neglect, trauma, weight loss. COMPARISON: None TECHNIQUE: 1. Helical CT acquisition of the abdomen and pelvis was performed with administration of intravenous contrast. Multiplanar reformats are provided. 2. Reconstructed CT images through the lumbar spine from the CT abdomen and pelvis. Multiplanar reformats are provided. All CT scans at this facility use dose modulation, iterative reconstruction, and/or weight based dosing when appropriate to reduce the radiation dose to as low as reasonably achievable. CONTRAST: 80 mL of Isovue-370 FINDINGS: CT ABDOMEN AND PELVIS: No significant lower thoracic findings. The liver, gallbladder, biliary tree, pancreas, adrenal glands, spleen, and kidneys are unremarkable. No bowel obstruction or acute inflammatory bowel process. The appendix is unremarkable. The abdominal aorta is not aneurysmal. No significantly enlarged lymph nodes are seen. The bladder is grossly unremarkable. The uterus is unremarkable. Bones: No aggressive bony lesion is noted. CT LUMBAR SPINE: ALIGNMENT: The lumbar lordosis is maintained. FRACTURE: None DISC SPACES: The lack of intrathecal contrast limits the evaluation of the spinal canal. No significant central canal narrowing. No significant neural foraminal narrowing. IMPRESSION: 1. No acute bowel obstruction or acute inflammatory bowel process 2. No fracture of the lumbar spine. This report has been created using voice recognition software. It may contain minor errors which are inherent in voice recognition technology. Final report electronically signed by Dr Ct Castaneda on 12/26/2023 12:50 PM Interpreted by: Ct Castaneda MD Signed by: Ct Castaneda MD 12/26/23 Final result[facility]02-[facility]24 NotePROCEDURE: XR CHEST PORTABLE CLINICAL INFORMATION: weight loss. COMPARISON: Chest x-ray 01/09/2015. TECHNIQUE: AP upright view of the chest. FINDINGS: The patient is rotated. The heart size is normal.The mediastinum is not widened. There are no pulmonary infiltrates or effusions. The pulmonary vascularity is normal.No suspicious osseous lesions are present. Compared to the prior examination, there has been significant loss of soft tissue. IMPRESSION: No evidence of an acute cardiopulmonary process. Significant loss of soft tissue compared to the prior x-ray. This report has been created using voice recognition software. It may contain minor errors which are inherent in voice recognition technology. Final report electronically signed by Dr. Michelle Ardon on 12/26/2023 11:13 AM Interpreted by: Michelle Ardon MD Signed by: Michelle Ardon MD 12/26/23 Final [facility]01[facility]2024 Instructions Includes: Instructions for all patient encounters Education and Decision Aids were provided during visit for: Discussed nutritional needs teach healthy choices including fruits and vegetables Last Documented On 4 12:39PM ; [facility] Patient education about a pr oper diet Last Documented On 4 12:39PM ; [facility] Patient education about adve rse reactions to medication Last Documented On 4 12:40PM ; [facility] Discussed concerns about exe rcise : promote physical activity Last Documented On 4 12:39PM ; [facility] introduced self to sai nt and the two women with her from [facility], and her father who sat in the lobby, explained role of [facility], and briefly talked about problem behaviors and coping strategies. ~ ~[facility] offered emotional support, explored thoughts, feelings, behaviors, utilized motivational interviewing to encourage self-care and ongoing progress, and mindfulness practice to boost healthy [id number]-[id number] connections Last Documented On 4 4:56PM ; [facility] Reviewed side effects and Ri sks/Benefits analysis Last Documented On 4 12:40PM ; [facility] Discussed nutritional needs teach healthy choices including fruits and vegetables Last Documented On 4 12:21PM ; [facility] Patient education about a pr oper diet Last Documented On 4 12:21PM ; [facility] Discussed concerns about exe rcise : promote physical activity Last Documented On 4 12:21PM ; [facility] Work Phone: 1(561) 990-981101-25-2024 Instructions Includes: Instructions for all patient encounters Education and Decision Aids were provided during visit for: Discussed nutritional needs teach healthy choices including fruits and vegetables Last Documented On 4 12:39PM ; [facility] Patient education about a pr oper diet Last Documented On 4 12:39PM ; [facility] Patient education about adve rse reactions to medication Last Documented On 4 12:40PM ; [facility] Discussed concerns about exe rcise : promote physical activity Last Documented On 4 12:39PM ; [facility] introduced self to sai nt and the two women with her from [facility], and her father who sat in the lobby, explained role of [facility], and briefly talked about problem behaviors and coping strategies. ~ ~[facility] offered emotional support, explored thoughts, feelings, behaviors, utilized motivational interviewing to encourage self-care and ongoing progress, and mindfulness practice to boost healthy ufex-bxup-dwvaor connections Last Documented On 4 4:56PM ; [facility] Reviewed side effects and Ri sks/Benefits analysis Last Documented On 4 12:40PM ; [facility] Discussed nutritional needs teach healthy choices including fruits and vegetables Last Documented On 4 12:21PM ; [facility] Patient education about a pr oper diet Last Documented On 4 12:21PM ; [facility] Discussed concerns about exe rcise : promote physical activity Last Documented On 4 12:21PM ; [facility] Work Phone: 1(307) 694-539001-25-2024 Evaluation note Includes: Assessments for all patient encounters Findings Encounter Date Generalized anxiety disorder Established Edie ent with Bertha TREJO 12/08/2023 Last Documented On 4 5:57PM ; [facility] 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 Established Patient with Bertha Szymanskiler [facility] [employer] 12/08/2023 Last Documented On 4 5:57PM ; [facility] Pervasive developmental disorder BH Esta blished Patient with Bertha Lind [employer] [employer] 12/08/2023 Last Documented On 4 5:57PM ; [facility] [Z68.1 - Body mass index [BM I] 19.9 or less, adult] assessment of body mass index Open Access - Established with Shivani Penix [employer] 12/08/2023 Last Documented On 4 1:24PM ; [facility] Diabetes Risk Test Score was 0 score 12/08/2023 Open Access - Established with Shivani Penix [employer] 12/08/2023 Last Documented On 4 1:24PM ; [facility] Routine adult history and ph ysical (18 - 64 yrs) Open Access - Established with Shivani Penix [employer] 12/08/2023 Last Documented On 4 1:24PM ; [facility] Routine adult history and ph ysical (18-64 yrs) with abnormal findings Open Access - Established with Shivani Penix [employer] 12/08/2023 Last Documented On 4 1:24PM ; [facility] Work Phone: 1(454) 101-736501-25-2024 Evaluation note Includes: Assessments for all patient encounters Findings Encounter Date Generalized anxiety disorder Established Edie ent with Bertha Szymanskiler [facility] [employer] 12/08/2023 Last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 Speech: - Is Abnormal. Gait And Stance: - Normal. Psychiatric: - Mood was anxious. - Mood was concerned. - Mood was depressed. - Mood was fearful. - Mood was frustrated. - Mood was unhappy. - Attitude Guarded. Appearance: - Unkempt. Demonstrated Behavior: - Motor Activity Decreased Activity. - Eye Contact Decreased. Affect: - Sad. - Showed irritability. - Anxious. - Depressed. - Congruent with the mood. Thought Processes: - Impaired. Thought Content: - Revealed impairment. - Impaired insight. - No delusions. - No suicidal ideation. - No Passive thoughts of . - No suicidal plans. - No suicidal intent. - No homicidal ideations. - No homicidal plans. - No homicidal intent. Past Medical: - Repetitive self injurious behavior. Tests Laboratory-based Chemistry: Other Laboratory Tests: Screening for sexually transmitted infections was not performed. 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 - Collaborated with patient and provider: Counseling/Education - Patient education about adverse reactions to medication - Reviewed side effects and Risks/Benefits analysis Discussed pt's desire to go home but readiness to care for self and complete ADLs. Discussed and encouraged healthy lifestyle behaviors. Provided supportive listening, empathy, and validation of feelings. Reviewed progress with mood sxs/management. Patient education regarding connection between physical and mental health. Stress management, coping skills, and support discussed. Teach back method used to reinforce medication management. Plan BH at next appointment. Take medications as prescribed. Follow discharge instructions. Health Reminders - Assess Tobacco Use satisfied 12/26/2023. User Defined 1 Not planning a in the next year. [facility] N[facility]ative - Reported Review of Systems not supported for this document type No Review of Systems [facility] Work Phone: Advance Directives No Advanced Directives Records FoundDocuments on File Type Date Recorded Patient [employer] Expl anation ACP-Advance Directive ACP-Power of Balance Engineer Advance Directive Response Recorded Date/ Time [facility] DNR Comfort Care Unknown J une 2023 12:43am [facility] DNR Comfort Care Arrest Unknown April 27, 2024 12:43am Living Will Unknown April 27, 2024 12:43am Durable Power of Balance Engineer for Health Care Unknow n April 27, 2024 12:43am Advance Directive Response Recorded Date/ Time [facility] DNR Comfort Care Unknown J une 2023 8:31am [facility] DNR Comfort Care Arrest Unknown May 01, 2024 8:31am Living Will Unknown May 01, 2024 8:31am Durable Power of Balance Engineer for Health Care Unknow n May 01, 2024 8:31am Family History No Family History Records Found Description Last Updated Father is alive 12/08/2023 Last Documented On 4 5:57PM ; [facility] Description Last Updated Father is alive 12/08/2023 Last Documented On 4 5:57PM ; [facility] Description Last Updated Father is alive 12/08/2023 Last Documented On 4 5:57PM ; [facility] Description Last Updated Father is alive 12/08/2023 Last Documented On 4 5:57PM ; [facility] Physical Exam Physical Exam not supported for this document type No Physical Exam Recorded Physical Exam not supported for this document type No Physical Exam Recorded Physical Exam not supported for this document type No Physical Exam Recorded Physical Exam not supported for this document type No Physical Exam Recorded Summary Purpose Chief Complaint and Reason for Visit Chief Complaint Encephalopathy Reason for Visit Encephalopathy Chief Complaint Encephalopathy Reason for Visit Developmental delay Encephalopathy Sinus tachycardia Chief Complaint Encephalopathy Reason for Visit Developmental delay Encephalopathy Additional Source Comments Reason for Visit (unrecogniz ed section and content) Reason Comments [facility] Reason Comments Aggressive Behavior Reason Comments Mental Health Problem Reason Comments Probate Scheduled Active and Recently Administ ered Medications (unrecognized section and content) Medication Order 10/29/2023 10/30/2023 10/31/2023 ketorolac (TORADOL) injection 30 mg (COMPLETED) 30 mg, IntraMUSCular, ONCE, 1 dose, On 10/30/23 at 1745, Do not administer for more than 5 days. 1804 (Given - Provider: Jenna Bhakta RN) Scheduled Medication Order 10/31/2023 11/01/2023 11/02/2023 LORazepam (ATIVAN) injection 1 mg (COMPLETED) 1 mg, IntraMUSCular, ONCE, 1 dose, On Tue11/01/23 at 1715, Immediately prior to intravenous use, lorazepam Injection must be diluted with at least an equal volume of compatible solution (NS or D5W). 1657 (Given - Provider: Fernandez Whiting RN) INFORMATION SOURCE (unrecogn ized section and content) DATE CREATED AUTHOR 01/29/2024 [facility] DATE CREATED AUTHOR AUTHOR'S ORGANIZ ATION 05/19/2024 [facility] Care Teams (unrecognized sec tion and content) Team Status: Active Member Role Status Dates Meg Sexton MD (OTT) Primary Care Provider Activ e Team Status: Inactive Member Role Status Dates Db Newell DO Emergency Provider Active St art: April 27, 2024 End: May 01, 2024 Meg Sexton MD (OTT) Primary Care Provider Activ e Start: April 27, 2024 End: May 01, 2024 Isidro Barton MD Admit Provider Active Star t: April 27, 2024 End: May 01, 2024 Specialist Neuro TeleMedicminoo sherman MD Other Provider Active Start: April 27 End: May 01, 2024 Rayo Goode MD Other Provider Active Sta rt: April 27, 2024 End: May 01, 2024 Julieta Lee MD Attending Provider Active St art: April 27, 2024 End: May 01, 2024 Team Status: Active Member Role Status Dates Db Newell DO Emergency Provider Active St art: April 27, 2024 Meg Sexton MD (OTT) Primary Care Provider Activ e Start: April 27, 2024 Isidro Barton MD Admit Provider, At tending Provider Active Start: April 27, 2024 Goals (unrecognized section and content) Goals may be documented in a n alternate section FOR RECORDS PERTAINING TO PATIENTS WHO ARE OR HAVE BEEN ENROLLED IN A CHEMICAL DEPENDENCY/SUBSTANCEABUSE PROGRAM, SOME INFORMATION MAY BE OMITTED. This clinical summary was aggregated from multiple sources. Caution should be exercised in using it in the provision of clinical care. This summary normalizes information from multiple sources, and as a consequence, information in this document may materially change the coding, format and clinical context of patient data. In addition, data may be omitted in some cases. CLINICAL DECISIONS SHOULD BE BASED ON THE PRIMARY CLINICAL RECORDS. [facility]. provides no warranty or guarantee of the accuracy or completeness of information in this document.
[2025-05-02 07:31] LABS: Hematocrit 43.4 % (36.0-48.0); Hemoglobin 14.8 g/dL (12.0-16.0); Immature Granulocytes Abs Auto 0.02 10^3/uL (0.00-0.03); Immature Granulocytes Pct Auto 0.3 % (0.0-0.5); Lymphocytes Absolute Auto 1.5 10^3/uL (1.2-3.8); Lymphocytes Percent Auto 23.1 % (20.5-60.0); Mean Corpuscular HGB Conc 34.1 g/dL (29.9-35.2); Mean Corpuscular Hemoglobin 29.5 pg (26.7-34.0); Mean Corpuscular Volume 86.5 fL (81.0-99.0); Mean Platelet Volume 10.2 fL (9.5-13.5); Monocytes Absolute Auto 0.4 10^3/uL (0.3-0.8); Monocytes Percent Auto 6.3 % (1.7-12.0); Neutrophils Absolute Auto 4.5 10^3/uL (1.4-6.5); Neutrophils Percent Auto 70.3 % (43.0-75.0); Platelet Count 368 10^3/uL (150-450); Red Blood Count 5.02 10^6/uL (4.20-5.40); Red Cell Distribution Width 13.1 % (11.0-15.0); White Blood Count 6.4 10^3/uL (4.0-11.0)
[2025-05-02 08:36] LABS: Alanine Aminotransferase 26 U/L (14-59); Albumin Globulin Ratio 0.8; Albumin Level 3.5 g/dL (3.4-5.0); Alkaline Phosphatase 75 U/L (46-116); Anion Gap 15.8; Aspartate Amino Transferase 18 U/L (15-37); BUN Creatinine Ratio 23.3; Bilirubin Total 0.5 mg/dL (0.2-1.0); Calcium 8.4 mg/dL (8.5-10.1); Carbon Dioxide 23.5 mmol/L (21.0-32.0); Chloride 106 mmol/L (98-107); Estimated GFR (African America >60 (>=60 mL/min/1.73m^2); Estimated GFR (Non-African Ame >60 (>=60 mL/min/1.73m^2); Globulin 4.4 g/dL; Glucose 90 mg/dL (74-106); Potassium 3.3 mmol/L (3.5-5.1); Sodium 142 mmol/L (136-145); Thyroid Stimulating Hormone 2.194 uIU/mL (0.358-3.740); Total Protein 7.9 g/dL (6.4-8.2)
[2025-05-03 04:07] LABS: Vitamin B12 521 pg/mL (232-1245)
== END 2025-05-02 06:56 | disposition home or self-care (01) ==
LOC: LAB 06:56
PROVIDERS: PCP Family Medicine; Visit Provider Family Medicine
DX: F41.9 Anxiety disorder, unspecified (principal); I10 Essential (primary) hypertension; F32.A Depression, unspecified; R56.9 Unspecified convulsions; Z79.899 Other long term (current) drug therapy
CPT/HCPCS: 36415; 80053; 82607; 84443; 85025

== ENCOUNTER 2025-06-14 17:01 | Emergency (ER) | payer OTHER, MEDICAID, SELFPAY ==
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
== END 2025-06-14 17:41 | disposition left against medical advice (07) ==
PROVIDERS: Emergency Provider Emergency Medicine; PCP Family Medicine
DX: Z53.21 Procedure and treatment not carried out due to patient leaving prior to being seen by health care provider (principal)

== ENCOUNTER 2025-06-21 08:02 | Outpatient (OUT) | payer OTHER, MEDICAID, SELFPAY ==
--- OUTSIDE RECORDS SUMMARY | 2024-06-20 09:10 | XMS_ITS ---
Author Organization [facility] Address [address] [place] [address] Care Team Providers Care Event Marketing Intern Name Role Phone Dr. Praveen Savage Primary Care Provider [phone] REASON FOR VISIT NEW PT EXAM Encounters Encounter Location Date Provider Diagnosis [facility] [address] [place] [address] 06/20/2024 Praveen Savage Plan Of Treatment No Information Progress Notes * REGISCINDYDOB: 2 (34 yo F)Acc No.[id number]:06/20/2024 Patient: CINDY ALATORRE Provider: Marely Savage DDS :1990 A ge:33 Y S ex:Female Date:06/20/2024 Address:[address] [place], [place] [phone] Subjective: * Chief Complaints: * 1 . NEW PT EXAM. * Medical History: Objective: * Vitals: Assessment: Plan: * Treatment: * Images: * Electronic signature of Dr. Praveen Savage , DMD on 06/21/2025 at 08:05 AM EDT Sign off status: Pending * Provider: Marely Savage DDS Date: 06/20/2024 Generated for Tawana singh/Suyapa/eTransmitting on: 06/21/2025 08:05 AM EDT
--- OUTSIDE RECORDS SUMMARY | 2024-07-24 06:30 | XMS_ITS ---
Author Organization [facility] Address [address] [place] [address] Care Team Providers Care Big Data Analytics Lead Name Role Phone Dr. 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 * Medical History: Objective: * Vitals: Assessment: Plan: * Treatment: * Images: * Electronic signature of Dr. Praveen Savage , DMD on 06/21/2025 at 08:06 AM EDT Sign off status: Pending * Provider: Marely Savage DDS Date: 07/24/2024 Generated for Tawana singh/Fasam/eTransmitting on: 06/21/2025 08:06 AM EDT
--- OUTSIDE RECORDS SUMMARY | 2024-08-29 06:00 | XMS_ITS ---
Author Organization [facility] Address [address] [place] [address] Care Team Providers Care Director Online Marketing Name Role Phone Dr. Praveen Savage Primary Care Provider [phone] REASON FOR VISIT new pt dental exam Encounters Encounter Location Date Provider Diagnosis [facility] [address] [place] [address] 08/29/2024 Praveen Savage Plan Of Treatment No Information Progress Notes * REGISCINDYDOB: 2 (34 yo F)Acc No.[id number]:08/29/2024 Patient: CINDY ALATORRE Provider: Marely Savage DDS :1990 A ge:34 Y S ex:Female Date:08/29/2024 Address:[address] [place], [place] [phone] Subjective: * Chief Complaints: * 1 . New pt dental exam. * Medical History: Objective: * Vitals: Assessment: Plan: * Treatment: * Images: * Electronic signature of Dr. Praveen Savage , DMD on 06/21/2025 at 08:05 AM EDT Sign off status: Pending * Provider: Mraely Savage DDS Date: 1 Generated for Tawana singh/Suyapa/eTransmitting on: 0 06/21/2025 08:05 AM EDT
--- OUTSIDE RECORDS SUMMARY | 2025-06-10 10:00 | XMS_ITS | Encounter Summary ---
Author Organization [facility] Address [address] [place] [address] Care Team Providers Care Director Oncology Name Role Phone Dl Coker MD Primary Care Provider + [phone] Reason for Visit * Reason Comments Toenail Care Non dm nail care Encounter Details Date Type Department Care Team (Late st Contact Info) Description 06/10/2025 10:00 AM EDT Office Visit [facility] [address] [place] [address] Americo Olson, EMA FACFAS [address] [place] [address] Tinea pedis of both feet (Primary Dx); Onychomycosis; Pain in right toe(s); Pain in left toe(s); Xerosis cutis Social History Tobacco Use Types Packs/Day Years Used Date Smoking Tobacco: Never Smokeless Tobacco: Never Tobacco Cessation:Counseling Given: Not Answered Comments Unknown Sex and Gender Information Value Date Recorded Sex Assigned at Not on file Legal Sex Female 12:10 PM EDT Gender Identity Not on file Sexual Orientation Not on file documented as of this encounter Progress Notes * Americo Olson DPM FACFAS - 06/10/2025 10:00 AM EDT Images from the original note were not included. patient: Kahlil Lilly : 1990 PCP: Dl Coker MD SUBJECTIVE This is a 34 y.o. female that presents today with a chief complaint of painful elongated nails digits 1 through 10. They cause marked limitation in ambulation due to pain and pressure from shoe gear.Patient is mentally challenged and here today with her caregivers from the [facility] Allergies: No Known Allergies Past Medical History: Active Ambulatory Problems Diagnosis Date Noted No Active Ambulatory Problems Resolved Ambulatory Problems Diagnosis Date Noted No Resolved Ambulatory Problems Past Medical History: Diagnosis Date Hypertension Medications: Current Outpatient Medications: dilTIAZem (Cardizem) 60 MG immediate release tablet, TAKE ONE TABLET BY MOUTH THREE TIMES A DAY CARDIZEM, Disp: , Rfl: escitalopram (Lexapro) 10 MG tablet, TAKE ONE TABLET BY MOUTH DAILY IN THE MORNING WITH 20MG LEXAPRO, Disp: , Rfl: medroxyPROGESTERone (Depo-Provera) 150 MG/ML suspension prefilled syringe injection syringe, [id number] INTRAMUSCULARLY EVERY 84 DAYS (HYPERSEXUAL BEHAVIORS), Disp: , Rfl: melatonin 3 MG tablet, TAKE TWO TABLETS BY MOUTH DAILY AT BEDTIME, Disp: , Rfl: potassium chloride CR (Klor-Con) 10 MEQ ER tablet, Take 10 mEq by mouth Daily, Disp: , Rfl: QUEtiapine (SEROquel) 100 MG tablet, TAKE ONE TABLET BY MOUTH TWICE A DAY SEROQUEL, Disp: , Rfl: Review of systems: Constitutional: Denies fever, chills, nausea, vomiting GI: Denies abdominal pain, cramping, loose stool, gastric ulcers Musculoskeletal: Denies low back pain, knee pain, systemic arthritis Neurologic: Denies burning, tingling, transient paralysis OBJECTIVE Physical Examination: DERM: Positive hair growth to b/l feet with good skin turgor noted. Negative openings in skin. No macerations noted interdigitally. Web spaces were clean and dry. No ulcerations were noted. No erythema noted Nails 1 through 10 were thickened elongated yellow and crumbly with subungual debris. They were painful to palpation 811[address] on the right [id number] on the left. Significant dry scaly skin noted bilaterally VASC: DP /PT were nonpalpable bilateral. Capillary refill time < 3 seconds Digits 1-5 bilateral NEURO: [place] Dl 5.07 monofilament was intact B/L. Vibratory sensation was intact B/L Musculoskeletal: Muscle strength was +5 over 5 all intrinsic and extrinsic muscles tested. ASSESSMENT 1. Onychomycosis 2. Pain in right toe(s) 3. Pain in left toe(s) 4. Xerosis cutis PLAN The patient was educated on proper foot care as well as the etiology of onychomycosis. I educated the patient on proper shoe gear as well. Today the nails were debrided both in length and thickness 1through 10. Recommended topical emollient be applied daily. Discussed possible tinea pedis recommended they spray her shoes with Lysol regularly EMA Uriarte documented in this encounter Plan of Treatment Upcoming Encounters Date Type Department Care Team (Late st Contact Info) Description 08/26/2025 10:20 AM EDT Procedure Visit [facility] [address] [place] [address] Americo Olson DPM FACFAS [address] [place] [address] documented as of this encounter Visit Diagnoses Diagnosis Tinea pedis of both feet- Primary Onychomycosis Dermatophytosis of nail Pain in right toe(s) Pain in left toe(s) Xerosis cutis Other specified disease of sebaceous glands documented in this encounter Care Teams Director Oncology Relationship Specialty Start Date End Date Dl Coker MD [address] [place] [address] PCP - General Family Medicine 06/10/25 documented as of this encounter
--- OUTSIDE RECORDS SUMMARY | 2025-06-21 08:04 | XMS_ITS | Encounter Summary ---
Author Organization [facility] Address [address] [place] [address] Care Team Providers Care Cargo Handler Name Role Phone Dl Coker MD Primary Care Provider + [phone] Reason for Visit * Reason Onset Date Comments Clarification 06/11/2025 Encounter Details Date Type Department Care Team (Late st Contact Info) Description 06/11/2025 Telephone [facility] [address] [place] [address] Americo Olson DPM FACFAS [address] [place] [address] Clarification Social History Tobacco Use Types Packs/Day Years Used Date Smoking Tobacco: Never Smokeless Tobacco: Never Comments Unknown Sex and Gender Information Value Date Recorded Sex Assigned at Not on file Legal Sex Female 12:10 PM EDT Gender Identity Not on file Sexual Orientation Not on file documented as of this encounter Miscellaneous Notes * Telephone Encounter - Tiffany Bennett - 06/12/2025 9:02 AM EDT Called and spoke with Mary, notified of clarifications. Thank you * Telephone Encounter - EMA Uriarte - 06/11/2025 9:43 PM EDT Do it for 2 weeks and they can use regular lotion. [employer] daily for 2 weeks * Telephone Encounter - Tiffany Bennett - 06/11/2025 2:22 PM EDT Recommended topical emollient be applied daily. Discussed possible tinea pedis recommended they spray her shoes with Lysol regularly Viktoria from [facility] called - they need clarification on your recommendations. Can they just use regular lotion every night? How often do they spray her shoes? How long do they need to do this? Please advise documented in this encounter Plan of Treatment Upcoming Encounters Date Type Department Care Team (Late st Contact Info) Description 08/26/2025 10:20 AM EDT Procedure Visit [facility] [address] [place] [address] Americo Olson, DPM FACFAS [address] [facility] [place] [address] documented as of this encounter Visit Diagnoses Not on filedocumented in this encounter Care Teams Cargo Handler Relationship Specialty Start Date End Date Dl Coker MD [address] [place] [address] PCP - General Family Medicine 06/10/25 documented as of this encounter
--- OUTSIDE RECORDS SUMMARY | 2025-06-21 08:04 | XMS_ITS | Patient Health Record ---
Author Organization [facility] Address [address] [address] Care Team Providers Care Visual Aid Expert Name Role Phone Dr. Praveen Savage Primary Care Provider Reason For Referral No Information Plan Of Treatment No Information
--- OUTSIDE RECORDS SUMMARY | 2025-06-21 08:05 | XMS_ITS | Encounter Summary ---
Author Organization [facility] Address [address] [place] [address] Care Team Providers Care Area Captain Name Role Phone Dl Coker MD Primary Care Provider + [phone] Encounter Details Date Type Department Care Team (Late Contact Info) Description 06/10/2025 Bamboo flowsheet [facility] [address] [place] [address] Americo Olson, DPM FACFAS [address] [place] [address] Social History Tobacco Use Types Packs/Day Years Used Date Smoking Tobacco: Never Smokeless Tobacco: Never Comments Unknown Sex and Gender Information Value Date Recorded Sex Assigned at Not on file Legal Sex Female 12:10 PM EDT Gender Identity Not on file Sexual Orientation Not on file documented as of this encounter Plan of Treatment Upcoming Encounters Date Type Department Care Team (Late st Contact Info) Description 08/26/2025 10:20 AM EDT Procedure Visit [facility] [address] [place] [address] Americo Olson, DPM FACFAS [address] [place] [address] documented as of this encounter Visit Diagnoses Not on filedocumented in this encounter Care Teams Area Captain Relationship Specialty Start Date End Date Dl Coker MD [facility] [address] [place] [address] PCP - General Family Medicine 06/10/25 documented as of this encounter
--- OUTSIDE RECORDS SUMMARY | 2025-06-21 08:06 | XMS_ITS | Encounter Summary ---
Author Organization [facility] Address [address] [place] [address] Care Team Providers Care Methods Specialist Engineer Name Role Phone Dl Coker MD Primary Care Provider + [phone] Encounter Details Date Type Department Care Team (Late Contact Info) Description 05/16/2025 Abstract [facility] [address] [place] [address] Americo Olson, DPM FACFAS [address] [place] [address] Social History Tobacco Use Types Packs/Day Years Used Date Smoking Tobacco: Never Assessed Comments Unknown Sex and Gender Information Value Date Recorded Sex Assigned at Not on file Legal Sex Female 12:10 PM EDT Gender Identity Not on file Sexual Orientation Not on file documented as of this encounter Plan of Treatment Upcoming Encounters Date Type Department Care Team (Late st Contact Info) Description 08/26/2025 10:20 AM EDT Procedure Visit [facility] [address] [place] [address] Americo Olson, DPM FACFAS [address] [place] [address] documented as of this encounter Visit Diagnoses Not on filedocumented in this encounter Care Teams Methods Specialist Engineer Relationship Specialty Start Date End Date Dl Coker MD [facility] [employer] [address] [place], [place] [id number] PCP - General Family Medicine 06/10/25 documented as of this encounter
[2025-06-21 08:42] LABS: Anion Gap 15.7; Blood Urea Nitrogen 20.0 mg/dL (7.0-18.0); Calcium 8.7 mg/dL (8.5-10.1); Carbon Dioxide 23.5 mmol/L (21.0-32.0); Chloride 106 mmol/L (98-107); Estimated GFR (African America >60 (>=60 mL/min/1.73m^2); Estimated GFR (Non-African Ame >60 (>=60 mL/min/1.73m^2); Glucose 129 mg/dL (74-106); Potassium 3.2 mmol/L (3.5-5.1); Sodium 142 mmol/L (136-145)
== END 2025-06-21 08:03 | disposition home or self-care (01) ==
LOC: LAB 08:02
PROVIDERS: PCP Family Medicine; Visit Provider Family Medicine
DX: F72 Severe intellectual disabilities (principal); I10 Essential (primary) hypertension; F41.9 Anxiety disorder, unspecified; F32.A Depression, unspecified; T76.21XA Adult sexual abuse, suspected, initial encounter
CPT/HCPCS: 36415; 80048; 80074; 86704; 87340